=== PATIENT | female | born 1935 | race Caucasian/White ===

== ENCOUNTER 2017-10-05 13:53 | Inpatient (IN) | payer MEDICARE, BC ==
[~2017-10-05] VITALS: Ht 152.4 cm; Wt 53.1 kg
[2017-10-05] MEDS ORDERED: HALOPERIDOL LACT 5 MG/ML VIAL. IM ONE (14:30)
[2017-10-05] MEDS ORDERED: LOSA25TA4 PO (14:44)
[2017-10-05] MEDS ORDERED: GABA-586 PO (14:44)
[2017-10-05] MEDS ORDERED: DOCU100C28 PO (14:44)
[2017-10-05] MEDS ORDERED: MELO15TA23 PO (14:44)
[2017-10-05] MEDS ORDERED: CALC-157 PO (14:44)
[2017-10-05] MEDS ORDERED: ASPI-612 PO (14:44)
[2017-10-05] MEDS ORDERED: LOPE2CAP88 PO (14:44)
[2017-10-05] MEDS ORDERED: MULT1TAB52 PO (14:44)
[2017-10-05] MEDS ORDERED: AMLO10TA2 PO (14:44)
[2017-10-05] MEDS ORDERED: FLUT16SP21 NS (14:44)
[2017-10-05] MEDS ORDERED: OMEP20CA9 PO (14:44)
[2017-10-05] MEDS ORDERED: OMEG-33 PO (14:44)
[2017-10-05] MEDS ORDERED: SIMV20TA3 PO (14:44)
[2017-10-05] MEDS ORDERED: DONE10TA7 PO (14:44)
[2017-10-05] MEDS ORDERED: ONDA4TAB10 PO (14:44)
[2017-10-05] MEDS ORDERED: CYAN10005 PO (14:44)
[2017-10-05] MEDS ORDERED: FENO160T PO (14:44)
[2017-10-05] MEDS ORDERED: LORA0.5T PO ×2 (14:44)
[2017-10-05] MEDS ORDERED: CITA40TA5 PO (14:44)
--- NOTE | 2017-10-05 14:44 | ED.ADGEN ---
Adult General Chief Complaint Chief Complaint Medical clearance for psychiatric admission HPI HPI Patient is a 82 year-old intermediate patient who presents with behavioral disturbance with aggressive behavior towards fellow residents and staff. Patient presents for medical clearance for psychiatric admission. History is limited based upon the patient's presentation. No reported injuries, falls, illnesses or other complaints.[] Review of Systems Review of Systems View symptoms as prescribed. All other systems were reviewed and found to be within normal limits, except as documented in this note. Current Medications Current Medications Current Medications Medications (Trade) Dose Ordered Sig/Vianney Start Time Stop Time Status Last Admin Dose Admin Haloperidol Lactate (Haldol) 5 mg 1X ONCE 10/05/17 14:30 10/05/17 14:31 DC 10/05/17 14:30 5 MG Lorazepam (Ativan) 2 mg 1X ONCE 10/05/17 16:25 10/05/17 16:26 DC 10/05/17 16:24 2 MG Allergies Allergies Allergies Coded Allergies Type Severity Reaction Last Updated Verified buspirone Allergy Intermediate nausea 10/05/17 Yes Physical Exam Physical Exam Constitutional: Well developed, well nourished, uncooperative, aggressive towards staff members.. [] HENT: Normocephalic, atraumatic, bilateral external ears normal, oropharynx moist, no oral exudates, nose normal. [] Eyes: PERRLA, EOMI, conjunctiva normal, no discharge. [] Neck: Normal range of motion, no tenderness, supple, no stridor. [] Cardiovascular:Heart rate regular rhythm, no murmur [] Lungs & Thorax: Bilateral breath sounds clear to auscultation [] Abdomen: Bowel sounds normal, soft, no tenderness, no masses, no pulsatile masses. [] Skin: Warm, dry, no erythema, no rash. [] Back: No tenderness, no CVA tenderness. [] Neurologic: Alert and oriented, normal motor function, normal sensory function, no focal deficits noted. [] Psychologic: Affect aggressive behavior. Verbally and physically hostile to staff Current Patient Data Vital Signs Vital Signs Date Time Temp Pulse Resp B/P (MAP) Pulse Ox O2 Delivery O2 Flow Rate FiO2 10/05/17 13:55 98.1 89 20 99 Room Air Lab Results Laboratory Tests Test 10/05/17 14:40 10/05/17 14:46 10/05/17 14:53 White Blood Count 15.7 x10^3/uL (4.0-11.0) H Red Blood Count 3.86 x10^6/uL (3.50-5.40) Hemoglobin 11.5 g/dL (12.0-15.5) L Hematocrit 34.0 % (36.0-47.0) L Mean Corpuscular Volume 88 fL (79-100) Mean Corpuscular Hemoglobin 30 pg (25-35) Mean Corpuscular Hemoglobin Concent 34 g/dL (31-37) Red Cell Distribution Width 12.8 % (11.5-14.5) Platelet Count 340 x10^3/uL (140-400) Neutrophils (%) (Auto) 82 % (31-73) H Lymphocytes (%) (Auto) 12 % (24-48) L Monocytes (%) (Auto) 5 % (0-9) Eosinophils (%) (Auto) 0 % (0-3) Basophils (%) (Auto) 0 % (0-3) Neutrophils # (Auto) 12.9 x10^3uL (1.8-7.7) H Lymphocytes # (Auto) 1.8 x10^3/uL (1.0-4.8) Monocytes # (Auto) 0.8 x10^3/uL (0.0-1.1) Eosinophils # (Auto) 0.0 x10^3/uL (0.0-0.7) Basophils # (Auto) 0.0 x10^3/uL (0.0-0.2) Segmented Neutrophils % 86 % (35-66) H Lymphocytes % 10 % (24-48) L Monocytes % 3 % (0-10) Eosinophils % 1 % (0-5) Platelet Estimate Adequate (ADEQUATE) Sodium Level 143 mmol/L (136-145) Potassium Level 3.8 mmol/L (3.5-5.1) Chloride Level 104 mmol/L (98-107) Carbon Dioxide Level 23 mmol/L (21-32) Anion Gap 16 (6-14) H Blood Urea Nitrogen 26 mg/dL (7-20) H Creatinine 1.7 mg/dL (0.6-1.0) H Estimated GFR (Cockcroft-Gault) 28.6 Glucose Level 107 mg/dL (70-99) H Calcium Level 8.2 mg/dL (8.5-10.1) L Magnesium Level 0.7 mg/dL (1.8-2.4) L Hemoglobin A1c 5.0 % (4.8-5.6) Iron Level 36 ug/dL (50-170) L Total Iron Binding Capacity 389 ug/dL (250-450) Iron Saturation 9 % (15-34) L Triglycerides Level 100 mg/dL (0-150) Cholesterol Level 135 mg/dL (0-200) LDL Cholesterol, Calculated 62 mg/dL (0-100) VLDL Cholesterol, Calculated 20 mg/dL (0-40) Non-HDL Cholesterol Calculated 82 mg/dL (0-129) HDL Cholesterol 53 mg/dL (40-60) Cholesterol/HDL Ratio 2.0 Vitamin B12 Level 1472 pg/mL (247-911) H 25-Hydroxy Vitamin D Total 53.2 ng/mL (30-100) Thyroid Stimulating Hormone (TSH) 1.148 uIU/mL (0.358-3.740) Thyroxine (T4) 10.4 ug/dL (4.5-12.0) Total Triiodothyronine (TT3) 109 ng/dL (71-180) Rapid Plasma Reagin Non reactive (Non Reactive) Urine Collection Type U cath Urine Color Straw Urine Clarity Clear Urine pH 5.0 Urine Specific [place] 1.020 Urine Protein 30 mg/dl (NEG-TRACE) Urine Glucose (UA) Neg mg/dL (NEG) Urine Ketones (Stick) 15 mg/dL (NEG) Urine Blood Neg (NEG) Urine Nitrite Neg (NEG) Urine Bilirubin Neg (NEG) Urine Urobilinogen Dipstick 0.2 mg/dL (0.2 mg/dL) Urine Leukocyte Esterase Neg (NEG) Urine RBC 3-5 /HPF (0-2) Urine WBC 5-10 /HPF (0-4) Urine Squamous Epithelial Cells Few /LPF Urine Bacteria 0 /HPF (0-FEW) Urine Hyaline Casts Mod /HPF Urine Mucus Mod /LPF Microbiology 10/05/17 Urine Culture - Final, Complete 10/05/17 Urine Culture Result 1 ([facility]) - Final, Complete EKG EKG [] Radiology/Procedures Radiology/Procedures [] Course & Med Decision Making Course & Med Decision Making Pertinent Labs and Imaging studies reviewed. (See chart for details) [Medical clearance for psychiatric hold. Patient given Ativan and Haldol to facilitate cooperation. Turn for elevation of white blood cell count. Case discussed with Dr. Ybarra who will consult.] Final Impression Final Impression [1. Encounter for medical clearance. 2. leukocytosis] Problems: Dragyobany Disclaimer Rosa M Disclaimer This electronic medical record was generated, in whole or in part, using a voice recognition dictation system. MIRTHA MUÑOZ DO Oct 05, 2017 14:44
[2017-10-05 14:54] LABS: BASO % 0 % (0-3); EOS % 0 % (0-3); HEMOGLOBIN 11.5 g/dL (12.0-15.5); LYMPH # 1.8 x10^3/uL (1.0-4.8); LYMPH % 12 % (24-48); MEAN CORPUSCULAR HEMOGLOBIN 30 pg (25-35); MEAN CORPUSCULAR HGB CONC 34 g/dL (31-37); MEAN CORPUSCULAR VOLUME 88 fL (79-100); MONO # 0.8 x10^3/uL (0.0-1.1); MONO % 5 % (0-9); NEUT # 12.9 x10^3uL (1.8-7.7); NEUT % 82 % (31-73); PLATELET COUNT 340 x10^3/uL (140-400); RED BLOOD COUNT 3.86 x10^6/uL (3.50-5.40); RED CELL DISTRIBUTION WIDTH 12.8 % (11.5-14.5); WHITE BLOOD COUNT 15.7 x10^3/uL (4.0-11.0)
[2017-10-05 15:01] LABS: CALCIUM 8.2 mg/dL (8.5-10.1); CREATININE 1.7 mg/dL (0.6-1.0); GFR 28.6; POTASSIUM 3.8 mmol/L (3.5-5.1)
[2017-10-05 15:36] LABS: BACTERIA,URINE 0 /HPF (0-FEW); BILIRUBIN,URINE NEG (NEG); CLARITY,URINE CLEAR; COLOR,URINE STRAW; GLUCOSE,URINE NEG (NEG); NITRITE,URINE NEG (NEG); UROBILINOGEN,URINE 0.2 mg/dL (0.2 mg/dL)
[2017-10-05 15:37] LABS: HYALINE CASTS, URINE MOD /HPF; SQUAMOUS EPITHELIAL CELL,UR FEW /LPF
[2017-10-05] MEDS ORDERED: LORazepam 2 MG/ML VIAL IM ONE (16:25)
[2017-10-05 17:28] VITALS: BP 103/77
[2017-10-05] MEDS ORDERED: LORazepam 0.5 MG TABLET PO PRN (18:15)
[2017-10-05] MEDS ORDERED: MAGNESIUM HYDROXIDE 2,400 MG/30 ML ORAL.SUSP. PO PRN (18:30)
[2017-10-05] MEDS ORDERED: METHYL SALICYLATE/MENTHOL TOPICAL OINTMENT 29GM TUBE. TP PRN (18:30)
[2017-10-05] MEDS ORDERED: MAG HYDROX/AL HYDROX/SIMETH 30 ML ORAL.SUSP PO PRN (18:30)
[2017-10-05] MEDS ORDERED: ONDANSETRON ODT 4 MG TAB.RAPDIS PO PRN ×2 (18:45→21:00)
[2017-10-05] MEDS ORDERED: MAGNESIUM SULFATE 2GM 50 ML IV ONE ×2 (20:00→22:00)
--- NOTE | 2017-10-05 20:12 | PDOC ---
Exam Note: Torres Note: Please also refer to the separate dictated note~for this date of service dictated separately.~Patient seen individually. Discussed the patient with Nursing staff reviewed the chart.~Reviewed interim history and current functioning. Reviewed vital signs,~Labs/ Radiology~and current medications noted below. Continue current treatment with the changes noted in the dictated addendum note Assessment: Vital Signs: Vital Signs Date Time Temp Pulse Resp B/P (MAP) Pulse Ox O2 Delivery O2 Flow Rate FiO2 10/05/17 17:28 98.0 86 18 103/77 (86) 98 10/05/17 13:55 Room Air Labs: Laboratory Tests Test 10/05/17 14:40 10/05/17 14:53 10/05/17 19:29 White Blood Count 15.7 x10^3/uL (4.0-11.0) H Red Blood Count 3.86 x10^6/uL (3.50-5.40) Hemoglobin 11.5 g/dL (12.0-15.5) L Hematocrit 34.0 % (36.0-47.0) L Mean Corpuscular Volume 88 fL (79-100) Mean Corpuscular Hemoglobin 30 pg (25-35) Mean Corpuscular Hemoglobin Concent 34 g/dL (31-37) Red Cell Distribution Width 12.8 % (11.5-14.5) Platelet Count 340 x10^3/uL (140-400) Neutrophils (%) (Auto) 82 % (31-73) H Lymphocytes (%) (Auto) 12 % (24-48) L Monocytes (%) (Auto) 5 % (0-9) Eosinophils (%) (Auto) 0 % (0-3) Basophils (%) (Auto) 0 % (0-3) Neutrophils # (Auto) 12.9 x10^3uL (1.8-7.7) H Lymphocytes # (Auto) 1.8 x10^3/uL (1.0-4.8) Monocytes # (Auto) 0.8 x10^3/uL (0.0-1.1) Eosinophils # (Auto) 0.0 x10^3/uL (0.0-0.7) Basophils # (Auto) 0.0 x10^3/uL (0.0-0.2) Platelet Estimate Pending Sodium Level 143 mmol/L (136-145) Potassium Level 3.8 mmol/L (3.5-5.1) Chloride Level 104 mmol/L (98-107) Carbon Dioxide Level 23 mmol/L (21-32) Anion Gap 16 (6-14) H Blood Urea Nitrogen 26 mg/dL (7-20) H Creatinine 1.7 mg/dL (0.6-1.0) H Estimated GFR (Cockcroft-Gault) 28.6 Glucose Level 107 mg/dL (70-99) H Calcium Level 8.2 mg/dL (8.5-10.1) L Magnesium Level 0.7 mg/dL (1.8-2.4) L Urine Collection Type U cath Urine Color Straw Urine Clarity Clear Urine pH 5.0 Urine Specific [place] 1.020 Urine Protein 30 mg/dl (NEG-TRACE) Urine Glucose (UA) Neg mg/dL (NEG) Urine Ketones (Stick) 15 mg/dL (NEG) Urine Blood Neg (NEG) Urine Nitrite Neg (NEG) Urine Bilirubin Neg (NEG) Urine Urobilinogen Dipstick 0.2 mg/dL (0.2 mg/dL) Urine Leukocyte Esterase Neg (NEG) Urine RBC 3-5 /HPF (0-2) Urine WBC 5-10 /HPF (0-4) Urine Squamous Epithelial Cells Few /LPF Urine Bacteria 0 /HPF (0-FEW) Urine Hyaline Casts Mod /HPF Urine Mucus Mod /LPF Glucose (Fingerstick) 136 mg/dL (70-99) H Current Medications: Meds: Current Medications Haloperidol Lactate (Haldol) 5 mg 1X ONCE IM Last administered on 10/05/17 14:30; Start 10/05/17 at 14:30; Stop 10/05/17 at 14:31; Status DC Lorazepam (Ativan) 2 mg 1X ONCE IM Last administered on 10/05/17 16:24; Start 10/05/17 at 16:25; Stop 10/05/17 at 16:26; Status DC Donepezil HCl (Aricept) 10 mg QHS PO ; Start 10/05/17 at 21:00 Lorazepam (Ativan) 0.5 mg BID@1400,2000 PO ; Start 10/05/17 at 20:00 Lorazepam (Ativan) 0.5 mg PRN DAILY PRN PO ANXIETY / AGITATION; Start at 18:15 Citalopram Hydrobromide (CeleXA) 60 mg DAILY PO ; Start 10/06/17 at 09:00 Acetaminophen (Tylenol) 650 mg PRN Q6HRS PRN PO PAIN / TEMP; Start 10/05/17 at 18:30 Multi-Ingredient Ointment (Analgesic [place]) 1 sadaf PRN QID PRN TP MUSCLE PAIN; Start 10/05/17 at 18:30 Al Hydroxide/Mg Hydroxide (Mylanta Plus Xs) 15 ml PRN AFTMEALHC PRN PO DYSPEPSIA; Start 10/05/17 at 18:30 Magnesium Hydroxide (Milk Of Magnesia) 2,400 mg PRN QHS PRN PO CONSTIPATION; Start 10/05/17 at 18:30 Aspirin (Aspirin Enteric Coated) 81 mg DAILY PO ; Start 10/06/17 at 09:00 Calcium/Vitamin D (Oscal D 500mg/ 200uts) 2 tab DAILYWLUN PO ; Start 10/06/17 at 12:00 Cyanocobalamin (Vitamin B-12) 1,000 mcg DAILY PO ; Start 10/06/17 at 09:00 Docusate Sodium (Colace) 100 mg DAILY PO ; Start 10/06/17 at 09:00 Fluticasone Propionate (Flonase) 1 spray DAILY NS ; Start 10/06/17 at 09:00 Gabapentin (Neurontin) 300 mg DAILY PO ; Start 10/06/17 at 09:00 Losartan Potassium (Cozaar) 25 mg DAILY PO ; Start 10/06/17 at 09:00 Ondansetron HCl (Zofran Odt) 4 mg PRN Q4HRS PRN PO NAUSEA; Start 10/05/17 at 18:45 Simvastatin (Zocor) 20 mg HS PO ; Start 10/05/17 at 21:00 Fenofibrate (Tricor) 145 mg DAILY PO ; Start 10/06/17 at 09:00 Multivitamins/ Calcium (Thera-M Plus) 1 tab DAILY PO ; Start 10/06/17 at 09:00 Fish Oil (Fish Oil) 1,000 mg BID PO ; Start 10/05/17 at 21:00 Pantoprazole Sodium (Protonix) 40 mg DAILYAC PO ; Start 10/06/17 at 07:30 Magnesium Sulfate 50 ml @ 25 mls/hr 1X ONCE IV ; Start 10/05/17 at 20:00; Stop 10/05/17 at 21:59 Magnesium Sulfate 50 ml @ 25 mls/hr 1X ONCE IV ; Start 10/05/17 at 22:00; Stop 10/05/17 at 23:59 Active Scripts Active Reported Imodium A-D (Loperamide HCl) 2 Mg Capsule 2 Mg PO AFTER LOOSE STOOL MDD 12mg Zofran Odt (Ondansetron) 4 Mg Tab.rapdis 4 Mg PO PRN Q4HRS PRN Lorazepam 0.5 Mg Tablet 0.5 Mg PO PRN DAILY PRN Lorazepam 0.5 Mg Tablet 0.5 Mg PO BID@1400,2000 Docusate Sodium 100 Mg Capsule 100 Mg PO DAILY Vitamin B-12 (Cyanocobalamin (Vitamin B-12)) 1,000 Mcg Tablet 1,000 Mcg PO DAILY Simvastatin 20 Mg Tablet 20 Mg PO HS Omeprazole 20 Mg Capsule.dr 20 Mg PO DAILY [place] 3 1,000 Mg Softgel ([place]-3 Fatty Acids/Fish Oil) 1 Each Capsule 1 Each PO BID Multivitamins (Multivitamin) 1 Each Tablet 1 Each PO DAILY Meloxicam 15 Mg Tablet 15 Mg PO DAILY Losartan Potassium 25 Mg Tablet 25 Mg PO DAILY Gabapentin 300 Mg Capsule 300 Mg PO DAILY Fluticasone Propionate Nasal [place] (Fluticasone Propionate) 16 Gm [place].susp 1 [place] NS DAILY Fenofibrate 160 Mg Tablet 160 Mg PO DAILY Donepezil Hcl 10 Mg Tablet 10 Mg PO QHS Citalopram Hbr (Citalopram Hydrobromide) 40 Mg Tablet 60 Mg PO DAILY Calcium 500 + Vit D 200 Tablet (Calcium Carbonate/Vitamin D3) 1 Each Tablet 2 Each PO DAILYWLUN Aspirin Ec (Aspirin) 81 Mg Tablet.dr 81 Mg PO DAILY Amlodipine Besylate 10 Mg Tablet 10 Mg PO DAILY I have reviewed the current psychotropics carefully including drug interactions. Risk benefit ratio favors no change other than as noted in my dictated progress note. 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
[2017-10-05] MEDS: DONEPEZIL HCL 10 MG TABLET PO SCH (21:00)
[2017-10-05] MEDS: SIMVASTATIN 20 MG TABLET PO SCH (21:00)
[2017-10-05] MEDS: OMEGA-3 FATTY ACIDS/FISH OIL 1,000 MG CAPSULE. PO SCH (21:00)
[2017-10-05] MEDS: LORazepam 0.5 MG TABLET PO SCH (21:19)
[2017-10-05 21:24] LABS: % EOS 1 % (0-5); % LYMPHS 10 % (24-48); % MONOS 3 % (0-10); % SEGS 86 % (35-66)
[2017-10-05 21:34] LABS: PLT ESTIMATE ADEQUATE (ADEQUATE)
[2017-10-05] MEDS: MAGNESIUM OXIDE 400 MG TABLET PO SCH (21:50)
[2017-10-06] MEDS: ACETAMINOPHEN 325 MG TABLET PO PRN ×3 (01:20→22:47)
[2017-10-06] MEDS ORDERED: MAGNESIUM OXIDE 400 MG TABLET PO ONE (02:30)
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
[2017-10-06 05:57] VITALS: BP 147/65
[2017-10-06 06:51] LABS: BASO # 0.1 x10^3/uL (0.0-0.2); BASO % 0 % (0-3); EOS % 0 % (0-3); HEMATOCRIT 34.3 % (36.0-47.0); HEMOGLOBIN 11.5 g/dL (12.0-15.5); LYMPH # 1.7 x10^3/uL (1.0-4.8); LYMPH % 7 % (24-48); MEAN CORPUSCULAR HEMOGLOBIN 29 pg (25-35); MEAN CORPUSCULAR HGB CONC 34 g/dL (31-37); MEAN CORPUSCULAR VOLUME 87 fL (79-100); MONO % 4 % (0-9); NEUT # 20.9 x10^3uL (1.8-7.7); NEUT % 88 % (31-73); PLATELET COUNT 335 x10^3/uL (140-400); RED BLOOD COUNT 3.93 x10^6/uL (3.50-5.40); RED CELL DISTRIBUTION WIDTH 12.7 % (11.5-14.5); WHITE BLOOD COUNT 23.7 x10^3/uL (4.0-11.0)
[2017-10-06 07:05] LABS: ALBUMIN 3.1 g/dL (3.4-5.0); ALBUMIN/GLOBULIN RATIO 0.9 (1.0-1.7); CALCIUM 8.2 mg/dL (8.5-10.1); CREATININE 1.3 mg/dL (0.6-1.0); POTASSIUM 3.2 mmol/L (3.5-5.1); TOTAL BILIRUBIN 0.5 mg/dL (0.2-1.0); TOTAL PROTEIN 6.4 g/dL (6.4-8.2)
[2017-10-06] MEDS ORDERED: CITALOPRAM 20 MG TABLET. PO SCH (09:00)
[2017-10-06 10:48] LABS: THYROID STIM HORMONE (TSH) 1.148 uIU/mL (0.358-3.740)
[2017-10-06] MEDS ORDERED: IV NORMAL SALINE 1,000ML 1,000 ML IV ONE (11:00)
[2017-10-06] MEDS: MAGNESIUM OXIDE 400 MG TABLET PO SCH ×3 (11:22→19:46)
[2017-10-06] MEDS ORDERED: FOSFOMYCIN TROMETHAMINE 3 GM PACKET PO ONE (11:45)
[2017-10-06] MEDS: FLUTICASONE 50MCG/NASAL SPRAY 16GM BOTTLE. NS SCH (11:46)
[2017-10-06] MEDS: PANTOPRAZOLE 40 MG TABLET. PO SCH (11:46)
[2017-10-06] MEDS: LOSARTAN 25 MG TABLET. PO SCH (11:47)
[2017-10-06] MEDS: GABAPENTIN 300 MG CAPSULE. PO SCH (11:47)
[2017-10-06] MEDS: ASPIRIN ENTERIC COATED 81 MG TABLET.DR. PO SCH (11:47)
[2017-10-06] MEDS: OMEGA-3 FATTY ACIDS/FISH OIL 1,000 MG CAPSULE. PO SCH ×2 (11:47→19:45)
[2017-10-06] MEDS: MULTIVITAMIN with MINERAL TABLET. PO SCH (11:47)
[2017-10-06] MEDS: DOCUSATE SODIUM 100 MG CAPSULE PO SCH (11:47)
[2017-10-06] MEDS: CYANOCOBALAMIN (VITAMIN B-12) 1,000 MCG TABLET. PO SCH (11:48)
[2017-10-06] MEDS: CALCIUM CARB/VIT D3 500/200 TABLET PO SCH (11:48)
[2017-10-06] MEDS: SERTRALINE 25 MG TABLET. PO SCH (11:48)
[2017-10-06] MEDS: FENOFIBRATE NANOCRYSTALLIZED 145 MG TABLET PO SCH (11:48)
[2017-10-06] MEDS: POTASSIUM CHLORIDE 10 MEQ TABLET.ER. PO SCH (12:14)
[2017-10-06] MEDS: LORazepam 0.5 MG TABLET PO SCH ×2 (14:00→19:45)
[2017-10-06 15:06] LABS: T3 TOTAL 109 ng/dL (71-180); THYROXINE 10.4 ug/dL (4.5-12.0)
[2017-10-06 15:56] VITALS: BP 165/64
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
[2017-10-06] MEDS: SIMVASTATIN 20 MG TABLET PO SCH (19:46)
[2017-10-06] MEDS: DONEPEZIL HCL 10 MG TABLET PO SCH (19:46)
--- NOTE | 2017-10-06 19:53 | PDOC ---
Exam Note: Torres Note: Please also refer to the separate dictated note~for this date of service dictated separately.~Patient seen individually. Discussed the patient with Nursing staff reviewed the chart.~Reviewed interim history and current functioning. Reviewed vital signs,~Labs/ Radiology~and current medications noted below. Continue current treatment with the changes noted in the dictated addendum note Assessment: Vital Signs: Vital Signs Date Time Temp Pulse Resp B/P (MAP) Pulse Ox O2 Delivery O2 Flow Rate FiO2 10/06/17 15:56 98.8 85 18 165/64 (97) 100 10/06/17 05:57 Room Air I&O Intake and Output 10/06/17 07:00 Output Total 50 ml Balance -50 ml Output Emesis 50 ml Labs: Laboratory Tests Test 10/06/17 06:42 10/06/17 11:24 10/06/17 12:30 10/06/17 14:35 White Blood Count 23.7 x10^3/uL (4.0-11.0) #H Red Blood Count 3.93 x10^6/uL (3.50-5.40) Hemoglobin 11.5 g/dL (12.0-15.5) L Hematocrit 34.3 % (36.0-47.0) L Mean Corpuscular Volume 87 fL (79-100) Mean Corpuscular Hemoglobin 29 pg (25-35) Mean Corpuscular Hemoglobin Concent 34 g/dL (31-37) Red Cell Distribution Width 12.7 % (11.5-14.5) Platelet Count 335 x10^3/uL (140-400) Neutrophils (%) (Auto) 88 % (31-73) H Lymphocytes (%) (Auto) 7 % (24-48) L Monocytes (%) (Auto) 4 % (0-9) Eosinophils (%) (Auto) 0 % (0-3) Basophils (%) (Auto) 0 % (0-3) Neutrophils # (Auto) 20.9 x10^3uL (1.8-7.7) H Lymphocytes # (Auto) 1.7 x10^3/uL (1.0-4.8) Monocytes # (Auto) 1.0 x10^3/uL (0.0-1.1) Eosinophils # (Auto) 0.0 x10^3/uL (0.0-0.7) Basophils # (Auto) 0.1 x10^3/uL (0.0-0.2) Sodium Level 144 mmol/L (136-145) Potassium Level 3.2 mmol/L (3.5-5.1) L Chloride Level 105 mmol/L (98-107) Carbon Dioxide Level 26 mmol/L (21-32) Anion Gap 13 (6-14) Blood Urea Nitrogen 23 mg/dL (7-20) H Creatinine 1.3 mg/dL (0.6-1.0) H Estimated GFR (Cockcroft-Gault) 39.0 BUN/Creatinine Ratio 18 (6-20) Glucose Level 113 mg/dL (70-99) H Calcium Level 8.2 mg/dL (8.5-10.1) L Magnesium Level 1.2 mg/dL (1.8-2.4) L Total Bilirubin 0.5 mg/dL (0.2-1.0) Aspartate Amino Transferase (AST) 41 U/L (15-37) H Alanine Aminotransferase (ALT) 28 U/L (14-59) Alkaline Phosphatase 50 U/L (46-116) Total Protein 6.4 g/dL (6.4-8.2) Albumin 3.1 g/dL (3.4-5.0) L Albumin/Globulin Ratio 0.9 (1.0-1.7) L Glucose (Fingerstick) 105 mg/dL (70-99) H 108 mg/dL (70-99) H Clostridium difficile Toxin (PCR) Negative (Negative) Test 10/06/17 16:02 10/06/17 19:04 Glucose (Fingerstick) 96 mg/dL (70-99) 161 mg/dL (70-99) H Current Medications: Meds: Current Medications Haloperidol Lactate (Haldol) 5 mg 1X ONCE IM Last administered on 10/05/17 14:30; Start 10/05/17 at 14:30; Stop 10/05/17 at 14:31; Status DC Lorazepam (Ativan) 2 mg 1X ONCE IM Last administered on 10/05/17 16:24; Start 10/05/17 at 16:25; Stop 10/05/17 at 16:26; Status DC Donepezil HCl (Aricept) 10 mg QHS PO Last administered on 10/06/17at 19:46; Start 10/05/17 at 21:00 Lorazepam (Ativan) 0.5 mg BID@1400,2000 PO Last administered on 10/05/17t 21: 19; Start 10/05/17 at 20:00 Lorazepam (Ativan) 0.5 mg PRN DAILY PRN PO ANXIETY / AGITATION; Start at 18:15 Citalopram Hydrobromide (CeleXA) 60 mg DAILY PO ; Start 10/06/17 at 09:00; Stop 10/06/17 at 09:00; Status DC Acetaminophen (Tylenol) 650 mg PRN Q6HRS PRN PO PAIN / TEMP Last administered on 10/06/17at 11:41; Start 10/05/17 at 18:30 Multi-Ingredient Ointment (Analgesic [place]) 1 sadaf PRN QID PRN TP MUSCLE PAIN; Start 10/05/17 at 18:30 Al Hydroxide/Mg Hydroxide (Mylanta Plus Xs) 15 ml PRN AFTMEALHC PRN PO DYSPEPSIA; Start 10/05/17 at 18:30 Magnesium Hydroxide (Milk Of Magnesia) 2,400 mg PRN QHS PRN PO CONSTIPATION; Start 10/05/17 at 18:30 Aspirin (Aspirin Enteric Coated) 81 mg DAILY PO ; Start 10/06/17 at 09:00 Calcium/Vitamin D (Oscal D 500mg/ 200uts) 2 tab DAILYWLUN PO ; Start 10/06/17 at 12:00 Cyanocobalamin (Vitamin B-12) 1,000 mcg DAILY PO ; Start 10/06/17 at 09:00 Docusate Sodium (Colace) 100 mg DAILY PO ; Start 10/06/17 at 09:00 Fluticasone Propionate (Flonase) 1 spray DAILY NS ; Start 10/06/17 at 09:00 Gabapentin (Neurontin) 300 mg DAILY PO ; Start 10/06/17 at 09:00 Losartan Potassium (Cozaar) 25 mg DAILY PO ; Start 10/06/17 at 09:00 Ondansetron HCl (Zofran Odt) 4 mg PRN Q4HRS PRN PO NAUSEA Last administered on 10/06/17at 01:20; Start 10/05/17 at 18:45 Simvastatin (Zocor) 20 mg HS PO Last administered on 10/06/17at 19:46; Start at 21:00 Fenofibrate (Tricor) 145 mg DAILY PO ; Start 10/06/17 at 09:00 Multivitamins/ Calcium (Thera-M Plus) 1 tab DAILY PO ; Start 10/06/17 at 09:00 Fish Oil (Fish Oil) 1,000 mg BID PO Last administered on 10/06/17at 19:45; Start 10/05/17 at 21:00 Pantoprazole Sodium (Protonix) 40 mg DAILYAC PO ; Start 10/06/17 at 07:30 Magnesium Sulfate 50 ml @ 25 mls/hr 1X ONCE IV ; Start 10/05/17 at 20:00; Stop 10/05/17 at 21:03; Status DC Magnesium Sulfate 50 ml @ 25 mls/hr 1X ONCE IV ; Start 10/05/17 at 22:00; Stop 10/05/17 at 22:00; Status DC Sertraline HCl (Zoloft) 25 mg DAILY PO ; Start 10/06/17 at 09:00 Ondansetron HCl (Zofran Odt) 4 mg PRN TID PRN PO NAUSEA/VOMITING; Start at 21:00 Magnesium Oxide (Magnesium Oxide) 400 mg TID PO Last administered on 10/06/17at 19:46; Start 10/05/17 at 21:30 Magnesium Oxide (Magnesium Oxide) 400 mg 1X ONCE PO Last administered on at 02:30; Start 10/06/17 at 02:30; Stop 10/06/17 at 02:32; Status DC Sodium Chloride 1,000 ml @ 1,000 mls/hr 1X ONCE IV Last administered on at 11:30; Start 10/06/17 at 11:00; Stop 10/06/17 at 11:59; Status DC Fosfomycin Tromethamine (Monurol) 3 gm 1X ONCE PO Last administered on at 12:14; Start 10/06/17 at 11:45; Stop 10/06/17 at 12:01; Status DC Potassium Chloride (Klor-Con) 10 meq DAILYWBKFT PO Last administered on at 12:14; Start 10/06/17 at 12:00 Active Scripts Active Reported Imodium A-D (Loperamide HCl) 2 Mg Capsule 2 Mg PO AFTER LOOSE STOOL MDD 12mg Zofran Odt (Ondansetron) 4 Mg Tab.rapdis 4 Mg PO PRN Q4HRS PRN Lorazepam 0.5 Mg Tablet 0.5 Mg PO PRN DAILY PRN Lorazepam 0.5 Mg Tablet 0.5 Mg PO BID@1400,2000 Docusate Sodium 100 Mg Capsule 100 Mg PO DAILY Vitamin B-12 (Cyanocobalamin (Vitamin B-12)) 1,000 Mcg Tablet 1,000 Mcg PO DAILY Simvastatin 20 Mg Tablet 20 Mg PO HS Omeprazole 20 Mg Capsule.dr 20 Mg PO DAILY [place] 3 1,000 Mg Softgel ([place]-3 Fatty Acids/Fish Oil) 1 Each Capsule 1 Each PO BID Multivitamins (Multivitamin) 1 Each Tablet 1 Each PO DAILY Meloxicam 15 Mg Tablet 15 Mg PO DAILY Losartan Potassium 25 Mg Tablet 25 Mg PO DAILY Gabapentin 300 Mg Capsule 300 Mg PO DAILY Fluticasone Propionate Nasal [place] (Fluticasone Propionate) 16 Gm [place].susp 1 [place] NS DAILY Fenofibrate 160 Mg Tablet 160 Mg PO DAILY Donepezil Hcl 10 Mg Tablet 10 Mg PO QHS Citalopram Hbr (Citalopram Hydrobromide) 40 Mg Tablet 60 Mg PO DAILY Calcium 500 + Vit D 200 Tablet (Calcium Carbonate/Vitamin D3) 1 Each Tablet 2 Each PO DAILYWLUN Aspirin Ec (Aspirin) 81 Mg Tablet.dr 81 Mg PO DAILY Amlodipine Besylate 10 Mg Tablet 10 Mg PO DAILY I have reviewed the current psychotropics carefully including drug interactions. Risk benefit ratio favors no change other than as noted in my dictated progress note. Diagnosis: Problems: (1) Anxiety disorder (2) Impulse control disorder (3) Dementia, vascular, with depression (4) Dementia, vascular, with delusions (5) Dementia in Alzheimer's disease with depression (6) Dementia in Alzheimer's disease with delusions NICHOLE DAVIDSON MD Oct 06, 2017 19:53
[2017-10-07 01:30] VITALS: BP 188/71
[2017-10-07] MEDS: ASPIRIN ENTERIC COATED 81 MG TABLET.DR. PO SCH (08:51)
[2017-10-07] MEDS: SERTRALINE 25 MG TABLET. PO SCH (08:51)
[2017-10-07] MEDS: MAGNESIUM OXIDE 400 MG TABLET PO SCH ×3 (08:52→19:48)
[2017-10-07] MEDS: GABAPENTIN 300 MG CAPSULE. PO SCH (08:52)
[2017-10-07] MEDS: PANTOPRAZOLE 40 MG TABLET. PO SCH (08:52)
[2017-10-07] MEDS: FENOFIBRATE NANOCRYSTALLIZED 145 MG TABLET PO SCH (08:52)
[2017-10-07] MEDS: LOSARTAN 25 MG TABLET. PO SCH (08:52)
[2017-10-07] MEDS: CYANOCOBALAMIN (VITAMIN B-12) 1,000 MCG TABLET. PO SCH (08:53)
[2017-10-07] MEDS: OMEGA-3 FATTY ACIDS/FISH OIL 1,000 MG CAPSULE. PO SCH ×2 (08:53→19:48)
[2017-10-07] MEDS: DOCUSATE SODIUM 100 MG CAPSULE PO SCH (08:53)
[2017-10-07] MEDS: MULTIVITAMIN with MINERAL TABLET. PO SCH (08:53)
[2017-10-07] MEDS: POTASSIUM CHLORIDE 10 MEQ TABLET.ER. PO SCH (08:54)
[2017-10-07] MEDS: FLUTICASONE 50MCG/NASAL SPRAY 16GM BOTTLE. NS SCH (08:54)
[2017-10-07] MEDS: CALCIUM CARB/VIT D3 500/200 TABLET PO SCH (12:10)
[2017-10-07 13:16] LABS: BASO % 0 % (0-3); EOS % 0 % (0-3); HEMATOCRIT 32.2 % (36.0-47.0); HEMOGLOBIN 10.9 g/dL (12.0-15.5); LYMPH # 0.9 x10^3/uL (1.0-4.8); LYMPH % 5 % (24-48); MEAN CORPUSCULAR HEMOGLOBIN 30 pg (25-35); MEAN CORPUSCULAR HGB CONC 34 g/dL (31-37); MEAN CORPUSCULAR VOLUME 87 fL (79-100); MONO # 0.6 x10^3/uL (0.0-1.1); MONO % 3 % (0-9); NEUT # 17.6 x10^3uL (1.8-7.7); NEUT % 92 % (31-73); PLATELET COUNT 322 x10^3/uL (140-400); RED CELL DISTRIBUTION WIDTH 12.8 % (11.5-14.5); WHITE BLOOD COUNT 19.2 x10^3/uL (4.0-11.0)
[2017-10-07 13:27] LABS: ALBUMIN 2.9 g/dL (3.4-5.0); ALBUMIN/GLOBULIN RATIO 0.9 (1.0-1.7); CALCIUM 8.1 mg/dL (8.5-10.1); CREATININE 0.9 mg/dL (0.6-1.0); GFR 59.7; MAGNESIUM 1.4 mg/dL (1.8-2.4); POTASSIUM 3.2 mmol/L (3.5-5.1); TOTAL BILIRUBIN 0.4 mg/dL (0.2-1.0); TOTAL PROTEIN 6.1 g/dL (6.4-8.2)
[2017-10-07] MEDS: LORazepam 0.5 MG TABLET PO SCH (13:32)
[2017-10-07 14:26] LABS: % BANDS 3 % (0-9); % LYMPHS 4 % (24-48); % MONOS 3 % (0-10); % SEGS 90 % (35-66); PLATELET CLUMP PRESENT; PLT ESTIMATE ADEQUATE (ADEQUATE)
[2017-10-07 15:45] VITALS: BP 127/94
--- NOTE | 2017-10-07 16:20 | RAD ---
AP chest, 10/07/2017: History: Leukocytosis, low-grade fever The heart size and pulmonary vascularity are normal. There is calcific plaquing of the aorta. There are bilateral calcified granulomata. No acute infiltrates are seen. There is no evidence of pleural fluid. The bony structures are demineralized. IMPRESSION: No acute cardiopulmonary abnormality is detected.
[2017-10-07] MEDS: DONEPEZIL HCL 10 MG TABLET PO SCH (19:48)
[2017-10-07] MEDS: SIMVASTATIN 20 MG TABLET PO SCH (19:48)
[2017-10-07] MEDS: MIRTAZAPINE 7.5 MG TABLET. PO SCH (19:49)
--- NOTE | 2017-10-07 20:03 | PDOC ---
Exam Note: Torres Note: Please also refer to the separate dictated note~for this date of service dictated separately.~Patient seen individually. Discussed the patient with Nursing staff reviewed the chart.~Reviewed interim history and current functioning. Reviewed vital signs,~Labs/ Radiology~and current medications noted below. Continue current treatment with the changes noted in the dictated addendum note Assessment: Vital Signs: Vital Signs Date Time Temp Pulse Resp B/P (MAP) Pulse Ox O2 Delivery O2 Flow Rate FiO2 10/07/17 15:45 98.9 80 19 127/94 (105) 97 10/06/17 05:57 Room Air I&O Intake and Output 10/07/17 07:00 Intake Total 120 ml Output Total 50 ml Balance 70 ml Intake Oral 120 ml Output Emesis 50 ml # Bowel Movements 2 Labs: Laboratory Tests Test 10/07/17 07:21 10/07/17 11:12 10/07/17 13:09 10/07/17 16:13 Glucose (Fingerstick) 106 mg/dL (70-99) H 210 mg/dL (70-99) H 114 mg/dL (70-99) H White Blood Count 19.2 x10^3/uL (4.0-11.0) H Red Blood Count 3.70 x10^6/uL (3.50-5.40) Hemoglobin 10.9 g/dL (12.0-15.5) L Hematocrit 32.2 % (36.0-47.0) L Mean Corpuscular Volume 87 fL (79-100) Mean Corpuscular Hemoglobin 30 pg (25-35) Mean Corpuscular Hemoglobin Concent 34 g/dL (31-37) Red Cell Distribution Width 12.8 % (11.5-14.5) Platelet Count 322 x10^3/uL (140-400) Neutrophils (%) (Auto) 92 % (31-73) H Lymphocytes (%) (Auto) 5 % (24-48) L Monocytes (%) (Auto) 3 % (0-9) Eosinophils (%) (Auto) 0 % (0-3) Basophils (%) (Auto) 0 % (0-3) Neutrophils # (Auto) 17.6 x10^3uL (1.8-7.7) H Lymphocytes # (Auto) 0.9 x10^3/uL (1.0-4.8) L Monocytes # (Auto) 0.6 x10^3/uL (0.0-1.1) Eosinophils # (Auto) 0.0 x10^3/uL (0.0-0.7) Basophils # (Auto) 0.0 x10^3/uL (0.0-0.2) Segmented Neutrophils % 90 % (35-66) H Band Neutrophils % 3 % (0-9) Lymphocytes % 4 % (24-48) L Monocytes % 3 % (0-10) Platelet Estimate Adequate (ADEQUATE) Platelet Clumps, EDTA Present Sodium Level 141 mmol/L (136-145) Potassium Level 3.2 mmol/L (3.5-5.1) L Chloride Level 105 mmol/L (98-107) Carbon Dioxide Level 27 mmol/L (21-32) Anion Gap 9 (6-14) Blood Urea Nitrogen 19 mg/dL (7-20) Creatinine 0.9 mg/dL (0.6-1.0) Estimated GFR (Cockcroft-Gault) 59.7 BUN/Creatinine Ratio 21 (6-20) H Glucose Level 159 mg/dL (70-99) H Calcium Level 8.1 mg/dL (8.5-10.1) L Magnesium Level 1.4 mg/dL (1.8-2.4) L Total Bilirubin 0.4 mg/dL (0.2-1.0) Aspartate Amino Transferase (AST) 33 U/L (15-37) Alanine Aminotransferase (ALT) 27 U/L (14-59) Alkaline Phosphatase 55 U/L (46-116) Total Protein 6.1 g/dL (6.4-8.2) L Albumin 2.9 g/dL (3.4-5.0) L Albumin/Globulin Ratio 0.9 (1.0-1.7) L Test 10/07/17 19:01 Glucose (Fingerstick) 165 mg/dL (70-99) H Current Medications: Meds: Current Medications Haloperidol Lactate (Haldol) 5 mg 1X ONCE IM Last administered on 10/05/17 14:30; Start 10/05/17 at 14:30; Stop 10/05/17 at 14:31; Status DC Lorazepam (Ativan) 2 mg 1X ONCE IM Last administered on 12/31/17at 16:24; Start 10/05/17 at 16:25; Stop 10/05/17 at 16:26; Status DC Donepezil HCl (Aricept) 10 mg QHS PO Last administered on 10/07/17 19:48; Start 10/05/17 at 21:00 Lorazepam (Ativan) 0.5 mg BID@1400,2000 PO Last administered on 10/07/17 13:32 ; Start 10/05/17 at 20:00; Stop 10/07/17 at 18:52; Status DC Lorazepam (Ativan) 0.5 mg PRN DAILY PRN PO ANXIETY / AGITATION; Start at 18:15 Citalopram Hydrobromide (CeleXA) 60 mg DAILY PO ; Start 10/06/17 at 09:00; Stop 10/06/17 at 09:00; Status DC Acetaminophen (Tylenol) 650 mg PRN Q6HRS PRN PO PAIN / TEMP Last administered on 10/06/17at 22:47; Start 10/05/17 at 18:30 Multi-Ingredient Ointment (Analgesic [place]) 1 sadaf PRN QID PRN TP MUSCLE PAIN; Start 10/05/17 at 18:30 Al Hydroxide/Mg Hydroxide (Mylanta Plus Xs) 15 ml PRN AFTMEALHC PRN PO DYSPEPSIA; Start 10/05/17 at 18:30 Magnesium Hydroxide (Milk Of Magnesia) 2,400 mg PRN QHS PRN PO CONSTIPATION; Start 10/05/17 at 18:30 Aspirin (Aspirin Enteric Coated) 81 mg DAILY PO Last administered on 10/07/17at 08:51; Start 10/06/17 at 09:00 Calcium/Vitamin D (Oscal D 500mg/ 200uts) 2 tab DAILYWLUN PO Last administered on 10/07/17 12:10; Start 10/06/17 at 12:00 Cyanocobalamin (Vitamin B-12) 1,000 mcg DAILY PO Last administered on 10/07/17 08:53; Start 10/06/17 at 09:00 Docusate Sodium (Colace) 100 mg DAILY PO Last administered on 10/07/17at 08:53; Start 10/06/17 at 09:00 Fluticasone Propionate (Flonase) 1 spray DAILY NS Last administered on 08:54; Start 10/06/17 at 09:00 Gabapentin (Neurontin) 300 mg DAILY PO Last administered on 10/07/17 08:52; Start 10/06/17 at 09:00 Losartan Potassium (Cozaar) 25 mg DAILY PO Last administered on 10/07/17 08:52 ; Start 10/06/17 at 09:00 Ondansetron HCl (Zofran Odt) 4 mg PRN Q4HRS PRN PO NAUSEA Last administered on 10/06/17 01:20; Start 10/05/17 at 18:45 Simvastatin (Zocor) 20 mg HS PO Last administered on 10/07/17 19:48; Start at 21:00 Fenofibrate (Tricor) 145 mg DAILY PO Last administered on 10/07/17 08:52; Start 10/06/17 at 09:00 Multivitamins/ Calcium (Thera-M Plus) 1 tab DAILY PO Last administered on 08:53; Start 10/06/17 at 09:00 Fish Oil (Fish Oil) 1,000 mg BID PO Last administered on 10/07/17 19:48; Start 10/05/17 at 21:00 Pantoprazole Sodium (Protonix) 40 mg DAILYAC PO Last administered on 10/07/17 08:52; Start 10/06/17 at 07:30 Magnesium Sulfate 50 ml @ 25 mls/hr 1X ONCE IV ; Start 10/05/17 at 20:00; Stop 10/05/17 at 21:03; Status DC Magnesium Sulfate 50 ml @ 25 mls/hr 1X ONCE IV ; Start 10/05/17 at 22:00; Stop 10/05/17 at 22:00; Status DC Sertraline HCl (Zoloft) 25 mg DAILY PO Last administered on 10/07/17 08:51; Start 10/06/17 at 09:00 Ondansetron HCl (Zofran Odt) 4 mg PRN TID PRN PO NAUSEA/VOMITING; Start at 21:00 Magnesium Oxide (Magnesium Oxide) 400 mg TID PO Last administered on 10/07/17 19:48; Start 10/05/17 at 21:30 Magnesium Oxide (Magnesium Oxide) 400 mg 1X ONCE PO Last administered on at 02:30; Start 10/06/17 at 02:30; Stop 10/06/17 at 02:32; Status DC Sodium Chloride 1,000 ml @ 1,000 mls/hr 1X ONCE IV Last administered on at 11:30; Start 10/06/17 at 11:00; Stop 10/06/17 at 11:59; Status DC Fosfomycin Tromethamine (Monurol) 3 gm 1X ONCE PO Last administered on at 12:14; Start 10/06/17 at 11:45; Stop 10/06/17 at 12:01; Status DC Potassium Chloride (Klor-Con) 10 meq DAILYWBKFT PO Last administered on at 08:54; Start 10/06/17 at 12:00 Mirtazapine (Remeron) 7.5 mg QHS PO Last administered on 10/07/17at 19:49; Start 10/07/17 at 21:00 Lorazepam (Ativan) 0.5 mg DAILY@1400 PO ; Start 10/08/17 at 14:00 Active Scripts Active Reported Imodium A-D (Loperamide HCl) 2 Mg Capsule 2 Mg PO AFTER LOOSE STOOL MDD 12mg Zofran Odt (Ondansetron) 4 Mg Tab.rapdis 4 Mg PO PRN Q4HRS PRN Lorazepam 0.5 Mg Tablet 0.5 Mg PO PRN DAILY PRN Lorazepam 0.5 Mg Tablet 0.5 Mg PO BID@1400,2000 Docusate Sodium 100 Mg Capsule 100 Mg PO DAILY Vitamin B-12 (Cyanocobalamin (Vitamin B-12)) 1,000 Mcg Tablet 1,000 Mcg PO DAILY Simvastatin 20 Mg Tablet 20 Mg PO HS Omeprazole 20 Mg Capsule.dr 20 Mg PO DAILY [place] 3 1,000 Mg Softgel ([place]-3 Fatty Acids/Fish Oil) 1 Each Capsule 1 Each PO BID Multivitamins (Multivitamin) 1 Each Tablet 1 Each PO DAILY Meloxicam 15 Mg Tablet 15 Mg PO DAILY Losartan Potassium 25 Mg Tablet 25 Mg PO DAILY Gabapentin 300 Mg Capsule 300 Mg PO DAILY Fluticasone Propionate Nasal [place] (Fluticasone Propionate) 16 Gm [place].susp 1 [place] NS DAILY Fenofibrate 160 Mg Tablet 160 Mg PO DAILY Donepezil Hcl 10 Mg Tablet 10 Mg PO QHS Citalopram Hbr (Citalopram Hydrobromide) 40 Mg Tablet 60 Mg PO DAILY Calcium 500 + Vit D 200 Tablet (Calcium Carbonate/Vitamin D3) 1 Each Tablet 2 Each PO DAILYWLUN Aspirin Ec (Aspirin) 81 Mg Tablet. 81 Mg PO DAILY Amlodipine Besylate 10 Mg Tablet 10 Mg PO DAILY I have reviewed the current psychotropics carefully including drug interactions. Risk benefit ratio favors no change other than as noted in my dictated progress note. Diagnosis: Problems: (1) Anxiety disorder (2) Impulse control disorder (3) Dementia, vascular, with depression (4) Dementia, vascular, with delusions (5) Dementia in Alzheimer's disease with depression (6) Dementia in Alzheimer's disease with delusions NICHOLE DAVIDSON MD Oct 07, 2017 20:03
[2017-10-08 05:32] VITALS: BP 148/61
--- NOTE | 2017-10-08 06:42 | PN ---
DATE: 10/06/2017 This late entry 10/06/2017 covers elements not covered in my initial note of 10/06/2017. SUBJECTIVE: Met with the patient in the evening of 10/06/2017. The patient fixated on pain; back pain, extremity pain, pain "everywhere." She has had vomiting and diarrhea x 2. Stool has been sent for C. diff. WBC is elevated from 15.7 to 23.7. We will defer workup to Dr. Camarena/Dr Ybarra. UA has reflex to culture and she has received 1 dose of Monurol. REVIEW OF SYSTEMS: Ambulation impaired, in wheelchair. No CV, , pulmonary, eye, ENT system symptoms on review. Reliability poor. MENTAL STATUS EXAM: Oriented to herself. Insight, judgment, recent and remote memory, attention, concentration, fund of knowledge poor, consistent with her diagnosis mentioned in my initial note. IMPRESSION: Major neurocognitive disorder, Alzheimer, vascular with depression, delusion, behavioral disturbance. Rest unchanged. PLAN: Continue current psychotropics. Adjust as clinically indicated. MAN Nadja DAVIDSON MD DR: ZIYAD/selena JOB#: [id number] / [id number]
[2017-10-08 08:20] LABS: BACTERIA,URINE 0 /HPF (0-FEW); BILIRUBIN,URINE NEG (NEG); CLARITY,URINE CLEAR; COLOR,URINE YELLOW; GLUCOSE,URINE NEG (NEG); NITRITE,URINE NEG (NEG); RBC,URINE RARE /HPF (0-2); SQUAMOUS EPITHELIAL CELL,UR FEW /LPF; UROBILINOGEN,URINE 0.2 mg/dL (0.2 mg/dL)
[2017-10-08] MEDS: LOSARTAN 25 MG TABLET. PO SCH (08:20)
[2017-10-08] MEDS: POTASSIUM CHLORIDE 10 MEQ TABLET.ER. PO SCH (08:20)
[2017-10-08] MEDS: MAGNESIUM OXIDE 400 MG TABLET PO SCH ×3 (08:20→20:11)
[2017-10-08] MEDS: PANTOPRAZOLE 40 MG TABLET. PO SCH (08:20)
[2017-10-08] MEDS: GABAPENTIN 300 MG CAPSULE. PO SCH (08:21)
[2017-10-08] MEDS: CYANOCOBALAMIN (VITAMIN B-12) 1,000 MCG TABLET. PO SCH (08:21)
[2017-10-08] MEDS: FENOFIBRATE NANOCRYSTALLIZED 145 MG TABLET PO SCH (08:21)
[2017-10-08] MEDS: ASPIRIN ENTERIC COATED 81 MG TABLET.DR. PO SCH (08:21)
[2017-10-08] MEDS: OMEGA-3 FATTY ACIDS/FISH OIL 1,000 MG CAPSULE. PO SCH ×2 (08:21→20:12)
[2017-10-08] MEDS: SERTRALINE 25 MG TABLET. PO SCH (08:21)
[2017-10-08] MEDS: DOCUSATE SODIUM 100 MG CAPSULE PO SCH (08:21)
[2017-10-08] MEDS: MULTIVITAMIN with MINERAL TABLET. PO SCH (08:21)
[2017-10-08] MEDS: FLUTICASONE 50MCG/NASAL SPRAY 16GM BOTTLE. NS SCH (08:24)
--- NOTE | 2017-10-08 10:54 | PN ---
DATE: 10/07/2017 SUBJECTIVE: The patient is an 82-year-old female patient, who was [facility] from the nursing care facility in [place], [place]. She apparently has been combative at the resident twice, yelling picking at her head and putting herself on the floor. She apparently is known to have dementia, anxiety, insomnia, and obsessive compulsive disorder with this picking behavior and hypertension, diabetic neuropathy, left wrist fracture, hyperlipidemia, and low back pain. She was noted by the nursing staff to have a low-grade temperature of 99.2. Her white cell count has been noted to be also rising at 15.7 and 23.7, although her urinalysis was essentially unremarkable. The urine was negative for nitrite and leukocyte esterase. There is only 3-5 RBCs and 5-10 WBCs. PHYSICAL EXAMINATION: GENERAL: When I examined her, she looked pale, no jaundice, cyanosis, or thyromegaly. No jugular venous distension. No limb edema. VITAL SIGNS: Her heart rate was 106, blood pressure was 188/71, temperature was 99.2, respiratory rate was 18, and oxygen saturation was 100% on room air. HEAD, EYES, EARS, NOSE AND THROAT: Showed normocephalic, atraumatic. NECK: Supple. HEART: Showed normal first and second heart sounds with no gallop, rub, or murmur. CHEST: Clear to auscultation. No crepitation or rhonchi. ABDOMEN: Distended, soft, nontender. NEUROLOGIC: She is demented, but without any lateralizing sign. All her cranial nerves are intact. She moves extremities without difficulty, although she is mostly bedbound, chair bound. Her intake and output were incompletely recorded. LABORATORY DATA: Her lab work as of this morning showed that her serum sodium was 144, potassium 3.2, chloride 105, bicarbonate 26, anion gap of 13, BUN 23, creatinine 1.3, estimated GFR was 39 mL per minute. Her glucose was 113, calcium was 8.2. Magnesium was 1.2. Total bilirubin, AST, ALT, alkaline phosphatase were normal. Her total protein was 6.4, albumin 3.1. Her white cell count was 23,700, hemoglobin 11.5, hematocrit 34.3, MCV 87, and platelet count of 335,000 with a manual differential showed 88% neutrophils, 7% lymphocytes, and 4% monocytes. Her urinalysis done about 2 days ago showed the urine was straw colored, clear with the pH of 5, specific gravity of 1.020. There was a trace of protein and ketones, negative for glucose, blood, nitrite and leukocyte esterase. There was only 3-5 RBCs, 5-10 WBCs, and no bacteria. ASSESSMENT: This is an 82-year-old female patient who is complaining of low back pain. She has a low-grade fever and worsening leukocytosis. There is no obvious site of infection. Her urinalysis is unremarkable and there is no obvious skin infection. PLAN: My plan is to repeat all her lab work including urinalysis, WBC, and a CMP as well as chest x-ray. She has also multiple other anomalies in her lab work including severe hypomagnesemia. The magnesium is only 1.2, hypokalemia 3.2 and if obviously she has evidence of infection she probably needs to be admitted to [facility] to correct all these electrolyte anomalies and start her on IV antibiotic if deemed necessary. NEHEMIAH VELASQUEZ MD DR: DUNCAN/selena JOB#: [id number] / [id number]
[2017-10-08] MEDS: CALCIUM CARB/VIT D3 500/200 TABLET PO SCH ×2 (13:00→13:19)
[2017-10-08] MEDS ORDERED: LORazepam 0.5 MG TABLET PO SCH (14:00)
[2017-10-08 16:15] VITALS: BP 157/69
--- NOTE | 2017-10-08 19:58 | PDOC ---
Exam Note: Torres Note: Please also refer to the separate dictated note~for this date of service dictated separately.~Patient seen individually. Discussed the patient with Nursing staff reviewed the chart.~Reviewed interim history and current functioning. Reviewed vital signs,~Labs/ Radiology~and current medications noted below. Continue current treatment with the changes noted in the dictated addendum note Assessment: Vital Signs: Vital Signs Date Time Temp Pulse Resp B/P (MAP) Pulse Ox O2 Delivery O2 Flow Rate FiO2 10/08/17 16:15 97.7 67 16 157/69 (98) 97 10/06/17 05:57 Room Air I&O Intake and Output 10/08/17 07:00 Intake Total 720 ml Balance 720 ml Intake Oral 720 ml Labs: Laboratory Tests Test 10/08/17 07:16 10/08/17 07:40 10/08/17 11:42 10/08/17 16:54 Glucose (Fingerstick) 78 mg/dL (70-99) 83 mg/dL (70-99) 82 mg/dL (70-99) Urine Collection Type Unknown Urine Color Yellow Urine Clarity Clear Urine pH 7.0 Urine Specific [place] 1.015 Urine Protein 30 mg/dl (NEG-TRACE) Urine Glucose (UA) Neg mg/dL (NEG) Urine Ketones (Stick) Neg mg/dL (NEG) Urine Blood Neg (NEG) Urine Nitrite Neg (NEG) Urine Bilirubin Neg (NEG) Urine Urobilinogen Dipstick 0.2 mg/dL (0.2 mg/dL) Urine Leukocyte Esterase Neg (NEG) Urine RBC Rare /HPF (0-2) Urine WBC 1-4 /HPF (0-4) Urine Squamous Epithelial Cells Few /LPF Urine Transitional Epithelial Cells Occ /LPF Urine Bacteria 0 /HPF (0-FEW) Urine Mucus Slight /LPF Test 10/08/17 19:25 Glucose (Fingerstick) 95 mg/dL (70-99) Current Medications: Meds: Current Medications Haloperidol Lactate (Haldol) 5 mg 1X ONCE IM Last administered on 10/05/17 14:30; Start 10/05/17 at 14:30; Stop 10/05/17 at 14:31; Status DC Lorazepam (Ativan) 2 mg 1X ONCE IM Last administered on 10/05/17 16:24; Start 10/05/17 at 16:25; Stop 10/05/17 at 16:26; Status DC Donepezil HCl (Aricept) 10 mg QHS PO Last administered on 10/07/17 19:48; Start 10/05/17 at 21:00 Lorazepam (Ativan) 0.5 mg BID@1400,2000 PO Last administered on 10/07/17 13:32 ; Start 10/05/17 at 20:00; Stop 10/07/17 at 18:52; Status DC Lorazepam (Ativan) 0.5 mg PRN DAILY PRN PO ANXIETY / AGITATION; Start at 18:15 Citalopram Hydrobromide (CeleXA) 60 mg DAILY PO ; Start 10/06/17 at 09:00; Stop 10/06/17 at 09:00; Status DC Acetaminophen (Tylenol) 650 mg PRN Q6HRS PRN PO PAIN / TEMP Last administered on 10/06/17at 22:47; Start 10/05/17 at 18:30 Multi-Ingredient Ointment (Analgesic [place]) 1 sadaf PRN QID PRN TP MUSCLE PAIN; Start 10/05/17 at 18:30 Al Hydroxide/Mg Hydroxide (Mylanta Plus Xs) 15 ml PRN AFTMEALHC PRN PO DYSPEPSIA; Start 10/05/17 at 18:30 Magnesium Hydroxide (Milk Of Magnesia) 2,400 mg PRN QHS PRN PO CONSTIPATION; Start 10/05/17 at 18:30 Aspirin (Aspirin Enteric Coated) 81 mg DAILY PO Last administered on 10/08/17 08:21; Start 10/06/17 at 09:00 Calcium/Vitamin D (Oscal D 500mg/ 200uts) 2 tab DAILYWLUN PO Last administered on 10/07/17at 12:10; Start 10/06/17 at 12:00 Cyanocobalamin (Vitamin B-12) 1,000 mcg DAILY PO Last administered on 10/08/17 08:21; Start 10/06/17 at 09:00 Docusate Sodium (Colace) 100 mg DAILY PO Last administered on 10/08/17 08:21; Start 10/06/17 at 09:00 Fluticasone Propionate (Flonase) 1 spray DAILY NS Last administered on at 08:24; Start 10/06/17 at 09:00 Gabapentin (Neurontin) 300 mg DAILY PO Last administered on 10/08/17 08:21; Start 10/06/17 at 09:00 Losartan Potassium (Cozaar) 25 mg DAILY PO Last administered on 10/08/17 08:20 ; Start 10/06/17 at 09:00 Ondansetron HCl (Zofran Odt) 4 mg PRN Q4HRS PRN PO NAUSEA Last administered on 10/06/17 01:20; Start 10/05/17 at 18:45 Simvastatin (Zocor) 20 mg HS PO Last administered on 10/07/17 19:48; Start at 21:00 Fenofibrate (Tricor) 145 mg DAILY PO Last administered on 10/08/17 08:21; Start 10/06/17 at 09:00 Multivitamins/ Calcium (Thera-M Plus) 1 tab DAILY PO Last administered on 08:21; Start 10/06/17 at 09:00 Fish Oil (Fish Oil) 1,000 mg BID PO Last administered on 10/08/17 08:21; Start 10/05/17 at 21:00 Pantoprazole Sodium (Protonix) 40 mg DAILYAC PO Last administered on 10/08/17 08:20; Start 10/06/17 at 07:30 Magnesium Sulfate 50 ml @ 25 mls/hr 1X ONCE IV ; Start 10/05/17 at 20:00; Stop 10/05/17 at 21:03; Status DC Magnesium Sulfate 50 ml @ 25 mls/hr 1X ONCE IV ; Start 10/05/17 at 22:00; Stop 10/05/17 at 22:00; Status DC Sertraline HCl (Zoloft) 25 mg DAILY PO Last administered on 10/08/17 08:21; Start 10/06/17 at 09:00 Ondansetron HCl (Zofran Odt) 4 mg PRN TID PRN PO NAUSEA/VOMITING; Start at 21:00 Magnesium Oxide (Magnesium Oxide) 400 mg TID PO Last administered on 10/08/17 08:20; Start 10/05/17 at 21:30 Magnesium Oxide (Magnesium Oxide) 400 mg 1X ONCE PO Last administered on at 02:30; Start 10/06/17 at 02:30; Stop 10/06/17 at 02:32; Status DC Sodium Chloride 1,000 ml @ 1,000 mls/hr 1X ONCE IV Last administered on at 11:30; Start 10/06/17 at 11:00; Stop 10/06/17 at 11:59; Status DC Fosfomycin Tromethamine (Monurol) 3 gm 1X ONCE PO Last administered on at 12:14; Start 10/06/17 at 11:45; Stop 10/06/17 at 12:01; Status DC Potassium Chloride (Klor-Con) 10 meq DAILYWBKFT PO Last administered on at 08:20; Start 10/06/17 at 12:00 Mirtazapine (Remeron) 7.5 mg QHS PO Last administered on 10/07/17at 19:49; Start 10/07/17 at 21:00 Lorazepam (Ativan) 0.5 mg DAILY@1400 PO ; Start 10/08/17 at 14:00; Stop 10/08/17 at 18:34; Status DC Active Scripts Active Reported Imodium A-D (Loperamide HCl) 2 Mg Capsule 2 Mg PO AFTER LOOSE STOOL MDD 12mg Zofran Odt (Ondansetron) 4 Mg Tab.rapdis 4 Mg PO PRN Q4HRS PRN Lorazepam 0.5 Mg Tablet 0.5 Mg PO PRN DAILY PRN Lorazepam 0.5 Mg Tablet 0.5 Mg PO BID@1400,2000 Docusate Sodium 100 Mg Capsule 100 Mg PO DAILY Vitamin B-12 (Cyanocobalamin (Vitamin B-12)) 1,000 Mcg Tablet 1,000 Mcg PO DAILY Simvastatin 20 Mg Tablet 20 Mg PO HS Omeprazole 20 Mg Capsule.dr 20 Mg PO DAILY [place] 3 1,000 Mg Softgel ([place]-3 Fatty Acids/Fish Oil) 1 Each Capsule 1 Each PO BID Multivitamins (Multivitamin) 1 Each Tablet 1 Each PO DAILY Meloxicam 15 Mg Tablet 15 Mg PO DAILY Losartan Potassium 25 Mg Tablet 25 Mg PO DAILY Gabapentin 300 Mg Capsule 300 Mg PO DAILY Fluticasone Propionate Nasal [place] (Fluticasone Propionate) 16 Gm [place].susp 1 [place] NS DAILY Fenofibrate 160 Mg Tablet 160 Mg PO DAILY Donepezil Hcl 10 Mg Tablet 10 Mg PO QHS Citalopram Hbr (Citalopram Hydrobromide) 40 Mg Tablet 60 Mg PO DAILY Calcium 500 + Vit D 200 Tablet (Calcium Carbonate/Vitamin D3) 1 Each Tablet 2 Each PO DAILYWLUN Aspirin Ec (Aspirin) 81 Mg Tablet. 81 Mg PO DAILY Amlodipine Besylate 10 Mg Tablet 10 Mg PO DAILY I have reviewed the current psychotropics carefully including drug interactions. Risk benefit ratio favors no change other than as noted in my dictated progress note. Diagnosis: Problems: (1) Anxiety disorder (2) Impulse control disorder (3) Dementia, vascular, with depression (4) Dementia, vascular, with delusions (5) Dementia in Alzheimer's disease with depression (6) Dementia in Alzheimer's disease with delusions NICHOLE DAVIDSON MD Oct 08, 2017 19:58
[2017-10-08] MEDS: DONEPEZIL HCL 10 MG TABLET PO SCH (20:11)
[2017-10-08] MEDS: SIMVASTATIN 20 MG TABLET PO SCH (20:11)
[2017-10-08] MEDS: MIRTAZAPINE 7.5 MG TABLET. PO SCH (21:00)
--- NOTE | 2017-10-08 22:22 | PN ---
DATE: 10/07/2017 PSYCHIATRIC PROGRESS NOTE This late entry 10/07/2017 covers elements, not covered in my initial note 10/07/2017. SUBJECTIVE: I met with the patient evening of 10/07/2017. The patient slept just 1-3/4 hours previous evening. White cell count is elevated. Chest x-ray is negative. UA culture awaited. She has received Monurol. She is having some increased temperature and heart rate will defer to Dr. Camarena. Otherwise, cooperative, takes her medications crushed. REVIEW OF SYSTEMS: No CV, , pulmonary, eye, ENT system symptoms on review. Reliability poor. Gait unsteady, in Broda chair. MENTAL STATUS EXAM: Oriented to herself. Insight, judgment, recent and remote memory, attention, concentration, fund of knowledge poor, consistent with her diagnosis mentioned in my initial note. IMPRESSION: Major neurocognitive disorder, Alzheimer, vascular with depression, delusion, behavioral disturbance. PLAN: Start Remeron 7.5 mg p.o. at bedtime to help with the insomnia and anxiety. Maintain Zoloft, Aricept. Ativan is 0.5 mg at 1400 and 2000. We will stop the 2000 dosage. Continue the p.r.n. Ativan. NICHOLE DAVIDSON MD DR: ZIYAD/selena JOB#: [id number] / [id number]
[2017-10-09] MEDS: ACETAMINOPHEN 325 MG TABLET PO PRN ×2 (05:25→15:55)
[2017-10-09 05:58] VITALS: BP 160/90
[2017-10-09] MEDS: GABAPENTIN 300 MG CAPSULE. PO SCH (08:14)
[2017-10-09] MEDS: FENOFIBRATE NANOCRYSTALLIZED 145 MG TABLET PO SCH (08:14)
[2017-10-09] MEDS: CYANOCOBALAMIN (VITAMIN B-12) 1,000 MCG TABLET. PO SCH (08:14)
[2017-10-09] MEDS: PANTOPRAZOLE 40 MG TABLET. PO SCH (08:14)
[2017-10-09] MEDS: MAGNESIUM OXIDE 400 MG TABLET PO SCH ×2 (08:14→14:24)
[2017-10-09] MEDS: SERTRALINE 25 MG TABLET. PO SCH (08:14)
[2017-10-09] MEDS: FLUTICASONE 50MCG/NASAL SPRAY 16GM BOTTLE. NS SCH (08:15)
[2017-10-09] MEDS: DOCUSATE SODIUM 100 MG CAPSULE PO SCH (08:15)
[2017-10-09] MEDS: LOSARTAN 25 MG TABLET. PO SCH (08:15)
[2017-10-09] MEDS: OMEGA-3 FATTY ACIDS/FISH OIL 1,000 MG CAPSULE. PO SCH (08:15)
[2017-10-09] MEDS: MULTIVITAMIN with MINERAL TABLET. PO SCH (08:15)
[2017-10-09] MEDS: POTASSIUM CHLORIDE 10 MEQ TABLET.ER. PO SCH (08:15)
[2017-10-09] MEDS: ASPIRIN ENTERIC COATED 81 MG TABLET.DR. PO SCH (08:15)
[2017-10-09 09:44] LABS: BASO # 0.1 x10^3/uL (0.0-0.2); BASO % 1 % (0-3); EOS # 0.2 x10^3/uL (0.0-0.7); EOS % 1 % (0-3); HEMATOCRIT 31.5 % (36.0-47.0); HEMOGLOBIN 10.8 g/dL (12.0-15.5); LYMPH # 2.2 x10^3/uL (1.0-4.8); LYMPH % 16 % (24-48); MEAN CORPUSCULAR HEMOGLOBIN 30 pg (25-35); MEAN CORPUSCULAR HGB CONC 34 g/dL (31-37); MEAN CORPUSCULAR VOLUME 88 fL (79-100); MONO # 0.7 x10^3/uL (0.0-1.1); MONO % 5 % (0-9); NEUT # 10.2 x10^3uL (1.8-7.7); NEUT % 76 % (31-73); PLATELET COUNT 345 x10^3/uL (140-400); RED CELL DISTRIBUTION WIDTH 12.7 % (11.5-14.5); WHITE BLOOD COUNT 13.3 x10^3/uL (4.0-11.0)
[2017-10-09 09:53] LABS: ALBUMIN 2.9 g/dL (3.4-5.0); ALBUMIN/GLOBULIN RATIO 0.9 (1.0-1.7); CALCIUM 9.4 mg/dL (8.5-10.1); CREATININE 1.3 mg/dL (0.6-1.0); MAGNESIUM 1.7 mg/dL (1.8-2.4); TOTAL BILIRUBIN 0.4 mg/dL (0.2-1.0); TOTAL PROTEIN 6.2 g/dL (6.4-8.2)
--- NOTE | 2017-10-09 12:47 | EKG ---
[address] [address] Test Date: 2017-10-05 Test Time: 20:00:48 Pat Name: AKUA RECINOS Department: Room: [address] [place] [address] Gender: Laborer [facility]: : 1935 Requested By: MIRTHA MUÑOZ Order Number: [id number] Reading MD: Kamaljit Ortiz Measurements Intervals [place] Rate: P: PA: QRS: QRSD: T: QT: QTc: Interpretive Statements No previous ECG available for comparison Electronically Signed On 10-10-2017 10:51:43 HOME CARE ADMINISTRATOR by Kamaljit Ortiz
[2017-10-09] MEDS: CALCIUM CARB/VIT D3 500/200 TABLET PO SCH (14:24)
[2017-10-09 15:34] VITALS: BP 158/54
[2017-10-09] MEDS ORDERED: POTASSIUM CHLORIDE 20 MEQ TABLET.ER. PO ONE ×2 (18:00→18:15)
--- NOTE | 2017-10-09 18:50 | PDOC ---
Exam Note: Torres Note: Please also refer to the separate dictated note~for this date of service dictated separately.~Patient seen individually. Discussed the patient with Nursing staff reviewed the chart.~Reviewed interim history and current functioning. Reviewed vital signs,~Labs/ Radiology~and current medications noted below. Continue current treatment with the changes noted in the dictated addendum note Assessment: Vital Signs: Vital Signs Date Time Temp Pulse Resp B/P (MAP) Pulse Ox O2 Delivery O2 Flow Rate FiO2 10/09/17 15:34 98.8 82 17 158/54 (88) 100 10/09/17 05:58 Room Air I&O Intake and Output 10/09/17 06:59 Intake Total 120 ml Balance 120 ml Intake Oral 120 ml Labs: Laboratory Tests Test 10/08/17 19:25 10/09/17 07:22 10/09/17 09:24 10/09/17 11:20 Glucose (Fingerstick) 95 mg/dL (70-99) 88 mg/dL (70-99) 94 mg/dL (70-99) White Blood Count 13.3 x10^3/uL (4.0-11.0) H Red Blood Count 3.60 x10^6/uL (3.50-5.40) Hemoglobin 10.8 g/dL (12.0-15.5) L Hematocrit 31.5 % (36.0-47.0) L Mean Corpuscular Volume 88 fL (79-100) Mean Corpuscular Hemoglobin 30 pg (25-35) Mean Corpuscular Hemoglobin Concent 34 g/dL (31-37) Red Cell Distribution Width 12.7 % (11.5-14.5) Platelet Count 345 x10^3/uL (140-400) Neutrophils (%) (Auto) 76 % (31-73) H Lymphocytes (%) (Auto) 16 % (24-48) L Monocytes (%) (Auto) 5 % (0-9) Eosinophils (%) (Auto) 1 % (0-3) Basophils (%) (Auto) 1 % (0-3) Neutrophils # (Auto) 10.2 x10^3uL (1.8-7.7) H Lymphocytes # (Auto) 2.2 x10^3/uL (1.0-4.8) Monocytes # (Auto) 0.7 x10^3/uL (0.0-1.1) Eosinophils # (Auto) 0.2 x10^3/uL (0.0-0.7) Basophils # (Auto) 0.1 x10^3/uL (0.0-0.2) Sodium Level 142 mmol/L (136-145) Potassium Level 3.0 mmol/L (3.5-5.1) L Chloride Level 105 mmol/L (98-107) Carbon Dioxide Level 30 mmol/L (21-32) Anion Gap 7 (6-14) Blood Urea Nitrogen 28 mg/dL (7-20) H Creatinine 1.3 mg/dL (0.6-1.0) H Estimated GFR (Cockcroft-Gault) 39.0 BUN/Creatinine Ratio 22 (6-20) H Glucose Level 148 mg/dL (70-99) H Calcium Level 9.4 mg/dL (8.5-10.1) Magnesium Level 1.7 mg/dL (1.8-2.4) L Total Bilirubin 0.4 mg/dL (0.2-1.0) Aspartate Amino Transferase (AST) 35 U/L (15-37) Alanine Aminotransferase (ALT) 27 U/L (14-59) Alkaline Phosphatase 46 U/L (46-116) Total Protein 6.2 g/dL (6.4-8.2) L Albumin 2.9 g/dL (3.4-5.0) L Albumin/Globulin Ratio 0.9 (1.0-1.7) L Test 10/09/17 16:37 Glucose (Fingerstick) 125 mg/dL (70-99) H Current Medications: Meds: Current Medications Haloperidol Lactate (Haldol) 5 mg 1X ONCE IM Last administered on 10/05/17 14:30; Start 10/05/17 at 14:30; Stop 10/05/17 at 14:31; Status DC Lorazepam (Ativan) 2 mg 1X ONCE IM Last administered on 10/05/17 16:24; Start 10/05/17 at 16:25; Stop 10/05/17 at 16:26; Status DC Donepezil HCl (Aricept) 10 mg QHS PO Last administered on 10/08/17at 20:11; Start 10/05/17 at 21:00 Lorazepam (Ativan) 0.5 mg BID@1400,2000 PO Last administered on 10/07/17at 13:32 ; Start 10/05/17 at 20:00; Stop 10/07/17 at 18:52; Status DC Lorazepam (Ativan) 0.5 mg PRN DAILY PRN PO ANXIETY / AGITATION; Start at 18:15 Citalopram Hydrobromide (CeleXA) 60 mg DAILY PO ; Start 10/06/17 at 09:00; Stop 10/06/17 at 09:00; Status DC Acetaminophen (Tylenol) 650 mg PRN Q6HRS PRN PO PAIN / TEMP Last administered on 10/09/17at 15:55; Start 10/05/17 at 18:30 Multi-Ingredient Ointment (Analgesic [place]) 1 sadaf PRN QID PRN TP MUSCLE PAIN; Start 10/05/17 at 18:30 Al Hydroxide/Mg Hydroxide (Mylanta Plus Xs) 15 ml PRN AFTMEALHC PRN PO DYSPEPSIA; Start 10/05/17 at 18:30 Magnesium Hydroxide (Milk Of Magnesia) 2,400 mg PRN QHS PRN PO CONSTIPATION; Start 10/05/17 at 18:30 Aspirin (Aspirin Enteric Coated) 81 mg DAILY PO Last administered on 10/09/17at 08:15; Start 10/06/17 at 09:00 Calcium/Vitamin D (Oscal D 500mg/ 200uts) 2 tab DAILYWLUN PO Last administered on 10/09/17at 14:24; Start 10/06/17 at 12:00 Cyanocobalamin (Vitamin B-12) 1,000 mcg DAILY PO Last administered on 10/09/17at 08:14; Start 10/06/17 at 09:00 Docusate Sodium (Colace) 100 mg DAILY PO Last administered on 10/09/17at 08:15; Start 10/06/17 at 09:00 Fluticasone Propionate (Flonase) 1 spray DAILY NS Last administered on at 08:15; Start 10/06/17 at 09:00 Gabapentin (Neurontin) 300 mg DAILY PO Last administered on 10/09/17at 08:14; Start 10/06/17 at 09:00 Losartan Potassium (Cozaar) 25 mg DAILY PO Last administered on 10/09/17 08:15 ; Start 10/06/17 at 09:00 Ondansetron HCl (Zofran Odt) 4 mg PRN Q4HRS PRN PO NAUSEA Last administered on 10/06/17 01:20; Start 10/05/17 at 18:45 Simvastatin (Zocor) 20 mg HS PO Last administered on 10/08/17 20:11; Start at 21:00 Fenofibrate (Tricor) 145 mg DAILY PO Last administered on 10/09/17 08:14; Start 10/06/17 at 09:00 Multivitamins/ Calcium (Thera-M Plus) 1 tab DAILY PO Last administered on 08:15; Start 10/06/17 at 09:00 Fish Oil (Fish Oil) 1,000 mg BID PO Last administered on 10/09/17 08:15; Start 10/05/17 at 21:00 Pantoprazole Sodium (Protonix) 40 mg DAILYAC PO Last administered on 10/09/17 08:14; Start 10/06/17 at 07:30 Magnesium Sulfate 50 ml @ 25 mls/hr 1X ONCE IV ; Start 10/05/17 at 20:00; Stop 10/05/17 at 21:03; Status DC Magnesium Sulfate 50 ml @ 25 mls/hr 1X ONCE IV ; Start 10/05/17 at 22:00; Stop 10/05/17 at 22:00; Status DC Sertraline HCl (Zoloft) 25 mg DAILY PO Last administered on 10/09/17 08:14; Start 10/06/17 at 09:00 Ondansetron HCl (Zofran Odt) 4 mg PRN TID PRN PO NAUSEA/VOMITING; Start at 21:00 Magnesium Oxide (Magnesium Oxide) 400 mg TID PO Last administered on 10/09/17 14:24; Start 10/05/17 at 21:30 Magnesium Oxide (Magnesium Oxide) 400 mg 1X ONCE PO Last administered on 02:30; Start 10/06/17 at 02:30; Stop 10/06/17 at 02:32; Status DC Sodium Chloride 1,000 ml @ 1,000 mls/hr 1X ONCE IV Last administered on 1/1/ 18at 11:30; Start 10/06/17 at 11:00; Stop 10/06/17 at 11:59; Status DC Fosfomycin Tromethamine (Monurol) 3 gm 1X ONCE PO Last administered on at 12:14; Start 10/06/17 at 11:45; Stop 10/06/17 at 12:01; Status DC Potassium Chloride (Klor-Con) 10 meq DAILYWBKFT PO Last administered on at 08:15; Start 10/06/17 at 12:00 Mirtazapine (Remeron) 7.5 mg QHS PO Last administered on 10/07/17at 19:49; Start 10/07/17 at 21:00 Lorazepam (Ativan) 0.5 mg DAILY@1400 PO ; Start 10/08/17 at 14:00; Stop 10/08/17 at 18:34; Status DC Potassium Chloride (Klor-Con) 40 meq 1X ONCE PO Last administered on 10/09/17at 18:00; Start 10/09/17 at 18:00; Stop 10/09/17 at 18:01 Potassium Chloride (Klor-Con) 40 meq 1X ONCE PO ; Start 10/09/17 at 18:15; Stop 10/09/17 at 18:16; Status DC Active Scripts Active Reported Imodium A-D (Loperamide HCl) 2 Mg Capsule 2 Mg PO AFTER LOOSE STOOL MDD 12mg Zofran Odt (Ondansetron) 4 Mg Tab.rapdis 4 Mg PO PRN Q4HRS PRN Lorazepam 0.5 Mg Tablet 0.5 Mg PO PRN DAILY PRN Lorazepam 0.5 Mg Tablet 0.5 Mg PO BID@1400,2000 Docusate Sodium 100 Mg Capsule 100 Mg PO DAILY Vitamin B-12 (Cyanocobalamin (Vitamin B-12)) 1,000 Mcg Tablet 1,000 Mcg PO DAILY Simvastatin 20 Mg Tablet 20 Mg PO HS Omeprazole 20 Mg Capsule.dr 20 Mg PO DAILY [place] 3 1,000 Mg Softgel ([place]-3 Fatty Acids/Fish Oil) 1 Each Capsule 1 Each PO BID Multivitamins (Multivitamin) 1 Each Tablet 1 Each PO DAILY Meloxicam 15 Mg Tablet 15 Mg PO DAILY Losartan Potassium 25 Mg Tablet 25 Mg PO DAILY Gabapentin 300 Mg Capsule 300 Mg PO DAILY Fluticasone Propionate Nasal [place] (Fluticasone Propionate) 16 Gm [place].susp 1 [place] NS DAILY Fenofibrate 160 Mg Tablet 160 Mg PO DAILY Donepezil Hcl 10 Mg Tablet 10 Mg PO QHS Citalopram Hbr (Citalopram Hydrobromide) 40 Mg Tablet 60 Mg PO DAILY Calcium 500 + Vit D 200 Tablet (Calcium Carbonate/Vitamin D3) 1 Each Tablet 2 Each PO DAILYWLUN Aspirin Ec (Aspirin) 81 Mg Tablet.dr 81 Mg PO DAILY Amlodipine Besylate 10 Mg Tablet 10 Mg PO DAILY I have reviewed the current psychotropics carefully including drug interactions. Risk benefit ratio favors no change other than as noted in my dictated progress note. 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
[2017-10-09] MEDS ORDERED: ACET325T9 PO (19:35)
[2017-10-09] MEDS ORDERED: MAGN2400 PO (19:36)
[2017-10-09] MEDS ORDERED: MAGN400T3 PO (19:36)
[2017-10-09] MEDS ORDERED: MAG355OR11 PO (19:38)
[2017-10-09] MEDS ORDERED: MIRT15TA PO (19:39)
[2017-10-09] MEDS ORDERED: METH29OI TP (19:39)
[2017-10-09] MEDS ORDERED: PANT40TA5 PO (19:40)
[2017-10-09] MEDS ORDERED: POTA10TA10 PO (19:41)
[2017-10-09] MEDS ORDERED: ONDA4TAB10 PO (19:41)
[2017-10-09] MEDS ORDERED: SERT25TA PO (19:41)
[2017-10-09] MEDS ORDERED: FENO145T32 PO (19:43)
--- NOTE | 2017-10-09 19:56 | PDOC ---
Exam Note: Torres Note: Please also refer to the separate dictated note~for this date of service dictated separately.~Patient seen individually. Discussed the patient with Nursing staff reviewed the chart.~Reviewed interim history and current functioning. Reviewed vital signs,~Labs/ Radiology~and current medications noted below. Continue current treatment with the changes noted in the dictated addendum note Assessment: Vital Signs: Vital Signs Date Time Temp Pulse Resp B/P (MAP) Pulse Ox O2 Delivery O2 Flow Rate FiO2 10/09/17 15:34 98.8 82 17 158/54 (88) 100 10/09/17 05:58 Room Air I&O Intake and Output 10/09/17 07:00 Intake Total 120 ml Balance 120 ml Intake Oral 120 ml Labs: Laboratory Tests Test 10/09/17 07:22 10/09/17 09:24 10/09/17 11:20 10/09/17 16:37 Glucose (Fingerstick) 88 mg/dL (70-99) 94 mg/dL (70-99) 125 mg/dL (70-99) H White Blood Count 13.3 x10^3/uL (4.0-11.0) H Red Blood Count 3.60 x10^6/uL (3.50-5.40) Hemoglobin 10.8 g/dL (12.0-15.5) L Hematocrit 31.5 % (36.0-47.0) L Mean Corpuscular Volume 88 fL (79-100) Mean Corpuscular Hemoglobin 30 pg (25-35) Mean Corpuscular Hemoglobin Concent 34 g/dL (31-37) Red Cell Distribution Width 12.7 % (11.5-14.5) Platelet Count 345 x10^3/uL (140-400) Neutrophils (%) (Auto) 76 % (31-73) H Lymphocytes (%) (Auto) 16 % (24-48) L Monocytes (%) (Auto) 5 % (0-9) Eosinophils (%) (Auto) 1 % (0-3) Basophils (%) (Auto) 1 % (0-3) Neutrophils # (Auto) 10.2 x10^3uL (1.8-7.7) H Lymphocytes # (Auto) 2.2 x10^3/uL (1.0-4.8) Monocytes # (Auto) 0.7 x10^3/uL (0.0-1.1) Eosinophils # (Auto) 0.2 x10^3/uL (0.0-0.7) Basophils # (Auto) 0.1 x10^3/uL (0.0-0.2) Sodium Level 142 mmol/L (136-145) Potassium Level 3.0 mmol/L (3.5-5.1) L Chloride Level 105 mmol/L (98-107) Carbon Dioxide Level 30 mmol/L (21-32) Anion Gap 7 (6-14) Blood Urea Nitrogen 28 mg/dL (7-20) H Creatinine 1.3 mg/dL (0.6-1.0) H Estimated GFR (Cockcroft-Gault) 39.0 BUN/Creatinine Ratio 22 (6-20) H Glucose Level 148 mg/dL (70-99) H Calcium Level 9.4 mg/dL (8.5-10.1) Magnesium Level 1.7 mg/dL (1.8-2.4) L Total Bilirubin 0.4 mg/dL (0.2-1.0) Aspartate Amino Transferase (AST) 35 U/L (15-37) Alanine Aminotransferase (ALT) 27 U/L (14-59) Alkaline Phosphatase 46 U/L (46-116) Total Protein 6.2 g/dL (6.4-8.2) L Albumin 2.9 g/dL (3.4-5.0) L Albumin/Globulin Ratio 0.9 (1.0-1.7) L Test 10/09/17 19:03 Glucose (Fingerstick) 132 mg/dL (70-99) H Current Medications: Meds: Current Medications Haloperidol Lactate (Haldol) 5 mg 1X ONCE IM Last administered on 10/05/17 14:30; Start 10/05/17 at 14:30; Stop 10/05/17 at 14:31; Status DC Lorazepam (Ativan) 2 mg 1X ONCE IM Last administered on 10/05/17 16:24; Start 10/05/17 at 16:25; Stop 10/05/17 at 16:26; Status DC Donepezil HCl (Aricept) 10 mg QHS PO Last administered on 10/08/17at 20:11; Start 10/05/17 at 21:00 Lorazepam (Ativan) 0.5 mg BID@1400,2000 PO Last administered on 10/07/17at 13:32 ; Start 10/05/17 at 20:00; Stop 10/07/17 at 18:52; Status DC Lorazepam (Ativan) 0.5 mg PRN DAILY PRN PO ANXIETY / AGITATION; Start at 18:15 Citalopram Hydrobromide (CeleXA) 60 mg DAILY PO ; Start 10/06/17 at 09:00; Stop 10/06/17 at 09:00; Status DC Acetaminophen (Tylenol) 650 mg PRN Q6HRS PRN PO PAIN / TEMP Last administered on 10/09/17at 15:55; Start 10/05/17 at 18:30 Multi-Ingredient Ointment (Analgesic [place]) 1 sadaf PRN QID PRN TP MUSCLE PAIN; Start 10/05/17 at 18:30 Al Hydroxide/Mg Hydroxide (Mylanta Plus Xs) 15 ml PRN AFTMEALHC PRN PO DYSPEPSIA; Start 10/05/17 at 18:30 Magnesium Hydroxide (Milk Of Magnesia) 2,400 mg PRN QHS PRN PO CONSTIPATION; Start 10/05/17 at 18:30 Aspirin (Aspirin Enteric Coated) 81 mg DAILY PO Last administered on 10/09/17 08:15; Start 10/06/17 at 09:00 Calcium/Vitamin D (Oscal D 500mg/ 200uts) 2 tab DAILYWLUN PO Last administered on 10/09/17at 14:24; Start 10/06/17 at 12:00 Cyanocobalamin (Vitamin B-12) 1,000 mcg DAILY PO Last administered on 10/09/17 08:14; Start 10/06/17 at 09:00 Docusate Sodium (Colace) 100 mg DAILY PO Last administered on 10/09/17 08:15; Start 10/06/17 at 09:00 Fluticasone Propionate (Flonase) 1 spray DAILY NS Last administered on 08:15; Start 10/06/17 at 09:00 Gabapentin (Neurontin) 300 mg DAILY PO Last administered on 10/09/17 08:14; Start 10/06/17 at 09:00 Losartan Potassium (Cozaar) 25 mg DAILY PO Last administered on 10/09/17 08:15 ; Start 10/06/17 at 09:00 Ondansetron HCl (Zofran Odt) 4 mg PRN Q4HRS PRN PO NAUSEA Last administered on 10/06/17 01:20; Start 10/05/17 at 18:45 Simvastatin (Zocor) 20 mg HS PO Last administered on 10/08/17 20:11; Start at 21:00 Fenofibrate (Tricor) 145 mg DAILY PO Last administered on 10/09/17 08:14; Start 10/06/17 at 09:00 Multivitamins/ Calcium (Thera-M Plus) 1 tab DAILY PO Last administered on 08:15; Start 10/06/17 at 09:00 Fish Oil (Fish Oil) 1,000 mg BID PO Last administered on 10/09/17 08:15; Start 10/05/17 at 21:00 Pantoprazole Sodium (Protonix) 40 mg DAILYAC PO Last administered on 10/09/17 08:14; Start 10/06/17 at 07:30 Magnesium Sulfate 50 ml @ 25 mls/hr 1X ONCE IV ; Start 10/05/17 at 20:00; Stop 10/05/17 at 21:03; Status DC Magnesium Sulfate 50 ml @ 25 mls/hr 1X ONCE IV ; Start 10/05/17 at 22:00; Stop 10/05/17 at 22:00; Status DC Sertraline HCl (Zoloft) 25 mg DAILY PO Last administered on 10/09/17 08:14; Start 10/06/17 at 09:00 Ondansetron HCl (Zofran Odt) 4 mg PRN TID PRN PO NAUSEA/VOMITING; Start at 21:00 Magnesium Oxide (Magnesium Oxide) 400 mg TID PO Last administered on 10/09/17 14:24; Start 10/05/17 at 21:30 Magnesium Oxide (Magnesium Oxide) 400 mg 1X ONCE PO Last administered on 02:30; Start 10/06/17 at 02:30; Stop 10/06/17 at 02:32; Status DC Sodium Chloride 1,000 ml @ 1,000 mls/hr 1X ONCE IV Last administered on 1/1/ 18at 11:30; Start 10/06/17 at 11:00; Stop 10/06/17 at 11:59; Status DC Fosfomycin Tromethamine (Monurol) 3 gm 1X ONCE PO Last administered on at 12:14; Start 10/06/17 at 11:45; Stop 10/06/17 at 12:01; Status DC Potassium Chloride (Klor-Con) 10 meq DAILYWBKFT PO Last administered on at 08:15; Start 10/06/17 at 12:00 Mirtazapine (Remeron) 7.5 mg QHS PO Last administered on 10/07/17at 19:49; Start 10/07/17 at 21:00 Lorazepam (Ativan) 0.5 mg DAILY@1400 PO ; Start 10/08/17 at 14:00; Stop 10/08/17 at 18:34; Status DC Potassium Chloride (Klor-Con) 40 meq 1X ONCE PO Last administered on 10/09/17at 18:00; Start 10/09/17 at 18:00; Stop 10/09/17 at 18:49; Status DC Potassium Chloride (Klor-Con) 40 meq 1X ONCE PO ; Start 10/09/17 at 18:15; Stop 10/09/17 at 18:16; Status Cancel Active Scripts Active Reported Tricor (Fenofibrate Nanocrystallized) 145 Mg Tablet 145 Mg PO DAILY PRN Potassium Chloride 10 Meq Tablet.er 10 Meq PO DAILYWBKFT Zoloft (Sertraline Hcl) 25 Mg Tablet 25 Mg PO DAILY Zofran Odt (Ondansetron) 4 Mg Tab.rapdis 4 Mg PO PRN TID PRN Pantoprazole Sodium 40 Mg Tablet.dr 40 Mg PO DAILY16 Remeron (Mirtazapine) 15 Mg Tablet 7.5 Mg PO QHS Analgesic [place] (Methyl Salicylate/Menthol) 28 Gm Oint...g. 1 Gm TP PRN QID PRN Maalox Advanced Suspension (Mag Hydrox/Aluminum Hyd/Simeth) 355 Ml Oral.susp 15 Ml PO PRN AFTMEAL PRN Milk Of Magnesia (Magnesium Hydroxide) 2,400 Mg/10 Ml Oral.susp 2,400 Mg PO PRN QHS PRN Magnesium Oxide 400 Mg Tablet 400 Mg PO TID Tylenol (Acetaminophen) 325 Mg Tablet 650 Mg PO PRN Q6HRS PRN Zofran Odt (Ondansetron) 4 Mg Tab.rapdis 4 Mg PO PRN Q4HRS PRN Lorazepam 0.5 Mg Tablet 0.5 Mg PO PRN DAILY PRN Docusate Sodium 100 Mg Capsule 100 Mg PO DAILY Vitamin B-12 (Cyanocobalamin (Vitamin B-12)) 1,000 Mcg Tablet 1,000 Mcg PO DAILY Simvastatin 20 Mg Tablet 20 Mg PO HS [place] 3 1,000 Mg Softgel ([place]-3 Fatty Acids/Fish Oil) 1 Each Capsule 1 Each PO BID Multivitamins (Multivitamin) 1 Each Tablet 1 Each PO DAILY Losartan Potassium 25 Mg Tablet 25 Mg PO DAILY Gabapentin 300 Mg Capsule 300 Mg PO DAILY Fluticasone Propionate Nasal [place] (Fluticasone Propionate) 16 Gm [place].susp 1 [place] NS DAILY Calcium 500 + Vit D 200 Tablet (Calcium Carbonate/Vitamin D3) 1 Each Tablet 2 Each PO DAILYWLUN Aspirin Ec (Aspirin) 81 Mg Tablet. 81 Mg PO DAILY I have reviewed the current psychotropics carefully including drug interactions. Risk benefit ratio favors no change other than as noted in my dictated progress note. Diagnosis: Problems: (1) Anxiety disorder (2) Impulse control disorder (3) Dementia, vascular, with depression (4) Dementia, vascular, with delusions (5) Dementia in Alzheimer's disease with depression (6) Dementia in Alzheimer's disease with delusions NICHOLE DAVIDSON MD Oct 09, 2017 19:56
[2017-10-09] MEDS ORDERED: DONE10TA7 PO (22:01)
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
--- NOTE | 2017-10-11 02:53 | PN ---
DATE: 10/08/2017 This is a late entry for 10/08/2017 covers elements not covered in my initial note of 10/08/2017. SUBJECTIVE: I met with the patient in the evening of 10/08/2017 and staffed at a treatment team meeting with the entire team morning of 10/08/2017 together with the patient's daughter, Alannah. We reviewed the patient's history at length, takes her medications crushed. WBC is elevated. UA negative. Chest x-ray negative. She has received 1 dose of Monurol, slept just 1-3/4 hours previous evening. REVIEW OF SYSTEMS: Ambulation impaired, in wheelchair. No CV, , pulmonary, eye system symptoms on review. Reliability poor. MENTAL STATUS EXAM: Oriented to herself. Insight, judgment, recent and remote memory, attention, concentration, fund of knowledge poor, consistent with her diagnosis mentioned in my initial note. On further review, the patient slept 8 hours previous evening and 1-3/4 hours was the night before after which she was started on Remeron 7.5 mg p.o. at bedtime, which therefore was effective. She has been somewhat sedated during the day and we will go ahead and stop the Ativan 0.5 mg at 1400. IMPRESSION: Major neurocognitive disorder, Alzheimer, vascular with depression, delusion, behavioral disturbance. Rest unchanged from initial note. PLAN: As noted above. Rest of psychotropics continued per initial note. MAN Nadja DAVIDSON MD DR: ZIYAD/selena JOB#: [id number] / [id number]
--- NOTE | 2017-10-11 07:23 | PN ---
DATE: 10/10/2017 NOTE: This is a blank dictation. MAN Nadja DAVIDSON MD DR: Jaqueline JOB#: [id number] / [id number]
== END 2017-10-09 20:30 | disposition short-term general hospital (02) | DRG 56 ==
LOC: ER 13:53 → GEROPSY 16:26
PROVIDERS: ADMIT Psychiatry & Neurology Psychiatry; ATTEND Psychiatry & Neurology Psychiatry
DX: G30.9 Alzheimer's disease, unspecified (principal); N17.0 Acute kidney failure with tubular necrosis; F01.51 Vascular dementia, unspecified severity, with behavioral disturbance; F02.81 Dementia in other diseases classified elsewhere, unspecified severity, with behavioral disturbance; E11.40 Type 2 diabetes mellitus with diabetic neuropathy, unspecified; E11.51 Type 2 diabetes mellitus with diabetic peripheral angiopathy without gangrene; E83.42 Hypomagnesemia; D72.829 Elevated white blood cell count, unspecified; Z88.8 Allergy status to other drugs, medicaments and biological substances; E78.5 Hyperlipidemia, unspecified; E86.0 Dehydration; E87.6 Hypokalemia; F22 Delusional disorders; F32.9 Major depressive disorder, single episode, unspecified; F41.9 Anxiety disorder, unspecified; M54.5 Low back pain; F42.9 Obsessive-compulsive disorder, unspecified; F63.9 Impulse disorder, unspecified; G47.00 Insomnia, unspecified; I10 Essential (primary) hypertension; K21.9 Gastro-esophageal reflux disease without esophagitis; K57.30 Diverticulosis of large intestine without perforation or abscess without bleeding; Z79.899 Other long term (current) drug therapy; Z90.49 Acquired absence of other specified parts of digestive tract; Z90.710 Acquired absence of both cervix and uterus; Z87.81 Personal history of (healed) traumatic fracture; Z79.4 Long term (current) use of insulin
CPT/HCPCS: 36415; 71045; 80048; 80053; 80061; 81001; 82306; 82607; 82947; 83036; 83540; 83550; 83735; 84436; 84443; 84480; 85007; 85025; 86593; 87086; 87324; 93005; 96372; J1630; J2060; Q0162; 99285-25; J7030

== ENCOUNTER 2017-10-09 20:48 | Inpatient (IN) | payer MEDICARE ==
[~2017-10-09] VITALS: Ht 152.4 cm; Wt 51.0 kg
[~2017-10-09 20:48] MED LIST: ACET325T9 PO; AMLO10TA2 PO; ASPI-612 PO; CALC-157 PO; CITA40TA5 PO; CYAN10005 PO; DOCU100C28 PO; DONE10TA7 PO; FENO145T32 PO; FENO160T PO; FLUT16SP21 NS; GABA-586 PO; LOPE2CAP88 PO; LORA0.5T PO; LOSA25TA4 PO; MAG355OR11 PO; MAGN2400 PO; MAGN400T3 PO; MELO15TA23 PO; METH29OI TP; MIRT15TA PO; MULT1TAB52 PO; OMEG-33 PO; OMEP20CA9 PO; ONDA4TAB10 PO; PANT40TA5 PO; POTA10TA10 PO; SERT25TA PO; SIMV20TA3 PO
[2017-10-09 21:00] VITALS: BP 168/79
[2017-10-09] MEDS ORDERED: ACETAMINOPHEN 325 MG TABLET PO PRN (22:00)
[2017-10-09] MEDS ORDERED: ONDANSETRON ODT 4 MG TAB.RAPDIS PO PRN ×2 (22:00)
[2017-10-09] MEDS ORDERED: LORazepam 0.5 MG TABLET PO PRN (22:00)
[2017-10-09] MEDS ORDERED: METHYL SALICYLATE/MENTHOL TOPICAL OINTMENT 29GM TUBE. TP PRN (22:00)
[2017-10-09] MEDS ORDERED: DONE10TA7 PO (22:01)
[2017-10-09] MEDS ORDERED: MAG HYDROX/AL HYDROX/SIMETH 30 ML ORAL.SUSP PO PRN (22:30)
[2017-10-09] MEDS ORDERED: MAGNESIUM HYDROXIDE 2,400 MG/30 ML ORAL.SUSP. PO PRN (22:30)
[2017-10-09] MEDS: DONEPEZIL HCL 10 MG TABLET PO SCH (22:36)
[2017-10-09] MEDS: SIMVASTATIN 20 MG TABLET PO SCH (22:36)
[2017-10-09] MEDS: OMEGA-3 FATTY ACIDS/FISH OIL 1,000 MG CAPSULE. PO SCH (22:36)
[2017-10-09] MEDS: POTASSIUM CL 20MEQ IN D5W 1,000 ML IV SCH (22:36)
[2017-10-09] MEDS: MAGNESIUM OXIDE 400 MG TABLET PO SCH (22:36)
[2017-10-09] MEDS: MIRTAZAPINE 7.5 MG TABLET. PO SCH (22:36)
[2017-10-10 05:18] VITALS: BP 179/71
[2017-10-10] MEDS ORDERED: PANTOPRAZOLE 40 MG TABLET. PO SCH (07:30)
[2017-10-10] MEDS: DOCUSATE SODIUM 100 MG CAPSULE PO SCH (09:00)
[2017-10-10] MEDS: OMEGA-3 FATTY ACIDS/FISH OIL 1,000 MG CAPSULE. PO SCH ×2 (09:00→20:56)
[2017-10-10] MEDS ORDERED: ASPIRIN ENTERIC COATED 81 MG TABLET.DR. PO SCH (09:00)
[2017-10-10] MEDS: LOSARTAN 25 MG TABLET. PO SCH (09:04)
[2017-10-10] MEDS: SERTRALINE 25 MG TABLET. PO SCH (09:04)
[2017-10-10] MEDS: ASPIRIN 81 MG TAB.CHEW PO SCH (09:04)
[2017-10-10] MEDS: PANTOPRAZOLE 40 MG PACKET. PO SCH (09:04)
[2017-10-10] MEDS: MULTIVITAMIN with MINERAL TABLET. PO SCH (09:04)
[2017-10-10] MEDS: POTASSIUM CHLORIDE 10 MEQ TABLET.ER. PO SCH (09:05)
[2017-10-10] MEDS: FLUTICASONE 50MCG/NASAL SPRAY 16GM BOTTLE. NS SCH (09:05)
[2017-10-10] MEDS: GABAPENTIN 300 MG CAPSULE. PO SCH (09:06)
[2017-10-10] MEDS: MAGNESIUM OXIDE 400 MG TABLET PO SCH ×3 (09:06→20:56)
[2017-10-10] MEDS: FENOFIBRATE NANOCRYSTALLIZED 145 MG TABLET PO SCH (09:06)
[2017-10-10] MEDS: CYANOCOBALAMIN (VITAMIN B-12) 1,000 MCG TABLET. PO SCH (09:06)
[2017-10-10 11:00] VITALS: BP 168/72
[2017-10-10 11:18] LABS: BASO % 0 % (0-3); EOS # 0.1 x10^3/uL (0.0-0.7); EOS % 1 % (0-3); HEMOGLOBIN 10.3 g/dL (12.0-15.5); LYMPH # 1.1 x10^3/uL (1.0-4.8); LYMPH % 9 % (24-48); MEAN CORPUSCULAR HEMOGLOBIN 30 pg (25-35); MEAN CORPUSCULAR HGB CONC 34 g/dL (31-37); MEAN CORPUSCULAR VOLUME 87 fL (79-100); MONO # 0.5 x10^3/uL (0.0-1.1); MONO % 4 % (0-9); NEUT % 87 % (31-73); PLATELET COUNT 318 x10^3/uL (140-400); RED BLOOD COUNT 3.46 x10^6/uL (3.50-5.40); RED CELL DISTRIBUTION WIDTH 12.5 % (11.5-14.5); WHITE BLOOD COUNT 12.7 x10^3/uL (4.0-11.0)
[2017-10-10 11:32] LABS: ALBUMIN 2.8 g/dL (3.4-5.0); ALBUMIN/GLOBULIN RATIO 0.9 (1.0-1.7); CALCIUM 9.2 mg/dL (8.5-10.1); CREATININE 0.9 mg/dL (0.6-1.0); GFR 59.7; MAGNESIUM 1.5 mg/dL (1.8-2.4); POTASSIUM 3.7 mmol/L (3.5-5.1); TOTAL BILIRUBIN 0.5 mg/dL (0.2-1.0)
[2017-10-10] MEDS: CALCIUM CARB/VIT D3 500/200 TABLET PO SCH (11:44)
[2017-10-10] MEDS: POTASSIUM CL 20MEQ IN D5W 1,000 ML IV SCH (11:48)
[2017-10-10 14:25] VITALS: BP 148/70
[2017-10-10] MEDS ORDERED: MAGNESIUM SULFATE 2GM 50 ML IV ONE (17:00)
--- NOTE | 2017-10-10 18:26 | PDOC ---
Exam Note: Torres Note: Please also refer to the separate dictated note~for this date of service dictated separately.~Patient seen individually. Discussed the patient with Nursing staff reviewed the chart.~Reviewed interim history and current functioning. Reviewed vital signs,~Labs/ Radiology~and current medications noted below. Continue current treatment with the changes noted in the dictated addendum note Assessment: Vital Signs: Vital Signs Date Time Temp Pulse Resp B/P (MAP) Pulse Ox O2 Delivery O2 Flow Rate FiO2 10/10/17 14:25 97.5 53 18 148/70 (96) 100 Room Air I&O Intake and Output 10/10/17 07:00 Intake Total 774 ml Balance 774 ml Intake Oral 400 ml IV Total 374 ml # Voids 3 # Bowel Movements 1 Labs: Laboratory Tests Test 10/10/17 07:11 10/10/17 11:00 10/10/17 11:33 10/10/17 16:23 Glucose (Fingerstick) 114 mg/dL (70-99) H 154 mg/dL (70-99) H 138 mg/dL (70-99) H White Blood Count 12.7 x10^3/uL (4.0-11.0) H Red Blood Count 3.46 x10^6/uL (3.50-5.40) L Hemoglobin 10.3 g/dL (12.0-15.5) L Hematocrit 30.0 % (36.0-47.0) L Mean Corpuscular Volume 87 fL (79-100) Mean Corpuscular Hemoglobin 30 pg (25-35) Mean Corpuscular Hemoglobin Concent 34 g/dL (31-37) Red Cell Distribution Width 12.5 % (11.5-14.5) Platelet Count 318 x10^3/uL (140-400) Neutrophils (%) (Auto) 87 % (31-73) H Lymphocytes (%) (Auto) 9 % (24-48) L Monocytes (%) (Auto) 4 % (0-9) Eosinophils (%) (Auto) 1 % (0-3) Basophils (%) (Auto) 0 % (0-3) Neutrophils # (Auto) 11.0 x10^3uL (1.8-7.7) H Lymphocytes # (Auto) 1.1 x10^3/uL (1.0-4.8) Monocytes # (Auto) 0.5 x10^3/uL (0.0-1.1) Eosinophils # (Auto) 0.1 x10^3/uL (0.0-0.7) Basophils # (Auto) 0.0 x10^3/uL (0.0-0.2) Sodium Level 140 mmol/L (136-145) Potassium Level 3.7 mmol/L (3.5-5.1) Chloride Level 102 mmol/L (98-107) Carbon Dioxide Level 31 mmol/L (21-32) Anion Gap 7 (6-14) Blood Urea Nitrogen 18 mg/dL (7-20) Creatinine 0.9 mg/dL (0.6-1.0) Estimated GFR (Cockcroft-Gault) 59.7 BUN/Creatinine Ratio 20 (6-20) Glucose Level 175 mg/dL (70-99) H Calcium Level 9.2 mg/dL (8.5-10.1) Magnesium Level 1.5 mg/dL (1.8-2.4) L Total Bilirubin 0.5 mg/dL (0.2-1.0) Aspartate Amino Transferase (AST) 33 U/L (15-37) Alanine Aminotransferase (ALT) 27 U/L (14-59) Alkaline Phosphatase 48 U/L (46-116) Total Protein 6.0 g/dL (6.4-8.2) L Albumin 2.8 g/dL (3.4-5.0) L Albumin/Globulin Ratio 0.9 (1.0-1.7) L Current Medications: Meds: Current Medications Potassium Chloride/Dextrose 1,000 ml @ 75 mls/hr [id number] IV Last administered on 10/10/17at 11:48; Start 10/09/17 at 21:00 Acetaminophen (Tylenol) 650 mg PRN Q6HRS PRN PO PAIN Last administered on at 02:29; Start 10/09/17 at 22:00 Aspirin (Aspirin Enteric Coated) 81 mg DAILY PO ; Start 10/10/17 at 09:00; Stop 10/10/17 at 09:00; Status DC Calcium/Vitamin D (Oscal D 500mg/ 200uts) 2 tab DAILYWLUN PO ; Start 10/10/17 at 12:00 Cyanocobalamin (Vitamin B-12) 1,000 mcg DAILY PO Last administered on 10/10/17 09:06; Start 10/10/17 at 09:00 Docusate Sodium (Colace) 100 mg DAILY PO ; Start 10/10/17 at 09:00 Donepezil HCl (Aricept) 10 mg HS PO Last administered on 10/09/17at 22:36; Start 10/09/17 at 22:30 Fenofibrate (Tricor) 145 mg DAILY PO Last administered on 10/10/17at 09:06; Start 10/10/17 at 09:00 Fluticasone Propionate (Flonase) 1 spray DAILY NS Last administered on at 09:05; Start 10/10/17 at 09:00 Gabapentin (Neurontin) 300 mg DAILY PO Last administered on 10/10/17 09:06; Start 10/10/17 at 09:00 Lorazepam (Ativan) 0.5 mg PRN DAILY PRN PO ANXIETY / AGITATION Last administered on 10/09/17 22:36; Start 10/09/17 at 22:00 Losartan Potassium (Cozaar) 25 mg DAILY PO Last administered on 10/10/17at 09:04 ; Start 10/10/17 at 09:00 Magnesium Oxide (Magnesium Oxide) 400 mg TID PO Last administered on 10/10/17at 09:06; Start 10/09/17 at 22:15 Multi-Ingredient Ointment (Analgesic [place]) 1 garth PRN QID PRN TP PAIN; Start 10/09/17 at 22:00 Mirtazapine (Remeron) 7.5 mg QHS PO Last administered on 10/09/17at 22:36; Start 10/09/17 at 22:15 Ondansetron HCl (Zofran Odt) 4 mg PRN Q4HRS PRN PO NAUSEA Last administered on 10/10/17at 09:24; Start 10/09/17 at 22:00 Ondansetron HCl (Zofran Odt) 4 mg PRN TID PRN PO NAUSEA/VOMITING; Start at 22:00; Stop 10/09/17 at 22:18; Status DC Pantoprazole Sodium (Protonix) 40 mg DAILYAC PO ; Start 10/10/17 at 07:30; Stop 10/10/17 at 08:52; Status DC Sertraline HCl (Zoloft) 25 mg DAILY PO Last administered on 10/10/17 09:04; Start 10/10/17 at 09:00 Simvastatin (Zocor) 20 mg HS PO Last administered on 10/09/17at 22:36; Start 10/09 at 22:15 Al Hydroxide/Mg Hydroxide (Mylanta Plus Xs) 15 ml PRN AFTMEAL PRN PO DYSPEPSIA ; Start 10/09/17 at 22:30 Magnesium Hydroxide (Milk Of Magnesia) 2,400 mg PRN QHS PRN PO CONSTIPATION; Start 10/09/17 at 22:30 Multivitamins/ Calcium (Thera-M Plus) 1 tab DAILY PO Last administered on at 09:04; Start 10/10/17 at 09:00 Fish Oil (Fish Oil) 1,000 mg BID PO Last administered on 10/09/17at 22:36; Start 10/09/17 at 22:30 Potassium Chloride (Klor-Con) 10 meq DAILYWBKFT PO Last administered on at 09:05; Start 10/10/17 at 08:00 Aspirin (Children'S Aspirin) 81 mg DAILYWBKFT PO Last administered on 10/10/17at 09:04; Start 10/10/17 at 09:00 Pantoprazole Sodium (Protonix Packet) 40 mg DAILYAC PO Last administered on 10/10 09:04; Start 10/10/17 at 09:00 Magnesium Sulfate 50 ml @ 25 mls/hr 1X ONCE IV Last administered on 10/10/17at 17:21; Start 10/10/17 at 17:00; Stop 10/10/17 at 18:59 Active Scripts Active Reported Donepezil Hcl 10 Mg Tablet 10 Mg PO HS Tricor (Fenofibrate Nanocrystallized) 145 Mg Tablet 145 Mg PO DAILY Potassium Chloride 10 Meq Tablet.er 10 Meq PO DAILYWBKFT Zoloft (Sertraline Hcl) 25 Mg Tablet 25 Mg PO DAILY Zofran Odt (Ondansetron) 4 Mg Tab.rapdis 4 Mg PO PRN TID PRN Pantoprazole Sodium 40 Mg Tablet.dr 40 Mg PO DAILYAC Remeron (Mirtazapine) 15 Mg Tablet 7.5 Mg PO QHS Analgesic [place] (Methyl Salicylate/Menthol) 28 Gm Oint...g. 1 Garth TP PRN QID PRN Maalox Advanced Suspension (Mag Hydrox/Aluminum Hyd/Simeth) 355 Ml Oral.susp 15 Ml PO PRN AFTMEAL PRN Milk Of Magnesia (Magnesium Hydroxide) 2,400 Mg/10 Ml Oral.susp 2,400 Mg PO PRN QHS PRN Magnesium Oxide 400 Mg Tablet 400 Mg PO TID Tylenol (Acetaminophen) 325 Mg Tablet 650 Mg PO PRN Q6HRS PRN Zofran Odt (Ondansetron) 4 Mg Tab.rapdis 4 Mg PO PRN Q4HRS PRN Lorazepam 0.5 Mg Tablet 0.5 Mg PO PRN DAILY PRN Docusate Sodium 100 Mg Capsule 100 Mg PO DAILY Vitamin B-12 (Cyanocobalamin (Vitamin B-12)) 1,000 Mcg Tablet 1,000 Mcg PO DAILY Simvastatin 20 Mg Tablet 20 Mg PO HS [place] 3 1,000 Mg Softgel ([place]-3 Fatty Acids/Fish Oil) 1 Each Capsule 1 Each PO BID Multivitamins (Multivitamin) 1 Each Tablet 1 Each PO DAILY Losartan Potassium 25 Mg Tablet 25 Mg PO DAILY Gabapentin 300 Mg Capsule 300 Mg PO DAILY Fluticasone Propionate Nasal [place] (Fluticasone Propionate) 16 Gm [place].susp 1 [place] NS DAILY Calcium 500 + Vit D 200 Tablet (Calcium Carbonate/Vitamin D3) 1 Each Tablet 2 Each PO DAILYWLUN Aspirin Ec (Aspirin) 81 Mg Tablet.dr 81 Mg PO DAILY I have reviewed the current psychotropics carefully including drug interactions. Risk benefit ratio favors no change other than as noted in my dictated progress note. Diagnosis: Problems: (1) Dementia in Alzheimer's disease with delusions (2) Dementia in Alzheimer's disease with depression (3) Dementia, vascular, with delusions (4) Dementia, vascular, with depression (5) Impulse control disorder (6) Anxiety disorder NICHOLE DAVIDSON MD Oct 10, 2017 18:26
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
[2017-10-10 19:23] VITALS: BP 143/75
[2017-10-10] MEDS ORDERED: OLANZapine 2.5 MG TABLET PO PRN (20:45)
[2017-10-10] MEDS: DONEPEZIL HCL 10 MG TABLET PO SCH (20:56)
[2017-10-10] MEDS: MIRTAZAPINE 7.5 MG TABLET. PO SCH (20:56)
[2017-10-10] MEDS: SIMVASTATIN 20 MG TABLET PO SCH (20:56)
[2017-10-10 23:42] VITALS: BP 118/67
[2017-10-11] MEDS: POTASSIUM CL 20MEQ IN D5W 1,000 ML IV SCH ×2 (02:00→13:00)
[2017-10-11 05:37] VITALS: BP 137/64
[2017-10-11 07:10] LABS: HEMATOCRIT 27.5 % (36.0-47.0); HEMOGLOBIN 9.5 g/dL (12.0-15.5); RED BLOOD COUNT 3.12 x10^6/uL (3.50-5.40); RED CELL DISTRIBUTION WIDTH 12.3 % (11.5-14.5); WHITE BLOOD COUNT 8.7 x10^3/uL (4.0-11.0)
[2017-10-11 07:18] LABS: ALBUMIN 2.6 g/dL (3.4-5.0); ALBUMIN/GLOBULIN RATIO 0.8 (1.0-1.7); CALCIUM 9.2 mg/dL (8.5-10.1); CREATININE 1.2 mg/dL (0.6-1.0); GFR 42.8; MAGNESIUM 2.2 mg/dL (1.8-2.4); POTASSIUM 4.1 mmol/L (3.5-5.1); TOTAL BILIRUBIN 0.4 mg/dL (0.2-1.0); TOTAL PROTEIN 5.7 g/dL (6.4-8.2)
[2017-10-11] MEDS: DOCUSATE SODIUM 100 MG CAPSULE PO SCH (09:00)
[2017-10-11] MEDS: MULTIVITAMIN with MINERAL TABLET. PO SCH (09:00)
[2017-10-11] MEDS: OMEGA-3 FATTY ACIDS/FISH OIL 1,000 MG CAPSULE. PO SCH ×2 (09:00→20:52)
[2017-10-11] MEDS: MAGNESIUM OXIDE 400 MG TABLET PO SCH ×3 (09:00→20:52)
[2017-10-11] MEDS: FLUTICASONE 50MCG/NASAL SPRAY 16GM BOTTLE. NS SCH (09:00)
[2017-10-11 10:37] VITALS: BP 136/55
[2017-10-11] MEDS: CALCIUM CARB/VIT D3 500/200 TABLET PO SCH (12:00)
[2017-10-11] MEDS: LOSARTAN 25 MG TABLET. PO SCH (13:22)
[2017-10-11] MEDS: FENOFIBRATE NANOCRYSTALLIZED 145 MG TABLET PO SCH (13:23)
[2017-10-11] MEDS: CYANOCOBALAMIN (VITAMIN B-12) 1,000 MCG TABLET. PO SCH (13:23)
[2017-10-11] MEDS: GABAPENTIN 300 MG CAPSULE. PO SCH (13:23)
[2017-10-11] MEDS: SERTRALINE 25 MG TABLET. PO SCH (13:24)
[2017-10-11] MEDS: POTASSIUM CHLORIDE 10 MEQ TABLET.ER. PO SCH (13:24)
[2017-10-11] MEDS: PANTOPRAZOLE 40 MG PACKET. PO SCH (13:24)
[2017-10-11] MEDS: ASPIRIN 81 MG TAB.CHEW PO SCH (13:24)
[2017-10-11 14:53] VITALS: BP 160/54
--- NOTE | 2017-10-11 19:19 | PDOC ---
Exam Note: Torres Note: Please also refer to the separate dictated note~for this date of service dictated separately.~Patient seen individually. Discussed the patient with Nursing staff reviewed the chart.~Reviewed interim history and current functioning. Reviewed vital signs,~Labs/ Radiology~and current medications noted below. Continue current treatment with the changes noted in the dictated addendum note Assessment: Vital Signs: Vital Signs Date Time Temp Pulse Resp B/P (MAP) Pulse Ox O2 Delivery O2 Flow Rate FiO2 10/11/17 14:53 97.8 56 20 160/54 (89) 99 10/11/17 08:00 Room Air 10/10/17 19:23 I&O Intake and Output 10/11/17 07:00 Intake Total 1719.68 ml Balance 1719.68 ml Intake Oral 0 ml IV Total 1719.68 ml # Voids 3 # Bowel Movements 2 Labs: Laboratory Tests Test 10/10/17 19:37 10/11/17 06:41 10/11/17 07:36 10/11/17 11:38 Glucose (Fingerstick) 88 mg/dL (70-99) 121 mg/dL (70-99) H 95 mg/dL (70-99) White Blood Count 8.7 x10^3/uL (4.0-11.0) Red Blood Count 3.12 x10^6/uL (3.50-5.40) L Hemoglobin 9.5 g/dL (12.0-15.5) L Hematocrit 27.5 % (36.0-47.0) L Mean Corpuscular Volume 88 fL (79-100) Mean Corpuscular Hemoglobin 30 pg (25-35) Mean Corpuscular Hemoglobin Concent 34 g/dL (31-37) Red Cell Distribution Width 12.3 % (11.5-14.5) Platelet Count 293 x10^3/uL (140-400) Sodium Level 140 mmol/L (136-145) Potassium Level 4.1 mmol/L (3.5-5.1) Chloride Level 104 mmol/L (98-107) Carbon Dioxide Level 32 mmol/L (21-32) Anion Gap 4 (6-14) L Blood Urea Nitrogen 17 mg/dL (7-20) Creatinine 1.2 mg/dL (0.6-1.0) H Estimated GFR (Cockcroft-Gault) 42.8 BUN/Creatinine Ratio 14 (6-20) Glucose Level 110 mg/dL (70-99) H Calcium Level 9.2 mg/dL (8.5-10.1) Magnesium Level 2.2 mg/dL (1.8-2.4) Total Bilirubin 0.4 mg/dL (0.2-1.0) Aspartate Amino Transferase (AST) 32 U/L (15-37) Alanine Aminotransferase (ALT) 25 U/L (14-59) Alkaline Phosphatase 41 U/L (46-116) L Total Protein 5.7 g/dL (6.4-8.2) L Albumin 2.6 g/dL (3.4-5.0) L Albumin/Globulin Ratio 0.8 (1.0-1.7) L Test 10/11/17 16:38 Glucose (Fingerstick) 136 mg/dL (70-99) H Current Medications: Meds: Current Medications Potassium Chloride/Dextrose 1,000 ml @ 75 mls/hr [id number] IV Last administered on 10/11/17at 02:00; Start 10/09/17 at 21:00 Acetaminophen (Tylenol) 650 mg PRN Q6HRS PRN PO PAIN Last administered on at 02:29; Start 10/09/17 at 22:00 Aspirin (Aspirin Enteric Coated) 81 mg DAILY PO ; Start 10/10/17 at 09:00; Stop 10/10/17 at 09:00; Status DC Calcium/Vitamin D (Oscal D 500mg/ 200uts) 2 tab DAILYWLUN PO ; Start 10/10/17 at 12:00 Cyanocobalamin (Vitamin B-12) 1,000 mcg DAILY PO Last administered on 10/11/17at 13:23; Start 10/10/17 at 09:00 Docusate Sodium (Colace) 100 mg DAILY PO ; Start 10/10/17 at 09:00 Donepezil HCl (Aricept) 10 mg HS PO Last administered on 10/10/17at 20:56; Start 10/09/17 at 22:30 Fenofibrate (Tricor) 145 mg DAILY PO Last administered on 10/11/17at 13:23; Start 10/10/17 at 09:00 Fluticasone Propionate (Flonase) 1 spray DAILY NS Last administered on at 09:05; Start 10/10/17 at 09:00 Gabapentin (Neurontin) 300 mg DAILY PO Last administered on 10/11/17at 13:23; Start 10/10/17 at 09:00 Lorazepam (Ativan) 0.5 mg PRN DAILY PRN PO ANXIETY / AGITATION Last administered on 10/09/17at 22:36; Start 10/09/17 at 22:00 Losartan Potassium (Cozaar) 25 mg DAILY PO Last administered on 10/11/17at 13:22 ; Start 10/10/17 at 09:00 Magnesium Oxide (Magnesium Oxide) 400 mg TID PO Last administered on 10/10/17 20:56; Start 10/09/17 at 22:15 Multi-Ingredient Ointment (Analgesic [place]) 1 garth PRN QID PRN TP PAIN; Start 10/09/17 at 22:00 Mirtazapine (Remeron) 7.5 mg QHS PO Last administered on 10/10/17 20:56; Start 10/09/17 at 22:15 Ondansetron HCl (Zofran Odt) 4 mg PRN Q4HRS PRN PO NAUSEA Last administered on 10/10/17 09:24; Start 10/09/17 at 22:00 Ondansetron HCl (Zofran Odt) 4 mg PRN TID PRN PO NAUSEA/VOMITING; Start at 22:00; Stop 10/09/17 at 22:18; Status DC Pantoprazole Sodium (Protonix) 40 mg DAILYAC PO ; Start 10/10/17 at 07:30; Stop 10/10/17 at 08:52; Status DC Sertraline HCl (Zoloft) 25 mg DAILY PO Last administered on 10/11/17at 13:24; Start 10/10/17 at 09:00 Simvastatin (Zocor) 20 mg HS PO Last administered on 10/10/17 20:56; Start 10/09 at 22:15 Al Hydroxide/Mg Hydroxide (Mylanta Plus Xs) 15 ml PRN AFTMEAL PRN PO DYSPEPSIA ; Start 10/09/17 at 22:30 Magnesium Hydroxide (Milk Of Magnesia) 2,400 mg PRN QHS PRN PO CONSTIPATION; Start 10/09/17 at 22:30 Multivitamins/ Calcium (Thera-M Plus) 1 tab DAILY PO Last administered on at 09:04; Start 10/10/17 at 09:00 Fish Oil (Fish Oil) 1,000 mg BID PO Last administered on 10/10/17at 20:56; Start 10/09/17 at 22:30 Potassium Chloride (Klor-Con) 10 meq DAILYWBKFT PO Last administered on at 13:24; Start 10/10/17 at 08:00 Aspirin (Children'S Aspirin) 81 mg DAILYWBKFT PO Last administered on 10/11/17at 13:24; Start 10/10/17 at 09:00 Pantoprazole Sodium (Protonix Packet) 40 mg DAILYAC PO Last administered on 10/11at 13:24; Start 10/10/17 at 09:00 Magnesium Sulfate 50 ml @ 25 mls/hr 1X ONCE IV Last administered on 10/10/17at 17:21; Start 10/10/17 at 17:00; Stop 10/10/17 at 19:00; Status DC Olanzapine (ZyPREXA) 2.5 mg PRN Q2HR PRN PO AGITATION; Start 10/10/17 at 20:45 Active Scripts Active Reported Donepezil Hcl 10 Mg Tablet 10 Mg PO HS Tricor (Fenofibrate Nanocrystallized) 145 Mg Tablet 145 Mg PO DAILY Potassium Chloride 10 Meq Tablet.er 10 Meq PO DAILYWBKFT Zoloft (Sertraline Hcl) 25 Mg Tablet 25 Mg PO DAILY Zofran Odt (Ondansetron) 4 Mg Tab.rapdis 4 Mg PO PRN TID PRN Pantoprazole Sodium 40 Mg Tablet.dr 40 Mg PO DAILYAC Remeron (Mirtazapine) 15 Mg Tablet 7.5 Mg PO QHS Analgesic [place] (Methyl Salicylate/Menthol) 28 Gm Oint...g. 1 Garth TP PRN QID PRN Maalox Advanced Suspension (Mag Hydrox/Aluminum Hyd/Simeth) 355 Ml Oral.susp 15 Ml PO PRN AFTMEAL PRN Milk Of Magnesia (Magnesium Hydroxide) 2,400 Mg/10 Ml Oral.susp 2,400 Mg PO PRN QHS PRN Magnesium Oxide 400 Mg Tablet 400 Mg PO TID Tylenol (Acetaminophen) 325 Mg Tablet 650 Mg PO PRN Q6HRS PRN Zofran Odt (Ondansetron) 4 Mg Tab.rapdis 4 Mg PO PRN Q4HRS PRN Lorazepam 0.5 Mg Tablet 0.5 Mg PO PRN DAILY PRN Docusate Sodium 100 Mg Capsule 100 Mg PO DAILY Vitamin B-12 (Cyanocobalamin (Vitamin B-12)) 1,000 Mcg Tablet 1,000 Mcg PO DAILY Simvastatin 20 Mg Tablet 20 Mg PO HS [place] 3 1,000 Mg Softgel ([place]-3 Fatty Acids/Fish Oil) 1 Each Capsule 1 Each PO BID Multivitamins (Multivitamin) 1 Each Tablet 1 Each PO DAILY Losartan Potassium 25 Mg Tablet 25 Mg PO DAILY Gabapentin 300 Mg Capsule 300 Mg PO DAILY Fluticasone Propionate Nasal [place] (Fluticasone Propionate) 16 Gm [place].susp 1 [place] NS DAILY Calcium 500 + Vit D 200 Tablet (Calcium Carbonate/Vitamin D3) 1 Each Tablet 2 Each PO DAILYWLUN Aspirin Ec (Aspirin) 81 Mg Tablet. 81 Mg PO DAILY I have reviewed the current psychotropics carefully including drug interactions. Risk benefit ratio favors no change other than as noted in my dictated progress note. Diagnosis: Problems: (1) Dementia in Alzheimer's disease with delusions (2) Dementia in Alzheimer's disease with depression (3) Dementia, vascular, with delusions (4) Dementia, vascular, with depression (5) Impulse control disorder (6) Anxiety disorder NICHOLE DAVIDSON MD Oct 11, 2017 19:19
[2017-10-11 19:35] VITALS: BP 149/71
[2017-10-11] MEDS: DONEPEZIL HCL 10 MG TABLET PO SCH (20:52)
[2017-10-11] MEDS: SIMVASTATIN 20 MG TABLET PO SCH (20:52)
[2017-10-11] MEDS: MIRTAZAPINE 7.5 MG TABLET. PO SCH (20:52)
--- NOTE | 2017-10-11 21:03 | PN ---
DATE: 10/10/2017 This note covers elements not covered in my initial note of 10/10/2017. The patient was transferred to [address] [place] [address] Medical/Surgical floor per Dr. Camarena on 10/09/2017, and [facility] and had developed leukocytosis of unknown origin, hypomagnesemia, hypokalemia. She appeared more confused and was transferred to [address] [place] [address] for medical stabilization. I have been asked to consult on the patient, follow her from a psychiatric standpoint while she is on [address] [place] [address]. Per nursing report, the patient was extremely agitated, labile in her mood, aggressive, disruptive, hitting, kicking and combative with staff this morning, she was yelling. Ativan seemed to have little benefit. REVIEW OF SYSTEMS: WBCs have improved, potassium is normalized and she is on IV magnesium supplement. MENTAL STATUS EXAM: She is lying in bed, oriented to herself. Insight, judgment, recent and remote memory, attention, concentration, fund of knowledge poor, consistent with her diagnosis mentioned in my initial note. IMPRESSION: Major neurocognitive disorder, Alzheimer, vascular with depression, delusion, behavioral disturbance. Rest unchanged. PLAN: Continue current psychotropics. I reviewed the list noted in my initial note. Start Zyprexa 2.5 mg q.2 hours p.r.n. psychosis, agitation, max 10 mg in 24 hours. MAN Nadja DAVIDSON MD DR: ZIYAD/selena JOB#: [id number] / [id number]
[2017-10-11] MEDS ORDERED: OLAN5TAB9 PO (21:38)
--- NOTE | 2017-10-12 03:44 | DS ---
DATE OF DISCHARGE: 10/11/2017 HOSPITAL COURSE: The patient is an 82-year-old female patient, who was transferred to [address] [place] [address] on account of dehydration, hypokalemia and she was started on D5 half normal and the patient's basically lab work has dramatically improved. The patient is more awake and alert now, very restless, agitated, yelling, sundowning and that was felt that the patient is medically stable and a decision was made to discharge her back for [facility]. When I examined her this evening, she was sitting comfortably up in bed, definitely more awake, alert, very restless, yelling, screaming, picking on her skin. Her hands were in mittens because she started bleeding from her forehead. When I examined her, she was pale, but no jaundice, cyanosis, or thyromegaly. No jugular venous distension. No limb edema. VITAL SIGNS: Her heart rate was 56, blood pressure was 160/54, temperature was 97.8, respiratory rate 20, and oxygen saturation was 99% and the rest of clinical exam is unremarkable. LABORATORY DATA: This morning showed a serum sodium of 140, potassium 4.1, chloride 104, bicarbonate 32, anion gap of 4, BUN 17, creatinine 1.2, estimated GFR was 43 mL per minute, her glucose was 110, calcium was 9.2, magnesium 2.2. Total bilirubin, AST, ALT, alkaline phosphatase were normal. Total protein was 5.7, albumin 2.6. White cell count was 8700, hemoglobin 9.5, hematocrit 27.5, MCV 88 and platelet count 293,000. The patient was discharged back to [facility] to continue on her medications that included acetaminophen 650 mg every 6 hours, aspirin 81 mg once a day, calcium carbonate with vitamin D two tablets once a day, cyanocobalamin 1000 mcg daily, Colace 100 mg daily, Aricept 10 mg at bedtime, fenofibrate 145 mg daily, Flonase 1 spray to each nostril twice a day, gabapentin 300 mg daily, lorazepam 0.5 mg as needed for anxiety, losartan potassium 25 mg daily, milk of magnesia 30 mL p.o. daily p.r.n. for constipation, magnesium oxide 400 mg 3 times a day, mirtazapine 7.5 mg at bedtime, multivitamin 1 tablet once a day, omega-3 fatty acids 1000 three times a day, ondansetron for Zofran ODT 4 mg every 4 hours as needed, Protonix 40 mg once a day, potassium chloride 10 mEq once a day, sertraline for Zoloft 25 mg daily and simvastatin 20 mg at bedtime. FINAL DISCHARGE DIAGNOSES: Dehydration, and hypernatremia, hypokalemia, all resolved. Other medical problems including hyperlipidemia, hypertension, and gastroesophageal reflux disease. NEHEMIAH VELASQUEZ MD DR: DUNCAN/selena JOB#: [id number] / [id number]
--- NOTE | 2017-10-12 17:12 | PN ---
DATE: 10/11/2017 SUBJECTIVE: The patient is definitely more awake, alert, agitated, and sundowning it seems. PHYSICAL EXAMINATION: GENERAL: When examined her, she was pale, but no jaundice, cyanosis or thyromegaly. No jugular venous distension. No limb edema. VITAL SIGNS: Her heart rate was 56, blood pressure was 160/54, temperature was 97.6, respiratory rate was 20, and oxygen saturation was 99%. HEAD, EYES, EARS, NOSE AND THROAT: Normocephalic, atraumatic. NECK: Supple. HEART: Showed normal first and second heart sounds with no gallop, rub or murmur. CHEST: Clear to auscultation. No crepitation or rhonchi. ABDOMEN: Distended, soft, nontender. No guarding or rigidity. No organomegaly. Hernial orifices intact. Bowel sounds normal. NEUROLOGIC: She is definitely more awake, alert; however, she is definitely demented without any obvious lateralizing sign. All cranial nerves intact. She moves extremities without difficulty, though she is mostly bedbound, chair bound. Her intake over the last 24 hours was 1719, no output was recorded. LABORATORY DATA: This morning showed a serum sodium 140, potassium 4.1, chloride 104, bicarbonate 32, anion gap of 4, BUN 17, creatinine 1.2, estimated GFR was 42 mL per minute. Her glucose was 110. Calcium was 9.2, magnesium 2.2. Total bilirubin, AST, ALT, alkaline phosphatase were normal. Total protein was 5.7, albumin 2.6. Her white cell count was 8700, hemoglobin 9.5, hematocrit 27.5, MCV 88 and platelet count 293,000. Her nasal screen for MRSA by PCR was negative so far. Her urine culture showed no growth. Her chest x-ray showed no evidence of any cardiopulmonary abnormality detected. ASSESSMENT: In summary, this is an 82-year-old female patient who was transferred from [facility], as the patient has multiple medical problems including marked leukocytosis, hypernatremia, hypokalemia and hypomagnesemia. All her labs seem to be much improved. Her mental status has improved, although now she is very agitated, screaming, yelling, and sundowning. PLAN: To encourage patient to eat and drink and hopefully, if the patient remained stable, she can go back to her previous residence. NEHEMIAH VELASQUEZ MD DR: DUNCAN/selena JOB#: [id number] / [id number]
== END 2017-10-11 21:13 | DRG 640 ==
LOC: EEVIPCON 20:48 → 1 SOUTH 20:48
PROVIDERS: ADMIT Internal Medicine; ATTEND Internal Medicine
DX: E87.0 Hyperosmolality and hypernatremia (principal); E43 Unspecified severe protein-calorie malnutrition; G92 Toxic encephalopathy; E11.40 Type 2 diabetes mellitus with diabetic neuropathy, unspecified; E86.0 Dehydration; F05 Delirium due to known physiological condition; G30.9 Alzheimer's disease, unspecified; K59.00 Constipation, unspecified; K21.9 Gastro-esophageal reflux disease without esophagitis; F41.9 Anxiety disorder, unspecified; F42.9 Obsessive-compulsive disorder, unspecified; F32.9 Major depressive disorder, single episode, unspecified; I10 Essential (primary) hypertension; E78.5 Hyperlipidemia, unspecified; M54.5 Low back pain; E87.6 Hypokalemia; E83.42 Hypomagnesemia; G47.00 Insomnia, unspecified; F01.50 Vascular dementia, unspecified severity, without behavioral disturbance, psychotic disturbance, mood disturbance, and anxiety; F02.80 Dementia in other diseases classified elsewhere, unspecified severity, without behavioral disturbance, psychotic disturbance, mood disturbance, and anxiety; F22 Delusional disorders; F63.9 Impulse disorder, unspecified; D72.829 Elevated white blood cell count, unspecified; Z90.710 Acquired absence of both cervix and uterus; Z90.49 Acquired absence of other specified parts of digestive tract; Z88.8 Allergy status to other drugs, medicaments and biological substances; Z74.01 Bed confinement status
CPT/HCPCS: 36415; 80053; 82947; 83735; 85025; 85027; 87641; J3475; J7042; Q0162

== ENCOUNTER 2017-10-11 21:24 | Inpatient (IN) | payer MEDICARE ==
--- NOTE | 2017-10-10 22:00 | NUR ---
Admission Note with Justification for Admission to [facility] Patient admitted to [facility] for protective oversight for emergency stabilization of acute psychiatric crisis. Pt admitted from: [address] Mode of arrival: W/C Accompanied By: [facility] Staff Precipitating behaviors that initiated intake and admission: Pt repeatedly yelling out, screaming, anxious, agitation & aggression, combative- hitting, kicking, scratching, biting, picking at skin, verbally abusive towards staff. Description of failure of out patient attempts at stabilization in previous setting list behavior and medication trials:PRN Ativan and PRN Zydis ineffective. Behaviors and assessment findings upon admission: Pt anxious, disorganized upon arrival. A/O to self. Resistive with cares and assessment. Pt became combative with cares, hitting, kicking, scratching, and attempting to bite staff. Pt up per w/c, assist x2 with transfers. LS clear/diminished, respirations even and non-labored. HRRR, peripheral pulses palpable and even bilaterally, no edema noted. Abdomen soft, non-tender, LBM 1/5. Skin C/D/I, lesions to forehead and scalp noted from pt picking at skin. Bed low and locked, bed alarm on. Plan: Admit for protective oversight for adjustment and stabilization of medications, behaviors and mood. Intense treatment regimen including groups, medication adjustments, therapy, consistent regimen for ADL's, self care, and sleep hygiene. Daily monitoring by Inpatient staff, Psychiatry, and Medical Physician.
[~2017-10-11] VITALS: Ht 152.4 cm; Wt 53.6 kg
[2017-10-11 21:31] VITALS: BP 108/62
[2017-10-11] MEDS ORDERED: OLAN5TAB9 PO (21:38)
[2017-10-11] MEDS ORDERED: ONDANSETRON ODT 4 MG TAB.RAPDIS PO PRN (21:45)
[2017-10-11] MEDS ORDERED: OLANZapine 5 MG TABLET PO PRN (21:45)
[2017-10-11] MEDS ORDERED: METHYL SALICYLATE/MENTHOL TOPICAL OINTMENT 29GM TUBE. TP PRN (21:45)
[2017-10-11] MEDS ORDERED: MAG HYDROX/AL HYDROX/SIMETH 30 ML ORAL.SUSP PO PRN (22:00)
[2017-10-11] MEDS ORDERED: MAGNESIUM HYDROXIDE 2,400 MG/30 ML ORAL.SUSP. PO PRN (22:00)
[2017-10-11] MEDS: DONEPEZIL HCL 10 MG TABLET PO SCH (22:00)
[2017-10-11] MEDS: MIRTAZAPINE 7.5 MG TABLET. PO SCH (22:00)
[2017-10-11] MEDS: LORazepam 0.5 MG TABLET PO PRN (22:05)
--- NOTE | 2017-10-11 22:08 | PDOC ---
Exam Note: Torres Note: Please also refer to the separate dictated note~for this date of service dictated separately.~Patient seen individually. Discussed the patient with Nursing staff reviewed the chart.~Reviewed interim history and current functioning. Reviewed vital signs,~Labs/ Radiology~and current medications noted below. Continue current treatment with the changes noted in the dictated addendum note Assessment: Vital Signs: Vital Signs Date Time Temp Pulse Resp B/P (MAP) Pulse Ox O2 Delivery O2 Flow Rate FiO2 10/11/17 21:31 98.4 73 22 108/62 (77) 98 Current Medications: Meds: Current Medications Donepezil HCl (Aricept) 10 mg HS PO ; Start 10/11/17 at 22:00 Lorazepam (Ativan) 0.5 mg PRN DAILY PRN PO ANXIETY / AGITATION Last administered on 10/11/17at 22:05; Start 10/11/17 at 21:45 Mirtazapine (Remeron) 7.5 mg QHS PO ; Start 10/11/17 at 22:00 Olanzapine (ZyPREXA) 2.5 mg PRN Q2HR PRN PO ANXIETY / AGITATION; Start 10/11/17 at 21:45 Sertraline HCl (Zoloft) 25 mg DAILY PO ; Start 10/12/17 at 09:00 Acetaminophen (Tylenol) 650 mg PRN Q6HRS PRN PO MILD PAIN; Start 10/11/17 at 21: 45 Aspirin (Aspirin Enteric Coated) 81 mg DAILYWBKFT PO ; Start 10/12/17 at 08:00 Calcium/Vitamin D (Oscal D 500mg/ 200uts) 2 tab DAILYWLUN PO ; Start 10/12/17 at 12:00 Cyanocobalamin (Vitamin B-12) 1,000 mcg DAILY PO ; Start 10/12/17 at 09:00 Docusate Sodium (Colace) 100 mg DAILY PO ; Start 10/12/17 at 09:00 Fenofibrate (Tricor) 145 mg DAILY PO ; Start 10/12/17 at 09:00 Fluticasone Propionate (Flonase) 1 spray DAILY NS ; Start 10/12/17 at 09:00 Gabapentin (Neurontin) 300 mg DAILY PO ; Start 10/12/17 at 09:00 Losartan Potassium (Cozaar) 25 mg DAILY PO ; Start 1/7/18 at 09:00 Magnesium Oxide (Magnesium Oxide) 400 mg TID PO ; Start 10/12/17 at 09:00 Multi-Ingredient Ointment (Analgesic [place]) 1 garth PRN QID PRN TP MUSCLE PAIN; Start 10/11/17 at 21:45 Ondansetron HCl (Zofran Odt) 4 mg PRN Q4HRS PRN PO NAUSEA; Start 10/11/17 at 21: 45 Pantoprazole Sodium (Protonix) 40 mg DAILYAC PO ; Start 10/12/17 at 07:30 Simvastatin (Zocor) 20 mg HS PO ; Start 10/12/17 at 21:00 Al Hydroxide/Mg Hydroxide (Mylanta Plus Xs) 15 ml PRN AFTMEAL PRN PO DYSPEPSIA ; Start 10/11/17 at 22:00 Magnesium Hydroxide (Milk Of Magnesia) 2,400 mg PRN QHS PRN PO CONSTIPATION; Start 10/11/17 at 22:00 Multivitamins/ Calcium (Thera-M Plus) 1 tab DAILY PO ; Start 10/12/17 at 09:00 Fish Oil (Fish Oil) 1,000 mg BID PO ; Start 10/12/17 at 09:00 Potassium Chloride (Klor-Con) 10 meq DAILYWBKFT PO ; Start 10/12/17 at 08:00 Active Scripts Active Reported Olanzapine 5 Mg Tablet 2.5 Mg PO PRN Q2HR PRN Donepezil Hcl 10 Mg Tablet 10 Mg PO HS Tricor (Fenofibrate Nanocrystallized) 145 Mg Tablet 145 Mg PO DAILY Potassium Chloride 10 Meq Tablet.er 10 Meq PO DAILYWBKFT Zoloft (Sertraline Hcl) 25 Mg Tablet 25 Mg PO DAILY Pantoprazole Sodium 40 Mg Tablet.dr 40 Mg PO DAILYAC Remeron (Mirtazapine) 15 Mg Tablet 7.5 Mg PO QHS Analgesic [place] (Methyl Salicylate/Menthol) 28 Gm Oint...g. 1 Garth TP PRN QID PRN Maalox Advanced Suspension (Mag Hydrox/Aluminum Hyd/Simeth) 355 Ml Oral.susp 15 Ml PO PRN AFTMEAL PRN Milk Of Magnesia (Magnesium Hydroxide) 2,400 Mg/10 Ml Oral.susp 2,400 Mg PO PRN QHS PRN Magnesium Oxide 400 Mg Tablet 400 Mg PO TID Tylenol (Acetaminophen) 325 Mg Tablet 650 Mg PO PRN Q6HRS PRN Zofran Odt (Ondansetron) 4 Mg Tab.rapdis 4 Mg PO PRN Q4HRS PRN Lorazepam 0.5 Mg Tablet 0.5 Mg PO PRN DAILY PRN Docusate Sodium 100 Mg Capsule 100 Mg PO DAILY Vitamin B-12 (Cyanocobalamin (Vitamin B-12)) 1,000 Mcg Tablet 1,000 Mcg PO DAILY Simvastatin 20 Mg Tablet 20 Mg PO HS [place] 3 1,000 Mg Softgel ([place]-3 Fatty Acids/Fish Oil) 1 Each Capsule 1 Cap PO BID Multivitamins (Multivitamin) 1 Each Tablet 1 Each PO DAILY Losartan Potassium 25 Mg Tablet 25 Mg PO DAILY Gabapentin 300 Mg Capsule 300 Mg PO DAILY Fluticasone Propionate Nasal [place] (Fluticasone Propionate) 16 Gm [place].susp 1 [place] NS DAILY Calcium 500 + Vit D 200 Tablet (Calcium Carbonate/Vitamin D3) 1 Each Tablet 2 Each PO DAILYWLUN Aspirin Ec (Aspirin) 81 Mg Tablet. 81 Mg PO DAILYWBKFT I have reviewed the current psychotropics carefully including drug interactions. Risk benefit ratio favors no change other than as noted in my dictated progress note. Diagnosis: Problems: (1) Hypokalemia (2) Anxiety disorder (3) Impulse control disorder (4) Dementia, vascular, with depression (5) Dementia, vascular, with delusions (6) Dementia in Alzheimer's disease with depression (7) Dementia in Alzheimer's disease with delusions NICHOLE DAVIDSON MD Oct 11, 2017 22:08
--- NOTE | 2017-10-11 22:15 | NUR ---
Pt anxious, yelling out, screaming, attempting to hit, kick, bite, and scratch staff when performing cares. Several attempts to redirect and reorient pt unsuccessful. PRN Ativan administered as ordered.
--- NOTE | 2017-10-12 00:20 | NUR ---
Behavior Intervention Response and Plan: BIRP Note: Behavior: Assumed Care of patient, patient located in Patient Room at shift change. Patient exhibited the following behavior Anxious, Delusions, Restless. Brief assessment on rounds of vital signs, medication needs, lab studies, and pain. Treatment plan problems Dementia w/ BD and Fall Risk. Intervention: Patient assessed and the following interventions initiated safety checks 15 Minute Checks Cognitive Assessment , Head to toe Assessment , Medications. Response: After interactions and interventions patient responded in the following manner, Restless , Disorganized ,Anxious. Continue to assess behaviors and condition will continue to monitor throughout the shift as needed. Patient educated on ADL's, and hand hygiene. Plan: Continue to monitor Master Treatment Plan for patient's progress toward short term goals of Decreased Anxiety, Improved Mood, meterman goals to return to previous living setting vs placement. Continue to assess patient for changes in above assessment. Monitor for medication needs, pain, and safety concerns. Hourly rounding performed to ensure safe environment.
[2017-10-12 05:51] VITALS: BP 129/59
[2017-10-12 06:01] VITALS: BP 80/53
--- NOTE | 2017-10-12 06:31 | NUR ---
Pt was sitting in day room @0600 when she became unresponsive. Pt did not respond to verbal or painful stimuli, began to drool and then vomited clear fluid. BP 80/53, P 82. Rapid response called, pt taken back to her room. As pt was being transferred back into bed, she stated "I have to poop". Pt placed in bed and began to yell at staff. RR team arrived. Pt assessed, EKG obtained. BP 129/79 P 75. Pt awake, yelling, resistive with vs and assessment. Pt c/o neck and back pain, when asked if she's had this pain before, she stated "it's not new". Dr. Migue garrett, new orders received for CMP, CBC, and hold AM dose of Losartan. Orders entered and processed at this time. Addendum: 10/12/17 at 0643 by FARIBA HENSON RN BS 129 @this time.
[2017-10-12 06:35] VITALS: BP 123/44
[2017-10-12 07:43] LABS: BASO % 0 % (0-3); EOS # 0.1 x10^3/uL (0.0-0.7); EOS % 1 % (0-3); HEMATOCRIT 33.2 % (36.0-47.0); HEMOGLOBIN 11.3 g/dL (12.0-15.5); LYMPH # 1.6 x10^3/uL (1.0-4.8); LYMPH % 16 % (24-48); MEAN CORPUSCULAR HEMOGLOBIN 30 pg (25-35); MEAN CORPUSCULAR HGB CONC 34 g/dL (31-37); MEAN CORPUSCULAR VOLUME 88 fL (79-100); MONO # 0.7 x10^3/uL (0.0-1.1); MONO % 7 % (0-9); NEUT # 7.8 x10^3uL (1.8-7.7); NEUT % 76 % (31-73); PLATELET COUNT 360 x10^3/uL (140-400); RED BLOOD COUNT 3.78 x10^6/uL (3.50-5.40); RED CELL DISTRIBUTION WIDTH 12.6 % (11.5-14.5); WHITE BLOOD COUNT 10.3 x10^3/uL (4.0-11.0)
[2017-10-12] MEDS: ASPIRIN ENTERIC COATED 81 MG TABLET.DR. PO SCH (08:07)
[2017-10-12] MEDS: CYANOCOBALAMIN (VITAMIN B-12) 1,000 MCG TABLET. PO SCH (08:07)
[2017-10-12] MEDS: PANTOPRAZOLE 40 MG TABLET. PO SCH (08:07)
[2017-10-12] MEDS: FENOFIBRATE NANOCRYSTALLIZED 145 MG TABLET PO SCH (08:07)
[2017-10-12] MEDS: MULTIVITAMIN with MINERAL TABLET. PO SCH (08:07)
[2017-10-12] MEDS: DOCUSATE SODIUM 100 MG CAPSULE PO SCH (08:07)
[2017-10-12] MEDS: SERTRALINE 25 MG TABLET. PO SCH (08:07)
[2017-10-12] MEDS: POTASSIUM CHLORIDE 10 MEQ TABLET.ER. PO SCH (08:07)
[2017-10-12] MEDS: OMEGA-3 FATTY ACIDS/FISH OIL 1,000 MG CAPSULE. PO SCH ×2 (08:07→19:33)
[2017-10-12] MEDS: GABAPENTIN 300 MG CAPSULE. PO SCH (08:07)
[2017-10-12] MEDS: MAGNESIUM OXIDE 400 MG TABLET PO SCH ×3 (08:07→19:33)
[2017-10-12] MEDS: FLUTICASONE 50MCG/NASAL SPRAY 16GM BOTTLE. NS SCH (08:08)
[2017-10-12 08:12] LABS: ALBUMIN 2.8 g/dL (3.4-5.0); ALBUMIN/GLOBULIN RATIO 0.8 (1.0-1.7); CALCIUM 9.8 mg/dL (8.5-10.1); CREATININE 1.3 mg/dL (0.6-1.0); POTASSIUM 4.6 mmol/L (3.5-5.1); TOTAL BILIRUBIN 0.3 mg/dL (0.2-1.0); TOTAL PROTEIN 6.3 g/dL (6.4-8.2)
[2017-10-12] MEDS ORDERED: LOSARTAN 25 MG TABLET. PO SCH (09:00)
--- NOTE | 2017-10-12 09:00 | NUR ---
Patient is yelling help repeatedly. Patient is delusional and believes that she is in her home. Administered PARRISH Mays.
--- NOTE | 2017-10-12 09:20 | NUR ---
Behavior Intervention Response and Plan: BIRP Note: Behavior: Assumed Care of patient, patient located in Dining Room at shift change. Patient exhibited the following behavior Restless, Demanding, Irritable. Brief assessment on rounds of vital signs, medication needs, lab studies, and pain. Treatment plan problems . Intervention: Patient assessed and the following interventions initiated safety checks 15 Minute Checks Cognitive Assessment , Head to toe Assessment , Medications. Response: After interactions and interventions patient responded in the following manner, Delusions , Resistive ,Irritable. Continue to assess behaviors and condition will continue to monitor throughout the shift as needed. Patient educated on ADL's, and hand hygiene. Plan: Continue to monitor Master Treatment Plan for patient's progress toward short term goals of Improved Mood, Decreased Agitation, intermodal dispatcher goals to return to previous living setting vs placement. Continue to assess patient for changes in above assessment. Monitor for medication needs, pain, and safety concerns. Hourly rounding performed to ensure safe environment.
[2017-10-12 13:27] VITALS: BP 108/55
[2017-10-12] MEDS: CALCIUM CARB/VIT D3 500/200 TABLET PO SCH (13:49)
[2017-10-12 16:22] VITALS: BP 145/49
[2017-10-12] MEDS: ACETAMINOPHEN 325 MG TABLET PO PRN (17:22)
[2017-10-12] MEDS: DONEPEZIL HCL 10 MG TABLET PO SCH (19:33)
[2017-10-12] MEDS: MIRTAZAPINE 7.5 MG TABLET. PO SCH (19:33)
[2017-10-12] MEDS: SIMVASTATIN 20 MG TABLET PO SCH (19:35)
[2017-10-12] MEDS: traZODone 50 MG TABLET. PO PRN (19:36)
--- NOTE | 2017-10-12 20:12 | PDOC ---
Exam Note: Torres Note: Please also refer to the separate dictated note~for this date of service dictated separately.~Patient seen individually. Discussed the patient with Nursing staff reviewed the chart.~Reviewed interim history and current functioning. Reviewed vital signs,~Labs/ Radiology~and current medications noted below. Continue current treatment with the changes noted in the dictated addendum note Assessment: Vital Signs: Vital Signs Date Time Temp Pulse Resp B/P (MAP) Pulse Ox O2 Delivery O2 Flow Rate FiO2 10/12/17 16:22 97.9 58 18 145/49 (81) 96 Room Air I&O Intake and Output 10/12/17 07:00 Intake Total 120 ml Balance 120 ml Intake Oral 120 ml # Voids 1 Labs: Laboratory Tests Test 10/12/17 06:05 10/12/17 07:29 Glucose (Fingerstick) 129 mg/dL (70-99) H White Blood Count 10.3 x10^3/uL (4.0-11.0) Red Blood Count 3.78 x10^6/uL (3.50-5.40) Hemoglobin 11.3 g/dL (12.0-15.5) L Hematocrit 33.2 % (36.0-47.0) L Mean Corpuscular Volume 88 fL (79-100) Mean Corpuscular Hemoglobin 30 pg (25-35) Mean Corpuscular Hemoglobin Concent 34 g/dL (31-37) Red Cell Distribution Width 12.6 % (11.5-14.5) Platelet Count 360 x10^3/uL (140-400) Neutrophils (%) (Auto) 76 % (31-73) H Lymphocytes (%) (Auto) 16 % (24-48) L Monocytes (%) (Auto) 7 % (0-9) Eosinophils (%) (Auto) 1 % (0-3) Basophils (%) (Auto) 0 % (0-3) Neutrophils # (Auto) 7.8 x10^3uL (1.8-7.7) H Lymphocytes # (Auto) 1.6 x10^3/uL (1.0-4.8) Monocytes # (Auto) 0.7 x10^3/uL (0.0-1.1) Eosinophils # (Auto) 0.1 x10^3/uL (0.0-0.7) Basophils # (Auto) 0.0 x10^3/uL (0.0-0.2) Sodium Level 142 mmol/L (136-145) Potassium Level 4.6 mmol/L (3.5-5.1) Chloride Level 106 mmol/L (98-107) Carbon Dioxide Level 33 mmol/L (21-32) H Anion Gap 3 (6-14) L Blood Urea Nitrogen 18 mg/dL (7-20) Creatinine 1.3 mg/dL (0.6-1.0) H Estimated GFR (Cockcroft-Gault) 39.0 BUN/Creatinine Ratio 14 (6-20) Glucose Level 129 mg/dL (70-99) H Calcium Level 9.8 mg/dL (8.5-10.1) Magnesium Level 1.8 mg/dL (1.8-2.4) Total Bilirubin 0.3 mg/dL (0.2-1.0) Aspartate Amino Transferase (AST) 36 U/L (15-37) Alanine Aminotransferase (ALT) 31 U/L (14-59) Alkaline Phosphatase 55 U/L (46-116) Total Protein 6.3 g/dL (6.4-8.2) L Albumin 2.8 g/dL (3.4-5.0) L Albumin/Globulin Ratio 0.8 (1.0-1.7) L Current Medications: Meds: Current Medications Donepezil HCl (Aricept) 10 mg HS PO Last administered on 10/12/17at 19:33; Start 10/11/17 at 22:00 Lorazepam (Ativan) 0.5 mg PRN DAILY PRN PO ANXIETY / AGITATION Last administered on 10/11/17at 22:05; Start 10/11/17 at 21:45 Mirtazapine (Remeron) 7.5 mg QHS PO Last administered on 10/12/17at 19:33; Start 10/11/17 at 22:00 Olanzapine (ZyPREXA) 2.5 mg PRN Q2HR PRN PO ANXIETY / AGITATION; Start 10/11/17 at 21:45; Stop 10/12/17 at 08:11; Status DC Sertraline HCl (Zoloft) 25 mg DAILY PO Last administered on 10/12/17at 08:07; Start 10/12/17 at 09:00 Acetaminophen (Tylenol) 650 mg PRN Q6HRS PRN PO MILD PAIN Last administered on 10/12/17at 17:22; Start 10/11/17 at 21:45 Aspirin (Aspirin Enteric Coated) 81 mg DAILYWBKFT PO Last administered on at 08:07; Start 10/12/17 at 08:00 Calcium/Vitamin D (Oscal D 500mg/ 200uts) 2 tab DAILYWLUN PO Last administered on 10/12/17at 13:49; Start 10/12/17 at 12:00 Cyanocobalamin (Vitamin B-12) 1,000 mcg DAILY PO Last administered on 10/12/17at 08:07; Start 10/12/17 at 09:00 Docusate Sodium (Colace) 100 mg DAILY PO Last administered on 10/12/17at 08:07; Start 10/12/17 at 09:00 Fenofibrate (Tricor) 145 mg DAILY PO Last administered on 10/12/17at 08:07; Start 10/12/17 at 09:00 Fluticasone Propionate (Flonase) 1 spray DAILY NS ; Start 10/12/17 at 09:00 Gabapentin (Neurontin) 300 mg DAILY PO Last administered on 10/12/17at 08:07; Start 10/12/17 at 09:00 Losartan Potassium (Cozaar) 25 mg DAILY PO ; Start 10/12/17 at 09:00; Status Future Hold Magnesium Oxide (Magnesium Oxide) 400 mg TID PO Last administered on 10/12/17at 19:33; Start 10/12/17 at 09:00 Multi-Ingredient Ointment (Analgesic [place]) 1 garth PRN QID PRN TP MUSCLE PAIN; Start 10/11/17 at 21:45 Ondansetron HCl (Zofran Odt) 4 mg PRN Q4HRS PRN PO NAUSEA; Start 10/11/17 at 21: 45 Pantoprazole Sodium (Protonix) 40 mg DAILYAC PO Last administered on 10/12/17at 08:07; Start 10/12/17 at 07:30 Simvastatin (Zocor) 20 mg HS PO Last administered on 10/12/17at 19:35; Start 10/12 at 21:00 Al Hydroxide/Mg Hydroxide (Mylanta Plus Xs) 15 ml PRN AFTMEAL PRN PO DYSPEPSIA ; Start 10/11/17 at 22:00 Magnesium Hydroxide (Milk Of Magnesia) 2,400 mg PRN QHS PRN PO CONSTIPATION; Start 10/11/17 at 22:00 Multivitamins/ Calcium (Thera-M Plus) 1 tab DAILY PO Last administered on at 08:07; Start 10/12/17 at 09:00 Fish Oil (Fish Oil) 1,000 mg BID PO Last administered on 10/12/17at 19:33; Start 10/12/17 at 09:00 Potassium Chloride (Klor-Con) 10 meq DAILYWBKFT PO Last administered on at 08:07; Start 10/12/17 at 08:00 Olanzapine (ZyPREXA ZYDIS) 2.5 mg PRN Q2HR PRN PO ANXIETY / AGITATION Last administered on 10/12/17at 08:23; Start 10/12/17 at 08:15 Trazodone HCl (Desyrel) 50 mg PRN QHS PRN PO INSOMNIA Last administered on at 19:36; Start 10/12/17 at 18:15 Active Scripts Active Reported Olanzapine 5 Mg Tablet 2.5 Mg PO PRN Q2HR PRN Donepezil Hcl 10 Mg Tablet 10 Mg PO HS Tricor (Fenofibrate Nanocrystallized) 145 Mg Tablet 145 Mg PO DAILY Potassium Chloride 10 Meq Tablet.er 10 Meq PO DAILYWBKFT Zoloft (Sertraline Hcl) 25 Mg Tablet 25 Mg PO DAILY Pantoprazole Sodium 40 Mg Tablet.dr 40 Mg PO DAILYAC Remeron (Mirtazapine) 15 Mg Tablet 7.5 Mg PO QHS Analgesic [place] (Methyl Salicylate/Menthol) 28 Gm Oint...g. 1 Garth TP PRN QID PRN Maalox Advanced Suspension (Mag Hydrox/Aluminum Hyd/Simeth) 355 Ml Oral.susp 15 Ml PO PRN AFTMEAL PRN Milk Of Magnesia (Magnesium Hydroxide) 2,400 Mg/10 Ml Oral.susp 2,400 Mg PO PRN QHS PRN Magnesium Oxide 400 Mg Tablet 400 Mg PO TID Tylenol (Acetaminophen) 325 Mg Tablet 650 Mg PO PRN Q6HRS PRN Zofran Odt (Ondansetron) 4 Mg Tab.rapdis 4 Mg PO PRN Q4HRS PRN Lorazepam 0.5 Mg Tablet 0.5 Mg PO PRN DAILY PRN Docusate Sodium 100 Mg Capsule 100 Mg PO DAILY Vitamin B-12 (Cyanocobalamin (Vitamin B-12)) 1,000 Mcg Tablet 1,000 Mcg PO DAILY Simvastatin 20 Mg Tablet 20 Mg PO HS [place] 3 1,000 Mg Softgel ([place]-3 Fatty Acids/Fish Oil) 1 Each Capsule 1 Cap PO BID Multivitamins (Multivitamin) 1 Each Tablet 1 Each PO DAILY Losartan Potassium 25 Mg Tablet 25 Mg PO DAILY Gabapentin 300 Mg Capsule 300 Mg PO DAILY Fluticasone Propionate Nasal [place] (Fluticasone Propionate) 16 Gm [place].susp 1 [place] NS DAILY Calcium 500 + Vit D 200 Tablet (Calcium Carbonate/Vitamin D3) 1 Each Tablet 2 Each PO DAILYWLUN Aspirin Ec (Aspirin) 81 Mg Tablet. 81 Mg PO DAILYWBKFT I have reviewed the current psychotropics carefully including drug interactions. Risk benefit ratio favors no change other than as noted in my dictated progress note. Diagnosis: Problems: (1) Hypokalemia (2) Anxiety disorder (3) Impulse control disorder (4) Dementia, vascular, with depression (5) Dementia, vascular, with delusions (6) Dementia in Alzheimer's disease with depression (7) Dementia in Alzheimer's disease with delusions NICHOLE DAVIDSON MD Oct 12, 2017 20:12
--- NOTE | 2017-10-12 22:22 | HP ---
ADMIT DATE: 10/11/2017 This note covers the elements not covered in my initial note of 10/12/2017. IDENTIFYING DATA: The patient is an 82-year-old female referred back to us from [address] [place] [address] Medical/Surgical floor after she was stabilized there from a medical standpoint for her dehydration, having being transferred to [address] [place] [address] from our unit where she was initially admitted 10/05/2017, from [facility] in [place], on account of being combative, hitting other residents, hitting staff, yelling, picking at the sores on her head, and putting herself on the floor. During the hospitalization on our unit that followed, she was stabilized psychiatrically, but medically became dehydrated, transferred to [address] [place] [address], but I saw her in consult on [address] [place] [address] and she was still agitated, yelling, screaming, psychotic, confused, quite delusional, referred back to us for psychiatric stabilization. CHIEF COMPLAINT: "I am falling." The patient is seated in a Broda chair. Certainly no risk of fall, but remains quite confused, anxious. HISTORY OF PRESENT ILLNESS: The patient has a history of dementia, Alzheimer's vascular type. She has been residing at [facility] for some time prior to which, she was at home with caregivers. She became increasingly agitated, demented, transferred to [facility], and then was physically aggressive as noted above, returning to us. On [address] [place] [address], she continues to be quite labile scratching, hitting staff, combative with cares. His sleep and appetite changes, verbally abusive towards staff. She is referred for inpatient psychiatric stabilization. No clear history of bipolar disorder, suicidal or homicidal ideation. PAST PSYCHIATRIC HISTORY: As above. PAST MEDICAL HISTORY: Status post dehydration, hypertension, hyperlipidemia, diabetes mellitus, diverticulitis, vitamin D deficiency, right distal radial fracture, OCD, impulse control disorder, Accu-Cheks a.c. and at bedtime. CODE STATUS: Full code. ALLERGIES: BUSPAR. DIET: Regular mechanical soft, takes her medications crushed, ambulates with wheelchair to assist. UA is negative. FAMILY HISTORY: Noncontributory. SOCIAL HISTORY: No history of alcohol, drug abuse, physical, sexual or elder abuse history is noted. Not known to be a perpetrator. MENTAL STATUS EXAMINATION: The patient was seen individually evening of 10/12/2017. She is in a Broda chair. Ambulation impaired. No CV, , pulmonary, eye, ENT system symptoms on review. Reliability poor. MENTAL STATUS EXAM: Oriented to herself. Insight, judgment, recent and remote memory, attention, concentration, fund of knowledge poor, consistent with her diagnosis. Reaction to hospitalization, the patient oblivious of this assets, stable living at the facility, supportive daughter. IMPRESSION: Major neurocognitive disorder; Alzheimer, vascular with depression; delusion; behavioral disturbance; anxiety disorder, unspecified; impulse control disorder, unspecified. Rest as above. PLAN: Admit to geropsychiatry unit at [facility]. I will see the patient daily individually from a psychiatric standpoint, medical followup per Dr. Ybarra/Dr. Camarena. Continue Zoloft 25 mg a day. She slept 3/4 hours previous evening. We will start trazodone 50 mg at bedtime p.r.n., may repeat x 1 for insomnia. Continue Aricept 10 mg a day, Remeron 7.5 mg at bedtime, Ativan 0.5 mg p.r.n. daily, Zyprexa 2.5 mg q.2 hours p.r.n. psychosis, agitation. Make further adjustments as clinically indicated. MAN Nadja DAVIDSON MD DR: ZIYAD/selena JOB#: [id number] / [id number]
--- NOTE | 2017-10-12 23:10 | NUR ---
Behavior Intervention Response and Plan: BIRP Note: Behavior: Assumed Care of patient, patient located in Day Room at shift change. Patient exhibited the following behavior Anxious, Cooperative, Compliant. Brief assessment on rounds of vital signs, medication needs, lab studies, and pain. Treatment plan problems 1-2. Intervention: Patient assessed and the following interventions initiated safety checks 15 Minute Checks Cognitive Assessment , Head to toe Assessment , Medications. Response: After interactions and interventions patient responded in the following manner, Attention Seeking , Disorganized ,Cooperative. Continue to assess behaviors and condition will continue to monitor throughout the shift as needed. Patient educated on ADL's, and hand hygiene. Plan: Continue to monitor Master Treatment Plan for patient's progress toward short term goals of Decreased Anxiety, Improved Mood, lobsterman goals to return to previous living setting vs placement. Continue to assess patient for changes in above assessment. Monitor for medication needs, pain, and safety concerns. Hourly rounding performed to ensure safe environment.
--- NOTE | 2017-10-13 02:25 | NUR ---
Nursing Note Pt resting after traz given at 1936.
--- NOTE | 2017-10-13 04:15 | PN ---
DATE: 10/11/2017 PSYCHIATRIC PROGRESS NOTE This note covers the elements not covered in my initial note of 10/11/2017. SUBJECTIVE: The patient was seen individually evening of 10/11/2017. Discussed with nursing staff, reviewed the chart. Overall, the patient remains quite labile, anxious, yelling out and was quite loud, disruptive in the evening when I met with her in room 109. She said she is falling on the ground. In fact, she is in her hospital bed with the handrails drawn up and was trying to grab at things in the air. MENTAL STATUS EXAM: Oriented to herself. Insight, judgment, recent and remote memory, attention, concentration, fund of knowledge poor, consistent with her diagnosis mentioned in my initial note. IMPRESSION: Major neurocognitive disorder, Alzheimer, vascular with depression, delusion, behavioral disturbance. Rest unchanged from initial note. PLAN: Continue current psychotropics mentioned in my initial note, [facility] when she is medically stable. NICHOLE DAVIDSON MD DR: ZIYAD/selena JOB#: [id number] / [id number]
[2017-10-13 05:48] VITALS: BP 108/49
[2017-10-13] MEDS: GABAPENTIN 300 MG CAPSULE. PO SCH (08:49)
[2017-10-13] MEDS: CYANOCOBALAMIN (VITAMIN B-12) 1,000 MCG TABLET. PO SCH (08:49)
[2017-10-13] MEDS: FENOFIBRATE NANOCRYSTALLIZED 145 MG TABLET PO SCH (08:49)
[2017-10-13] MEDS: DOCUSATE SODIUM 100 MG CAPSULE PO SCH (08:49)
[2017-10-13] MEDS: POTASSIUM CHLORIDE 10 MEQ TABLET.ER. PO SCH (08:49)
[2017-10-13] MEDS: OMEGA-3 FATTY ACIDS/FISH OIL 1,000 MG CAPSULE. PO SCH ×2 (08:49→19:41)
[2017-10-13] MEDS: SERTRALINE 25 MG TABLET. PO SCH (08:49)
[2017-10-13] MEDS: ASPIRIN ENTERIC COATED 81 MG TABLET.DR. PO SCH (08:49)
[2017-10-13] MEDS: PANTOPRAZOLE 40 MG TABLET. PO SCH (08:49)
[2017-10-13] MEDS: MULTIVITAMIN with MINERAL TABLET. PO SCH (08:50)
[2017-10-13] MEDS: MAGNESIUM OXIDE 400 MG TABLET PO SCH ×3 (08:50→19:41)
[2017-10-13] MEDS: FLUTICASONE 50MCG/NASAL SPRAY 16GM BOTTLE. NS SCH (08:50)
--- NOTE | 2017-10-13 11:26 | PN ---
DATE: 10/11/2017 SUBJECTIVE: The patient is resting slightly propped up in bed, in no apparent distress, sleepy, but arousable. She does not really give any useful information. The nursing staff did not voice any concern except that the patient is unable to swallow ____ medication and particularly magnesium oxide. PHYSICAL EXAMINATION: GENERAL: When I examined her, she was pale, but no jaundice, cyanosis, or thyromegaly. No jugular venous distention. No limb edema. VITAL SIGNS: Her heart rate was 53, blood pressure was 148/70, temperature was 97.5, respiratory rate was 18 and oxygen saturation was 100%. The rest of clinical examination is unremarkable. Her intake over the last 24 hours was 774 and output was incompletely recorded. LABORATORY DATA: Her lab work this morning showed a serum sodium, which improved at 140, potassium 3.7, chloride 102, bicarbonate 31, anion gap of 7, BUN 18, creatinine 0.9, estimated GFR was 56 mL per minute. Her glucose 175, calcium was 9.2, magnesium was 1.5. Total bilirubin, AST, ALT, alkaline phosphatase were normal. Total protein 6, albumin 2.8. Her white cell count was 12,700, hemoglobin 10, hematocrit 30, MCV 87, and platelet count of 318,000. IMPRESSION: In summary, this is an 82-year-old female patient who was transferred to [address] [place] [address] from [facility] for dehydration, hypernatremia, hypokalemia, acute kidney injury, hypomagnesemia. She has a multitude of other medical problems including hypertension, hyperlipidemia. She is known to have hypertension, hyperlipidemia, type 2 diabetes, diabetic neuropathy, together with anxiety, depression, dementia, and obsessive compulsive disorder. NEHEMIAH VELASQUEZ MD DR: DUNCAN/selena JOB#: [id number] / [id number]
--- NOTE | 2017-10-13 14:47 | PN ---
DATE: 10/12/2017 SUBJECTIVE: The patient is an 82-year-old female patient who was transferred to [address] [place] [address] for dehydration, hypokalemia, hypomagnesemia. The patient was treated with IV fluid and her lab work improved. Her serum sodium, potassium, and magnesium have normalized and a decision was made to transfer her back to [facility] for inpatient psychiatric stabilization. PHYSICAL EXAMINATION: GENERAL: When I examined her this afternoon, she looked well and was clearly in no apparent respiratory distress, pale, somewhat cachectic, but no jaundice, cyanosis, or thyromegaly. No jugular venous distention. No limb edema. VITAL SIGNS: Her heart rate was 101, blood pressure 149/71, temperature was 98, respiratory rate 20, and oxygen saturation was 100% on room air. HEAD, EYES, EARS, NOSE AND THROAT: Normocephalic, atraumatic. NECK: Supple. HEART: Showed normal first and second heart sounds. No gallop, rub or murmur. CHEST: Clear to auscultation. No crepitation or rhonchi. ABDOMEN: Distended, soft, nontender. No guarding or rigidity. No organomegaly. Hernial orifice is intact. Bowel sounds normal. NEUROLOGIC: She is demented; however, without any lateralizing sign. All cranial nerves are intact. She moves extremities without difficulty, although she is mostly bedbound, chair bound. LABORATORY DATA: Her lab work as of this morning showed that her white cell count was 10,300, hemoglobin 11, hematocrit 33, MCV 88, and platelet count 360,000. Her chemistry showed a serum sodium 142, potassium 4.3, chloride 106, bicarbonate 33, anion gap of 3, BUN 18, creatinine 1.3, estimated GFR was 39 mL per minute. Her glucose 129, calcium was 9.8, magnesium was 1.8. Bilirubin, AST, ALT, alkaline phosphatase were normal. Her total protein was 6.3, albumin 2.8. ASSESSMENT AND PLAN: This is an 82-year-old female patient who was transferred back to [facility] after admission to [address] [place] [address] with hypokalemia, hypomagnesemia, and dehydration. Her potassium this morning was 4.6, magnesium was 1.8. She is definitely more awake, alert, responding appropriately, although she has been screaming, refusing her to drink or eat in morning. She has other medical problems include confusion, agitation, delusion on a background of dementia of Alzheimer, vascular type. She has multiple other medical problems including type 2 diabetes, fractured distal end of the radius, diverticulosis of the colon, diverticulum of the common bile duct, gastroesophageal reflux disease, hyperlipidemia, hypertension. NEHEMIAH VELASQUEZ MD DR: DUNCAN/selena JOB#: [id number] / [id number]
[2017-10-13] MEDS: CALCIUM CARB/VIT D3 500/200 TABLET PO SCH (15:16)
[2017-10-13 15:29] VITALS: BP 136/79
--- NOTE | 2017-10-13 19:36 | NUR ---
Trazodone was administered with HS medications as patient has not been sleeping.
[2017-10-13] MEDS: MIRTAZAPINE 7.5 MG TABLET. PO SCH (19:41)
[2017-10-13] MEDS: SIMVASTATIN 20 MG TABLET PO SCH (19:41)
[2017-10-13] MEDS: DONEPEZIL HCL 10 MG TABLET PO SCH (19:41)
[2017-10-13] MEDS: LORazepam 0.5 MG TABLET PO PRN (19:43)
--- NOTE | 2017-10-13 19:43 | NUR ---
Patient is in day room repeatedly yelling "Help" Staff has asked patient what she needs help with offered food and drink and bathroom. Patient still continues to yell out. Administered PRN xanax.
--- NOTE | 2017-10-13 20:02 | PDOC ---
Exam Note: Torres Note: Please also refer to the separate dictated note~for this date of service dictated separately.~Patient seen individually. Discussed the patient with Nursing staff reviewed the chart.~Reviewed interim history and current functioning. Reviewed vital signs,~Labs/ Radiology~and current medications noted below. Continue current treatment with the changes noted in the dictated addendum note Assessment: Vital Signs: Vital Signs Date Time Temp Pulse Resp B/P (MAP) Pulse Ox O2 Delivery O2 Flow Rate FiO2 10/13/17 15:29 97.7 70 18 136/79 (98) 97 10/13/17 05:48 Room Air I&O Intake and Output 10/13/17 07:00 Intake Total 720 ml Balance 720 ml Intake Oral 720 ml # Bowel Movements 1 Labs: Laboratory Tests Test 10/13/17 12:07 10/13/17 16:02 Glucose (Fingerstick) 93 mg/dL (70-99) 156 mg/dL (70-99) H Current Medications: Meds: Current Medications Donepezil HCl (Aricept) 10 mg HS PO Last administered on 10/13/17at 19:41; Start 10/11/17 at 22:00 Lorazepam (Ativan) 0.5 mg PRN DAILY PRN PO ANXIETY / AGITATION Last administered on 10/13/17 19:43; Start 10/11/17 at 21:45 Mirtazapine (Remeron) 7.5 mg QHS PO Last administered on 10/13/17 19:41; Start 10/11/17 at 22:00 Olanzapine (ZyPREXA) 2.5 mg PRN Q2HR PRN PO ANXIETY / AGITATION; Start 10/11/17 at 21:45; Stop 10/12/17 at 08:11; Status DC Sertraline HCl (Zoloft) 25 mg DAILY PO Last administered on 10/13/17 08:49; Start 10/12/17 at 09:00 Acetaminophen (Tylenol) 650 mg PRN Q6HRS PRN PO MILD PAIN Last administered on 10/12/17at 17:22; Start 10/11/17 at 21:45 Aspirin (Aspirin Enteric Coated) 81 mg DAILYWBKFT PO Last administered on at 08:49; Start 10/12/17 at 08:00 Calcium/Vitamin D (Oscal D 500mg/ 200uts) 2 tab DAILYWLUN PO Last administered on 10/13/17 15:16; Start 10/12/17 at 12:00 Cyanocobalamin (Vitamin B-12) 1,000 mcg DAILY PO Last administered on 10/13/17 08:49; Start 10/12/17 at 09:00 Docusate Sodium (Colace) 100 mg DAILY PO Last administered on 10/13/17 08:49; Start 10/12/17 at 09:00 Fenofibrate (Tricor) 145 mg DAILY PO Last administered on 10/13/17 08:49; Start 10/12/17 at 09:00 Fluticasone Propionate (Flonase) 1 spray DAILY NS ; Start 10/12/17 at 09:00 Gabapentin (Neurontin) 300 mg DAILY PO Last administered on 10/13/17 08:49; Start 10/12/17 at 09:00 Losartan Potassium (Cozaar) 25 mg DAILY PO ; Start 10/12/17 at 09:00; Status Future Hold Magnesium Oxide (Magnesium Oxide) 400 mg TID PO Last administered on 10/13/17 19:41; Start 10/12/17 at 09:00 Multi-Ingredient Ointment (Analgesic [place]) 1 garth PRN QID PRN TP MUSCLE PAIN; Start 10/11/17 at 21:45 Ondansetron HCl (Zofran Odt) 4 mg PRN Q4HRS PRN PO NAUSEA; Start 10/11/17 at 21: 45 Pantoprazole Sodium (Protonix) 40 mg DAILYAC PO Last administered on 10/13/17 08:49; Start 10/12/17 at 07:30 Simvastatin (Zocor) 20 mg HS PO Last administered on 10/13/17 19:41; Start 10/12 at 21:00 Al Hydroxide/Mg Hydroxide (Mylanta Plus Xs) 15 ml PRN AFTMEAL PRN PO DYSPEPSIA ; Start 10/11/17 at 22:00 Magnesium Hydroxide (Milk Of Magnesia) 2,400 mg PRN QHS PRN PO CONSTIPATION; Start 10/11/17 at 22:00 Multivitamins/ Calcium (Thera-M Plus) 1 tab DAILY PO Last administered on 08:50; Start 1/7/18 at 09:00 Fish Oil (Fish Oil) 1,000 mg BID PO Last administered on 10/13/17at 19:41; Start 10/12/17 at 09:00 Potassium Chloride (Klor-Con) 10 meq DAILYWBKFT PO Last administered on at 08:49; Start 10/12/17 at 08:00 Olanzapine (ZyPREXA ZYDIS) 2.5 mg PRN Q2HR PRN PO ANXIETY / AGITATION Last administered on 10/12/17at 08:23; Start 10/12/17 at 08:15 Trazodone HCl (Desyrel) 50 mg PRN QHS PRN PO INSOMNIA Last administered on at 19:36; Start 10/12/17 at 18:15 Quetiapine Fumarate (SEROquel) 12.5 mg DAILY PO ; Start 10/14/17 at 09:00 Active Scripts Active Reported Olanzapine 5 Mg Tablet 2.5 Mg PO PRN Q2HR PRN Donepezil Hcl 10 Mg Tablet 10 Mg PO HS Tricor (Fenofibrate Nanocrystallized) 145 Mg Tablet 145 Mg PO DAILY Potassium Chloride 10 Meq Tablet.er 10 Meq PO DAILYWBKFT Zoloft (Sertraline Hcl) 25 Mg Tablet 25 Mg PO DAILY Pantoprazole Sodium 40 Mg Tablet.dr 40 Mg PO DAILYAC Remeron (Mirtazapine) 15 Mg Tablet 7.5 Mg PO QHS Analgesic [place] (Methyl Salicylate/Menthol) 28 Gm Oint...g. 1 [place] TP PRN QID PRN Maalox Advanced Suspension (Mag Hydrox/Aluminum Hyd/Simeth) 355 Ml Oral.susp 15 Ml PO PRN AFTMEAL PRN Milk Of Magnesia (Magnesium Hydroxide) 2,400 Mg/10 Ml Oral.susp 2,400 Mg PO PRN QHS PRN Magnesium Oxide 400 Mg Tablet 400 Mg PO TID Tylenol (Acetaminophen) 325 Mg Tablet 650 Mg PO PRN Q6HRS PRN Zofran Odt (Ondansetron) 4 Mg Tab.rapdis 4 Mg PO PRN Q4HRS PRN Lorazepam 0.5 Mg Tablet 0.5 Mg PO PRN DAILY PRN Docusate Sodium 100 Mg Capsule 100 Mg PO DAILY Vitamin B-12 (Cyanocobalamin (Vitamin B-12)) 1,000 Mcg Tablet 1,000 Mcg PO DAILY Simvastatin 20 Mg Tablet 20 Mg PO HS [place] 3 1,000 Mg Softgel ([place]-3 Fatty Acids/Fish Oil) 1 Each Capsule 1 Cap PO BID Multivitamins (Multivitamin) 1 Each Tablet 1 Each PO DAILY Losartan Potassium 25 Mg Tablet 25 Mg PO DAILY Gabapentin 300 Mg Capsule 300 Mg PO DAILY Fluticasone Propionate Nasal [place] (Fluticasone Propionate) 16 Gm [place].susp 1 [place] NS DAILY Calcium 500 + Vit D 200 Tablet (Calcium Carbonate/Vitamin D3) 1 Each Tablet 2 Each PO DAILYWLUN Aspirin Ec (Aspirin) 81 Mg Tablet.dr 81 Mg PO DAILYWBKFT I have reviewed the current psychotropics carefully including drug interactions. Risk benefit ratio favors no change other than as noted in my dictated progress note. Diagnosis: Problems: (1) Hypokalemia (2) Anxiety disorder (3) Impulse control disorder (4) Dementia, vascular, with depression (5) Dementia, vascular, with delusions (6) Dementia in Alzheimer's disease with depression (7) Dementia in Alzheimer's disease with delusions NICHOLE DAVIDSON MD Oct 13, 2017 20:02
--- NOTE | 2017-10-13 23:39 | NUR ---
Patient has been screaming in [facility] since 2144. Administered PRN Zydis.
--- NOTE | 2017-10-13 23:40 | NUR ---
Behavior Intervention Response and Plan: BIRP Note: Behavior: Assumed Care of patient, patient located in Day Room at shift change. Patient exhibited the following behavior Calm, Disorganized, Compliant. Brief assessment on rounds of vital signs, medication needs, lab studies, and pain. Treatment plan problems . Intervention: Patient assessed and the following interventions initiated safety checks 15 Minute Checks Head to toe Assessment , Cognitive Assessment , Medications. Response: After interactions and interventions patient responded in the following manner, Able to Focus on Task , Interactive ,Restless. Continue to assess behaviors and condition will continue to monitor throughout the shift as needed. Patient educated on ADL's, and hand hygiene. 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 Continue to assess patient for changes in above assessment. Monitor for medication needs, pain, and safety concerns. Hourly rounding performed to ensure safe environment.
[2017-10-14 06:15] VITALS: BP 140/64
[2017-10-14] MEDS: ASPIRIN ENTERIC COATED 81 MG TABLET.DR. PO SCH (07:44)
[2017-10-14] MEDS: DOCUSATE SODIUM 100 MG CAPSULE PO SCH (07:46)
[2017-10-14] MEDS: MAGNESIUM OXIDE 400 MG TABLET PO SCH ×3 (07:46→20:11)
[2017-10-14] MEDS: MULTIVITAMIN with MINERAL TABLET. PO SCH (07:46)
[2017-10-14] MEDS: FENOFIBRATE NANOCRYSTALLIZED 145 MG TABLET PO SCH (07:46)
[2017-10-14] MEDS: GABAPENTIN 300 MG CAPSULE. PO SCH (07:46)
[2017-10-14] MEDS: OMEGA-3 FATTY ACIDS/FISH OIL 1,000 MG CAPSULE. PO SCH ×2 (07:46→20:11)
[2017-10-14] MEDS: CYANOCOBALAMIN (VITAMIN B-12) 1,000 MCG TABLET. PO SCH (07:46)
[2017-10-14] MEDS: PANTOPRAZOLE 40 MG TABLET. PO SCH (07:47)
[2017-10-14] MEDS: POTASSIUM CHLORIDE 10 MEQ TABLET.ER. PO SCH (07:47)
[2017-10-14] MEDS: SERTRALINE 25 MG TABLET. PO SCH (07:47)
[2017-10-14] MEDS: QUEtiapine 25 MG TABLET. PO SCH (07:48)
[2017-10-14] MEDS: FLUTICASONE 50MCG/NASAL SPRAY 16GM BOTTLE. NS SCH (07:49)
--- NOTE | 2017-10-14 09:00 | NUR ---
Behavior Intervention Response and Plan: BIRP Note: Behavior: Assumed Care of patient, patient located in Day Room at shift change. Patient exhibited the following behavior Disorganized, Delusions, Interactive. Brief assessment on rounds of vital signs, medication needs, lab studies, and pain. Treatment plan problems 1 & 2. Intervention: Patient assessed and the following interventions initiated safety checks 15 Minute Checks Cognitive Assessment , Head to toe Assessment , Medications. Response: After interactions and interventions patient responded in the following manner, Calm , Appropriate ,Compliant. Continue to assess behaviors and condition will continue to monitor throughout the shift as needed. Patient educated on ADL's, and hand hygiene. Plan: Continue to monitor Master Treatment Plan for patient's progress toward short term goals of Decreased Agitation, No harm To self/ others, custodial goals to return to previous living setting vs placement. Continue to assess patient for changes in above assessment. Monitor for medication needs, pain, and safety concerns. Hourly rounding performed to ensure safe environment.
[2017-10-14] MEDS: ACETAMINOPHEN 325 MG TABLET PO PRN (09:02)
[2017-10-14] MEDS: CALCIUM CARB/VIT D3 500/200 TABLET PO SCH (12:58)
[2017-10-14 16:08] VITALS: BP 133/85
--- NOTE | 2017-10-14 20:05 | PDOC ---
Exam Note: Torres Note: Please also refer to the separate dictated note~for this date of service dictated separately.~Patient seen individually. Discussed the patient with Nursing staff reviewed the chart.~Reviewed interim history and current functioning. Reviewed vital signs,~Labs/ Radiology~and current medications noted below. Continue current treatment with the changes noted in the dictated addendum note Assessment: Vital Signs: Vital Signs Date Time Temp Pulse Resp B/P (MAP) Pulse Ox O2 Delivery O2 Flow Rate FiO2 10/14/17 16:08 97.4 65 16 133/85 (101) 98 10/13/17 05:48 Room Air I&O Intake and Output 10/14/17 07:00 Intake Total 600 ml Balance 600 ml Intake Oral 600 ml Labs: Laboratory Tests Test 10/14/17 07:07 Glucose (Fingerstick) 89 mg/dL (70-99) Current Medications: Meds: Current Medications Donepezil HCl (Aricept) 10 mg HS PO Last administered on 10/13/17 19:41; Start 10/11/17 at 22:00 Lorazepam (Ativan) 0.5 mg PRN DAILY PRN PO ANXIETY / AGITATION Last administered on 10/13/17 19:43; Start 10/11/17 at 21:45 Mirtazapine (Remeron) 7.5 mg QHS PO Last administered on 10/13/17 19:41; Start 10/11/17 at 22:00 Olanzapine (ZyPREXA) 2.5 mg PRN Q2HR PRN PO ANXIETY / AGITATION; Start 10/11/17 at 21:45; Stop 10/12/17 at 08:11; Status DC Sertraline HCl (Zoloft) 25 mg DAILY PO Last administered on 10/14/17 07:47; Start 10/12/17 at 09:00; Stop 10/14/17 at 19:06; Status DC Acetaminophen (Tylenol) 650 mg PRN Q6HRS PRN PO MILD PAIN Last administered on 10/14/17 09:02; Start 10/11/17 at 21:45 Aspirin (Aspirin Enteric Coated) 81 mg DAILYWBKFT PO Last administered on 07:44; Start 10/12/17 at 08:00 Calcium/Vitamin D (Oscal D 500mg/ 200uts) 2 tab DAILYWLUN PO Last administered on 10/14/17 12:58; Start 10/12/17 at 12:00 Cyanocobalamin (Vitamin B-12) 1,000 mcg DAILY PO Last administered on 10/14/17 07:46; Start 10/12/17 at 09:00 Docusate Sodium (Colace) 100 mg DAILY PO Last administered on 10/14/17 07:46; Start 10/12/17 at 09:00 Fenofibrate (Tricor) 145 mg DAILY PO Last administered on 10/14/17 07:46; Start 10/12/17 at 09:00 Fluticasone Propionate (Flonase) 1 spray DAILY NS Last administered on 07:49; Start 10/12/17 at 09:00 Gabapentin (Neurontin) 300 mg DAILY PO Last administered on 10/14/17 07:46; Start 10/12/17 at 09:00 Losartan Potassium (Cozaar) 25 mg DAILY PO ; Start 10/12/17 at 09:00; Status Future Hold Magnesium Oxide (Magnesium Oxide) 400 mg TID PO Last administered on 10/14/17 12:58; Start 10/12/17 at 09:00 Multi-Ingredient Ointment (Analgesic [place]) 1 garth PRN QID PRN TP MUSCLE PAIN; Start 10/11/17 at 21:45 Ondansetron HCl (Zofran Odt) 4 mg PRN Q4HRS PRN PO NAUSEA; Start 10/11/17 at 21: 45 Pantoprazole Sodium (Protonix) 40 mg DAILYAC PO Last administered on 10/14/17at 07:47; Start 10/12/17 at 07:30 Simvastatin (Zocor) 20 mg HS PO Last administered on 10/13/17at 19:41; Start 10/12 at 21:00 Al Hydroxide/Mg Hydroxide (Mylanta Plus Xs) 15 ml PRN AFTMEAL PRN PO DYSPEPSIA ; Start 10/11/17 at 22:00 Magnesium Hydroxide (Milk Of Magnesia) 2,400 mg PRN QHS PRN PO CONSTIPATION; Start 10/11/17 at 22:00 Multivitamins/ Calcium (Thera-M Plus) 1 tab DAILY PO Last administered on at 07:46; Start 10/12/17 at 09:00 Fish Oil (Fish Oil) 1,000 mg BID PO Last administered on 10/14/17at 07:46; Start 10/12/17 at 09:00 Potassium Chloride (Klor-Con) 10 meq DAILYWBKFT PO Last administered on at 07:47; Start 10/12/17 at 08:00 Olanzapine (ZyPREXA ZYDIS) 2.5 mg PRN Q2HR PRN PO ANXIETY / AGITATION Last administered on 10/13/17at 23:35; Start 10/12/17 at 08:15 Trazodone HCl (Desyrel) 50 mg PRN QHS PRN PO INSOMNIA Last administered on at 19:36; Start 10/12/17 at 18:15 Quetiapine Fumarate (SEROquel) 12.5 mg DAILY PO Last administered on 10/14/17at 07:48; Start 10/14/17 at 09:00 Sertraline HCl (Zoloft) 50 mg DAILY PO ; Start 10/15/17 at 09:00 Active Scripts Active Reported Olanzapine 5 Mg Tablet 2.5 Mg PO PRN Q2HR PRN Donepezil Hcl 10 Mg Tablet 10 Mg PO HS Tricor (Fenofibrate Nanocrystallized) 145 Mg Tablet 145 Mg PO DAILY Potassium Chloride 10 Meq Tablet.er 10 Meq PO DAILYWBKFT Zoloft (Sertraline Hcl) 25 Mg Tablet 25 Mg PO DAILY Pantoprazole Sodium 40 Mg Tablet.dr 40 Mg PO DAILYAC Remeron (Mirtazapine) 15 Mg Tablet 7.5 Mg PO QHS Analgesic [place] (Methyl Salicylate/Menthol) 28 Gm Oint...g. 1 Garth TP PRN QID PRN Maalox Advanced Suspension (Mag Hydrox/Aluminum Hyd/Simeth) 355 Ml Oral.susp 15 Ml PO PRN AFTMEAL PRN Milk Of Magnesia (Magnesium Hydroxide) 2,400 Mg/10 Ml Oral.susp 2,400 Mg PO PRN QHS PRN Magnesium Oxide 400 Mg Tablet 400 Mg PO TID Tylenol (Acetaminophen) 325 Mg Tablet 650 Mg PO PRN Q6HRS PRN Zofran Odt (Ondansetron) 4 Mg Tab.rapdis 4 Mg PO PRN Q4HRS PRN Lorazepam 0.5 Mg Tablet 0.5 Mg PO PRN DAILY PRN Docusate Sodium 100 Mg Capsule 100 Mg PO DAILY Vitamin B-12 (Cyanocobalamin (Vitamin B-12)) 1,000 Mcg Tablet 1,000 Mcg PO DAILY Simvastatin 20 Mg Tablet 20 Mg PO HS [place] 3 1,000 Mg Softgel ([place]-3 Fatty Acids/Fish Oil) 1 Each Capsule 1 Cap PO BID Multivitamins (Multivitamin) 1 Each Tablet 1 Each PO DAILY Losartan Potassium 25 Mg Tablet 25 Mg PO DAILY Gabapentin 300 Mg Capsule 300 Mg PO DAILY Fluticasone Propionate Nasal [place] (Fluticasone Propionate) 16 Gm [place].susp 1 [place] NS DAILY Calcium 500 + Vit D 200 Tablet (Calcium Carbonate/Vitamin D3) 1 Each Tablet 2 Each PO DAILYWLUN Aspirin Ec (Aspirin) 81 Mg Tablet. 81 Mg PO DAILYWBKFT I have reviewed the current psychotropics carefully including drug interactions. Risk benefit ratio favors no change other than as noted in my dictated progress note. Diagnosis: Problems: (1) Anxiety disorder (2) Impulse control disorder (3) Dementia, vascular, with depression (4) Dementia, vascular, with delusions (5) Dementia in Alzheimer's disease with depression (6) Dementia in Alzheimer's disease with delusions NICHOLE DAVIDSON MD Oct 14, 2017 20:05
[2017-10-14] MEDS: SIMVASTATIN 20 MG TABLET PO SCH (20:11)
[2017-10-14] MEDS: MIRTAZAPINE 7.5 MG TABLET. PO SCH (20:11)
[2017-10-14] MEDS: DONEPEZIL HCL 10 MG TABLET PO SCH (20:11)
--- NOTE | 2017-10-14 21:43 | NUR ---
Behavior Intervention Response and Plan: BIRP Note: Behavior: Assumed Care of patient, patient located in Day Room at shift change. Patient exhibited the following behavior Calm, Disorganized, Compliant. Brief assessment on rounds of vital signs, medication needs, lab studies, and pain. Treatment plan problems . Intervention: Patient assessed and the following interventions initiated safety checks 15 Minute Checks Head to toe Assessment , Cognitive Assessment , Medications. Response: After interactions and interventions patient responded in the following manner, calm , Interactive , compliant. Continue to assess behaviors and condition will continue to monitor throughout the shift as needed. Patient educated on ADL's, and hand hygiene. 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 Continue to assess patient for changes in above assessment. Monitor for medication needs, pain, and safety concerns. Hourly rounding performed to ensure safe environment.
[2017-10-14] MEDS: traZODone 50 MG TABLET. PO PRN (22:14)
[2017-10-15 06:20] VITALS: BP 157/70
[2017-10-15] MEDS: POTASSIUM CHLORIDE 10 MEQ TABLET.ER. PO SCH (08:29)
[2017-10-15] MEDS: OMEGA-3 FATTY ACIDS/FISH OIL 1,000 MG CAPSULE. PO SCH ×2 (08:30→19:52)
[2017-10-15] MEDS: ASPIRIN ENTERIC COATED 81 MG TABLET.DR. PO SCH (08:30)
[2017-10-15] MEDS: DOCUSATE SODIUM 100 MG CAPSULE PO SCH (08:30)
[2017-10-15] MEDS: MAGNESIUM OXIDE 400 MG TABLET PO SCH ×3 (08:30→19:52)
[2017-10-15] MEDS: CYANOCOBALAMIN (VITAMIN B-12) 1,000 MCG TABLET. PO SCH (08:30)
[2017-10-15] MEDS: MULTIVITAMIN with MINERAL TABLET. PO SCH (08:30)
[2017-10-15] MEDS: GABAPENTIN 300 MG CAPSULE. PO SCH (08:30)
[2017-10-15] MEDS: PANTOPRAZOLE 40 MG TABLET. PO SCH (08:30)
[2017-10-15] MEDS: QUEtiapine 25 MG TABLET. PO SCH (08:31)
[2017-10-15] MEDS: FENOFIBRATE NANOCRYSTALLIZED 145 MG TABLET PO SCH (08:32)
[2017-10-15] MEDS: FLUTICASONE 50MCG/NASAL SPRAY 16GM BOTTLE. NS SCH (08:32)
[2017-10-15] MEDS: SERTRALINE 50 MG TABLET. PO SCH (08:33)
--- NOTE | 2017-10-15 08:41 | PN ---
DATE: 10/14/2017 This late entry 10/13/2017 covers elements not covered in my initial note 10/13/2017, met with the patient evening of 10/13/2017. Previous evening, the patient was picking at things. Slept 6 hours, hallucinating at times, ate no breakfast, had some Boost for lunch. Family came for dinner to help her with her eating and she ate 100% of dinner. Either she is sleeping and sedated or when she is awake, she is yelling, agitated with marked mood lability per nursing report. REVIEW OF SYSTEMS: Ambulation impaired, in wheelchair. No CV, , pulmonary, eye, ENT system symptoms on review. Reliability poor. MENTAL STATUS EXAM: Oriented to herself. Insight, judgment, recent and remote memory, attention, concentration, fund of knowledge poor, consistent with her diagnosis mentioned in my initial note. IMPRESSION: Major neurocognitive disorder, Alzheimer, vascular with depression, delusion, behavioral disturbance. Rest unchanged. PLAN: Start Seroquel 12.5 mg at 9:00 a.m. as a mood stabilizer. Maintain Zoloft, Aricept, Remeron, Ativan p.r.n., Zyprexa p.r.n., trazodone p.r.n. NICHOLE DAVIDSON MD DR: ZIYAD/selena JOB#: [id number] / [id number]
--- NOTE | 2017-10-15 10:35 | NUR ---
Behavior Intervention Response and Plan: BIRP Note: Behavior: Assumed Care of patient, patient located in Dining Room at shift change. Patient exhibited the following behavior Disorganized, Compliant, Drowsy. Brief assessment on rounds of vital signs, medication needs, lab studies, and pain. Treatment plan problems 1-2 . Intervention: Patient assessed and the following interventions initiated safety checks 15 Minute Checks Personal Alarm in place , Cognitive Assessment , Head to toe Assessment. Response: After interactions and interventions patient responded in the following manner, Disorganized , Cooperative ,Drowsy. Continue to assess behaviors and condition will continue to monitor throughout the shift as needed. Patient educated on ADL's, and hand hygiene. Plan: Continue to monitor Master Treatment Plan for patient's progress toward short term goals of Medication Compliance, Improved Mood, long term care social worker goals to return to previous living setting vs placement. Continue to assess patient for changes in above assessment. Monitor for medication needs, pain, and safety concerns. Hourly rounding performed to ensure safe environment.
--- NOTE | 2017-10-15 12:00 | NUR ---
WEEKLY THERAPEUTIC RECREATION NOTE Date of Admission: 10/05/2017 Date of AT Assessment: 10/07/2017 Goal aimed: to increase time management and socialization Initial goal: Pt. will participate in at least one group per week Weekly progress towards goal: on track Group participation level: zero to minimal Behaviors observed: Pt. was alert and participated in group exercise on Friday;however, she fell asleep quickly Plan: no changes to goal
[2017-10-15] MEDS: CALCIUM CARB/VIT D3 500/200 TABLET PO SCH (13:19)
[2017-10-15 16:13] VITALS: BP 142/56
--- NOTE | 2017-10-15 19:47 | PDOC ---
Exam Note: Torres Note: Please also refer to the separate dictated note~for this date of service dictated separately.~Patient seen individually. Discussed the patient with Nursing staff reviewed the chart.~Reviewed interim history and current functioning. Reviewed vital signs,~Labs/ Radiology~and current medications noted below. Continue current treatment with the changes noted in the dictated addendum note Assessment: Vital Signs: Vital Signs Date Time Temp Pulse Resp B/P (MAP) Pulse Ox O2 Delivery O2 Flow Rate FiO2 10/15/17 16:13 97.6 60 16 142/56 (84) 99 10/13/17 05:48 Room Air I&O Intake and Output 10/15/17 07:00 Intake Total 1200 ml Balance 1200 ml Intake Oral 1200 ml # Bowel Movements 1 Labs: Laboratory Tests Test 10/15/17 07:21 Glucose (Fingerstick) 93 mg/dL (70-99) Current Medications: Meds: Current Medications Donepezil HCl (Aricept) 10 mg HS PO Last administered on 10/14/17at 20:11; Start 10/11/17 at 22:00 Lorazepam (Ativan) 0.5 mg PRN DAILY PRN PO ANXIETY / AGITATION Last administered on 10/13/17at 19:43; Start 10/11/17 at 21:45 Mirtazapine (Remeron) 7.5 mg QHS PO Last administered on 10/14/17at 20:11; Start 10/11/17 at 22:00 Olanzapine (ZyPREXA) 2.5 mg PRN Q2HR PRN PO ANXIETY / AGITATION; Start 10/11/17 at 21:45; Stop 10/12/17 at 08:11; Status DC Sertraline HCl (Zoloft) 25 mg DAILY PO Last administered on 10/14/17at 07:47; Start 10/12/17 at 09:00; Stop 10/14/17 at 19:06; Status DC Acetaminophen (Tylenol) 650 mg PRN Q6HRS PRN PO MILD PAIN Last administered on 10/14/17at 09:02; Start 10/11/17 at 21:45 Aspirin (Aspirin Enteric Coated) 81 mg DAILYWBKFT PO Last administered on at 08:30; Start 10/12/17 at 08:00 Calcium/Vitamin D (Oscal D 500mg/ 200uts) 2 tab DAILYWLUN PO Last administered on 10/15/17 13:19; Start 10/12/17 at 12:00 Cyanocobalamin (Vitamin B-12) 1,000 mcg DAILY PO Last administered on 08:30; Start 10/12/17 at 09:00 Docusate Sodium (Colace) 100 mg DAILY PO Last administered on 10/15/17 08:30; Start 10/12/17 at 09:00 Fenofibrate (Tricor) 145 mg DAILY PO Last administered on 10/15/17 08:32; Start 10/12/17 at 09:00 Fluticasone Propionate (Flonase) 1 spray DAILY NS Last administered on 07:49; Start 10/12/17 at 09:00 Gabapentin (Neurontin) 300 mg DAILY PO Last administered on 10/15/17 08:30; Start 10/12/17 at 09:00 Losartan Potassium (Cozaar) 25 mg DAILY PO ; Start 10/12/17 at 09:00; Status Future Hold Magnesium Oxide (Magnesium Oxide) 400 mg TID PO Last administered on 10/15/17 13:19; Start 10/12/17 at 09:00 Multi-Ingredient Ointment (Analgesic [place]) 1 garth PRN QID PRN TP MUSCLE PAIN; Start 10/11/17 at 21:45 Ondansetron HCl (Zofran Odt) 4 mg PRN Q4HRS PRN PO NAUSEA; Start 10/11/17 at 21: 45 Pantoprazole Sodium (Protonix) 40 mg DAILYAC PO Last administered on 10/15/17at 08:30; Start 10/12/17 at 07:30 Simvastatin (Zocor) 20 mg HS PO Last administered on 10/14/17at 20:11; Start 10/12 at 21:00 Al Hydroxide/Mg Hydroxide (Mylanta Plus Xs) 15 ml PRN AFTMEAL PRN PO DYSPEPSIA ; Start 10/11/17 at 22:00 Magnesium Hydroxide (Milk Of Magnesia) 2,400 mg PRN QHS PRN PO CONSTIPATION; Start 10/11/17 at 22:00 Multivitamins/ Calcium (Thera-M Plus) 1 tab DAILY PO Last administered on at 08:30; Start 10/12/17 at 09:00 Fish Oil (Fish Oil) 1,000 mg BID PO Last administered on 10/15/17at 08:30; Start 10/12/17 at 09:00 Potassium Chloride (Klor-Con) 10 meq DAILYWBKFT PO Last administered on at 08:29; Start 10/12/17 at 08:00 Olanzapine (ZyPREXA ZYDIS) 2.5 mg PRN Q2HR PRN PO ANXIETY / AGITATION Last administered on 10/13/17at 23:35; Start 10/12/17 at 08:15 Trazodone HCl (Desyrel) 50 mg PRN QHS PRN PO INSOMNIA Last administered on at 22:14; Start 10/12/17 at 18:15 Quetiapine Fumarate (SEROquel) 12.5 mg DAILY PO Last administered on 10/15/17at 08:31; Start 10/14/17 at 09:00 Sertraline HCl (Zoloft) 50 mg DAILY PO Last administered on 10/15/17at 08:33; Start 10/15/17 at 09:00 Active Scripts Active Reported Olanzapine 5 Mg Tablet 2.5 Mg PO PRN Q2HR PRN Donepezil Hcl 10 Mg Tablet 10 Mg PO HS Tricor (Fenofibrate Nanocrystallized) 145 Mg Tablet 145 Mg PO DAILY Potassium Chloride 10 Meq Tablet.er 10 Meq PO DAILYWBKFT Zoloft (Sertraline Hcl) 25 Mg Tablet 25 Mg PO DAILY Pantoprazole Sodium 40 Mg Tablet.dr 40 Mg PO DAILYAC Remeron (Mirtazapine) 15 Mg Tablet 7.5 Mg PO QHS Analgesic [place] (Methyl Salicylate/Menthol) 28 Gm Oint...g. 1 [place] TP PRN QID PRN Maalox Advanced Suspension (Mag Hydrox/Aluminum Hyd/Simeth) 355 Ml Oral.susp 15 Ml PO PRN AFTMEAL PRN Milk Of Magnesia (Magnesium Hydroxide) 2,400 Mg/10 Ml Oral.susp 2,400 Mg PO PRN QHS PRN Magnesium Oxide 400 Mg Tablet 400 Mg PO TID Tylenol (Acetaminophen) 325 Mg Tablet 650 Mg PO PRN Q6HRS PRN Zofran Odt (Ondansetron) 4 Mg Tab.rapdis 4 Mg PO PRN Q4HRS PRN Lorazepam 0.5 Mg Tablet 0.5 Mg PO PRN DAILY PRN Docusate Sodium 100 Mg Capsule 100 Mg PO DAILY Vitamin B-12 (Cyanocobalamin (Vitamin B-12)) 1,000 Mcg Tablet 1,000 Mcg PO DAILY Simvastatin 20 Mg Tablet 20 Mg PO HS [place] 3 1,000 Mg Softgel ([place]-3 Fatty Acids/Fish Oil) 1 Each Capsule 1 Cap PO BID Multivitamins (Multivitamin) 1 Each Tablet 1 Each PO DAILY Losartan Potassium 25 Mg Tablet 25 Mg PO DAILY Gabapentin 300 Mg Capsule 300 Mg PO DAILY Fluticasone Propionate Nasal [place] (Fluticasone Propionate) 16 Gm [place].susp 1 [place] NS DAILY Calcium 500 + Vit D 200 Tablet (Calcium Carbonate/Vitamin D3) 1 Each Tablet 2 Each PO DAILYWLUN Aspirin Ec (Aspirin) 81 Mg Tablet.dr 81 Mg PO DAILYWBKFT I have reviewed the current psychotropics carefully including drug interactions. Risk benefit ratio favors no change other than as noted in my dictated progress note. 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
--- NOTE | 2017-10-15 19:50 | NUR ---
Behavior Intervention Response and Plan: BIRP Note: Behavior: Assumed Care of patient, patient located in Day Room at shift change. Patient exhibited the following behavior Sleeping, Disorganized, Cooperative. Brief assessment on rounds of vital signs, medication needs, lab studies, and pain. Treatment plan problems . Intervention: Patient assessed and the following interventions initiated safety checks 15 Minute Checks Cognitive Assessment , Head to toe Assessment , Medications. Response: After interactions and interventions patient responded in the following manner, Disorganized , Compliant ,Sleeping. Continue to assess behaviors and condition will continue to monitor throughout the shift as needed. Patient educated on ADL's, and hand hygiene. Plan: Continue to monitor Master Treatment Plan for patient's progress toward short term goals of Decreased Anxiety, Decreased Agitation, alf goals to return to previous living setting vs placement. Continue to assess patient for changes in above assessment. Monitor for medication needs, pain, and safety concerns. Hourly rounding performed to ensure safe environment.
[2017-10-15] MEDS: SIMVASTATIN 20 MG TABLET PO SCH (19:52)
[2017-10-15] MEDS: MIRTAZAPINE 7.5 MG TABLET. PO SCH (19:52)
[2017-10-15] MEDS: DONEPEZIL HCL 10 MG TABLET PO SCH (19:52)
--- NOTE | 2017-10-15 22:30 | NUR ---
PRN trazodone given for sleep.
[2017-10-15] MEDS: traZODone 50 MG TABLET. PO PRN (22:36)
--- NOTE | 2017-10-16 | NUR ---
Remains awake calling out for her cats and dog very concerned about their welfare. Attempted to redirect by 1;1 conversation without success. PARRISH owens given.
--- NOTE | 2017-10-16 01:25 | NUR ---
Sleeping now respirations unlabored.
--- NOTE | 2017-10-16 03:23 | PN ---
DATE: 10/14/2017 This late entry for 10/14/2017 covers elements not covered in my initial note of 10/14/2017. SUBJECTIVE: I met with the patient in the evening of 10/14/2017. The patient slept just 1-3/4 hours previous evening, had a good day during the day, though she is still anxious, restless, confused, ate some breakfast, compliant with her medications, felt she was at the [facility], which is where she has worked in her younger years. The yelling and mood lability is improved, still depressed, confused. REVIEW OF SYSTEMS: Ambulation impaired. No CV, , pulmonary, eye, ENT system symptoms on review. MENTAL STATUS EXAM: Oriented to herself. Insight, judgment, recent and remote memory, attention, concentration, fund of knowledge poor, consistent with her diagnosis mentioned in my initial note. IMPRESSION: Major neurocognitive disorder, Alzheimer, vascular with depression, delusion, behavioral disturbance. Rest unchanged. PLAN: Increase Zoloft from 25 mg a day to 50 mg a day. Continue rest psychotropics unchanged. MAN Nadja DAVIDSON MD DR: ZIYAD/selena JOB#: [id number] / [id number]
[2017-10-16 05:59] VITALS: BP 114/55
[2017-10-16] MEDS: DOCUSATE SODIUM 100 MG CAPSULE PO SCH (07:56)
[2017-10-16] MEDS: GABAPENTIN 300 MG CAPSULE. PO SCH (07:57)
[2017-10-16] MEDS: OMEGA-3 FATTY ACIDS/FISH OIL 1,000 MG CAPSULE. PO SCH ×2 (07:57→20:00)
[2017-10-16] MEDS: MAGNESIUM OXIDE 400 MG TABLET PO SCH ×3 (07:57→19:59)
[2017-10-16] MEDS: QUEtiapine 25 MG TABLET. PO SCH (07:57)
[2017-10-16] MEDS: FENOFIBRATE NANOCRYSTALLIZED 145 MG TABLET PO SCH (07:57)
[2017-10-16] MEDS: PANTOPRAZOLE 40 MG TABLET. PO SCH (07:58)
[2017-10-16] MEDS: MULTIVITAMIN with MINERAL TABLET. PO SCH (07:58)
[2017-10-16] MEDS: ASPIRIN ENTERIC COATED 81 MG TABLET.DR. PO SCH (07:58)
[2017-10-16] MEDS: CYANOCOBALAMIN (VITAMIN B-12) 1,000 MCG TABLET. PO SCH (07:58)
[2017-10-16] MEDS: SERTRALINE 50 MG TABLET. PO SCH (07:58)
[2017-10-16] MEDS: CALCIUM CARB/VIT D3 500/200 TABLET PO SCH (07:58)
[2017-10-16] MEDS: POTASSIUM CHLORIDE 10 MEQ TABLET.ER. PO SCH (07:59)
[2017-10-16] MEDS: FLUTICASONE 50MCG/NASAL SPRAY 16GM BOTTLE. NS SCH ×2 (08:02→09:00)
[2017-10-16 09:14] LABS: BASO # 0.1 x10^3/uL (0.0-0.2); BASO % 1 % (0-3); EOS # 0.5 x10^3/uL (0.0-0.7); EOS % 6 % (0-3); HEMOGLOBIN 10.3 g/dL (12.0-15.5); LYMPH # 2.3 x10^3/uL (1.0-4.8); LYMPH % 27 % (24-48); MEAN CORPUSCULAR HEMOGLOBIN 30 pg (25-35); MEAN CORPUSCULAR HGB CONC 34 g/dL (31-37); MEAN CORPUSCULAR VOLUME 89 fL (79-100); MONO # 0.7 x10^3/uL (0.0-1.1); MONO % 8 % (0-9); NEUT # 5.1 x10^3uL (1.8-7.7); NEUT % 59 % (31-73); PLATELET COUNT 320 x10^3/uL (140-400); RED BLOOD COUNT 3.39 x10^6/uL (3.50-5.40); RED CELL DISTRIBUTION WIDTH 12.7 % (11.5-14.5); WHITE BLOOD COUNT 8.6 x10^3/uL (4.0-11.0)
--- NOTE | 2017-10-16 09:25 | NUR ---
Behavior Intervention Response and Plan: BIRP Note: Behavior: Assumed Care of patient, patient located in Day Room at shift change. Patient exhibited the following behavior Restless, Disorganized, Attention Seeking. Brief assessment on rounds of vital signs, medication needs, lab studies, and pain. Treatment plan problems 1 & 2. Intervention: Patient assessed and the following interventions initiated safety checks 15 Minute Checks Cognitive Assessment , Head to toe Assessment , Medications. Response: After interactions and interventions patient responded in the following manner, Calm , Appropriate ,Compliant. Continue to assess behaviors and condition will continue to monitor throughout the shift as needed. Patient educated on ADL's, and hand hygiene. 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 Continue to assess patient for changes in above assessment. Monitor for medication needs, pain, and safety concerns. Hourly rounding performed to ensure safe environment.
[2017-10-16 09:31] LABS: ALBUMIN 2.9 g/dL (3.4-5.0); ALBUMIN/GLOBULIN RATIO 0.8 (1.0-1.7); CALCIUM 9.9 mg/dL (8.5-10.1); CREATININE 1.4 mg/dL (0.6-1.0); GFR 35.8; MAGNESIUM 1.8 mg/dL (1.8-2.4); POTASSIUM 4.1 mmol/L (3.5-5.1); TOTAL BILIRUBIN 0.2 mg/dL (0.2-1.0); TOTAL PROTEIN 6.4 g/dL (6.4-8.2)
[2017-10-16] MEDS: ACETAMINOPHEN 325 MG TABLET PO PRN (09:34)
[2017-10-16 15:46] VITALS: BP 122/64
--- NOTE | 2017-10-16 19:56 | PDOC ---
Exam Note: Torres Note: Please also refer to the separate dictated note~for this date of service dictated separately.~Patient seen individually. Discussed the patient with Nursing staff reviewed the chart.~Reviewed interim history and current functioning. Reviewed vital signs,~Labs/ Radiology~and current medications noted below. Continue current treatment with the changes noted in the dictated addendum note Assessment: Vital Signs: Vital Signs Date Time Temp Pulse Resp B/P (MAP) Pulse Ox O2 Delivery O2 Flow Rate FiO2 10/16/17 15:46 97.9 62 18 122/64 (83) 99 10/13/17 05:48 Room Air I&O Intake and Output 10/16/17 07:00 Intake Total 840 ml Balance 840 ml Intake Oral 840 ml # Bowel Movements 1 Labs: Laboratory Tests Test 10/16/17 07:13 10/16/17 08:45 Glucose (Fingerstick) 76 mg/dL (70-99) White Blood Count 8.6 x10^3/uL (4.0-11.0) Red Blood Count 3.39 x10^6/uL (3.50-5.40) L Hemoglobin 10.3 g/dL (12.0-15.5) L Hematocrit 30.0 % (36.0-47.0) L Mean Corpuscular Volume 89 fL (79-100) Mean Corpuscular Hemoglobin 30 pg (25-35) Mean Corpuscular Hemoglobin Concent 34 g/dL (31-37) Red Cell Distribution Width 12.7 % (11.5-14.5) Platelet Count 320 x10^3/uL (140-400) Neutrophils (%) (Auto) 59 % (31-73) Lymphocytes (%) (Auto) 27 % (24-48) Monocytes (%) (Auto) 8 % (0-9) Eosinophils (%) (Auto) 6 % (0-3) H Basophils (%) (Auto) 1 % (0-3) Neutrophils # (Auto) 5.1 x10^3uL (1.8-7.7) Lymphocytes # (Auto) 2.3 x10^3/uL (1.0-4.8) Monocytes # (Auto) 0.7 x10^3/uL (0.0-1.1) Eosinophils # (Auto) 0.5 x10^3/uL (0.0-0.7) Basophils # (Auto) 0.1 x10^3/uL (0.0-0.2) Sodium Level 142 mmol/L (136-145) Potassium Level 4.1 mmol/L (3.5-5.1) Chloride Level 104 mmol/L (98-107) Carbon Dioxide Level 32 mmol/L (21-32) Anion Gap 6 (6-14) Blood Urea Nitrogen 40 mg/dL (7-20) H Creatinine 1.4 mg/dL (0.6-1.0) H Estimated GFR (Cockcroft-Gault) 35.8 BUN/Creatinine Ratio 29 (6-20) H Glucose Level 94 mg/dL (70-99) Calcium Level 9.9 mg/dL (8.5-10.1) Magnesium Level 1.8 mg/dL (1.8-2.4) Total Bilirubin 0.2 mg/dL (0.2-1.0) Aspartate Amino Transferase (AST) 23 U/L (15-37) Alanine Aminotransferase (ALT) 21 U/L (14-59) Alkaline Phosphatase 68 U/L (46-116) Total Protein 6.4 g/dL (6.4-8.2) Albumin 2.9 g/dL (3.4-5.0) L Albumin/Globulin Ratio 0.8 (1.0-1.7) L Current Medications: Meds: Current Medications Donepezil HCl (Aricept) 10 mg HS PO Last administered on 10/15/17at 19:52; Start 10/11/17 at 22:00 Lorazepam (Ativan) 0.5 mg PRN DAILY PRN PO ANXIETY / AGITATION Last administered on 10/13/17 19:43; Start 10/11/17 at 21:45 Mirtazapine (Remeron) 7.5 mg QHS PO Last administered on 10/15/17 19:52; Start 10/11/17 at 22:00 Olanzapine (ZyPREXA) 2.5 mg PRN Q2HR PRN PO ANXIETY / AGITATION; Start 10/11/17 at 21:45; Stop 10/12/17 at 08:11; Status DC Sertraline HCl (Zoloft) 25 mg DAILY PO Last administered on 10/14/17at 07:47; Start 10/12/17 at 09:00; Stop 10/14/17 at 19:06; Status DC Acetaminophen (Tylenol) 650 mg PRN Q6HRS PRN PO MILD PAIN Last administered on 10/16/17at 09:34; Start 10/11/17 at 21:45 Aspirin (Aspirin Enteric Coated) 81 mg DAILYWBKFT PO Last administered on 07:58; Start 10/12/17 at 08:00 Calcium/Vitamin D (Oscal D 500mg/ 200uts) 2 tab DAILYWLUN PO Last administered on 10/16/17 07:58; Start 10/12/17 at 12:00 Cyanocobalamin (Vitamin B-12) 1,000 mcg DAILY PO Last administered on 07:58; Start 10/12/17 at 09:00 Docusate Sodium (Colace) 100 mg DAILY PO Last administered on 10/16/17 07:56; Start 10/12/17 at 09:00 Fenofibrate (Tricor) 145 mg DAILY PO Last administered on 10/16/17 07:57; Start 10/12/17 at 09:00 Fluticasone Propionate (Flonase) 1 spray DAILY NS Last administered on 07:49; Start 10/12/17 at 09:00 Gabapentin (Neurontin) 300 mg DAILY PO Last administered on 10/16/17 07:57; Start 10/12/17 at 09:00 Losartan Potassium (Cozaar) 25 mg DAILY PO ; Start 10/12/17 at 09:00; Status Future Hold Magnesium Oxide (Magnesium Oxide) 400 mg TID PO Last administered on 10/16/17at 13:50; Start 10/12/17 at 09:00 Multi-Ingredient Ointment (Analgesic [place]) 1 garth PRN QID PRN TP MUSCLE PAIN; Start 10/11/17 at 21:45 Ondansetron HCl (Zofran Odt) 4 mg PRN Q4HRS PRN PO NAUSEA; Start 10/11/17 at 21: 45 Pantoprazole Sodium (Protonix) 40 mg DAILYAC PO Last administered on 10/16/17at 07:58; Start 10/12/17 at 07:30 Simvastatin (Zocor) 20 mg HS PO Last administered on 10/15/17at 19:52; Start 10/12/17 at 21:00 Al Hydroxide/Mg Hydroxide (Mylanta Plus Xs) 15 ml PRN AFTMEAL PRN PO DYSPEPSIA ; Start 10/11/17 at 22:00 Magnesium Hydroxide (Milk Of Magnesia) 2,400 mg PRN QHS PRN PO CONSTIPATION; Start 10/11/17 at 22:00 Multivitamins/ Calcium (Thera-M Plus) 1 tab DAILY PO Last administered on at 07:58; Start 10/12/17 at 09:00 Fish Oil (Fish Oil) 1,000 mg BID PO Last administered on 10/16/17at 07:57; Start 10/12/17 at 09:00 Potassium Chloride (Klor-Con) 10 meq DAILYWBKFT PO Last administered on at 07:59; Start 10/12/17 at 08:00 Olanzapine (ZyPREXA ZYDIS) 2.5 mg PRN Q2HR PRN PO ANXIETY / AGITATION Last administered on 10/15/17at 23:50; Start 10/12/17 at 08:15 Trazodone HCl (Desyrel) 50 mg PRN QHS PRN PO INSOMNIA Last administered on 10/15at 22:36; Start 10/12/17 at 18:15 Quetiapine Fumarate (SEROquel) 12.5 mg DAILY PO Last administered on 10/16/17at 07:57; Start 10/14/17 at 09:00 Sertraline HCl (Zoloft) 50 mg DAILY PO Last administered on 10/16/17at 07:58; Start 10/15/17 at 09:00; Stop 10/16/17 at 10:36; Status DC Sertraline HCl (Zoloft) 75 mg DAILY PO ; Start 10/17/17 at 09:00 Active Scripts Active Reported Olanzapine 5 Mg Tablet 2.5 Mg PO PRN Q2HR PRN Donepezil Hcl 10 Mg Tablet 10 Mg PO HS Tricor (Fenofibrate Nanocrystallized) 145 Mg Tablet 145 Mg PO DAILY Potassium Chloride 10 Meq Tablet.er 10 Meq PO DAILYWBKFT Zoloft (Sertraline Hcl) 25 Mg Tablet 25 Mg PO DAILY Pantoprazole Sodium 40 Mg Tablet.dr 40 Mg PO DAILYAC Remeron (Mirtazapine) 15 Mg Tablet 7.5 Mg PO QHS Analgesic [place] (Methyl Salicylate/Menthol) 28 Gm Oint...g. 1 [place]arth TP PRN QID PRN Maalox Advanced Suspension (Mag Hydrox/Aluminum Hyd/Simeth) 355 Ml Oral.susp 15 Ml PO PRN AFTMEAL PRN Milk Of Magnesia (Magnesium Hydroxide) 2,400 Mg/10 Ml Oral.susp 2,400 Mg PO PRN QHS PRN Magnesium Oxide 400 Mg Tablet 400 Mg PO TID Tylenol (Acetaminophen) 325 Mg Tablet 650 Mg PO PRN Q6HRS PRN Zofran Odt (Ondansetron) 4 Mg Tab.rapdis 4 Mg PO PRN Q4HRS PRN Lorazepam 0.5 Mg Tablet 0.5 Mg PO PRN DAILY PRN Docusate Sodium 100 Mg Capsule 100 Mg PO DAILY Vitamin B-12 (Cyanocobalamin (Vitamin B-12)) 1,000 Mcg Tablet 1,000 Mcg PO DAILY Simvastatin 20 Mg Tablet 20 Mg PO HS [place] 3 1,000 Mg Softgel ([place]-3 Fatty Acids/Fish Oil) 1 Each Capsule 1 Cap PO BID Multivitamins (Multivitamin) 1 Each Tablet 1 Each PO DAILY Losartan Potassium 25 Mg Tablet 25 Mg PO DAILY Gabapentin 300 Mg Capsule 300 Mg PO DAILY Fluticasone Propionate Nasal [place] (Fluticasone Propionate) 16 Gm [place].susp 1 [place] NS DAILY Calcium 500 + Vit D 200 Tablet (Calcium Carbonate/Vitamin D3) 1 Each Tablet 2 Each PO DAILYWLUN Aspirin Ec (Aspirin) 81 Mg Tablet. 81 Mg PO DAILYWBKFT I have reviewed the current psychotropics carefully including drug interactions. Risk benefit ratio favors no change other than as noted in my dictated progress note. Diagnosis: Problems: (1) Anxiety disorder (2) Impulse control disorder (3) Dementia, vascular, with depression (4) Dementia, vascular, with delusions (5) Dementia in Alzheimer's disease with depression (6) Dementia in Alzheimer's disease with delusions NICHOLE DAVIDSON MD Oct 16, 2017 19:56
[2017-10-16] MEDS: DONEPEZIL HCL 10 MG TABLET PO SCH (20:00)
[2017-10-16] MEDS: SIMVASTATIN 20 MG TABLET PO SCH (20:00)
[2017-10-16] MEDS: MIRTAZAPINE 7.5 MG TABLET. PO SCH (20:00)
--- NOTE | 2017-10-16 22:30 | NUR ---
Behavior Intervention Response and Plan: BIRP Note: Behavior: Assumed Care of patient, patient located in Day Room at shift change. Patient exhibited the following behavior Restless, Attention Seeking, Disorganized. Brief assessment on rounds of vital signs, medication needs, lab studies, and pain. Treatment plan problems .1&2 Intervention: Patient assessed and the following interventions initiated safety checks 15 Minute Checks Cognitive Assessment , Head to toe Assessment , Medications. Response: After interactions and interventions patient responded in the following manner, Cooperative , Compliant ,Delusions. Continue to assess behaviors and condition will continue to monitor throughout the shift as needed. Patient educated on ADL's, and hand hygiene. Plan: Continue to monitor Master Treatment Plan for patient's progress toward short term goals of Decreased Anxiety, Medication Compliance, intermediate accountant goals to return to previous living setting vs placement. Continue to assess patient for changes in above assessment. Monitor for medication needs, pain, and safety concerns. Hourly rounding performed to ensure safe environment.
[2017-10-17] MEDS: traZODone 50 MG TABLET. PO PRN ×2 (01:06→01:53)
[2017-10-17 06:24] VITALS: BP 126/56
[2017-10-17] MEDS: PANTOPRAZOLE 40 MG TABLET. PO SCH (08:10)
[2017-10-17] MEDS: GABAPENTIN 300 MG CAPSULE. PO SCH (08:10)
[2017-10-17] MEDS: DOCUSATE SODIUM 100 MG CAPSULE PO SCH (08:11)
[2017-10-17] MEDS: CYANOCOBALAMIN (VITAMIN B-12) 1,000 MCG TABLET. PO SCH (08:11)
[2017-10-17] MEDS: MAGNESIUM OXIDE 400 MG TABLET PO SCH ×3 (08:11→19:08)
[2017-10-17] MEDS: POTASSIUM CHLORIDE 10 MEQ TABLET.ER. PO SCH (08:11)
[2017-10-17] MEDS: OMEGA-3 FATTY ACIDS/FISH OIL 1,000 MG CAPSULE. PO SCH ×2 (08:11→19:08)
[2017-10-17] MEDS: MULTIVITAMIN with MINERAL TABLET. PO SCH (08:11)
[2017-10-17] MEDS: ASPIRIN ENTERIC COATED 81 MG TABLET.DR. PO SCH (08:12)
[2017-10-17] MEDS: QUEtiapine 25 MG TABLET. PO SCH (08:12)
[2017-10-17] MEDS: FENOFIBRATE NANOCRYSTALLIZED 145 MG TABLET PO SCH (08:12)
[2017-10-17] MEDS: SERTRALINE 50 MG TABLET. PO SCH (08:13)
[2017-10-17] MEDS: FLUTICASONE 50MCG/NASAL SPRAY 16GM BOTTLE. NS SCH (08:14)
--- NOTE | 2017-10-17 08:30 | NUR ---
Dr. Ybarra notified of pt's lab values. No new orders received.
--- NOTE | 2017-10-17 10:12 | NUR ---
TARA called and spoke with pt daughter, she states she is wanting SW to look into other placements as she feels current placement not able to meet pt needs. Pt daughter reports she would like her mother to have physical Therapy at this time, SW passed information on to RN as well as Dr. Ybarra. Pt daughter states she is concerned that [facility] wouldn't take the time to feed her mother and feels her mother would eat if given the time and someone to feed her. SW listened to pt daughter talk about the care she felt her mother would need. Pt daughter states she doesn't feel that her mother is at the place where "she has given up, and can't eat any longer." TARA will work with pt family and placement regarding discharge planning.
--- NOTE | 2017-10-17 10:49 | NUR ---
Behavior Intervention Response and Plan: BIRP Note: Behavior: Assumed Care of patient, patient located in Dining Room at shift change. Patient exhibited the following behavior Disorganized, Compulsive, Attention Seeking. Brief assessment on rounds of vital signs, medication needs, lab studies, and pain. Treatment plan problems 1-2. Intervention: Patient assessed and the following interventions initiated safety checks 15 Minute Checks Personal Alarm in place , Cognitive Assessment , Head to toe Assessment. Response: After interactions and interventions patient responded in the following manner, Drowsy , Agitated ,Attention Seeking. Continue to assess behaviors and condition will continue to monitor throughout the shift as needed. Patient educated on ADL's, and hand hygiene. Plan: Continue to monitor Master Treatment Plan for patient's progress toward short term goals of Decreased Agitation, Decreased Anxiety, detention goals to return to previous living setting vs placement. Continue to assess patient for changes in above assessment. Monitor for medication needs, pain, and safety concerns. Hourly rounding performed to ensure safe environment.
--- NOTE | 2017-10-17 11:16 | NUR ---
TARA weekly note: TARA has spoken with pt facility, at this time unsure if they are able to meet pt needs and will have to access pt on sight. TARA has also spoken with pt daughter regarding pt she would like SW to look at possible new placement.
[2017-10-17] MEDS: CALCIUM CARB/VIT D3 500/200 TABLET PO SCH (12:35)
[2017-10-17 15:56] VITALS: BP 124/59
[2017-10-17] MEDS: MIRTAZAPINE 7.5 MG TABLET. PO SCH (19:08)
[2017-10-17] MEDS: SIMVASTATIN 20 MG TABLET PO SCH (19:08)
[2017-10-17] MEDS: DONEPEZIL HCL 10 MG TABLET PO SCH (19:08)
--- NOTE | 2017-10-17 19:58 | PDOC ---
Exam Note: Torres Note: Please also refer to the separate dictated note~for this date of service dictated separately.~Patient seen individually. Discussed the patient with Nursing staff reviewed the chart.~Reviewed interim history and current functioning. Reviewed vital signs,~Labs/ Radiology~and current medications noted below. Continue current treatment with the changes noted in the dictated addendum note Assessment: Vital Signs: Vital Signs Date Time Temp Pulse Resp B/P (MAP) Pulse Ox O2 Delivery O2 Flow Rate FiO2 10/17/17 15:56 98.4 62 20 124/59 (80) 96 10/13/17 05:48 Room Air I&O Intake and Output 10/17/17 07:00 Intake Total 1080 ml Balance 1080 ml Intake Oral 1080 ml Labs: Laboratory Tests Test 10/17/17 07:24 Glucose (Fingerstick) 76 mg/dL (70-99) Current Medications: Meds: Current Medications Donepezil HCl (Aricept) 10 mg HS PO Last administered on 10/17/17at 19:08; Start 10/11/17 at 22:00 Lorazepam (Ativan) 0.5 mg PRN DAILY PRN PO ANXIETY / AGITATION Last administered on 10/13/17at 19:43; Start 10/11/17 at 21:45 Mirtazapine (Remeron) 7.5 mg QHS PO Last administered on 10/17/17at 19:08; Start 10/11/17 at 22:00 Olanzapine (ZyPREXA) 2.5 mg PRN Q2HR PRN PO ANXIETY / AGITATION; Start 10/11/17 at 21:45; Stop 10/12/17 at 08:11; Status DC Sertraline HCl (Zoloft) 25 mg DAILY PO Last administered on 10/14/17at 07:47; Start 10/12/17 at 09:00; Stop 10/14/17 at 19:06; Status DC Acetaminophen (Tylenol) 650 mg PRN Q6HRS PRN PO MILD PAIN Last administered on 10/16/17at 09:34; Start 10/11/17 at 21:45 Aspirin (Aspirin Enteric Coated) 81 mg DAILYWBKFT PO Last administered on at 08:12; Start 10/12/17 at 08:00 Calcium/Vitamin D (Oscal D 500mg/ 200uts) 2 tab DAILYWLUN PO Last administered on 10/17/17at 12:35; Start 10/12/17 at 12:00 Cyanocobalamin (Vitamin B-12) 1,000 mcg DAILY PO Last administered on 08:11; Start 10/12/17 at 09:00 Docusate Sodium (Colace) 100 mg DAILY PO Last administered on 10/17/17 08:11; Start 10/12/17 at 09:00 Fenofibrate (Tricor) 145 mg DAILY PO Last administered on 10/17/17at 08:12; Start 10/12/17 at 09:00 Fluticasone Propionate (Flonase) 1 spray DAILY NS Last administered on 08:14; Start 10/12/17 at 09:00 Gabapentin (Neurontin) 300 mg DAILY PO Last administered on 10/17/17at 08:10; Start 10/12/17 at 09:00 Losartan Potassium (Cozaar) 25 mg DAILY PO ; Start 10/12/17 at 09:00; Status Future Hold Magnesium Oxide (Magnesium Oxide) 400 mg TID PO Last administered on 10/17/17at 19:08; Start 10/12/17 at 09:00 Multi-Ingredient Ointment (Analgesic [place]) 1 garth PRN QID PRN TP MUSCLE PAIN; Start 10/11/17 at 21:45 Ondansetron HCl (Zofran Odt) 4 mg PRN Q4HRS PRN PO NAUSEA; Start 10/11/17 at 21: 45 Pantoprazole Sodium (Protonix) 40 mg DAILYAC PO Last administered on 10/17/17at 08:10; Start 10/12/17 at 07:30 Simvastatin (Zocor) 20 mg HS PO Last administered on 10/17/17 19:08; Start 10/12/17 at 21:00 Al Hydroxide/Mg Hydroxide (Mylanta Plus Xs) 15 ml PRN AFTMEAL PRN PO DYSPEPSIA ; Start 10/11/17 at 22:00 Magnesium Hydroxide (Milk Of Magnesia) 2,400 mg PRN QHS PRN PO CONSTIPATION; Start 10/11/17 at 22:00 Multivitamins/ Calcium (Thera-M Plus) 1 tab DAILY PO Last administered on at 08:11; Start 10/12/17 at 09:00 Fish Oil (Fish Oil) 1,000 mg BID PO Last administered on 10/17/17at 19:08; Start 10/12/17 at 09:00 Potassium Chloride (Klor-Con) 10 meq DAILYWBKFT PO Last administered on at 08:11; Start 10/12/17 at 08:00 Olanzapine (ZyPREXA ZYDIS) 2.5 mg PRN Q2HR PRN PO ANXIETY / AGITATION Last administered on 10/17/17at 01:53; Start 10/12/17 at 08:15 Trazodone HCl (Desyrel) 50 mg PRN QHS PRN PO INSOMNIA Last administered on 10/17at 01:53; Start 10/12/17 at 18:15 Quetiapine Fumarate (SEROquel) 12.5 mg DAILY PO Last administered on 10/17/17at 08:12; Start 10/14/17 at 09:00 Sertraline HCl (Zoloft) 50 mg DAILY PO Last administered on 10/16/17at 07:58; Start 10/15/17 at 09:00; Stop 10/16/17 at 10:36; Status DC Sertraline HCl (Zoloft) 75 mg DAILY PO Last administered on 10/17/17at 08:13; Start 10/17/17 at 09:00 Active Scripts Active Reported Olanzapine 5 Mg Tablet 2.5 Mg PO PRN Q2HR PRN Donepezil Hcl 10 Mg Tablet 10 Mg PO HS Tricor (Fenofibrate Nanocrystallized) 145 Mg Tablet 145 Mg PO DAILY Potassium Chloride 10 Meq Tablet.er 10 Meq PO DAILYWBKFT Zoloft (Sertraline Hcl) 25 Mg Tablet 25 Mg PO DAILY Pantoprazole Sodium 40 Mg Tablet.dr 40 Mg PO DAILYAC Remeron (Mirtazapine) 15 Mg Tablet 7.5 Mg PO QHS Analgesic [place] (Methyl Salicylate/Menthol) 28 Gm Oint...g. 1 [place] TP PRN QID PRN Maalox Advanced Suspension (Mag Hydrox/Aluminum Hyd/Simeth) 355 Ml Oral.susp 15 Ml PO PRN AFTMEAL PRN Milk Of Magnesia (Magnesium Hydroxide) 2,400 Mg/10 Ml Oral.susp 2,400 Mg PO PRN QHS PRN Magnesium Oxide 400 Mg Tablet 400 Mg PO TID Tylenol (Acetaminophen) 325 Mg Tablet 650 Mg PO PRN Q6HRS PRN Zofran Odt (Ondansetron) 4 Mg Tab.rapdis 4 Mg PO PRN Q4HRS PRN Lorazepam 0.5 Mg Tablet 0.5 Mg PO PRN DAILY PRN Docusate Sodium 100 Mg Capsule 100 Mg PO DAILY Vitamin B-12 (Cyanocobalamin (Vitamin B-12)) 1,000 Mcg Tablet 1,000 Mcg PO DAILY Simvastatin 20 Mg Tablet 20 Mg PO HS [place] 3 1,000 Mg Softgel ([place]-3 Fatty Acids/Fish Oil) 1 Each Capsule 1 Cap PO BID Multivitamins (Multivitamin) 1 Each Tablet 1 Each PO DAILY Losartan Potassium 25 Mg Tablet 25 Mg PO DAILY Gabapentin 300 Mg Capsule 300 Mg PO DAILY Fluticasone Propionate Nasal [place] (Fluticasone Propionate) 16 Gm [place].susp 1 [place] NS DAILY Calcium 500 + Vit D 200 Tablet (Calcium Carbonate/Vitamin D3) 1 Each Tablet 2 Each PO DAILYWLUN Aspirin Ec (Aspirin) 81 Mg Tablet. 81 Mg PO DAILYWBKFT I have reviewed the current psychotropics carefully including drug interactions. Risk benefit ratio favors no change other than as noted in my dictated progress note. 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
--- NOTE | 2017-10-17 20:35 | NUR ---
Behavior Intervention Response and Plan: BIRP Note: Behavior: Assumed Care of patient, patient located in Day Room at shift change. Patient exhibited the following behavior Calm, Interactive, Disorganized. Brief assessment on rounds of vital signs, medication needs, lab studies, and pain. Treatment plan problems .1&2 Intervention: Patient assessed and the following interventions initiated safety checks 15 Minute Checks Cognitive Assessment , Head to toe Assessment , Medications. Response: After interactions and interventions patient responded in the following manner, Compliant , Cooperative ,Calm. Continue to assess behaviors and condition will continue to monitor throughout the shift as needed. Patient educated on ADL's, and hand hygiene. Plan: Continue to monitor Master Treatment Plan for patient's progress toward short term goals of Decreased Anxiety, Improved Mood, intermediate goals to return to previous living setting vs placement. Continue to assess patient for changes in above assessment. Monitor for medication needs, pain, and safety concerns. Hourly rounding performed to ensure safe environment.
[2017-10-18 05:55] VITALS: BP 135/68
[2017-10-18 07:25] LABS: BASO # 0.1 x10^3/uL (0.0-0.2); BASO % 1 % (0-3); EOS # 0.4 x10^3/uL (0.0-0.7); EOS % 5 % (0-3); HEMATOCRIT 26.9 % (36.0-47.0); HEMOGLOBIN 9.3 g/dL (12.0-15.5); LYMPH # 1.9 x10^3/uL (1.0-4.8); LYMPH % 21 % (24-48); MEAN CORPUSCULAR HEMOGLOBIN 31 pg (25-35); MEAN CORPUSCULAR HGB CONC 35 g/dL (31-37); MEAN CORPUSCULAR VOLUME 88 fL (79-100); MONO # 0.6 x10^3/uL (0.0-1.1); MONO % 7 % (0-9); NEUT # 6.1 x10^3uL (1.8-7.7); NEUT % 67 % (31-73); PLATELET COUNT 297 x10^3/uL (140-400); RED BLOOD COUNT 3.06 x10^6/uL (3.50-5.40); RED CELL DISTRIBUTION WIDTH 12.6 % (11.5-14.5); WHITE BLOOD COUNT 9.1 x10^3/uL (4.0-11.0)
[2017-10-18] MEDS: MAGNESIUM OXIDE 400 MG TABLET PO SCH ×3 (07:43→20:06)
[2017-10-18] MEDS: DOCUSATE SODIUM 100 MG CAPSULE PO SCH (07:43)
[2017-10-18] MEDS: ASPIRIN ENTERIC COATED 81 MG TABLET.DR. PO SCH (07:43)
[2017-10-18] MEDS: GABAPENTIN 300 MG CAPSULE. PO SCH (07:44)
[2017-10-18] MEDS: PANTOPRAZOLE 40 MG TABLET. PO SCH (07:44)
[2017-10-18] MEDS: MULTIVITAMIN with MINERAL TABLET. PO SCH (07:44)
[2017-10-18] MEDS: QUEtiapine 25 MG TABLET. PO SCH (07:44)
[2017-10-18] MEDS: SERTRALINE 50 MG TABLET. PO SCH (07:45)
[2017-10-18] MEDS: FENOFIBRATE NANOCRYSTALLIZED 145 MG TABLET PO SCH (07:45)
[2017-10-18] MEDS: POTASSIUM CHLORIDE 10 MEQ TABLET.ER. PO SCH (07:45)
[2017-10-18] MEDS: CYANOCOBALAMIN (VITAMIN B-12) 1,000 MCG TABLET. PO SCH (07:46)
[2017-10-18] MEDS: OMEGA-3 FATTY ACIDS/FISH OIL 1,000 MG CAPSULE. PO SCH ×2 (07:46→20:06)
[2017-10-18] MEDS: FLUTICASONE 50MCG/NASAL SPRAY 16GM BOTTLE. NS SCH (07:47)
[2017-10-18 07:54] LABS: ALBUMIN 2.5 g/dL (3.4-5.0); ALBUMIN/GLOBULIN RATIO 0.8 (1.0-1.7); CALCIUM 9.3 mg/dL (8.5-10.1); CREATININE 1.3 mg/dL (0.6-1.0); POTASSIUM 4.1 mmol/L (3.5-5.1); TOTAL BILIRUBIN 0.2 mg/dL (0.2-1.0); TOTAL PROTEIN 5.7 g/dL (6.4-8.2)
--- NOTE | 2017-10-18 09:45 | NUR ---
Behavior Intervention Response and Plan: BIRP Note: Behavior: Assumed Care of patient, patient located in Day Room at shift change. Patient exhibited the following behavior Restless, Drowsy, Disorganized. Brief assessment on rounds of vital signs, medication needs, lab studies, and pain. Treatment plan problems 1 & 2. Intervention: Patient assessed and the following interventions initiated safety checks 15 Minute Checks Cognitive Assessment , Head to toe Assessment , Medications. Response: After interactions and interventions patient responded in the following manner, Calm , Appropriate ,Compliant. Continue to assess behaviors and condition will continue to monitor throughout the shift as needed. Patient educated on ADL's, and hand hygiene. Plan: Continue to monitor Master Treatment Plan for patient's progress toward short term goals of Decreased Agitation, Decreased Aggression, bed bug exterminator goals to return to previous living setting vs placement. Continue to assess patient for changes in above assessment. Monitor for medication needs, pain, and safety concerns. Hourly rounding performed to ensure safe environment.
[2017-10-18] MEDS: CALCIUM CARB/VIT D3 500/200 TABLET PO SCH (11:59)
[2017-10-18 15:40] VITALS: BP 125/56
--- NOTE | 2017-10-18 17:27 | NUR ---
Patient had large BM, milk of magnesia that was scanned was returned and not administered.
--- NOTE | 2017-10-18 20:01 | PDOC ---
Exam Note: Torres Note: Please also refer to the separate dictated note~for this date of service dictated separately.~Patient seen individually. Discussed the patient with Nursing staff reviewed the chart.~Reviewed interim history and current functioning. Reviewed vital signs,~Labs/ Radiology~and current medications noted below. Continue current treatment with the changes noted in the dictated addendum note Assessment: Vital Signs: Vital Signs Date Time Temp Pulse Resp B/P (MAP) Pulse Ox O2 Delivery O2 Flow Rate FiO2 10/18/17 15:40 97.8 101 20 125/56 (79) 98 10/13/17 05:48 Room Air I&O Intake and Output 10/18/17 07:00 Intake Total 840 ml Balance 840 ml Intake Oral 840 ml Labs: Laboratory Tests Test 10/18/17 07:02 10/18/17 07:15 White Blood Count 9.1 x10^3/uL (4.0-11.0) Red Blood Count 3.06 x10^6/uL (3.50-5.40) L Hemoglobin 9.3 g/dL (12.0-15.5) L Hematocrit 26.9 % (36.0-47.0) L Mean Corpuscular Volume 88 fL (79-100) Mean Corpuscular Hemoglobin 31 pg (25-35) Mean Corpuscular Hemoglobin Concent 35 g/dL (31-37) Red Cell Distribution Width 12.6 % (11.5-14.5) Platelet Count 297 x10^3/uL (140-400) Neutrophils (%) (Auto) 67 % (31-73) Lymphocytes (%) (Auto) 21 % (24-48) L Monocytes (%) (Auto) 7 % (0-9) Eosinophils (%) (Auto) 5 % (0-3) H Basophils (%) (Auto) 1 % (0-3) Neutrophils # (Auto) 6.1 x10^3uL (1.8-7.7) Lymphocytes # (Auto) 1.9 x10^3/uL (1.0-4.8) Monocytes # (Auto) 0.6 x10^3/uL (0.0-1.1) Eosinophils # (Auto) 0.4 x10^3/uL (0.0-0.7) Basophils # (Auto) 0.1 x10^3/uL (0.0-0.2) Sodium Level 142 mmol/L (136-145) Potassium Level 4.1 mmol/L (3.5-5.1) Chloride Level 106 mmol/L (98-107) Carbon Dioxide Level 29 mmol/L (21-32) Anion Gap 7 (6-14) Blood Urea Nitrogen 37 mg/dL (7-20) H Creatinine 1.3 mg/dL (0.6-1.0) H Estimated GFR (Cockcroft-Gault) 39.0 BUN/Creatinine Ratio 28 (6-20) H Glucose Level 84 mg/dL (70-99) Calcium Level 9.3 mg/dL (8.5-10.1) Magnesium Level 2.0 mg/dL (1.8-2.4) Total Bilirubin 0.2 mg/dL (0.2-1.0) Aspartate Amino Transferase (AST) 22 U/L (15-37) Alanine Aminotransferase (ALT) 17 U/L (14-59) Alkaline Phosphatase 61 U/L (46-116) Total Protein 5.7 g/dL (6.4-8.2) L Albumin 2.5 g/dL (3.4-5.0) L Albumin/Globulin Ratio 0.8 (1.0-1.7) L Glucose (Fingerstick) 76 mg/dL (70-99) Current Medications: Meds: Current Medications Donepezil HCl (Aricept) 10 mg HS PO Last administered on 10/17/17at 19:08; Start 10/11/17 at 22:00 Lorazepam (Ativan) 0.5 mg PRN DAILY PRN PO ANXIETY / AGITATION Last administered on 10/13/17at 19:43; Start 10/11/17 at 21:45 Mirtazapine (Remeron) 7.5 mg QHS PO Last administered on 10/17/17 19:08; Start 10/11/17 at 22:00 Olanzapine (ZyPREXA) 2.5 mg PRN Q2HR PRN PO ANXIETY / AGITATION; Start 10/11/17 at 21:45; Stop 10/12/17 at 08:11; Status DC Sertraline HCl (Zoloft) 25 mg DAILY PO Last administered on 10/14/17at 07:47; Start 10/12/17 at 09:00; Stop 10/14/17 at 19:06; Status DC Acetaminophen (Tylenol) 650 mg PRN Q6HRS PRN PO MILD PAIN Last administered on 10/16/17 09:34; Start 10/11/17 at 21:45 Aspirin (Aspirin Enteric Coated) 81 mg DAILYWBKFT PO Last administered on 07:43; Start 10/12/17 at 08:00 Calcium/Vitamin D (Oscal D 500mg/ 200uts) 2 tab DAILYWLUN PO Last administered on 10/18/17 11:59; Start 10/12/17 at 12:00 Cyanocobalamin (Vitamin B-12) 1,000 mcg DAILY PO Last administered on 07:46; Start 10/12/17 at 09:00 Docusate Sodium (Colace) 100 mg DAILY PO Last administered on 10/18/17 07:43; Start 10/12/17 at 09:00 Fenofibrate (Tricor) 145 mg DAILY PO Last administered on 10/18/17 07:45; Start 10/12/17 at 09:00 Fluticasone Propionate (Flonase) 1 spray DAILY NS Last administered on 07:47; Start 10/12/17 at 09:00 Gabapentin (Neurontin) 300 mg DAILY PO Last administered on 10/18/17 07:44; Start 10/12/17 at 09:00 Losartan Potassium (Cozaar) 25 mg DAILY PO ; Start 10/12/17 at 09:00; Status Future Hold Magnesium Oxide (Magnesium Oxide) 400 mg TID PO Last administered on 10/18/17at 14:28; Start 10/12/17 at 09:00 Multi-Ingredient Ointment (Analgesic [place]) 1 garth PRN QID PRN TP MUSCLE PAIN; Start 10/11/17 at 21:45 Ondansetron HCl (Zofran Odt) 4 mg PRN Q4HRS PRN PO NAUSEA; Start 10/11/17 at 21: 45 Pantoprazole Sodium (Protonix) 40 mg DAILYAC PO Last administered on 10/18/17 07:44; Start 10/12/17 at 07:30 Simvastatin (Zocor) 20 mg HS PO Last administered on 10/17/17at 19:08; Start 10/12/17 at 21:00 Al Hydroxide/Mg Hydroxide (Mylanta Plus Xs) 15 ml PRN AFTMEAL PRN PO DYSPEPSIA ; Start 10/11/17 at 22:00 Magnesium Hydroxide (Milk Of Magnesia) 2,400 mg PRN QHS PRN PO CONSTIPATION; Start 10/11/17 at 22:00 Multivitamins/ Calcium (Thera-M Plus) 1 tab DAILY PO Last administered on at 07:44; Start 10/12/17 at 09:00 Fish Oil (Fish Oil) 1,000 mg BID PO Last administered on 10/18/17at 07:46; Start 10/12/17 at 09:00 Potassium Chloride (Klor-Con) 10 meq DAILYWBKFT PO Last administered on 07:45; Start 10/12/17 at 08:00 Olanzapine (ZyPREXA ZYDIS) 2.5 mg PRN Q2HR PRN PO ANXIETY / AGITATION Last administered on 10/17/17at 01:53; Start 10/12/17 at 08:15 Trazodone HCl (Desyrel) 50 mg PRN QHS PRN PO INSOMNIA Last administered on 10/17at 01:53; Start 10/12/17 at 18:15 Quetiapine Fumarate (SEROquel) 12.5 mg DAILY PO Last administered on 10/18/17at 07:44; Start 10/14/17 at 09:00 Sertraline HCl (Zoloft) 50 mg DAILY PO Last administered on 10/16/17at 07:58; Start 10/15/17 at 09:00; Stop 10/16/17 at 10:36; Status DC Sertraline HCl (Zoloft) 75 mg DAILY PO Last administered on 10/18/17at 07:45; Start 10/17/17 at 09:00 Active Scripts Active Reported Olanzapine 5 Mg Tablet 2.5 Mg PO PRN Q2HR PRN Donepezil Hcl 10 Mg Tablet 10 Mg PO HS Tricor (Fenofibrate Nanocrystallized) 145 Mg Tablet 145 Mg PO DAILY Potassium Chloride 10 Meq Tablet.er 10 Meq PO DAILYWBKFT Zoloft (Sertraline Hcl) 25 Mg Tablet 25 Mg PO DAILY Pantoprazole Sodium 40 Mg Tablet.dr 40 Mg PO DAILYAC Remeron (Mirtazapine) 15 Mg Tablet 7.5 Mg PO QHS Analgesic [place] (Methyl Salicylate/Menthol) 28 Gm Oint...g. 1 Garth TP PRN QID PRN Maalox Advanced Suspension (Mag Hydrox/Aluminum Hyd/Simeth) 355 Ml Oral.susp 15 Ml PO PRN AFTMEAL PRN Milk Of Magnesia (Magnesium Hydroxide) 2,400 Mg/10 Ml Oral.susp 2,400 Mg PO PRN QHS PRN Magnesium Oxide 400 Mg Tablet 400 Mg PO TID Tylenol (Acetaminophen) 325 Mg Tablet 650 Mg PO PRN Q6HRS PRN Zofran Odt (Ondansetron) 4 Mg Tab.rapdis 4 Mg PO PRN Q4HRS PRN Lorazepam 0.5 Mg Tablet 0.5 Mg PO PRN DAILY PRN Docusate Sodium 100 Mg Capsule 100 Mg PO DAILY Vitamin B-12 (Cyanocobalamin (Vitamin B-12)) 1,000 Mcg Tablet 1,000 Mcg PO DAILY Simvastatin 20 Mg Tablet 20 Mg PO HS [place] 3 1,000 Mg Softgel ([place]-3 Fatty Acids/Fish Oil) 1 Each Capsule 1 Cap PO BID Multivitamins (Multivitamin) 1 Each Tablet 1 Each PO DAILY Losartan Potassium 25 Mg Tablet 25 Mg PO DAILY Gabapentin 300 Mg Capsule 300 Mg PO DAILY Fluticasone Propionate Nasal [place] (Fluticasone Propionate) 16 Gm [place].susp 1 [place] NS DAILY Calcium 500 + Vit D 200 Tablet (Calcium Carbonate/Vitamin D3) 1 Each Tablet 2 Each PO DAILYWLUN Aspirin Ec (Aspirin) 81 Mg Tablet. 81 Mg PO DAILYWBKFT I have reviewed the current psychotropics carefully including drug interactions. Risk benefit ratio favors no change other than as noted in my dictated progress note. Diagnosis: Problems: (1) Anxiety disorder (2) Impulse control disorder (3) Dementia, vascular, with depression (4) Dementia, vascular, with delusions (5) Dementia in Alzheimer's disease with depression (6) Dementia in Alzheimer's disease with delusions NICHOLE DAVIDSON MD Oct 18, 2017 20:01
[2017-10-18] MEDS: DONEPEZIL HCL 10 MG TABLET PO SCH (20:06)
[2017-10-18] MEDS: MIRTAZAPINE 7.5 MG TABLET. PO SCH (20:06)
[2017-10-18] MEDS: SIMVASTATIN 20 MG TABLET PO SCH (20:06)
[2017-10-18] MEDS: traZODone 50 MG TABLET. PO PRN (22:37)
[2017-10-18] MEDS: LORazepam 0.5 MG TABLET PO PRN (22:37)
--- NOTE | 2017-10-18 23:08 | NUR ---
Behavior Intervention Response and Plan: BIRP Note: Behavior: Assumed Care of patient, patient located in Hallway at shift change. Patient exhibited the following behavior Interactive, Disorganized, Attention Seeking. Brief assessment on rounds of vital signs, medication needs, lab studies, and pain. Treatment plan problems .1&2 Intervention: Patient assessed and the following interventions initiated safety checks 15 Minute Checks Cognitive Assessment , Head to toe Assessment , Medications. Response: After interactions and interventions patient responded in the following manner, Compliant , Cooperative ,Delusions. Continue to assess behaviors and condition will continue to monitor throughout the shift as needed. Patient educated on ADL's, and hand hygiene. Plan: Continue to monitor Master Treatment Plan for patient's progress toward short term goals of Decreased Anxiety, Improved Mood, revenue officer goals to return to previous living setting vs placement. Continue to assess patient for changes in above assessment. Monitor for medication needs, pain, and safety concerns. Hourly rounding performed to ensure safe environment.
[2017-10-19 05:43] VITALS: BP 123/56
[2017-10-19 07:35] LABS: BASO # 0.1 x10^3/uL (0.0-0.2); BASO % 1 % (0-3); EOS # 0.4 x10^3/uL (0.0-0.7); EOS % 5 % (0-3); HEMATOCRIT 26.5 % (36.0-47.0); HEMOGLOBIN 9.1 g/dL (12.0-15.5); LYMPH # 2.1 x10^3/uL (1.0-4.8); LYMPH % 26 % (24-48); MEAN CORPUSCULAR HEMOGLOBIN 30 pg (25-35); MEAN CORPUSCULAR HGB CONC 34 g/dL (31-37); MEAN CORPUSCULAR VOLUME 88 fL (79-100); MONO # 0.6 x10^3/uL (0.0-1.1); MONO % 8 % (0-9); NEUT % 61 % (31-73); PLATELET COUNT 311 x10^3/uL (140-400); RED BLOOD COUNT 3.02 x10^6/uL (3.50-5.40); RED CELL DISTRIBUTION WIDTH 12.8 % (11.5-14.5); WHITE BLOOD COUNT 8.2 x10^3/uL (4.0-11.0)
[2017-10-19] MEDS: PANTOPRAZOLE 40 MG TABLET. PO SCH (08:37)
[2017-10-19] MEDS: ASPIRIN ENTERIC COATED 81 MG TABLET.DR. PO SCH (08:38)
[2017-10-19] MEDS: FLUTICASONE 50MCG/NASAL SPRAY 16GM BOTTLE. NS SCH (08:40)
[2017-10-19] MEDS: MAGNESIUM OXIDE 400 MG TABLET PO SCH ×3 (08:40→20:04)
[2017-10-19] MEDS: QUEtiapine 25 MG TABLET. PO SCH (08:40)
[2017-10-19] MEDS: OMEGA-3 FATTY ACIDS/FISH OIL 1,000 MG CAPSULE. PO SCH ×2 (08:40→20:03)
[2017-10-19] MEDS: POTASSIUM CHLORIDE 10 MEQ TABLET.ER. PO SCH (08:40)
[2017-10-19] MEDS: GABAPENTIN 300 MG CAPSULE. PO SCH (08:40)
[2017-10-19] MEDS: DOCUSATE SODIUM 100 MG CAPSULE PO SCH (08:40)
[2017-10-19] MEDS: FENOFIBRATE NANOCRYSTALLIZED 145 MG TABLET PO SCH (08:41)
[2017-10-19] MEDS: CYANOCOBALAMIN (VITAMIN B-12) 1,000 MCG TABLET. PO SCH (08:41)
[2017-10-19] MEDS: MULTIVITAMIN with MINERAL TABLET. PO SCH (08:41)
[2017-10-19] MEDS: SERTRALINE 50 MG TABLET. PO SCH (08:41)
--- NOTE | 2017-10-19 11:25 | NUR ---
Behavior Intervention Response and Plan: BIRP Note: Behavior: Assumed Care of patient, patient located in Day Room at shift change. Patient exhibited the following behavior calm, cooperative, thought her was coming to get her-easily redirectable. Brief assessment on rounds of vital signs, medication needs, lab studies, and pain. Treatment plan problems 1 & 2. Intervention: Patient assessed and the following interventions initiated safety checks 15 Minute Checks Cognitive Assessment , Head to toe Assessment , Medications. Response: After interactions and interventions patient responded in the following manner, Calm, Appropriate, Compliant. Continue to assess behaviors and condition will continue to monitor throughout the shift as needed. Patient educated on ADL's, and hand hygiene. Plan: Continue to monitor Master Treatment Plan for patient's progress toward short term goals of Decreased Agitation, Decreased Aggression, terminologist goals to return to previous living setting vs placement. Continue to assess patient for changes in above assessment. Monitor for medication needs, pain, and safety concerns. Hourly rounding performed to ensure safe environment.
[2017-10-19] MEDS: CALCIUM CARB/VIT D3 500/200 TABLET PO SCH (12:05)
[2017-10-19] MEDS: ACETAMINOPHEN 325 MG TABLET PO PRN (14:05)
--- NOTE | 2017-10-19 14:45 | NUR ---
Pt is delusional at this time stating "Where is Levon my !?" "Go find him hes suicidal hes depressed!" Pt is tearful and calling out at this time. Staff is unable to distract or redirect pt with 1:1 interaction, snack, redirection or reassurance. PRN zyprexa suzieis given.
[2017-10-19 16:42] VITALS: BP 106/64
--- NOTE | 2017-10-19 19:45 | PDOC ---
Exam Note: Torres Note: Please also refer to the separate dictated note~for this date of service dictated separately.~Patient seen individually. Discussed the patient with Nursing staff reviewed the chart.~Reviewed interim history and current functioning. Reviewed vital signs,~Labs/ Radiology~and current medications noted below. Continue current treatment with the changes noted in the dictated addendum note Assessment: Vital Signs: Vital Signs Date Time Temp Pulse Resp B/P (MAP) Pulse Ox O2 Delivery O2 Flow Rate FiO2 10/19/17 16:42 98.0 68 16 106/64 (78) 99 I&O Intake and Output 10/19/17 07:00 Intake Total 2040 ml Balance 2040 ml Intake Oral 2040 ml # Bowel Movements 1 Labs: Laboratory Tests Test 10/19/17 06:56 10/19/17 07:19 White Blood Count 8.2 x10^3/uL (4.0-11.0) Red Blood Count 3.02 x10^6/uL (3.50-5.40) L Hemoglobin 9.1 g/dL (12.0-15.5) L Hematocrit 26.5 % (36.0-47.0) L Mean Corpuscular Volume 88 fL (79-100) Mean Corpuscular Hemoglobin 30 pg (25-35) Mean Corpuscular Hemoglobin Concent 34 g/dL (31-37) Red Cell Distribution Width 12.8 % (11.5-14.5) Platelet Count 311 x10^3/uL (140-400) Neutrophils (%) (Auto) 61 % (31-73) Lymphocytes (%) (Auto) 26 % (24-48) Monocytes (%) (Auto) 8 % (0-9) Eosinophils (%) (Auto) 5 % (0-3) H Basophils (%) (Auto) 1 % (0-3) Neutrophils # (Auto) 5.0 x10^3uL (1.8-7.7) Lymphocytes # (Auto) 2.1 x10^3/uL (1.0-4.8) Monocytes # (Auto) 0.6 x10^3/uL (0.0-1.1) Eosinophils # (Auto) 0.4 x10^3/uL (0.0-0.7) Basophils # (Auto) 0.1 x10^3/uL (0.0-0.2) Glucose (Fingerstick) 82 mg/dL (70-99) Current Medications: Meds: Current Medications Donepezil HCl (Aricept) 10 mg HS PO Last administered on 10/18/17at 20:06; Start 10/11/17 at 22:00 Lorazepam (Ativan) 0.5 mg PRN DAILY PRN PO ANXIETY / AGITATION Last administered on 10/18/17at 22:37; Start 10/11/17 at 21:45 Mirtazapine (Remeron) 7.5 mg QHS PO Last administered on 10/18/17at 20:06; Start 10/11/17 at 22:00; Stop 10/19/17 at 18:24; Status DC Olanzapine (ZyPREXA) 2.5 mg PRN Q2HR PRN PO ANXIETY / AGITATION; Start 10/11/17 at 21:45; Stop 10/12/17 at 08:11; Status DC Sertraline HCl (Zoloft) 25 mg DAILY PO Last administered on 10/14/17at 07:47; Start 10/12/17 at 09:00; Stop 10/14/17 at 19:06; Status DC Acetaminophen (Tylenol) 650 mg PRN Q6HRS PRN PO MILD PAIN Last administered on 10/19/17at 14:05; Start 10/11/17 at 21:45 Aspirin (Aspirin Enteric Coated) 81 mg DAILYWBKFT PO Last administered on at 08:38; Start 10/12/17 at 08:00 Calcium/Vitamin D (Oscal D 500mg/ 200uts) 2 tab DAILYWLUN PO Last administered on 10/19/17at 12:05; Start 10/12/17 at 12:00 Cyanocobalamin (Vitamin B-12) 1,000 mcg DAILY PO Last administered on 08:41; Start 10/12/17 at 09:00 Docusate Sodium (Colace) 100 mg DAILY PO Last administered on 10/19/17at 08:40; Start 10/12/17 at 09:00 Fenofibrate (Tricor) 145 mg DAILY PO Last administered on 10/19/17at 08:41; Start 10/12/17 at 09:00 Fluticasone Propionate (Flonase) 1 spray DAILY NS Last administered on at 08:40; Start 10/12/17 at 09:00 Gabapentin (Neurontin) 300 mg DAILY PO Last administered on 10/19/17at 08:40; Start 10/12/17 at 09:00 Losartan Potassium (Cozaar) 25 mg DAILY PO ; Start 10/12/17 at 09:00; Status Future Hold Magnesium Oxide (Magnesium Oxide) 400 mg TID PO Last administered on 10/19/17at 14:04; Start 10/12/17 at 09:00 Multi-Ingredient Ointment (Analgesic [place]) 1 garth PRN QID PRN TP MUSCLE PAIN; Start 10/11/17 at 21:45 Ondansetron HCl (Zofran Odt) 4 mg PRN Q4HRS PRN PO NAUSEA; Start 10/11/17 at 21: 45 Pantoprazole Sodium (Protonix) 40 mg DAILYAC PO Last administered on 10/19/17at 08:37; Start 10/12/17 at 07:30 Simvastatin (Zocor) 20 mg HS PO Last administered on 10/18/17at 20:06; Start 10/12/17 at 21:00 Al Hydroxide/Mg Hydroxide (Mylanta Plus Xs) 15 ml PRN AFTMEAL PRN PO DYSPEPSIA ; Start 10/11/17 at 22:00 Magnesium Hydroxide (Milk Of Magnesia) 2,400 mg PRN QHS PRN PO CONSTIPATION; Start 10/11/17 at 22:00 Multivitamins/ Calcium (Thera-M Plus) 1 tab DAILY PO Last administered on at 08:41; Start 10/12/17 at 09:00 Fish Oil (Fish Oil) 1,000 mg BID PO Last administered on 10/19/17at 08:40; Start 10/12/17 at 09:00 Potassium Chloride (Klor-Con) 10 meq DAILYWBKFT PO Last administered on 08:40; Start 10/12/17 at 08:00 Olanzapine (ZyPREXA ZYDIS) 2.5 mg PRN Q2HR PRN PO ANXIETY / AGITATION Last administered on 10/19/17at 14:41; Start 10/12/17 at 08:15 Trazodone HCl (Desyrel) 50 mg PRN QHS PRN PO INSOMNIA Last administered on 10/18at 22:37; Start 10/12/17 at 18:15 Quetiapine Fumarate (SEROquel) 12.5 mg DAILY PO Last administered on 10/19/17at 08:40; Start 10/14/17 at 09:00 Sertraline HCl (Zoloft) 50 mg DAILY PO Last administered on 10/16/17at 07:58; Start 10/15/17 at 09:00; Stop 10/16/17 at 10:36; Status DC Sertraline HCl (Zoloft) 75 mg DAILY PO Last administered on 10/19/17at 08:41; Start 10/17/17 at 09:00 Mirtazapine (Remeron) 15 mg QHS PO ; Start 10/19/17 at 21:00 Active Scripts Active Reported Olanzapine 5 Mg Tablet 2.5 Mg PO PRN Q2HR PRN Donepezil Hcl 10 Mg Tablet 10 Mg PO HS Tricor (Fenofibrate Nanocrystallized) 145 Mg Tablet 145 Mg PO DAILY Potassium Chloride 10 Meq Tablet.er 10 Meq PO DAILYWBKFT Zoloft (Sertraline Hcl) 25 Mg Tablet 25 Mg PO DAILY Pantoprazole Sodium 40 Mg Tablet.dr 40 Mg PO DAILYAC Remeron (Mirtazapine) 15 Mg Tablet 7.5 Mg PO QHS Analgesic [place] (Methyl Salicylate/Menthol) 28 Gm Oint...g. 1 [place] TP PRN QID PRN Maalox Advanced Suspension (Mag Hydrox/Aluminum Hyd/Simeth) 355 Ml Oral.susp 15 Ml PO PRN AFTMEAL PRN Milk Of Magnesia (Magnesium Hydroxide) 2,400 Mg/10 Ml Oral.susp 2,400 Mg PO PRN QHS PRN Magnesium Oxide 400 Mg Tablet 400 Mg PO TID Tylenol (Acetaminophen) 325 Mg Tablet 650 Mg PO PRN Q6HRS PRN Zofran Odt (Ondansetron) 4 Mg Tab.rapdis 4 Mg PO PRN Q4HRS PRN Lorazepam 0.5 Mg Tablet 0.5 Mg PO PRN DAILY PRN Docusate Sodium 100 Mg Capsule 100 Mg PO DAILY Vitamin B-12 (Cyanocobalamin (Vitamin B-12)) 1,000 Mcg Tablet 1,000 Mcg PO DAILY Simvastatin 20 Mg Tablet 20 Mg PO HS [place] 3 1,000 Mg Softgel ([place]-3 Fatty Acids/Fish Oil) 1 Each Capsule 1 Cap PO BID Multivitamins (Multivitamin) 1 Each Tablet 1 Each PO DAILY Losartan Potassium 25 Mg Tablet 25 Mg PO DAILY Gabapentin 300 Mg Capsule 300 Mg PO DAILY Fluticasone Propionate Nasal [place] (Fluticasone Propionate) 16 Gm [place].susp 1 [place] NS DAILY Calcium 500 + Vit D 200 Tablet (Calcium Carbonate/Vitamin D3) 1 Each Tablet 2 Each PO DAILYWLUN Aspirin Ec (Aspirin) 81 Mg Tablet. 81 Mg PO DAILYWBKFT I have reviewed the current psychotropics carefully including drug interactions. Risk benefit ratio favors no change other than as noted in my dictated progress note. Diagnosis: Problems: (1) Hypokalemia (2) Anxiety disorder (3) Impulse control disorder (4) Dementia, vascular, with depression (5) Dementia, vascular, with delusions (6) Dementia in Alzheimer's disease with depression (7) Dementia in Alzheimer's disease with delusions NICHOLE DAVIDSON MD Oct 19, 2017 19:45
[2017-10-19] MEDS: SIMVASTATIN 20 MG TABLET PO SCH (20:03)
[2017-10-19] MEDS: DONEPEZIL HCL 10 MG TABLET PO SCH (20:04)
[2017-10-19] MEDS: traZODone 50 MG TABLET. PO PRN (20:04)
[2017-10-19] MEDS: MIRTAZAPINE 15 MG TABLET PO SCH (20:06)
--- NOTE | 2017-10-19 23:02 | NUR ---
Behavior Intervention Response and Plan: BIRP Note: Behavior: Assumed Care of patient, patient located in Hallway at shift change. Patient exhibited the following behavior Interactive, Disorganized, Attention Seeking. Brief assessment on rounds of vital signs, medication needs, lab studies, and pain. Treatment plan problems .1&2 Intervention: Patient assessed and the following interventions initiated safety checks 15 Minute Checks Cognitive Assessment , Head to toe Assessment , Medications. Response: After interactions and interventions patient responded in the following manner, Compliant , Cooperative ,Delusions. Continue to assess behaviors and condition will continue to monitor throughout the shift as needed. Patient educated on ADL's, and hand hygiene. Plan: Continue to monitor Master Treatment Plan for patient's progress toward short term goals of Decreased Anxiety, Improved Mood, intermediate accountant goals to return to previous living setting vs placement. Continue to assess patient for changes in above assessment. Monitor for medication needs, pain, and safety concerns. Hourly rounding performed to ensure safe environment.
--- NOTE | 2017-10-19 23:23 | PN ---
DATE: 10/15/2017 PSYCHIATRIC PROGRESS NOTE: This is a late entry 10/15/2017, covers elements not covered in my initial note of 10/15/2017. I met with the patient in the evening of 10/15/2017, the patient slept 4-1/2 hours previous evening. At times, she is overly sedated, but whenever she is awake, she is yelling still labile and her mood confused. REVIEW OF SYSTEMS: Ambulation impaired, in Broda chair. No CV, , pulmonary, eye, ENT system symptoms on review, slightly hard of hearing. MENTAL STATUS EXAM: Oriented to herself. Insight, judgment, recent and remote memory, attention, concentration, fund of knowledge poor, consistent with her diagnosis mentioned in my initial note. IMPRESSION: Major neurocognitive disorder, Alzheimer, vascular with depression, delusion, behavioral disturbance. PLAN: Continue current psychotropics, may need to adjust Seroquel further, but I have avoided increasing it consequent to her sedation, we will reassess in a day or so. MAN Nadja DAVIDSON MD DR: ZIYAD/selena JOB#: [id number] / [id number]
--- NOTE | 2017-10-19 23:28 | PN ---
DATE: 10/16/2017 This late entry 10/16/2017 covers elements not covered in my initial note on 10/16/2017. SUBJECTIVE: The patient was staffed at treatment team meeting morning of 10/16/2017 and after the meeting, I met with the patient individually. Appetite 60%, sleeping 3-1/2 hours, slept 5 hours previous evening, compliant with medications, drowsy in the morning when awake. Again, she is yelling. Ambulation impaired, in Broda chair. REVIEW OF SYSTEMS: No CV, , pulmonary, eye system symptoms on review, somewhat hard of hearing. Reliability poor. MENTAL STATUS EXAM: Oriented to herself. Insight, judgment, recent and remote memory, attention, concentration, fund of knowledge poor, consistent with her diagnosis. IMPRESSION: Major neurocognitive disorder, Alzheimer, vascular with depression, delusion, behavioral disturbance. Rest unchanged. PLAN: Increase Zoloft to 75 mg a day. Continue rest unchanged for now. Hopefully, the Zoloft will help the mood, anxiety symptoms and irritability and we will avoid the sedation side effect from increasing the Seroquel for now. MAN Nadja DAVIDSON MD DR: ZIYAD/selena JOB#: [id number] / [id number]
--- NOTE | 2017-10-20 00:44 | PN ---
DATE: 10/17/2017 This is a late entry for 10/17/2017, covers elements not covered in my initial note 10/17/2017. Met with the patient, evening of 10/17/2017. The patient slept for three quarter hours previous evening, yelling, agitated, labile in her mood. Labs are worse, BUN 18, creatinine 40. We will repeat them in the morning. She is a full code. REVIEW OF SYSTEMS: Hard of hearing, impaired ambulation, in Broda chair. No CV, , pulmonary, eye system symptoms on review. Reliability poor. MENTAL STATUS EXAM: Oriented to herself. Insight, judgment, recent and remote memory, attention, concentration, fund of knowledge poor, consistent with her diagnosis. IMPRESSION: Major neurocognitive disorder, Alzheimer, vascular with depression, delusion, behavioral disturbance. Rest unchanged. PLAN: Continue psychotropics mentioned in my initial note. MAN Nadja DAVIDSON MD DR: ZIYAD/selena JOB#: [id number] / [id number]
--- NOTE | 2017-10-20 00:45 | PN ---
DATE: 10/18/2017 This note covers elements not covered in my initial note on 10/18/2017. Met with the patient in the evening of 10/18/2017. The patient has been much more pleasant, cooperative, less labile, certainly still confused per nursing report. REVIEW OF SYSTEMS: Ambulation impaired, in Broda chair. No CV, , pulmonary, eye system symptoms on review. Hard of hearing. MENTAL STATUS EXAM: Oriented to herself. Insight, judgment, recent and remote memory, attention, concentration, fund of knowledge poor, consistent with her diagnosis mentioned in my initial note. IMPRESSION: Major neurocognitive disorder, Alzheimer, vascular with depression, delusion, behavioral disturbance. PLAN: Continue psychotropics mentioned in my initial note. MAN Nadja DAVIDSON MD DR: ZIYAD/selena JOB#: [id number] / [id number]
[2017-10-20 06:07] VITALS: BP 126/51
[2017-10-20] MEDS: MULTIVITAMIN with MINERAL TABLET. PO SCH (08:13)
[2017-10-20] MEDS: MAGNESIUM OXIDE 400 MG TABLET PO SCH ×3 (08:13→19:53)
[2017-10-20] MEDS: ASPIRIN ENTERIC COATED 81 MG TABLET.DR. PO SCH (08:13)
[2017-10-20] MEDS: PANTOPRAZOLE 40 MG TABLET. PO SCH (08:13)
[2017-10-20] MEDS: FENOFIBRATE NANOCRYSTALLIZED 145 MG TABLET PO SCH (08:13)
[2017-10-20] MEDS: SERTRALINE 50 MG TABLET. PO SCH (08:14)
[2017-10-20] MEDS: POTASSIUM CHLORIDE 10 MEQ TABLET.ER. PO SCH (08:14)
[2017-10-20] MEDS: QUEtiapine 25 MG TABLET. PO SCH (08:14)
[2017-10-20] MEDS: OMEGA-3 FATTY ACIDS/FISH OIL 1,000 MG CAPSULE. PO SCH ×2 (08:14→19:54)
[2017-10-20] MEDS: GABAPENTIN 300 MG CAPSULE. PO SCH (08:14)
[2017-10-20] MEDS: CYANOCOBALAMIN (VITAMIN B-12) 1,000 MCG TABLET. PO SCH (08:14)
[2017-10-20] MEDS: DOCUSATE SODIUM 100 MG CAPSULE PO SCH ×2 (08:15→19:55)
[2017-10-20] MEDS: FLUTICASONE 50MCG/NASAL SPRAY 16GM BOTTLE. NS SCH (08:15)
--- NOTE | 2017-10-20 09:30 | NUR ---
Behavior Intervention Response and Plan: BIRP Note: Behavior: Assumed Care of patient, patient located in Day Room at shift change. Patient exhibited the following behavior Disorganized, Drowsy, Interactive. Brief assessment on rounds of vital signs, medication needs, lab studies, and pain. Treatment plan problems 1 & 2. Intervention: Patient assessed and the following interventions initiated safety checks 15 Minute Checks Cognitive Assessment , Head to toe Assessment , Medications. Response: After interactions and interventions patient responded in the following manner, Calm , Appropriate ,Compliant. Continue to assess behaviors and condition will continue to monitor throughout the shift as needed. Patient educated on ADL's, and hand hygiene. Plan: Continue to monitor Master Treatment Plan for patient's progress toward short term goals of Decreased Agitation, No harm To self/ others, technician terminal and repeater goals to return to previous living setting vs placement. Continue to assess patient for changes in above assessment. Monitor for medication needs, pain, and safety concerns. Hourly rounding performed to ensure safe environment.
--- NOTE | 2017-10-20 10:00 | NUR ---
Patient's RBC and H&H continue to trend downwards. Fecal Occult test ordered, patient has not had a BM yet today. Will inform MD of patient's condition during rounds.
[2017-10-20] MEDS: CALCIUM CARB/VIT D3 500/200 TABLET PO SCH (12:07)
--- NOTE | 2017-10-20 15:51 | NUR ---
Pt was transferred down to medical floor and then came back to [facility] for stabilization. Pt Psychosocial information was from admit to Behavioral health floor on 10/05/17 Pt was admitted on 10/05/17. Per report taken at intake pt was reported to be combative, hitting a resident twice, hitting staff, yelling, and compulsively picking at her head. When asked pt what brought her to the hospital she stated, "I don't know..I don't know what happened." Pt reported complaints that her head and back hurt stating she doesn't "feel good." SW got a nurse who attending to pt needs. Clinician contacted pt's DPOA Alannah Estrada who is pt's daughter. She reported a similar story as to why pt was admitted to [facility]. She also reported that pt was throwing things in her room and tearing up fake perez she had brought her mother. She reports that pt has had a dementia diagnosis for six years and noticeable symptoms for nine years. Alannah denies previous mental health history and psych admissions. Alannah denies pt has legal issues, substance use concerns, and experience. 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 She receives prison income and social security benefits. 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 Pt was born in [facility] near [place], [place]. She has no siblings. Pt is . Her a few years ago after a mowing accident which pt continues to blame herself for her husbands because she felt that she distracted him when the accident occurred. After his Alannah reports that pt's dementia and behaviors appeared to escalate. Alannah states that her father was very controlling in the sense that he took care of his 's needs. Alannah reports that pt really misses her dog and this appears to be what he is most worried about a majority of the time. Alannah states that if she is assured her dog is ok i.e. safe, warm, he has food and water that this will calm her down. Her dog is currently at a neighbors across the street and they are caring for him at this time. Goal: 1. medication adjustment to decrease recent aggressive behaviors 2. increase leisure time to increase positive outlook and social skills Obstacles to discharge: treatment and medication compliance
[2017-10-20 15:56] VITALS: BP 131/50
[2017-10-20] MEDS: DONEPEZIL HCL 10 MG TABLET PO SCH (19:53)
[2017-10-20] MEDS: SIMVASTATIN 20 MG TABLET PO SCH (19:53)
[2017-10-20] MEDS: MIRTAZAPINE 15 MG TABLET PO SCH (19:53)
[2017-10-20] MEDS: traZODone 50 MG TABLET. PO PRN (19:56)
--- NOTE | 2017-10-20 20:04 | PDOC ---
Exam Note: Torres Note: Please also refer to the separate dictated note~for this date of service dictated separately.~Patient seen individually. Discussed the patient with Nursing staff reviewed the chart.~Reviewed interim history and current functioning. Reviewed vital signs,~Labs/ Radiology~and current medications noted below. Continue current treatment with the changes noted in the dictated addendum note Assessment: Vital Signs: Vital Signs Date Time Temp Pulse Resp B/P (MAP) Pulse Ox O2 Delivery O2 Flow Rate FiO2 10/20/17 15:56 97.2 54 16 131/50 (77) 95 10/20/17 06:07 Room Air I&O Intake and Output 10/20/17 07:00 Intake Total 840 ml Balance 840 ml Intake Oral 840 ml # Bowel Movements 1 Labs: Laboratory Tests Test 10/20/17 07:22 Glucose (Fingerstick) 84 mg/dL (70-99) Current Medications: Meds: Current Medications Donepezil HCl (Aricept) 10 mg HS PO Last administered on 10/20/17at 19:53; Start 10/11/17 at 22:00 Lorazepam (Ativan) 0.5 mg PRN DAILY PRN PO ANXIETY / AGITATION Last administered on 10/18/17at 22:37; Start 10/11/17 at 21:45 Mirtazapine (Remeron) 7.5 mg QHS PO Last administered on 10/18/17at 20:06; Start 10/11/17 at 22:00; Stop 10/19/17 at 18:24; Status DC Olanzapine (ZyPREXA) 2.5 mg PRN Q2HR PRN PO ANXIETY / AGITATION; Start 10/11/17 at 21:45; Stop 10/12/17 at 08:11; Status DC Sertraline HCl (Zoloft) 25 mg DAILY PO Last administered on 10/14/17at 07:47; Start 10/12/17 at 09:00; Stop 10/14/17 at 19:06; Status DC Acetaminophen (Tylenol) 650 mg PRN Q6HRS PRN PO MILD PAIN Last administered on 10/19/17at 14:05; Start 10/11/17 at 21:45 Aspirin (Aspirin Enteric Coated) 81 mg DAILYWBKFT PO Last administered on at 08:13; Start 10/12/17 at 08:00 Calcium/Vitamin D (Oscal D 500mg/ 200uts) 2 tab DAILYWLUN PO Last administered on 10/20/17at 12:07; Start 10/12/17 at 12:00 Cyanocobalamin (Vitamin B-12) 1,000 mcg DAILY PO Last administered on at 08:14; Start 10/12/17 at 09:00 Docusate Sodium (Colace) 100 mg DAILY PO Last administered on 10/20/17at 08:15; Start 10/12/17 at 09:00; Stop 10/20/17 at 17:59; Status DC Fenofibrate (Tricor) 145 mg DAILY PO Last administered on 10/20/17at 08:13; Start 10/12/17 at 09:00 Fluticasone Propionate (Flonase) 1 spray DAILY NS Last administered on at 08:15; Start 10/12/17 at 09:00 Gabapentin (Neurontin) 300 mg DAILY PO Last administered on 10/20/17at 08:14; Start 10/12/17 at 09:00 Losartan Potassium (Cozaar) 25 mg DAILY PO ; Start 10/12/17 at 09:00; Status Future Hold Magnesium Oxide (Magnesium Oxide) 400 mg TID PO Last administered on 10/20/17at 19:53; Start 10/12/17 at 09:00 Multi-Ingredient Ointment (Analgesic [place]) 1 garth PRN QID PRN TP MUSCLE PAIN; Start 10/11/17 at 21:45 Ondansetron HCl (Zofran Odt) 4 mg PRN Q4HRS PRN PO NAUSEA; Start 10/11/17 at 21: 45 Pantoprazole Sodium (Protonix) 40 mg DAILYAC PO Last administered on 10/20/17at 08:13; Start 10/12/17 at 07:30 Simvastatin (Zocor) 20 mg HS PO Last administered on 10/20/17at 19:53; Start 10/12/17 at 21:00 Al Hydroxide/Mg Hydroxide (Mylanta Plus Xs) 15 ml PRN AFTMEAL PRN PO DYSPEPSIA ; Start 10/11/17 at 22:00 Magnesium Hydroxide (Milk Of Magnesia) 2,400 mg PRN QHS PRN PO CONSTIPATION; Start 10/11/17 at 22:00 Multivitamins/ Calcium (Thera-M Plus) 1 tab DAILY PO Last administered on 08:13; Start 10/12/17 at 09:00 Fish Oil (Fish Oil) 1,000 mg BID PO Last administered on 10/20/17at 19:54; Start 10/12/17 at 09:00 Potassium Chloride (Klor-Con) 10 meq DAILYWBKFT PO Last administered on at 08:14; Start 10/12/17 at 08:00 Olanzapine (ZyPREXA ZYDIS) 2.5 mg PRN Q2HR PRN PO ANXIETY / AGITATION Last administered on 10/19/17 22:17; Start 10/12/17 at 08:15 Trazodone HCl (Desyrel) 50 mg PRN QHS PRN PO INSOMNIA Last administered on 10/20 19:56; Start 10/12/17 at 18:15 Quetiapine Fumarate (SEROquel) 12.5 mg DAILY PO Last administered on 10/20/17at 08:14; Start 10/14/17 at 09:00 Sertraline HCl (Zoloft) 50 mg DAILY PO Last administered on 10/16/17at 07:58; Start 10/15/17 at 09:00; Stop 10/16/17 at 10:36; Status DC Sertraline HCl (Zoloft) 75 mg DAILY PO Last administered on 10/20/17 08:14; Start 10/17/17 at 09:00 Mirtazapine (Remeron) 15 mg QHS PO Last administered on 10/20/17at 19:53; Start 10/19/17 at 21:00 Docusate Sodium (Colace) 100 mg BID PO Last administered on 10/20/17 19:55; Start 10/20/17 at 21:00 Polyethylene Glycol (miraLAX) 17 gm DAILY PO ; Start 10/21/17 at 09:00 Active Scripts Active Reported Olanzapine 5 Mg Tablet 2.5 Mg PO PRN Q2HR PRN Donepezil Hcl 10 Mg Tablet 10 Mg PO HS Tricor (Fenofibrate Nanocrystallized) 145 Mg Tablet 145 Mg PO DAILY Potassium Chloride 10 Meq Tablet.er 10 Meq PO DAILYWBKFT Zoloft (Sertraline Hcl) 25 Mg Tablet 25 Mg PO DAILY Pantoprazole Sodium 40 Mg Tablet. 40 Mg PO DAILYAC Remeron (Mirtazapine) 15 Mg Tablet 7.5 Mg PO QHS Analgesic [place] (Methyl Salicylate/Menthol) 28 Gm Oint...g. 1 Garth TP PRN QID PRN Maalox Advanced Suspension (Mag Hydrox/Aluminum Hyd/Simeth) 355 Ml Oral.susp 15 Ml PO PRN AFTMEAL PRN Milk Of Magnesia (Magnesium Hydroxide) 2,400 Mg/10 Ml Oral.susp 2,400 Mg PO PRN QHS PRN Magnesium Oxide 400 Mg Tablet 400 Mg PO TID Tylenol (Acetaminophen) 325 Mg Tablet 650 Mg PO PRN Q6HRS PRN Zofran Odt (Ondansetron) 4 Mg Tab.rapdis 4 Mg PO PRN Q4HRS PRN Lorazepam 0.5 Mg Tablet 0.5 Mg PO PRN DAILY PRN Docusate Sodium 100 Mg Capsule 100 Mg PO DAILY Vitamin B-12 (Cyanocobalamin (Vitamin B-12)) 1,000 Mcg Tablet 1,000 Mcg PO DAILY Simvastatin 20 Mg Tablet 20 Mg PO HS [place] 3 1,000 Mg Softgel ([place]-3 Fatty Acids/Fish Oil) 1 Each Capsule 1 Cap PO BID Multivitamins (Multivitamin) 1 Each Tablet 1 Each PO DAILY Losartan Potassium 25 Mg Tablet 25 Mg PO DAILY Gabapentin 300 Mg Capsule 300 Mg PO DAILY Fluticasone Propionate Nasal [place] (Fluticasone Propionate) 16 Gm [place].susp 1 [place] NS DAILY Calcium 500 + Vit D 200 Tablet (Calcium Carbonate/Vitamin D3) 1 Each Tablet 2 Each PO DAILYWLUN Aspirin Ec (Aspirin) 81 Mg Tablet. 81 Mg PO DAILYWBKFT I have reviewed the current psychotropics carefully including drug interactions. Risk benefit ratio favors no change other than as noted in my dictated progress note. Diagnosis: Problems: (1) Hypokalemia (2) Anxiety disorder (3) Impulse control disorder (4) Dementia, vascular, with depression (5) Dementia, vascular, with delusions (6) Dementia in Alzheimer's disease with depression (7) Dementia in Alzheimer's disease with delusions NICHOLE DAVIDSON MD Oct 20, 2017 20:04
--- NOTE | 2017-10-21 00:18 | NUR ---
Behavior Intervention Response and Plan: BIRP Note: Behavior: Assumed Care of patient, patient located in Day Room at shift change. Patient exhibited the following behavior Restless, Anxious, Disorganized. Brief assessment on rounds of vital signs, medication needs, lab studies, and pain. Treatment plan problems Dementia w/Behavioral Disturbance; Fall Risk. Intervention: Patient assessed and the following interventions initiated safety checks 15 Minute Checks Cognitive Assessment , Head to toe Assessment , Medications. Response: After interactions and interventions patient responded in the following manner, Calm , Compliant ,Cooperative. Continue to assess behaviors and condition will continue to monitor throughout the shift as needed. Patient educated on ADL's, and hand hygiene. Plan: Continue to monitor Master Treatment Plan for patient's progress toward short term goals of Decreased Anxiety, Decreased Aggression, mcfp goals to return to previous living setting vs placement. Continue to assess patient for changes in above assessment. Monitor for medication needs, pain, and safety concerns. Hourly rounding performed to ensure safe environment.
[2017-10-21 06:05] VITALS: BP 122/34
[2017-10-21 07:33] LABS: FECAL OB PT NEGATIVE (NEG)
[2017-10-21] MEDS: POTASSIUM CHLORIDE 10 MEQ TABLET.ER. PO SCH (07:50)
[2017-10-21] MEDS: GABAPENTIN 300 MG CAPSULE. PO SCH (07:50)
[2017-10-21] MEDS: FENOFIBRATE NANOCRYSTALLIZED 145 MG TABLET PO SCH (07:50)
[2017-10-21] MEDS: QUEtiapine 25 MG TABLET. PO SCH (07:50)
[2017-10-21] MEDS: OMEGA-3 FATTY ACIDS/FISH OIL 1,000 MG CAPSULE. PO SCH ×2 (07:51→19:41)
[2017-10-21] MEDS: DOCUSATE SODIUM 100 MG CAPSULE PO SCH ×2 (07:51→19:41)
[2017-10-21] MEDS: MULTIVITAMIN with MINERAL TABLET. PO SCH (07:51)
[2017-10-21] MEDS: SERTRALINE 50 MG TABLET. PO SCH (07:51)
[2017-10-21] MEDS: ASPIRIN ENTERIC COATED 81 MG TABLET.DR. PO SCH (07:51)
[2017-10-21] MEDS: PANTOPRAZOLE 40 MG TABLET. PO SCH (07:51)
[2017-10-21] MEDS: CYANOCOBALAMIN (VITAMIN B-12) 1,000 MCG TABLET. PO SCH (07:51)
[2017-10-21] MEDS: MAGNESIUM OXIDE 400 MG TABLET PO SCH ×3 (07:51→19:41)
[2017-10-21] MEDS: POLYETHYLENE GLYCOL 3350 17 GM PACKET. PO SCH (07:53)
[2017-10-21] MEDS: FLUTICASONE 50MCG/NASAL SPRAY 16GM BOTTLE. NS SCH (07:53)
--- NOTE | 2017-10-21 09:30 | NUR ---
Behavior Intervention Response and Plan: BIRP Note: Behavior: Assumed Care of patient, patient located in Day Room at shift change. Patient exhibited the following behavior Restless, Disorganized, Interactive. Brief assessment on rounds of vital signs, medication needs, lab studies, and pain. Treatment plan problems 1 & 2. Intervention: Patient assessed and the following interventions initiated safety checks 15 Minute Checks Cognitive Assessment , Head to toe Assessment , Medications. Response: After interactions and interventions patient responded in the following manner, Calm , Appropriate ,Compliant. Continue to assess behaviors and condition will continue to monitor throughout the shift as needed. Patient educated on ADL's, and hand hygiene. Plan: Continue to monitor Master Treatment Plan for patient's progress toward short term goals of Decreased Agitation, Decreased Aggression, long term care social worker goals to return to previous living setting vs placement. Continue to assess patient for changes in above assessment. Monitor for medication needs, pain, and safety concerns. Hourly rounding performed to ensure safe environment.
[2017-10-21] MEDS: CALCIUM CARB/VIT D3 500/200 TABLET PO SCH (12:13)
[2017-10-21 16:16] VITALS: BP 146/66
[2017-10-21] MEDS: SIMVASTATIN 20 MG TABLET PO SCH (19:40)
[2017-10-21] MEDS: MIRTAZAPINE 15 MG TABLET PO SCH (19:41)
[2017-10-21] MEDS: DONEPEZIL HCL 10 MG TABLET PO SCH (19:41)
[2017-10-21] MEDS: traZODone 50 MG TABLET. PO PRN ×2 (19:41→21:37)
--- NOTE | 2017-10-21 20:00 | NUR ---
PRN Trazodone administered w/HS medications for sleep.
--- NOTE | 2017-10-21 20:05 | PDOC ---
Exam Note: Torres Note: Please also refer to the separate dictated note~for this date of service dictated separately.~Patient seen individually. Discussed the patient with Nursing staff reviewed the chart.~Reviewed interim history and current functioning. Reviewed vital signs,~Labs/ Radiology~and current medications noted below. Continue current treatment with the changes noted in the dictated addendum note Assessment: Vital Signs: Vital Signs Date Time Temp Pulse Resp B/P (MAP) Pulse Ox O2 Delivery O2 Flow Rate FiO2 10/21/17 16:16 98.7 76 16 146/66 (92) 97 10/20/17 06:07 Room Air I&O Intake and Output 10/21/17 07:00 Intake Total 860 ml Balance 860 ml Intake Oral 860 ml Labs: Laboratory Tests Test 10/21/17 06:00 10/21/17 07:32 Stool Occult Blood Negative (NEG) Glucose (Fingerstick) 84 mg/dL (70-99) Current Medications: Meds: Current Medications Donepezil HCl (Aricept) 10 mg HS PO Last administered on 10/21/17at 19:41; Start 10/11/17 at 22:00 Lorazepam (Ativan) 0.5 mg PRN DAILY PRN PO ANXIETY / AGITATION Last administered on 10/18/17at 22:37; Start 10/11/17 at 21:45 Mirtazapine (Remeron) 7.5 mg QHS PO Last administered on 10/18/17at 20:06; Start 10/11/17 at 22:00; Stop 10/19/17 at 18:24; Status DC Olanzapine (ZyPREXA) 2.5 mg PRN Q2HR PRN PO ANXIETY / AGITATION; Start 10/11/17 at 21:45; Stop 10/12/17 at 08:11; Status DC Sertraline HCl (Zoloft) 25 mg DAILY PO Last administered on 10/14/17at 07:47; Start 10/12/17 at 09:00; Stop 10/14/17 at 19:06; Status DC Acetaminophen (Tylenol) 650 mg PRN Q6HRS PRN PO MILD PAIN Last administered on 10/19/17at 14:05; Start 10/11/17 at 21:45 Aspirin (Aspirin Enteric Coated) 81 mg DAILYWBKFT PO Last administered on at 07:51; Start 10/12/17 at 08:00 Calcium/Vitamin D (Oscal D 500mg/ 200uts) 2 tab DAILYWLUN PO Last administered on 10/21/17at 12:13; Start 10/12/17 at 12:00 Cyanocobalamin (Vitamin B-12) 1,000 mcg DAILY PO Last administered on at 07:51; Start 10/12/17 at 09:00 Docusate Sodium (Colace) 100 mg DAILY PO Last administered on 10/20/17at 08:15; Start 10/12/17 at 09:00; Stop 10/20/17 at 17:59; Status DC Fenofibrate (Tricor) 145 mg DAILY PO Last administered on 10/21/17at 07:50; Start 10/12/17 at 09:00 Fluticasone Propionate (Flonase) 1 spray DAILY NS Last administered on at 07:53; Start 10/12/17 at 09:00 Gabapentin (Neurontin) 300 mg DAILY PO Last administered on 10/21/17at 07:50; Start 10/12/17 at 09:00 Losartan Potassium (Cozaar) 25 mg DAILY PO ; Start 10/12/17 at 09:00; Status Future Hold Magnesium Oxide (Magnesium Oxide) 400 mg TID PO Last administered on 10/21/17at 19:41; Start 10/12/17 at 09:00 Multi-Ingredient Ointment (Analgesic [place]) 1 garth PRN QID PRN TP MUSCLE PAIN; Start 10/11/17 at 21:45 Ondansetron HCl (Zofran Odt) 4 mg PRN Q4HRS PRN PO NAUSEA; Start 10/11/17 at 21: 45 Pantoprazole Sodium (Protonix) 40 mg DAILYAC PO Last administered on 10/21/17at 07:51; Start 10/12/17 at 07:30 Simvastatin (Zocor) 20 mg HS PO Last administered on 10/21/17at 19:40; Start 10/12/17 at 21:00 Al Hydroxide/Mg Hydroxide (Mylanta Plus Xs) 15 ml PRN AFTMEAL PRN PO DYSPEPSIA ; Start 10/11/17 at 22:00 Magnesium Hydroxide (Milk Of Magnesia) 2,400 mg PRN QHS PRN PO CONSTIPATION; Start 10/11/17 at 22:00 Multivitamins/ Calcium (Thera-M Plus) 1 tab DAILY PO Last administered on 07:51; Start 10/12/17 at 09:00 Fish Oil (Fish Oil) 1,000 mg BID PO Last administered on 10/21/17 19:41; Start 10/12/17 at 09:00 Potassium Chloride (Klor-Con) 10 meq DAILYWBKFT PO Last administered on at 07:50; Start 10/12/17 at 08:00 Olanzapine (ZyPREXA ZYDIS) 2.5 mg PRN Q2HR PRN PO ANXIETY / AGITATION Last administered on 10/19/17 22:17; Start 10/12/17 at 08:15 Trazodone HCl (Desyrel) 50 mg PRN QHS PRN PO INSOMNIA Last administered on 10/21 19:41; Start 10/12/17 at 18:15 Quetiapine Fumarate (SEROquel) 12.5 mg DAILY PO Last administered on 10/21/17 07:50; Start 10/14/17 at 09:00 Sertraline HCl (Zoloft) 50 mg DAILY PO Last administered on 10/16/17at 07:58; Start 10/15/17 at 09:00; Stop 10/16/17 at 10:36; Status DC Sertraline HCl (Zoloft) 75 mg DAILY PO Last administered on 10/21/17 07:51; Start 10/17/17 at 09:00 Mirtazapine (Remeron) 15 mg QHS PO Last administered on 10/21/17 19:41; Start 10/19/17 at 21:00 Docusate Sodium (Colace) 100 mg BID PO Last administered on 10/21/17 19:41; Start 10/20/17 at 21:00 Polyethylene Glycol (miraLAX) 17 gm DAILY PO Last administered on 10/21/17 07: 53; Start 10/21/17 at 09:00 Active Scripts Active Reported Olanzapine 5 Mg Tablet 2.5 Mg PO PRN Q2HR PRN Donepezil Hcl 10 Mg Tablet 10 Mg PO HS Tricor (Fenofibrate Nanocrystallized) 145 Mg Tablet 145 Mg PO DAILY Potassium Chloride 10 Meq Tablet.er 10 Meq PO DAILYWBKFT Zoloft (Sertraline Hcl) 25 Mg Tablet 25 Mg PO DAILY Pantoprazole Sodium 40 Mg Tablet. 40 Mg PO DAILYAC Remeron (Mirtazapine) 15 Mg Tablet 7.5 Mg PO QHS Analgesic [place] (Methyl Salicylate/Menthol) 28 Gm Oint...g. 1 Garth TP PRN QID PRN Maalox Advanced Suspension (Mag Hydrox/Aluminum Hyd/Simeth) 355 Ml Oral.susp 15 Ml PO PRN AFTMEAL PRN Milk Of Magnesia (Magnesium Hydroxide) 2,400 Mg/10 Ml Oral.susp 2,400 Mg PO PRN QHS PRN Magnesium Oxide 400 Mg Tablet 400 Mg PO TID Tylenol (Acetaminophen) 325 Mg Tablet 650 Mg PO PRN Q6HRS PRN Zofran Odt (Ondansetron) 4 Mg Tab.rapdis 4 Mg PO PRN Q4HRS PRN Lorazepam 0.5 Mg Tablet 0.5 Mg PO PRN DAILY PRN Docusate Sodium 100 Mg Capsule 100 Mg PO DAILY Vitamin B-12 (Cyanocobalamin (Vitamin B-12)) 1,000 Mcg Tablet 1,000 Mcg PO DAILY Simvastatin 20 Mg Tablet 20 Mg PO HS [place] 3 1,000 Mg Softgel ([place]-3 Fatty Acids/Fish Oil) 1 Each Capsule 1 Cap PO BID Multivitamins (Multivitamin) 1 Each Tablet 1 Each PO DAILY Losartan Potassium 25 Mg Tablet 25 Mg PO DAILY Gabapentin 300 Mg Capsule 300 Mg PO DAILY Fluticasone Propionate Nasal [place] (Fluticasone Propionate) 16 Gm [place].susp 1 [place] NS DAILY Calcium 500 + Vit D 200 Tablet (Calcium Carbonate/Vitamin D3) 1 Each Tablet 2 Each PO DAILYWLUN Aspirin Ec (Aspirin) 81 Mg Tablet. 81 Mg PO DAILYWBKFT I have reviewed the current psychotropics carefully including drug interactions. Risk benefit ratio favors no change other than as noted in my dictated progress note. Diagnosis: Problems: (1) Hypokalemia (2) Anxiety disorder (3) Impulse control disorder (4) Dementia, vascular, with depression (5) Dementia, vascular, with delusions (6) Dementia in Alzheimer's disease with depression (7) Dementia in Alzheimer's disease with delusions NICHOLE DAVIDSON MD Oct 21, 2017 20:05
[2017-10-21] MEDS: LORazepam 0.5 MG TABLET PO PRN (21:37)
--- NOTE | 2017-10-21 21:45 | NUR ---
Pt in bed, yelling "Help! Help me!" When asked why pt is yelling she asks "where's my ?" "Where's my doggy and my yogi?" "Is my alright. He was here a little while ago and now he's gone." Attempted to redirect and reorient pt without success. PRN repeat Trazodone and PRN Ativan administered as ordered @this time.
--- NOTE | 2017-10-21 22:10 | NUR ---
Behavior Intervention Response and Plan: BIRP Note: Behavior: Assumed Care of patient, patient located in Day Room at shift change. Patient exhibited the following behavior Disorganized, Anxious, Delusions. Brief assessment on rounds of vital signs, medication needs, lab studies, and pain. Treatment plan problems Dementia w/BD and Fall Risk. Intervention: Patient assessed and the following interventions initiated safety checks 15 Minute Checks Cognitive Assessment , Head to toe Assessment , Medications. Response: After interactions and interventions patient responded in the following manner, Restless , Anxious ,Compliant. Continue to assess behaviors and condition will continue to monitor throughout the shift as needed. Patient educated on ADL's, and hand hygiene. Plan: Continue to monitor Master Treatment Plan for patient's progress toward short term goals of Decreased Anxiety, Decreased Agitation, terminal carman goals to return to previous living setting vs placement. Continue to assess patient for changes in above assessment. Monitor for medication needs, pain, and safety concerns. Hourly rounding performed to ensure safe environment.
[2017-10-22 06:00] VITALS: BP 155/50
--- NOTE | 2017-10-22 06:28 | PN ---
DATE: 10/19/2017 PSYCHIATRIC PROGRESS NOTE This late entry on 10/19/2017 covers elements not covered in my initial note of 10/19/2017. I met with the patient on the evening of 10/19/2017. The patient slept 4-1/2 hours previous evening, received Ativan and trazodone to help her sleep the previous evening, tearful at times. I was called by nursing staff earlier in the day of 10/19/2017. She was quite agitated, restless, delusional regarding family, talking about vague suicidal statements not necessarily for herself. She did receive Zyprexa Zydis at 2:30 p.m. REVIEW OF SYSTEMS: Ambulation impaired, in Broda chair. No CV, , pulmonary, eye, ENT system symptoms on review. Reliability poor. MENTAL STATUS EXAM: Oriented to herself. Insight, judgment, recent and remote memory, attention, concentration, fund of knowledge poor, consistent with her diagnosis mentioned in my initial note. IMPRESSION: Major neurocognitive disorder, Alzheimer's vascular with depression, delusion, behavioral disturbance. PLAN: Increase the Remeron to 15 mg p.o. at bedtime. Rest unchanged. MAN Nadja DAVIDSON MD DR: ZIYAD/selena JOB#: [id number] / [id number]
[2017-10-22] MEDS: ASPIRIN ENTERIC COATED 81 MG TABLET.DR. PO SCH (08:02)
[2017-10-22] MEDS: PANTOPRAZOLE 40 MG TABLET. PO SCH (08:02)
[2017-10-22] MEDS: POTASSIUM CHLORIDE 10 MEQ TABLET.ER. PO SCH (08:02)
[2017-10-22] MEDS: MAGNESIUM OXIDE 400 MG TABLET PO SCH ×3 (08:02→19:33)
[2017-10-22] MEDS: POLYETHYLENE GLYCOL 3350 17 GM PACKET. PO SCH (08:03)
[2017-10-22] MEDS: MULTIVITAMIN with MINERAL TABLET. PO SCH (08:04)
[2017-10-22] MEDS: CYANOCOBALAMIN (VITAMIN B-12) 1,000 MCG TABLET. PO SCH (08:04)
[2017-10-22] MEDS: DOCUSATE SODIUM 100 MG CAPSULE PO SCH ×2 (08:04→19:33)
[2017-10-22] MEDS: OMEGA-3 FATTY ACIDS/FISH OIL 1,000 MG CAPSULE. PO SCH ×2 (08:04→19:34)
[2017-10-22] MEDS: SERTRALINE 50 MG TABLET. PO SCH (08:05)
[2017-10-22] MEDS: FENOFIBRATE NANOCRYSTALLIZED 145 MG TABLET PO SCH (08:05)
[2017-10-22] MEDS: QUEtiapine 25 MG TABLET. PO SCH (08:05)
[2017-10-22] MEDS: GABAPENTIN 300 MG CAPSULE. PO SCH (08:05)
[2017-10-22] MEDS: FLUTICASONE 50MCG/NASAL SPRAY 16GM BOTTLE. NS SCH (08:06)
--- NOTE | 2017-10-22 11:07 | NUR ---
Behavior Intervention Response and Plan: BIRP Note: Behavior: Assumed Care of patient, patient located in Dining Room at shift change. Patient exhibited the following behavior Interactive, Compliant, Irritable. Brief assessment on rounds of vital signs, medication needs, lab studies, and pain. Treatment plan problems 1-2. Intervention: Patient assessed and the following interventions initiated safety checks 15 Minute Checks Cognitive Assessment , Head to toe Assessment , Medications. Response: After interactions and interventions patient responded in the following manner, Interactive , Disorganized ,Irritable. Continue to assess behaviors and condition will continue to monitor throughout the shift as needed. Patient educated on ADL's, and hand hygiene. 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 Continue to assess patient for changes in above assessment. Monitor for medication needs, pain, and safety concerns. Hourly rounding performed to ensure safe environment.
[2017-10-22] MEDS: CALCIUM CARB/VIT D3 500/200 TABLET PO SCH (11:49)
--- NOTE | 2017-10-22 15:00 | NUR ---
WEEKLY THERAPEUTIC RECREATION NOTE Date of Admission: 10/05/2017 Date of AT Assessment: 10/07/2017 Goal aimed: to increase time management and socialization Initial goal: Pt. will participate in at least one group per week Weekly progress towards goal: on track Group participation level: Minimal. Behaviors observed: More alert, engaged, social Friday. Times of shouting out/ disruptive throughout the week Plan: no changes to goal
[2017-10-22 15:51] VITALS: BP 126/57
[2017-10-22] MEDS: SIMVASTATIN 20 MG TABLET PO SCH (19:33)
[2017-10-22] MEDS: DONEPEZIL HCL 10 MG TABLET PO SCH (19:33)
[2017-10-22] MEDS: MIRTAZAPINE 15 MG TABLET PO SCH (19:33)
--- NOTE | 2017-10-22 19:55 | PDOC ---
Exam Note: Torres Note: Please also refer to the separate dictated note~for this date of service dictated separately.~Patient seen individually. Discussed the patient with Nursing staff reviewed the chart.~Reviewed interim history and current functioning. Reviewed vital signs,~Labs/ Radiology~and current medications noted below. Continue current treatment with the changes noted in the dictated addendum note Assessment: Vital Signs: Vital Signs Date Time Temp Pulse Resp B/P (MAP) Pulse Ox O2 Delivery O2 Flow Rate FiO2 10/22/17 15:51 97.9 76 18 126/57 (80) 100 Room Air I&O Intake and Output 10/22/17 07:00 Intake Total 1320 ml Balance 1320 ml Intake Oral 1320 ml # Bowel Movements 2 Labs: Laboratory Tests Test 10/22/17 07:40 Glucose (Fingerstick) 85 mg/dL (70-99) Current Medications: Meds: Current Medications Donepezil HCl (Aricept) 10 mg HS PO Last administered on 10/22/17at 19:33; Start 10/11/17 at 22:00 Lorazepam (Ativan) 0.5 mg PRN DAILY PRN PO ANXIETY / AGITATION Last administered on 10/21/17at 21:37; Start 10/11/17 at 21:45 Mirtazapine (Remeron) 7.5 mg QHS PO Last administered on 10/18/17at 20:06; Start 10/11/17 at 22:00; Stop 10/19/17 at 18:24; Status DC Olanzapine (ZyPREXA) 2.5 mg PRN Q2HR PRN PO ANXIETY / AGITATION; Start 10/11/17 at 21:45; Stop 10/12/17 at 08:11; Status DC Sertraline HCl (Zoloft) 25 mg DAILY PO Last administered on 10/14/17at 07:47; Start 10/12/17 at 09:00; Stop 10/14/17 at 19:06; Status DC Acetaminophen (Tylenol) 650 mg PRN Q6HRS PRN PO MILD PAIN Last administered on 10/19/17at 14:05; Start 10/11/17 at 21:45 Aspirin (Aspirin Enteric Coated) 81 mg DAILYWBKFT PO Last administered on at 08:02; Start 10/12/17 at 08:00 Calcium/Vitamin D (Oscal D 500mg/ 200uts) 2 tab DAILYWLUN PO Last administered on 10/22/17at 11:49; Start 10/12/17 at 12:00 Cyanocobalamin (Vitamin B-12) 1,000 mcg DAILY PO Last administered on at 08:04; Start 10/12/17 at 09:00 Docusate Sodium (Colace) 100 mg DAILY PO Last administered on 10/20/17at 08:15; Start 10/12/17 at 09:00; Stop 10/20/17 at 17:59; Status DC Fenofibrate (Tricor) 145 mg DAILY PO Last administered on 10/22/17at 08:05; Start 10/12/17 at 09:00 Fluticasone Propionate (Flonase) 1 spray DAILY NS Last administered on at 08:06; Start 10/12/17 at 09:00 Gabapentin (Neurontin) 300 mg DAILY PO Last administered on 10/22/17at 08:05; Start 10/12/17 at 09:00 Losartan Potassium (Cozaar) 25 mg DAILY PO ; Start 10/12/17 at 09:00; Status Future Hold Magnesium Oxide (Magnesium Oxide) 400 mg TID PO Last administered on 10/22/17at 19:33; Start 10/12/17 at 09:00 Multi-Ingredient Ointment (Analgesic [place]) 1 garth PRN QID PRN TP MUSCLE PAIN; Start 10/11/17 at 21:45 Ondansetron HCl (Zofran Odt) 4 mg PRN Q4HRS PRN PO NAUSEA; Start 10/11/17 at 21: 45 Pantoprazole Sodium (Protonix) 40 mg DAILYAC PO Last administered on 10/22/17at 08:02; Start 10/12/17 at 07:30 Simvastatin (Zocor) 20 mg HS PO Last administered on 10/22/17at 19:33; Start 10/12/17 at 21:00 Al Hydroxide/Mg Hydroxide (Mylanta Plus Xs) 15 ml PRN AFTMEAL PRN PO DYSPEPSIA ; Start 10/11/17 at 22:00 Magnesium Hydroxide (Milk Of Magnesia) 2,400 mg PRN QHS PRN PO CONSTIPATION; Start 10/11/17 at 22:00 Multivitamins/ Calcium (Thera-M Plus) 1 tab DAILY PO Last administered on at 08:04; Start 10/12/17 at 09:00 Fish Oil (Fish Oil) 1,000 mg BID PO Last administered on 10/22/17at 19:34; Start 10/12/17 at 09:00 Potassium Chloride (Klor-Con) 10 meq DAILYWBKFT PO Last administered on at 08:02; Start 10/12/17 at 08:00 Olanzapine (ZyPREXA ZYDIS) 2.5 mg PRN Q2HR PRN PO ANXIETY / AGITATION Last administered on 10/19/17at 22:17; Start 10/12/17 at 08:15 Trazodone HCl (Desyrel) 50 mg PRN QHS PRN PO INSOMNIA Last administered on 10/21at 21:37; Start 10/12/17 at 18:15 Quetiapine Fumarate (SEROquel) 12.5 mg DAILY PO Last administered on 10/22/17at 08:05; Start 10/14/17 at 09:00 Sertraline HCl (Zoloft) 50 mg DAILY PO Last administered on 10/16/17at 07:58; Start 10/15/17 at 09:00; Stop 10/16/17 at 10:36; Status DC Sertraline HCl (Zoloft) 75 mg DAILY PO Last administered on 10/22/17at 08:05; Start 10/17/17 at 09:00 Mirtazapine (Remeron) 15 mg QHS PO Last administered on 10/22/17at 19:33; Start 10/19/17 at 21:00 Docusate Sodium (Colace) 100 mg BID PO Last administered on 10/22/17at 19:33; Start 10/20/17 at 21:00 Polyethylene Glycol (miraLAX) 17 gm DAILY PO Last administered on 10/22/17at 08: 03; Start 10/21/17 at 09:00 Active Scripts Active Reported Olanzapine 5 Mg Tablet 2.5 Mg PO PRN Q2HR PRN Donepezil Hcl 10 Mg Tablet 10 Mg PO HS Tricor (Fenofibrate Nanocrystallized) 145 Mg Tablet 145 Mg PO DAILY Potassium Chloride 10 Meq Tablet.er 10 Meq PO DAILYWBKFT Zoloft (Sertraline Hcl) 25 Mg Tablet 25 Mg PO DAILY Pantoprazole Sodium 40 Mg Tablet. 40 Mg PO DAILYAC Remeron (Mirtazapine) 15 Mg Tablet 7.5 Mg PO QHS Analgesic [place] (Methyl Salicylate/Menthol) 28 Gm Oint...g. 1 Garth TP PRN QID PRN Maalox Advanced Suspension (Mag Hydrox/Aluminum Hyd/Simeth) 355 Ml Oral.susp 15 Ml PO PRN AFTMEAL PRN Milk Of Magnesia (Magnesium Hydroxide) 2,400 Mg/10 Ml Oral.susp 2,400 Mg PO PRN QHS PRN Magnesium Oxide 400 Mg Tablet 400 Mg PO TID Tylenol (Acetaminophen) 325 Mg Tablet 650 Mg PO PRN Q6HRS PRN Zofran Odt (Ondansetron) 4 Mg Tab.rapdis 4 Mg PO PRN Q4HRS PRN Lorazepam 0.5 Mg Tablet 0.5 Mg PO PRN DAILY PRN Docusate Sodium 100 Mg Capsule 100 Mg PO DAILY Vitamin B-12 (Cyanocobalamin (Vitamin B-12)) 1,000 Mcg Tablet 1,000 Mcg PO DAILY Simvastatin 20 Mg Tablet 20 Mg PO HS [place] 3 1,000 Mg Softgel ([place]-3 Fatty Acids/Fish Oil) 1 Each Capsule 1 Cap PO BID Multivitamins (Multivitamin) 1 Each Tablet 1 Each PO DAILY Losartan Potassium 25 Mg Tablet 25 Mg PO DAILY Gabapentin 300 Mg Capsule 300 Mg PO DAILY Fluticasone Propionate Nasal [place] (Fluticasone Propionate) 16 Gm [place].susp 1 [place] NS DAILY Calcium 500 + Vit D 200 Tablet (Calcium Carbonate/Vitamin D3) 1 Each Tablet 2 Each PO DAILYWLUN Aspirin Ec (Aspirin) 81 Mg Tablet. 81 Mg PO DAILYWBKFT I have reviewed the current psychotropics carefully including drug interactions. Risk benefit ratio favors no change other than as noted in my dictated progress note. Diagnosis: Problems: (1) Hypokalemia (2) Anxiety disorder (3) Impulse control disorder (4) Dementia, vascular, with depression (5) Dementia, vascular, with delusions (6) Dementia in Alzheimer's disease with depression (7) Dementia in Alzheimer's disease with delusions NICHOLE DAVIDSON MD Oct 22, 2017 19:55
--- NOTE | 2017-10-23 03:37 | PN ---
DATE: 10/21/2017 This late entry 10/21/2017 covers elements not covered in my initial note 10/21/2017. HISTORY: Met with the patient in the evening of 10/21/2017. Appetite is 50%. The patient slept 6-1/2 hours previous evening. She was agitated before shift change, fixated on her and whether the had or whether he had visited her, quite persistent obsessive as I met with her about this. REVIEW OF SYSTEMS: Ambulation impaired, in Broda chair. No CV, , pulmonary, eye, ENT system symptoms on review. Reliability poor. MENTAL STATUS EXAM: Oriented to herself. Insight, judgment, recent and remote memory, attention, concentration, fund of knowledge poor, consistent with her diagnosis mentioned in my initial note. IMPRESSION: Major neurocognitive disorder, Alzheimer, vascular with depression, delusion, behavioral disturbance. Rest unchanged. PLAN: Continue current psychotropics. Adjust further as clinically indicated. NICHOLE DAVIDSON MD DR: ZIYAD/selena JOB#: [id number] / [id number]
[2017-10-23 05:50] VITALS: BP 173/72
[2017-10-23] MEDS: ASPIRIN ENTERIC COATED 81 MG TABLET.DR. PO SCH (08:03)
[2017-10-23] MEDS: PANTOPRAZOLE 40 MG TABLET. PO SCH (08:03)
[2017-10-23] MEDS: DOCUSATE SODIUM 100 MG CAPSULE PO SCH ×2 (08:03→19:15)
[2017-10-23] MEDS: OMEGA-3 FATTY ACIDS/FISH OIL 1,000 MG CAPSULE. PO SCH ×2 (08:03→19:16)
[2017-10-23] MEDS: POTASSIUM CHLORIDE 10 MEQ TABLET.ER. PO SCH (08:04)
[2017-10-23] MEDS: MAGNESIUM OXIDE 400 MG TABLET PO SCH ×3 (08:04→19:16)
[2017-10-23] MEDS: CYANOCOBALAMIN (VITAMIN B-12) 1,000 MCG TABLET. PO SCH (08:04)
[2017-10-23] MEDS: GABAPENTIN 300 MG CAPSULE. PO SCH (08:04)
[2017-10-23] MEDS: SERTRALINE 50 MG TABLET. PO SCH (08:04)
[2017-10-23] MEDS: MULTIVITAMIN with MINERAL TABLET. PO SCH (08:04)
[2017-10-23] MEDS: FENOFIBRATE NANOCRYSTALLIZED 145 MG TABLET PO SCH (08:04)
[2017-10-23] MEDS: POLYETHYLENE GLYCOL 3350 17 GM PACKET. PO SCH (08:05)
[2017-10-23] MEDS: QUEtiapine 25 MG TABLET. PO SCH (08:05)
[2017-10-23] MEDS: FLUTICASONE 50MCG/NASAL SPRAY 16GM BOTTLE. NS SCH ×2 (08:34→09:00)
--- NOTE | 2017-10-23 10:18 | PN ---
DATE: 10/20/2017 This is late entry, October 20, covers elements not covered in my initial note October 20. Met with the patient evening of October 20, [facility]. Per nursing report, the patient is in a wheelchair, remains somewhat irritable, labile at times. REVIEW OF SYSTEMS: No CV, , pulmonary, eye, ENT system symptoms on review. Reliability poor. MENTAL STATUS EXAM: Oriented to herself. Insight, judgment, recent and remote memory, attention, concentration, fund of knowledge poor, consistent with her diagnosis mentioned in my initial note. IMPRESSION: Major neurocognitive disorder, Alzheimer, vascular with depression, delusion, behavioral disturbance. Rest unchanged. PLAN: Continue psychotropics mentioned in my initial note. Adjust further as clinically indicated. MAN Nadja DAVIDSON MD DR: ZIYAD/selena JOB#: [id number] / [id number]
--- NOTE | 2017-10-23 11:20 | NUR ---
Behavior Intervention Response and Plan: BIRP Note: Behavior: Assumed Care of patient, patient located in Dining Room at shift change. Patient exhibited the following behavior Calm, Interactive, Compliant. Brief assessment on rounds of vital signs, medication needs, lab studies, and pain. Treatment plan problems 1-2. Intervention: Patient assessed and the following interventions initiated safety checks 15 Minute Checks Cognitive Assessment , Head to toe Assessment , Medications. Response: After interactions and interventions patient responded in the following manner, Interactive , Disorganized ,Cooperative. Continue to assess behaviors and condition will continue to monitor throughout the shift as needed. Patient educated on ADL's, and hand hygiene. Plan: Continue to monitor Master Treatment Plan for patient's progress toward short term goals of Decreased Agitation, Decreased Aggression, fpc goals to return to previous living setting vs placement. Continue to assess patient for changes in above assessment. Monitor for medication needs, pain, and safety concerns. Hourly rounding performed to ensure safe environment.
[2017-10-23] MEDS: ACETAMINOPHEN 325 MG TABLET PO PRN (11:31)
[2017-10-23] MEDS: CALCIUM CARB/VIT D3 500/200 TABLET PO SCH (11:31)
--- NOTE | 2017-10-23 13:49 | NUR ---
SWS and Pt. talked in the day room. Pt. reminisced about her past and her marriage with her .
--- NOTE | 2017-10-23 15:53 | NUR ---
TARA has been working with pt daughter and granddaughter regarding placement. Pt daughter is concerned about pt going back to [facility] and would like to see pt have new placement. SW and pt daughter spoke for awhile regarding options. Pt daughter asked SW to call pt granddaughter as well and speak with her regarding placement. TARA spoke with pt daughter and granddaughter on multiple occasions. Pt family went to the [facility] as well as [facility]. [facility] came out to see pt., [facility]. SW spoken with [facility] stated he was going to try to work something out. As on 10/23/17 SW has not heard back from the [employer]. [facility] came to assess pt last week and are able to accept pt once stable for discharge. Pt family stated that they will be moving pt belongings in this weekend. Dorys at [facility] will work with this narrative writer regarding discharge.
[2017-10-23 15:54] VITALS: BP 106/53
[2017-10-23] MEDS: LORazepam 0.5 MG TABLET PO PRN (18:04)
--- NOTE | 2017-10-23 18:15 | NUR ---
Pt very delusional and irritable at dinner. Pt refusing to eat stating that she needs to make sure that her and dogs are well. This RN as well as many other staff reassured pt that they are all safe and doing well. Pts agitation continued to increase as the meal went on and would only drink her boost. PRN Ativan given at 1810 in apple sauce. While Pt was eating apple sauce she removed part of the pill stating "There is a rock in here!" and threw it on the ground. Will continue to monitor patient.
[2017-10-23] MEDS: DONEPEZIL HCL 10 MG TABLET PO SCH (19:15)
[2017-10-23] MEDS: SIMVASTATIN 20 MG TABLET PO SCH (19:16)
[2017-10-23] MEDS: MIRTAZAPINE 15 MG TABLET PO SCH (19:16)
[2017-10-23] MEDS: traZODone 50 MG TABLET. PO PRN (19:18)
--- NOTE | 2017-10-23 20:11 | PDOC ---
Exam Note: Torres Note: Please also refer to the separate dictated note~for this date of service dictated separately.~Patient seen individually. Discussed the patient with Nursing staff reviewed the chart.~Reviewed interim history and current functioning. Reviewed vital signs,~Labs/ Radiology~and current medications noted below. Continue current treatment with the changes noted in the dictated addendum note Assessment: Vital Signs: Vital Signs Date Time Temp Pulse Resp B/P (MAP) Pulse Ox O2 Delivery O2 Flow Rate FiO2 10/23/17 15:54 98.7 67 18 106/53 (70) 96 Room Air I&O Intake and Output 10/23/17 07:00 Intake Total 960 ml Balance 960 ml Intake Oral 960 ml # Voids 2 # Bowel Movements 2 Labs: Laboratory Tests Test 10/23/17 07:08 Glucose (Fingerstick) 84 mg/dL (70-99) Current Medications: Meds: Current Medications Donepezil HCl (Aricept) 10 mg HS PO Last administered on 10/23/17at 19:15; Start 10/11/17 at 22:00 Lorazepam (Ativan) 0.5 mg PRN DAILY PRN PO ANXIETY / AGITATION Last administered on 10/23/17at 18:04; Start 10/11/17 at 21:45 Mirtazapine (Remeron) 7.5 mg QHS PO Last administered on 10/18/17at 20:06; Start 10/11/17 at 22:00; Stop 10/19/17 at 18:24; Status DC Olanzapine (ZyPREXA) 2.5 mg PRN Q2HR PRN PO ANXIETY / AGITATION; Start 10/11/17 at 21:45; Stop 10/12/17 at 08:11; Status DC Sertraline HCl (Zoloft) 25 mg DAILY PO Last administered on 10/14/17at 07:47; Start 10/12/17 at 09:00; Stop 10/14/17 at 19:06; Status DC Acetaminophen (Tylenol) 650 mg PRN Q6HRS PRN PO MILD PAIN Last administered on 10/23/17at 11:31; Start 10/11/17 at 21:45 Aspirin (Aspirin Enteric Coated) 81 mg DAILYWBKFT PO Last administered on at 08:03; Start 10/12/17 at 08:00 Calcium/Vitamin D (Oscal D 500mg/ 200uts) 2 tab DAILYWLUN PO Last administered on 10/23/17at 11:31; Start 10/12/17 at 12:00 Cyanocobalamin (Vitamin B-12) 1,000 mcg DAILY PO Last administered on at 08:04; Start 10/12/17 at 09:00 Docusate Sodium (Colace) 100 mg DAILY PO Last administered on 10/20/17at 08:15; Start 10/12/17 at 09:00; Stop 10/20/17 at 17:59; Status DC Fenofibrate (Tricor) 145 mg DAILY PO Last administered on 10/23/17at 08:04; Start 10/12/17 at 09:00 Fluticasone Propionate (Flonase) 1 spray DAILY NS Last administered on at 08:06; Start 10/12/17 at 09:00 Gabapentin (Neurontin) 300 mg DAILY PO Last administered on 10/23/17at 08:04; Start 10/12/17 at 09:00 Losartan Potassium (Cozaar) 25 mg DAILY PO ; Start 10/12/17 at 09:00; Status Future Hold Magnesium Oxide (Magnesium Oxide) 400 mg TID PO Last administered on 10/23/17at 19:16; Start 10/12/17 at 09:00 Multi-Ingredient Ointment (Analgesic [place]) 1 garth PRN QID PRN TP MUSCLE PAIN; Start 10/11/17 at 21:45 Ondansetron HCl (Zofran Odt) 4 mg PRN Q4HRS PRN PO NAUSEA; Start 10/11/17 at 21: 45 Pantoprazole Sodium (Protonix) 40 mg DAILYAC PO Last administered on 10/23/17at 08:03; Start 10/12/17 at 07:30 Simvastatin (Zocor) 20 mg HS PO Last administered on 10/23/17at 19:16; Start 10/12/17 at 21:00 Al Hydroxide/Mg Hydroxide (Mylanta Plus Xs) 15 ml PRN AFTMEAL PRN PO DYSPEPSIA ; Start 10/11/17 at 22:00 Magnesium Hydroxide (Milk Of Magnesia) 2,400 mg PRN QHS PRN PO CONSTIPATION; Start 10/11/17 at 22:00 Multivitamins/ Calcium (Thera-M Plus) 1 tab DAILY PO Last administered on at 08:04; Start 10/12/17 at 09:00 Fish Oil (Fish Oil) 1,000 mg BID PO Last administered on 10/23/17at 19:16; Start 10/12/17 at 09:00 Potassium Chloride (Klor-Con) 10 meq DAILYWBKFT PO Last administered on at 08:04; Start 10/12/17 at 08:00 Olanzapine (ZyPREXA ZYDIS) 2.5 mg PRN Q2HR PRN PO ANXIETY / AGITATION Last administered on 10/23/17 19:18; Start 10/12/17 at 08:15 Trazodone HCl (Desyrel) 50 mg PRN QHS PRN PO INSOMNIA Last administered on 10/23 19:18; Start 10/12/17 at 18:15 Quetiapine Fumarate (SEROquel) 12.5 mg DAILY PO Last administered on 10/23/17at 08:05; Start 10/14/17 at 09:00 Sertraline HCl (Zoloft) 50 mg DAILY PO Last administered on 10/16/17at 07:58; Start 10/15/17 at 09:00; Stop 10/16/17 at 10:36; Status DC Sertraline HCl (Zoloft) 75 mg DAILY PO Last administered on 10/23/17at 08:04; Start 10/17/17 at 09:00 Mirtazapine (Remeron) 15 mg QHS PO Last administered on 10/23/17at 19:16; Start 10/19/17 at 21:00 Docusate Sodium (Colace) 100 mg BID PO Last administered on 10/23/17at 19:15; Start 10/20/17 at 21:00 Polyethylene Glycol (miraLAX) 17 gm DAILY PO Last administered on 10/23/17at 08: 05; Start 10/21/17 at 09:00 Active Scripts Active Reported Olanzapine 5 Mg Tablet 2.5 Mg PO PRN Q2HR PRN Donepezil Hcl 10 Mg Tablet 10 Mg PO HS Tricor (Fenofibrate Nanocrystallized) 145 Mg Tablet 145 Mg PO DAILY Potassium Chloride 10 Meq Tablet.er 10 Meq PO DAILYWBKFT Zoloft (Sertraline Hcl) 25 Mg Tablet 25 Mg PO DAILY Pantoprazole Sodium 40 Mg Tablet. 40 Mg PO DAILYAC Remeron (Mirtazapine) 15 Mg Tablet 7.5 Mg PO QHS Analgesic [place] (Methyl Salicylate/Menthol) 28 Gm Oint...g. 1 [place] TP PRN QID PRN Maalox Advanced Suspension (Mag Hydrox/Aluminum Hyd/Simeth) 355 Ml Oral.susp 15 Ml PO PRN AFTMEAL PRN Milk Of Magnesia (Magnesium Hydroxide) 2,400 Mg/10 Ml Oral.susp 2,400 Mg PO PRN QHS PRN Magnesium Oxide 400 Mg Tablet 400 Mg PO TID Tylenol (Acetaminophen) 325 Mg Tablet 650 Mg PO PRN Q6HRS PRN Zofran Odt (Ondansetron) 4 Mg Tab.rapdis 4 Mg PO PRN Q4HRS PRN Lorazepam 0.5 Mg Tablet 0.5 Mg PO PRN DAILY PRN Docusate Sodium 100 Mg Capsule 100 Mg PO DAILY Vitamin B-12 (Cyanocobalamin (Vitamin B-12)) 1,000 Mcg Tablet 1,000 Mcg PO DAILY Simvastatin 20 Mg Tablet 20 Mg PO HS [place] 3 1,000 Mg Softgel ([place]-3 Fatty Acids/Fish Oil) 1 Each Capsule 1 Cap PO BID Multivitamins (Multivitamin) 1 Each Tablet 1 Each PO DAILY Losartan Potassium 25 Mg Tablet 25 Mg PO DAILY Gabapentin 300 Mg Capsule 300 Mg PO DAILY Fluticasone Propionate Nasal [place] (Fluticasone Propionate) 16 Gm [place].susp 1 [place] NS DAILY Calcium 500 + Vit D 200 Tablet (Calcium Carbonate/Vitamin D3) 1 Each Tablet 2 Each PO DAILYWLUN Aspirin Ec (Aspirin) 81 Mg Tablet. 81 Mg PO DAILYWBKFT I have reviewed the current psychotropics carefully including drug interactions. Risk benefit ratio favors no change other than as noted in my dictated progress note. 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
--- NOTE | 2017-10-23 21:08 | NUR ---
Behavior Intervention Response and Plan: BIRP Note: Behavior: Assumed Care of patient, patient located in Hallway at shift change. Patient exhibited the following behavior Compulsive, Disorganized, Anxious. Brief assessment on rounds of vital signs, medication needs, lab studies, and pain. Treatment plan problems .1&2 Intervention: Patient assessed and the following interventions initiated safety checks 15 Minute Checks Cognitive Assessment , Head to toe Assessment , Medications. Response: After interactions and interventions patient responded in the following manner, Attention Seeking , Delusions ,Compliant. Continue to assess behaviors and condition will continue to monitor throughout the shift as needed. Patient educated on ADL's, and hand hygiene. Plan: Continue to monitor Master Treatment Plan for patient's progress toward short term goals of Decreased Anxiety, Improved Mood, fdc goals to return to previous living setting vs placement. Continue to assess patient for changes in above assessment. Monitor for medication needs, pain, and safety concerns. Hourly rounding performed to ensure safe environment.
[2017-10-24 05:41] VITALS: BP 138/55
[2017-10-24] MEDS: GABAPENTIN 300 MG CAPSULE. PO SCH (08:03)
[2017-10-24] MEDS: PANTOPRAZOLE 40 MG TABLET. PO SCH (08:03)
[2017-10-24] MEDS: DOCUSATE SODIUM 100 MG CAPSULE PO SCH ×2 (08:03→19:36)
[2017-10-24] MEDS: POLYETHYLENE GLYCOL 3350 17 GM PACKET. PO SCH (08:03)
[2017-10-24] MEDS: ASPIRIN ENTERIC COATED 81 MG TABLET.DR. PO SCH (08:03)
[2017-10-24] MEDS: POTASSIUM CHLORIDE 10 MEQ TABLET.ER. PO SCH (08:03)
[2017-10-24] MEDS: OMEGA-3 FATTY ACIDS/FISH OIL 1,000 MG CAPSULE. PO SCH ×2 (08:03→19:36)
[2017-10-24] MEDS: MAGNESIUM OXIDE 400 MG TABLET PO SCH ×3 (08:03→19:35)
[2017-10-24] MEDS: MULTIVITAMIN with MINERAL TABLET. PO SCH (08:04)
[2017-10-24] MEDS: CYANOCOBALAMIN (VITAMIN B-12) 1,000 MCG TABLET. PO SCH (08:04)
[2017-10-24] MEDS: QUEtiapine 25 MG TABLET. PO SCH (08:04)
[2017-10-24] MEDS: SERTRALINE 50 MG TABLET. PO SCH (08:05)
[2017-10-24] MEDS: FLUTICASONE 50MCG/NASAL SPRAY 16GM BOTTLE. NS SCH (08:05)
[2017-10-24] MEDS: FENOFIBRATE NANOCRYSTALLIZED 145 MG TABLET PO SCH (08:05)
--- NOTE | 2017-10-24 10:03 | NUR ---
Behavior Intervention Response and Plan: BIRP Note: Behavior: Assumed Care of patient, patient located in Dining Room at shift change. Patient exhibited the following behavior Calm, Compliant, Cooperative. Brief assessment on rounds of vital signs, medication needs, lab studies, and pain. Treatment plan problems 1-2. Intervention: Patient assessed and the following interventions initiated safety checks 15 Minute Checks Cognitive Assessment , Head to toe Assessment , Medications. Response: After interactions and interventions patient responded in the following manner, Calm , Compliant ,Cooperative. Continue to assess behaviors and condition will continue to monitor throughout the shift as needed. Patient educated on ADL's, and hand hygiene. Plan: Continue to monitor Master Treatment Plan for patient's progress toward short term goals of Decreased Aggression, Decreased Agitation, retirement goals to return to previous living setting vs placement. Continue to assess patient for changes in above assessment. Monitor for medication needs, pain, and safety concerns. Hourly rounding performed to ensure safe environment.
[2017-10-24] MEDS: CALCIUM CARB/VIT D3 500/200 TABLET PO SCH (12:11)
[2017-10-24 16:09] VITALS: BP 122/28
[2017-10-24] MEDS: MIRTAZAPINE 15 MG TABLET PO SCH (19:35)
[2017-10-24] MEDS: DONEPEZIL HCL 10 MG TABLET PO SCH (19:35)
[2017-10-24] MEDS: SIMVASTATIN 20 MG TABLET PO SCH (19:36)
[2017-10-24] MEDS: traZODone 50 MG TABLET. PO PRN (19:36)
--- NOTE | 2017-10-24 20:00 | NUR ---
Behavior Intervention Response and Plan: BIRP Note: Behavior: Assumed Care of patient, patient located in Day Room at shift change. Patient exhibited the following behavior Interactive, Disorganized, Delusions. Brief assessment on rounds of vital signs, medication needs, lab studies, and pain. Treatment plan problems . Intervention: Patient assessed and the following interventions initiated safety checks 15 Minute Checks Cognitive Assessment , Head to toe Assessment , Medications. Response: After interactions and interventions patient responded in the following manner, Delusions , Interactive ,Disorganized. Continue to assess behaviors and condition will continue to monitor throughout the shift as needed. Patient educated on ADL's, and hand hygiene. Plan: Continue to monitor Master Treatment Plan for patient's progress toward short term goals of Decreased Agitation, Decreased Anxiety, medical terminologist goals to return to previous living setting vs placement. Continue to assess patient for changes in above assessment. Monitor for medication needs, pain, and safety concerns. Hourly rounding performed to ensure safe environment.
--- NOTE | 2017-10-24 20:08 | PDOC ---
Exam Note: Torres Note: Please also refer to the separate dictated note~for this date of service dictated separately.~Patient seen individually. Discussed the patient with Nursing staff reviewed the chart.~Reviewed interim history and current functioning. Reviewed vital signs,~Labs/ Radiology~and current medications noted below. Continue current treatment with the changes noted in the dictated addendum note Assessment: Vital Signs: Vital Signs Date Time Temp Pulse Resp B/P (MAP) Pulse Ox O2 Delivery O2 Flow Rate FiO2 10/24/17 16:09 97.3 62 18 122/28 (59) 100 Room Air I&O Intake and Output 10/24/17 07:00 Intake Total 840 ml Balance 840 ml Intake Oral 840 ml # Bowel Movements 1 Labs: Laboratory Tests Test 10/24/17 07:13 Glucose (Fingerstick) 70 mg/dL (70-99) Current Medications: Meds: Current Medications Donepezil HCl (Aricept) 10 mg HS PO Last administered on 10/24/17at 19:35; Start 10/11/17 at 22:00 Lorazepam (Ativan) 0.5 mg PRN DAILY PRN PO ANXIETY / AGITATION Last administered on 10/23/17at 18:04; Start 10/11/17 at 21:45 Mirtazapine (Remeron) 7.5 mg QHS PO Last administered on 10/18/17at 20:06; Start 10/11/17 at 22:00; Stop 10/19/17 at 18:24; Status DC Olanzapine (ZyPREXA) 2.5 mg PRN Q2HR PRN PO ANXIETY / AGITATION; Start 10/11/17 at 21:45; Stop 10/12/17 at 08:11; Status DC Sertraline HCl (Zoloft) 25 mg DAILY PO Last administered on 10/14/17at 07:47; Start 10/12/17 at 09:00; Stop 10/14/17 at 19:06; Status DC Acetaminophen (Tylenol) 650 mg PRN Q6HRS PRN PO MILD PAIN Last administered on 10/23/17at 11:31; Start 10/11/17 at 21:45 Aspirin (Aspirin Enteric Coated) 81 mg DAILYWBKFT PO Last administered on at 08:03; Start 10/12/17 at 08:00 Calcium/Vitamin D (Oscal D 500mg/ 200uts) 2 tab DAILYWLUN PO Last administered on 10/24/17at 12:11; Start 10/12/17 at 12:00 Cyanocobalamin (Vitamin B-12) 1,000 mcg DAILY PO Last administered on at 08:04; Start 10/12/17 at 09:00 Docusate Sodium (Colace) 100 mg DAILY PO Last administered on 10/20/17at 08:15; Start 10/12/17 at 09:00; Stop 10/20/17 at 17:59; Status DC Fenofibrate (Tricor) 145 mg DAILY PO Last administered on 10/24/17at 08:05; Start 10/12/17 at 09:00 Fluticasone Propionate (Flonase) 1 spray DAILY NS Last administered on at 08:05; Start 10/12/17 at 09:00 Gabapentin (Neurontin) 300 mg DAILY PO Last administered on 10/24/17at 08:03; Start 10/12/17 at 09:00 Losartan Potassium (Cozaar) 25 mg DAILY PO ; Start 10/12/17 at 09:00; Status Future Hold Magnesium Oxide (Magnesium Oxide) 400 mg TID PO Last administered on 10/24/17at 19:35; Start 10/12/17 at 09:00 Multi-Ingredient Ointment (Analgesic [place]) 1 garth PRN QID PRN TP MUSCLE PAIN; Start 10/11/17 at 21:45 Ondansetron HCl (Zofran Odt) 4 mg PRN Q4HRS PRN PO NAUSEA; Start 10/11/17 at 21: 45 Pantoprazole Sodium (Protonix) 40 mg DAILYAC PO Last administered on 10/24/17at 08:03; Start 10/12/17 at 07:30 Simvastatin (Zocor) 20 mg HS PO Last administered on 10/24/17at 19:36; Start 10/12/17 at 21:00 Al Hydroxide/Mg Hydroxide (Mylanta Plus Xs) 15 ml PRN AFTMEAL PRN PO DYSPEPSIA ; Start 10/11/17 at 22:00 Magnesium Hydroxide (Milk Of Magnesia) 2,400 mg PRN QHS PRN PO CONSTIPATION; Start 10/11/17 at 22:00 Multivitamins/ Calcium (Thera-M Plus) 1 tab DAILY PO Last administered on 08:04; Start 10/12/17 at 09:00 Fish Oil (Fish Oil) 1,000 mg BID PO Last administered on 10/24/17 19:36; Start 10/12/17 at 09:00 Potassium Chloride (Klor-Con) 10 meq DAILYWBKFT PO Last administered on at 08:03; Start 10/12/17 at 08:00 Olanzapine (ZyPREXA ZYDIS) 2.5 mg PRN Q2HR PRN PO ANXIETY / AGITATION Last administered on 10/23/17 19:18; Start 10/12/17 at 08:15 Trazodone HCl (Desyrel) 50 mg PRN QHS PRN PO INSOMNIA Last administered on 10/24 19:36; Start 10/12/17 at 18:15 Quetiapine Fumarate (SEROquel) 12.5 mg DAILY PO Last administered on 10/24/17at 08:04; Start 10/14/17 at 09:00; Stop 10/24/17 at 17:04; Status DC Sertraline HCl (Zoloft) 50 mg DAILY PO Last administered on 10/16/17at 07:58; Start 10/15/17 at 09:00; Stop 10/16/17 at 10:36; Status DC Sertraline HCl (Zoloft) 75 mg DAILY PO Last administered on 10/24/17at 08:05; Start 10/17/17 at 09:00 Mirtazapine (Remeron) 15 mg QHS PO Last administered on 10/24/17at 19:35; Start 10/19/17 at 21:00 Docusate Sodium (Colace) 100 mg BID PO Last administered on 10/24/17 19:36; Start 10/20/17 at 21:00 Polyethylene Glycol (miraLAX) 17 gm DAILY PO Last administered on 10/24/17at 08: 03; Start 10/21/17 at 09:00 Quetiapine Fumarate (SEROquel) 12.5 mg BID92 PO ; Start 10/25/17 at 09:00 Active Scripts Active Reported Olanzapine 5 Mg Tablet 2.5 Mg PO PRN Q2HR PRN Donepezil Hcl 10 Mg Tablet 10 Mg PO HS Tricor (Fenofibrate Nanocrystallized) 145 Mg Tablet 145 Mg PO DAILY Potassium Chloride 10 Meq Tablet.er 10 Meq PO DAILYWBKFT Zoloft (Sertraline Hcl) 25 Mg Tablet 25 Mg PO DAILY Pantoprazole Sodium 40 Mg Tablet. 40 Mg PO DAILYAC Remeron (Mirtazapine) 15 Mg Tablet 7.5 Mg PO QHS Analgesic [place] (Methyl Salicylate/Menthol) 28 Gm Oint...g. 1 Garth TP PRN QID PRN Maalox Advanced Suspension (Mag Hydrox/Aluminum Hyd/Simeth) 355 Ml Oral.susp 15 Ml PO PRN AFTMEAL PRN Milk Of Magnesia (Magnesium Hydroxide) 2,400 Mg/10 Ml Oral.susp 2,400 Mg PO PRN QHS PRN Magnesium Oxide 400 Mg Tablet 400 Mg PO TID Tylenol (Acetaminophen) 325 Mg Tablet 650 Mg PO PRN Q6HRS PRN Zofran Odt (Ondansetron) 4 Mg Tab.rapdis 4 Mg PO PRN Q4HRS PRN Lorazepam 0.5 Mg Tablet 0.5 Mg PO PRN DAILY PRN Docusate Sodium 100 Mg Capsule 100 Mg PO DAILY Vitamin B-12 (Cyanocobalamin (Vitamin B-12)) 1,000 Mcg Tablet 1,000 Mcg PO DAILY Simvastatin 20 Mg Tablet 20 Mg PO HS [place] 3 1,000 Mg Softgel ([place]-3 Fatty Acids/Fish Oil) 1 Each Capsule 1 Cap PO BID Multivitamins (Multivitamin) 1 Each Tablet 1 Each PO DAILY Losartan Potassium 25 Mg Tablet 25 Mg PO DAILY Gabapentin 300 Mg Capsule 300 Mg PO DAILY Fluticasone Propionate Nasal [place] (Fluticasone Propionate) 16 Gm [place].susp 1 [place] NS DAILY Calcium 500 + Vit D 200 Tablet (Calcium Carbonate/Vitamin D3) 1 Each Tablet 2 Each PO DAILYWLUN Aspirin Ec (Aspirin) 81 Mg Tablet. 81 Mg PO DAILYWBKFT I have reviewed the current psychotropics carefully including drug interactions. Risk benefit ratio favors no change other than as noted in my dictated progress note. Diagnosis: Problems: (1) Anxiety disorder (2) Impulse control disorder (3) Dementia, vascular, with depression (4) Dementia, vascular, with delusions (5) Dementia in Alzheimer's disease with depression (6) Dementia in Alzheimer's disease with delusions NICHOLE DAVIDSON MD Oct 24, 2017 20:08
--- NOTE | 2017-10-25 03:11 | PN ---
DATE: 10/22/2017 PSYCHIATRIC PROGRESS NOTE This late entry 10/22/2017 covers elements not covered in my initial note of 10/22/2017. I met with the patient in the evening of 10/22/2017 and also met with the patient's daughter and son-in-law who were visiting her. Previous evening, the patient was screaming, agitated, crying, delusional, slept 4-1/4 hours. She was transferred from a Broda chair to wheelchair, then did better with less yelling, still confused regarding her . REVIEW OF SYSTEMS: Ambulation impaired. No CV, , pulmonary, eye, ENT system symptoms on review. Reliability poor. MENTAL STATUS EXAM: Oriented to herself. Insight, judgment, recent and remote memory, attention, concentration, fund of knowledge poor, consistent with her diagnosis. Mood and affect labile. LABORATORY DATA: Reviewed. IMPRESSION: Major neurocognitive disorder, Alzheimer, vascular with depression, delusion, behavioral disturbance. Rest unchanged. PLAN: Continue psychotropics mentioned in my initial note, may need to increase Seroquel further gradually if mood lability persist. MAN Nadja DAVIDSON MD DR: ZIYAD/selena JOB#: [id number] / [id number]
[2017-10-25 05:53] VITALS: BP 129/57
--- NOTE | 2017-10-25 09:00 | NUR ---
Patient still in bed, sleeping. Will hold am meds until she wakes up.
[2017-10-25] MEDS: CYANOCOBALAMIN (VITAMIN B-12) 1,000 MCG TABLET. PO SCH (11:05)
[2017-10-25] MEDS: PANTOPRAZOLE 40 MG TABLET. PO SCH (11:06)
[2017-10-25] MEDS: POTASSIUM CHLORIDE 10 MEQ TABLET.ER. PO SCH (11:06)
[2017-10-25] MEDS: OMEGA-3 FATTY ACIDS/FISH OIL 1,000 MG CAPSULE. PO SCH ×2 (11:06→19:16)
[2017-10-25] MEDS: MAGNESIUM OXIDE 400 MG TABLET PO SCH ×3 (11:06→19:16)
[2017-10-25] MEDS: CALCIUM CARB/VIT D3 500/200 TABLET PO SCH (11:06)
[2017-10-25] MEDS: MULTIVITAMIN with MINERAL TABLET. PO SCH (11:06)
[2017-10-25] MEDS: FENOFIBRATE NANOCRYSTALLIZED 145 MG TABLET PO SCH (11:06)
[2017-10-25] MEDS: ASPIRIN ENTERIC COATED 81 MG TABLET.DR. PO SCH (11:06)
[2017-10-25] MEDS: DOCUSATE SODIUM 100 MG CAPSULE PO SCH ×2 (11:07→19:16)
[2017-10-25] MEDS: SERTRALINE 50 MG TABLET. PO SCH (11:07)
[2017-10-25] MEDS: GABAPENTIN 300 MG CAPSULE. PO SCH (11:07)
[2017-10-25] MEDS: POLYETHYLENE GLYCOL 3350 17 GM PACKET. PO SCH (11:07)
[2017-10-25] MEDS: FLUTICASONE 50MCG/NASAL SPRAY 16GM BOTTLE. NS SCH (11:09)
[2017-10-25] MEDS: QUEtiapine 25 MG TABLET. PO SCH ×2 (11:09→13:54)
[2017-10-25] MEDS: ACETAMINOPHEN 325 MG TABLET PO PRN (11:09)
--- NOTE | 2017-10-25 11:20 | NUR ---
Patient complains of headache and back ache. PRN provided, will monitor for effectiveness.
--- NOTE | 2017-10-25 11:20 | NUR ---
Behavior Intervention Response and Plan: BIRP Note: Behavior: Assumed Care of patient, patient located in Patient Room at shift change. Patient exhibited the following behavior Disorganized, Delusions, Withdrawn. Brief assessment on rounds of vital signs, medication needs, lab studies, and pain. Treatment plan problems 1 & 2. Intervention: Patient assessed and the following interventions initiated safety checks 15 Minute Checks Cognitive Assessment , Head to toe Assessment , Medications. Response: After interactions and interventions patient responded in the following manner, Calm , Appropriate ,Compliant. Continue to assess behaviors and condition will continue to monitor throughout the shift as needed. Patient educated on ADL's, and hand hygiene. 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 Continue to assess patient for changes in above assessment. Monitor for medication needs, pain, and safety concerns. Hourly rounding performed to ensure safe environment.
--- NOTE | 2017-10-25 11:31 | PN ---
DATE: 10/23/2017 This is a late entry. Covers elements not covered in my initial note of 10/23/2017. SUBJECTIVE: The patient was staffed at the treatment team meeting with the entire team morning of 10/23/2017. Seen individually evening of 10/23/2017. Overall, she has had a better day. Reviewed her history progress at length. She has been yelling less, but in the evening of 10/23/2017, she was quite delusional, irritable, and labile. REVIEW OF SYSTEMS: Ambulation impaired, in wheelchair. No CV, , pulmonary, eye, ENT system symptoms on review. Reliability poor. MENTAL STATUS EXAM: Oriented to herself. Insight, judgment, recent and remote memory, attention, concentration, fund of knowledge poor, consistent with her diagnosis mentioned in my initial note. IMPRESSION: Major neurocognitive disorder, Alzheimer, vascular with depression, delusion, behavioral disturbance. Rest unchanged. PLAN: Continue psychotropics mentioned in my initial note. May need to increase Seroquel starting 10/24/2017. We will increase the Seroquel to 12.5 mg daily to 12.5 mg at 9 and 2, adjust further as clinically indicated. MAN Nadja DAVIDSON MD DR: ZIYAD/selena JOB#: [id number] / [id number]
[2017-10-25 16:13] VITALS: BP 115/74
[2017-10-25] MEDS: DONEPEZIL HCL 10 MG TABLET PO SCH (19:16)
[2017-10-25] MEDS: MIRTAZAPINE 15 MG TABLET PO SCH (19:16)
[2017-10-25] MEDS: SIMVASTATIN 20 MG TABLET PO SCH (19:16)
[2017-10-25] MEDS: traZODone 50 MG TABLET. PO PRN (19:16)
--- NOTE | 2017-10-25 20:30 | PDOC ---
Exam Note: Torres Note: Please also refer to the separate dictated note~for this date of service dictated separately.~Patient seen individually. Discussed the patient with Nursing staff reviewed the chart.~Reviewed interim history and current functioning. Reviewed vital signs,~Labs/ Radiology~and current medications noted below. Continue current treatment with the changes noted in the dictated addendum note Assessment: Vital Signs: Vital Signs Date Time Temp Pulse Resp B/P (MAP) Pulse Ox O2 Delivery O2 Flow Rate FiO2 10/25/17 16:13 97.7 54 18 115/74 (88) 99 10/24/17 16:09 Room Air I&O Intake and Output 10/25/17 07:00 Intake Total 600 ml Balance 600 ml Intake Oral 600 ml # Bowel Movements 2 Labs: Laboratory Tests Test 10/25/17 07:42 Glucose (Fingerstick) 79 mg/dL (70-99) Current Medications: Meds: Current Medications Donepezil HCl (Aricept) 10 mg HS PO Last administered on 10/25/17at 19:16; Start 10/11/17 at 22:00 Lorazepam (Ativan) 0.5 mg PRN DAILY PRN PO ANXIETY / AGITATION Last administered on 10/23/17at 18:04; Start 10/11/17 at 21:45 Mirtazapine (Remeron) 7.5 mg QHS PO Last administered on 10/18/17at 20:06; Start 10/11/17 at 22:00; Stop 10/19/17 at 18:24; Status DC Olanzapine (ZyPREXA) 2.5 mg PRN Q2HR PRN PO ANXIETY / AGITATION; Start 10/11/17 at 21:45; Stop 10/12/17 at 08:11; Status DC Sertraline HCl (Zoloft) 25 mg DAILY PO Last administered on 10/14/17at 07:47; Start 10/12/17 at 09:00; Stop 10/14/17 at 19:06; Status DC Acetaminophen (Tylenol) 650 mg PRN Q6HRS PRN PO MILD PAIN Last administered on 10/25/17at 11:09; Start 10/11/17 at 21:45 Aspirin (Aspirin Enteric Coated) 81 mg DAILYWBKFT PO Last administered on at 11:06; Start 10/12/17 at 08:00 Calcium/Vitamin D (Oscal D 500mg/ 200uts) 2 tab DAILYWLUN PO Last administered on 10/25/17 11:06; Start 10/12/17 at 12:00 Cyanocobalamin (Vitamin B-12) 1,000 mcg DAILY PO Last administered on at 11:05; Start 10/12/17 at 09:00 Docusate Sodium (Colace) 100 mg DAILY PO Last administered on 10/20/17at 08:15; Start 10/12/17 at 09:00; Stop 10/20/17 at 17:59; Status DC Fenofibrate (Tricor) 145 mg DAILY PO Last administered on 10/25/17at 11:06; Start 10/12/17 at 09:00 Fluticasone Propionate (Flonase) 1 spray DAILY NS Last administered on at 11:09; Start 10/12/17 at 09:00 Gabapentin (Neurontin) 300 mg DAILY PO Last administered on 10/25/17at 11:07; Start 10/12/17 at 09:00 Losartan Potassium (Cozaar) 25 mg DAILY PO ; Start 10/12/17 at 09:00; Status Future Hold Magnesium Oxide (Magnesium Oxide) 400 mg TID PO Last administered on 10/25/17at 19:16; Start 10/12/17 at 09:00 Multi-Ingredient Ointment (Analgesic [place]) 1 garth PRN QID PRN TP MUSCLE PAIN; Start 10/11/17 at 21:45 Ondansetron HCl (Zofran Odt) 4 mg PRN Q4HRS PRN PO NAUSEA; Start 10/11/17 at 21: 45 Pantoprazole Sodium (Protonix) 40 mg DAILYAC PO Last administered on 10/25/17at 11:06; Start 10/12/17 at 07:30 Simvastatin (Zocor) 20 mg HS PO Last administered on 10/25/17at 19:16; Start 10/12/17 at 21:00 Al Hydroxide/Mg Hydroxide (Mylanta Plus Xs) 15 ml PRN AFTMEAL PRN PO DYSPEPSIA ; Start 10/11/17 at 22:00 Magnesium Hydroxide (Milk Of Magnesia) 2,400 mg PRN QHS PRN PO CONSTIPATION; Start 10/11/17 at 22:00 Multivitamins/ Calcium (Thera-M Plus) 1 tab DAILY PO Last administered on 11:06; Start 10/12/17 at 09:00 Fish Oil (Fish Oil) 1,000 mg BID PO Last administered on 10/25/17 19:16; Start 10/12/17 at 09:00 Potassium Chloride (Klor-Con) 10 meq DAILYWBKFT PO Last administered on at 11:06; Start 10/12/17 at 08:00 Olanzapine (ZyPREXA ZYDIS) 2.5 mg PRN Q2HR PRN PO ANXIETY / AGITATION Last administered on 10/23/17 19:18; Start 10/12/17 at 08:15 Trazodone HCl (Desyrel) 50 mg PRN QHS PRN PO INSOMNIA Last administered on 10/25 19:16; Start 10/12/17 at 18:15 Quetiapine Fumarate (SEROquel) 12.5 mg DAILY PO Last administered on 10/24/17at 08:04; Start 10/14/17 at 09:00; Stop 10/24/17 at 17:04; Status DC Sertraline HCl (Zoloft) 50 mg DAILY PO Last administered on 10/16/17at 07:58; Start 10/15/17 at 09:00; Stop 10/16/17 at 10:36; Status DC Sertraline HCl (Zoloft) 75 mg DAILY PO Last administered on 10/25/17at 11:07; Start 10/17/17 at 09:00 Mirtazapine (Remeron) 15 mg QHS PO Last administered on 10/25/17at 19:16; Start 10/19/17 at 21:00 Docusate Sodium (Colace) 100 mg BID PO Last administered on 10/25/17 19:16; Start 10/20/17 at 21:00 Polyethylene Glycol (miraLAX) 17 gm DAILY PO Last administered on 10/25/17at 11: 07; Start 10/21/17 at 09:00 Quetiapine Fumarate (SEROquel) 12.5 mg BID92 PO Last administered on 10/25/17at 13:54; Start 10/25/17 at 09:00 Active Scripts Active Reported Olanzapine 5 Mg Tablet 2.5 Mg PO PRN Q2HR PRN Donepezil Hcl 10 Mg Tablet 10 Mg PO HS Tricor (Fenofibrate Nanocrystallized) 145 Mg Tablet 145 Mg PO DAILY Potassium Chloride 10 Meq Tablet.er 10 Meq PO DAILYWBKFT Zoloft (Sertraline Hcl) 25 Mg Tablet 25 Mg PO DAILY Pantoprazole Sodium 40 Mg Tablet. 40 Mg PO DAILYAC Remeron (Mirtazapine) 15 Mg Tablet 7.5 Mg PO QHS Analgesic [place] (Methyl Salicylate/Menthol) 28 Gm Oint...g. 1 [place] TP PRN QID PRN Maalox Advanced Suspension (Mag Hydrox/Aluminum Hyd/Simeth) 355 Ml Oral.susp 15 Ml PO PRN AFTMEAL PRN Milk Of Magnesia (Magnesium Hydroxide) 2,400 Mg/10 Ml Oral.susp 2,400 Mg PO PRN QHS PRN Magnesium Oxide 400 Mg Tablet 400 Mg PO TID Tylenol (Acetaminophen) 325 Mg Tablet 650 Mg PO PRN Q6HRS PRN Zofran Odt (Ondansetron) 4 Mg Tab.rapdis 4 Mg PO PRN Q4HRS PRN Lorazepam 0.5 Mg Tablet 0.5 Mg PO PRN DAILY PRN Docusate Sodium 100 Mg Capsule 100 Mg PO DAILY Vitamin B-12 (Cyanocobalamin (Vitamin B-12)) 1,000 Mcg Tablet 1,000 Mcg PO DAILY Simvastatin 20 Mg Tablet 20 Mg PO HS [place] 3 1,000 Mg Softgel ([place]-3 Fatty Acids/Fish Oil) 1 Each Capsule 1 Cap PO BID Multivitamins (Multivitamin) 1 Each Tablet 1 Each PO DAILY Losartan Potassium 25 Mg Tablet 25 Mg PO DAILY Gabapentin 300 Mg Capsule 300 Mg PO DAILY Fluticasone Propionate Nasal [place] (Fluticasone Propionate) 16 Gm [place].susp 1 [place] NS DAILY Calcium 500 + Vit D 200 Tablet (Calcium Carbonate/Vitamin D3) 1 Each Tablet 2 Each PO DAILYWLUN Aspirin Ec (Aspirin) 81 Mg Tablet. 81 Mg PO DAILYWBKFT I have reviewed the current psychotropics carefully including drug interactions. Risk benefit ratio favors no change other than as noted in my dictated progress note. Diagnosis: Problems: (1) Anxiety disorder (2) Impulse control disorder (3) Dementia, vascular, with depression (4) Dementia, vascular, with delusions (5) Dementia in Alzheimer's disease with depression (6) Dementia in Alzheimer's disease with delusions NICHOLE DAVIDSON MD Oct 25, 2017 20:30
--- NOTE | 2017-10-25 21:37 | NUR ---
Behavior Intervention Response and Plan: BIRP Note: Behavior: Assumed Care of patient, patient located in Day Room at shift change. Patient exhibited the following behavior Interactive, Disorganized, Social. Brief assessment on rounds of vital signs, medication needs, lab studies, and pain. Treatment plan problems . Intervention: Patient assessed and the following interventions initiated safety checks 15 Minute Checks Cognitive Assessment , Head to toe Assessment , Medications. Response: After interactions and interventions patient responded in the following manner, Delusions , Compulsive ,Disorganized. Continue to assess behaviors and condition will continue to monitor throughout the shift as needed. Patient educated on ADL's, and hand hygiene. 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 Continue to assess patient for changes in above assessment. Monitor for medication needs, pain, and safety concerns. Hourly rounding performed to ensure safe environment.
[2017-10-26] MEDS ORDERED: POLY255P PO (04:52)
[2017-10-26] MEDS ORDERED: QUET25TA5 PO (04:53)
[2017-10-26] MEDS ORDERED: TRAZ50TA15 PO (04:54)
[2017-10-26 05:37] VITALS: BP 125/53
[2017-10-26] MEDS: POTASSIUM CHLORIDE 10 MEQ TABLET.ER. PO SCH (07:37)
[2017-10-26] MEDS: PANTOPRAZOLE 40 MG TABLET. PO SCH (07:37)
[2017-10-26] MEDS: OMEGA-3 FATTY ACIDS/FISH OIL 1,000 MG CAPSULE. PO SCH ×2 (07:37→19:37)
[2017-10-26] MEDS: POLYETHYLENE GLYCOL 3350 17 GM PACKET. PO SCH (07:37)
[2017-10-26] MEDS: GABAPENTIN 300 MG CAPSULE. PO SCH (07:37)
[2017-10-26] MEDS: ASPIRIN ENTERIC COATED 81 MG TABLET.DR. PO SCH (07:38)
[2017-10-26] MEDS: MULTIVITAMIN with MINERAL TABLET. PO SCH (07:38)
[2017-10-26] MEDS: DOCUSATE SODIUM 100 MG CAPSULE PO SCH ×2 (07:38→19:37)
[2017-10-26] MEDS: MAGNESIUM OXIDE 400 MG TABLET PO SCH ×3 (07:38→19:37)
[2017-10-26] MEDS: QUEtiapine 25 MG TABLET. PO SCH ×2 (07:38→13:37)
[2017-10-26] MEDS: CALCIUM CARB/VIT D3 500/200 TABLET PO SCH (07:38)
[2017-10-26] MEDS: CYANOCOBALAMIN (VITAMIN B-12) 1,000 MCG TABLET. PO SCH (07:38)
[2017-10-26] MEDS: FENOFIBRATE NANOCRYSTALLIZED 145 MG TABLET PO SCH (07:38)
[2017-10-26] MEDS: FLUTICASONE 50MCG/NASAL SPRAY 16GM BOTTLE. NS SCH ×2 (07:39→19:38)
[2017-10-26] MEDS: SERTRALINE 50 MG TABLET. PO SCH (07:39)
--- NOTE | 2017-10-26 09:43 | NUR ---
Behavior Intervention Response and Plan: BIRP Note: Behavior: Assumed Care of patient, patient located in Day Room at shift change. Patient exhibited the following behavior Interactive, Disorganized, Drowsy. Brief assessment on rounds of vital signs, medication needs, lab studies, and pain. Treatment plan problems 1 & 2. Intervention: Patient assessed and the following interventions initiated safety checks 15 Minute Checks Cognitive Assessment , Head to toe Assessment , Medications. Response: After interactions and interventions patient responded in the following manner, Calm , Appropriate ,Compliant. Continue to assess behaviors and condition will continue to monitor throughout the shift as needed. Patient educated on ADL's, and hand hygiene. 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 Continue to assess patient for changes in above assessment. Monitor for medication needs, pain, and safety concerns. Hourly rounding performed to ensure safe environment.
[2017-10-26 10:07] LABS: BASO % 1 % (0-3); EOS # 0.2 x10^3/uL (0.0-0.7); EOS % 3 % (0-3); HEMATOCRIT 28.5 % (36.0-47.0); HEMOGLOBIN 9.4 g/dL (12.0-15.5); LYMPH # 1.6 x10^3/uL (1.0-4.8); LYMPH % 20 % (24-48); MEAN CORPUSCULAR HEMOGLOBIN 29 pg (25-35); MEAN CORPUSCULAR HGB CONC 33 g/dL (31-37); MEAN CORPUSCULAR VOLUME 89 fL (79-100); MONO # 0.5 x10^3/uL (0.0-1.1); MONO % 6 % (0-9); NEUT # 5.8 x10^3uL (1.8-7.7); NEUT % 71 % (31-73); PLATELET COUNT 317 x10^3/uL (140-400); RED BLOOD COUNT 3.21 x10^6/uL (3.50-5.40); RED CELL DISTRIBUTION WIDTH 12.7 % (11.5-14.5); WHITE BLOOD COUNT 8.1 x10^3/uL (4.0-11.0)
[2017-10-26 10:21] LABS: ALBUMIN 2.7 g/dL (3.4-5.0); ALBUMIN/GLOBULIN RATIO 0.8 (1.0-1.7); CALCIUM 9.5 mg/dL (8.5-10.1); CREATININE 1.4 mg/dL (0.6-1.0); GFR 35.8; MAGNESIUM 2.1 mg/dL (1.8-2.4); POTASSIUM 3.8 mmol/L (3.5-5.1); TOTAL BILIRUBIN 0.2 mg/dL (0.2-1.0); TOTAL PROTEIN 6.1 g/dL (6.4-8.2)
--- NOTE | 2017-10-26 16:05 | NUR ---
Patient is in the day room, calm, pleasantly confused, socializing with staff and other patients. Will monitor for behaviours.
[2017-10-26 16:16] VITALS: BP 133/54
--- NOTE | 2017-10-26 18:31 | PN ---
DATE: 10/24/2017 PSYCHIATRIC PROGRESS NOTE This is a late entry for 10/24/2017, covers elements not covered in my initial note of 10/24/2017. SUBJECTIVE: I met with the patient the evening of 10/24/2017. The patient slept 7-1/2 hours previous evening, quite agitated at shift change. Previous evening, Zyprexa and trazodone were given to help with the anxiety, agitation, and mood lability. On 10/24/2017, she was quite obsessed regarding ____ her . No PRNs were given. REVIEW OF SYSTEMS: Ambulation impaired, in wheelchair. No CV, , pulmonary, eye, ENT system symptoms on review. Reliability poor. MENTAL STATUS EXAM: Oriented to herself. Insight, judgment, recent and remote memory, attention, concentration, fund of knowledge poor, consistent with her diagnosis mentioned in my initial note. IMPRESSION: Major neurocognitive disorder, Alzheimer, vascular with depression, delusion, behavioral disturbance. Rest unchanged. PLAN: Continue psychotropics mentioned in my initial note. MAN Nadja DAVIDSON MD DR: ZIYAD/selena JOB#: [id number] / [id number]
[2017-10-26] MEDS: DONEPEZIL HCL 10 MG TABLET PO SCH (19:37)
[2017-10-26] MEDS: SIMVASTATIN 20 MG TABLET PO SCH (19:37)
[2017-10-26] MEDS: traZODone 50 MG TABLET. PO PRN ×2 (19:37→22:53)
[2017-10-26] MEDS: MIRTAZAPINE 15 MG TABLET PO SCH (19:37)
--- NOTE | 2017-10-26 20:04 | PDOC ---
Exam Note: Torres Note: Please also refer to the separate dictated note~for this date of service dictated separately.~Patient seen individually. Discussed the patient with Nursing staff reviewed the chart.~Reviewed interim history and current functioning. Reviewed vital signs,~Labs/ Radiology~and current medications noted below. Continue current treatment with the changes noted in the dictated addendum note Assessment: Vital Signs: Vital Signs Date Time Temp Pulse Resp B/P (MAP) Pulse Ox O2 Delivery O2 Flow Rate FiO2 10/26/17 16:16 98.2 70 20 133/54 (80) 100 10/24/17 16:09 Room Air I&O Intake and Output 10/26/17 07:00 Intake Total 720 ml Balance 720 ml Intake Oral 720 ml Labs: Laboratory Tests Test 10/26/17 07:49 10/26/17 09:32 Glucose (Fingerstick) 75 mg/dL (70-99) White Blood Count 8.1 x10^3/uL (4.0-11.0) Red Blood Count 3.21 x10^6/uL (3.50-5.40) L Hemoglobin 9.4 g/dL (12.0-15.5) L Hematocrit 28.5 % (36.0-47.0) L Mean Corpuscular Volume 89 fL (79-100) Mean Corpuscular Hemoglobin 29 pg (25-35) Mean Corpuscular Hemoglobin Concent 33 g/dL (31-37) Red Cell Distribution Width 12.7 % (11.5-14.5) Platelet Count 317 x10^3/uL (140-400) Neutrophils (%) (Auto) 71 % (31-73) Lymphocytes (%) (Auto) 20 % (24-48) L Monocytes (%) (Auto) 6 % (0-9) Eosinophils (%) (Auto) 3 % (0-3) Basophils (%) (Auto) 1 % (0-3) Neutrophils # (Auto) 5.8 x10^3uL (1.8-7.7) Lymphocytes # (Auto) 1.6 x10^3/uL (1.0-4.8) Monocytes # (Auto) 0.5 x10^3/uL (0.0-1.1) Eosinophils # (Auto) 0.2 x10^3/uL (0.0-0.7) Basophils # (Auto) 0.0 x10^3/uL (0.0-0.2) Sodium Level 141 mmol/L (136-145) Potassium Level 3.8 mmol/L (3.5-5.1) Chloride Level 105 mmol/L (98-107) Carbon Dioxide Level 31 mmol/L (21-32) Anion Gap 5 (6-14) L Blood Urea Nitrogen 30 mg/dL (7-20) H Creatinine 1.4 mg/dL (0.6-1.0) H Estimated GFR (Cockcroft-Gault) 35.8 BUN/Creatinine Ratio 21 (6-20) H Glucose Level 113 mg/dL (70-99) H Calcium Level 9.5 mg/dL (8.5-10.1) Magnesium Level 2.1 mg/dL (1.8-2.4) Total Bilirubin 0.2 mg/dL (0.2-1.0) Aspartate Amino Transferase (AST) 21 U/L (15-37) Alanine Aminotransferase (ALT) 17 U/L (14-59) Alkaline Phosphatase 71 U/L (46-116) Total Protein 6.1 g/dL (6.4-8.2) L Albumin 2.7 g/dL (3.4-5.0) L Albumin/Globulin Ratio 0.8 (1.0-1.7) L Current Medications: Meds: Current Medications Donepezil HCl (Aricept) 10 mg HS PO Last administered on 10/26/17at 19:37; Start 10/11/17 at 22:00 Lorazepam (Ativan) 0.5 mg PRN DAILY PRN PO ANXIETY / AGITATION Last administered on 10/23/17at 18:04; Start 10/11/17 at 21:45 Mirtazapine (Remeron) 7.5 mg QHS PO Last administered on 10/18/17at 20:06; Start 10/11/17 at 22:00; Stop 10/19/17 at 18:24; Status DC Olanzapine (ZyPREXA) 2.5 mg PRN Q2HR PRN PO ANXIETY / AGITATION; Start 10/11/17 at 21:45; Stop 10/12/17 at 08:11; Status DC Sertraline HCl (Zoloft) 25 mg DAILY PO Last administered on 10/14/17at 07:47; Start 10/12/17 at 09:00; Stop 10/14/17 at 19:06; Status DC Acetaminophen (Tylenol) 650 mg PRN Q6HRS PRN PO MILD PAIN Last administered on 10/25/17at 11:09; Start 10/11/17 at 21:45 Aspirin (Aspirin Enteric Coated) 81 mg DAILYWBKFT PO Last administered on 07:38; Start 10/12/17 at 08:00 Calcium/Vitamin D (Oscal D 500mg/ 200uts) 2 tab DAILYWLUN PO Last administered on 10/26/17 07:38; Start 10/12/17 at 12:00 Cyanocobalamin (Vitamin B-12) 1,000 mcg DAILY PO Last administered on 07:38; Start 10/12/17 at 09:00 Docusate Sodium (Colace) 100 mg DAILY PO Last administered on 10/20/17at 08:15; Start 10/12/17 at 09:00; Stop 10/20/17 at 17:59; Status DC Fenofibrate (Tricor) 145 mg DAILY PO Last administered on 10/26/17at 07:38; Start 10/12/17 at 09:00 Fluticasone Propionate (Flonase) 1 spray DAILY NS Last administered on 19:38; Start 10/12/17 at 09:00 Gabapentin (Neurontin) 300 mg DAILY PO Last administered on 10/26/17at 07:37; Start 10/12/17 at 09:00 Losartan Potassium (Cozaar) 25 mg DAILY PO ; Start 10/12/17 at 09:00; Status Future Hold Magnesium Oxide (Magnesium Oxide) 400 mg TID PO Last administered on 10/26/17at 19:37; Start 10/12/17 at 09:00 Multi-Ingredient Ointment (Analgesic [place]) 1 garth PRN QID PRN TP MUSCLE PAIN; Start 10/11/17 at 21:45 Ondansetron HCl (Zofran Odt) 4 mg PRN Q4HRS PRN PO NAUSEA; Start 10/11/17 at 21: 45 Pantoprazole Sodium (Protonix) 40 mg DAILYAC PO Last administered on 10/26/17at 07:37; Start 10/12/17 at 07:30 Simvastatin (Zocor) 20 mg HS PO Last administered on 10/26/17at 19:37; Start 10/12/17 at 21:00 Al Hydroxide/Mg Hydroxide (Mylanta Plus Xs) 15 ml PRN AFTMEAL PRN PO DYSPEPSIA ; Start 10/11/17 at 22:00 Magnesium Hydroxide (Milk Of Magnesia) 2,400 mg PRN QHS PRN PO CONSTIPATION; Start 10/11/17 at 22:00 Multivitamins/ Calcium (Thera-M Plus) 1 tab DAILY PO Last administered on at 07:38; Start 10/12/17 at 09:00 Fish Oil (Fish Oil) 1,000 mg BID PO Last administered on 10/26/17 19:37; Start 10/12/17 at 09:00 Potassium Chloride (Klor-Con) 10 meq DAILYWBKFT PO Last administered on at 07:37; Start 10/12/17 at 08:00 Olanzapine (ZyPREXA ZYDIS) 2.5 mg PRN Q2HR PRN PO ANXIETY / AGITATION Last administered on 10/23/17at 19:18; Start 10/12/17 at 08:15 Trazodone HCl (Desyrel) 50 mg PRN QHS PRN PO INSOMNIA Last administered on 10/26at 19:37; Start 10/12/17 at 18:15 Quetiapine Fumarate (SEROquel) 12.5 mg DAILY PO Last administered on 10/24/17at 08:04; Start 10/14/17 at 09:00; Stop 10/24/17 at 17:04; Status DC Sertraline HCl (Zoloft) 50 mg DAILY PO Last administered on 10/16/17at 07:58; Start 10/15/17 at 09:00; Stop 10/16/17 at 10:36; Status DC Sertraline HCl (Zoloft) 75 mg DAILY PO Last administered on 10/26/17at 07:39; Start 10/17/17 at 09:00 Mirtazapine (Remeron) 15 mg QHS PO Last administered on 10/26/17at 19:37; Start 10/19/17 at 21:00 Docusate Sodium (Colace) 100 mg BID PO Last administered on 1/21/18at 19:37; Start 10/20/17 at 21:00 Polyethylene Glycol (miraLAX) 17 gm DAILY PO Last administered on 10/26/17at 07: 37; Start 10/21/17 at 09:00 Quetiapine Fumarate (SEROquel) 12.5 mg BID92 PO Last administered on 10/26/17at 13:37; Start 10/25/17 at 09:00 Active Scripts Active Reported Trazodone Hcl 50 Mg Tablet 50 Mg PO PRN QHS PRN Seroquel (Quetiapine Fumarate) 25 Mg Tablet 12.5 Mg PO BID92 Polyethylene Glycol 3350 255 Gm Powder 17 Gm PO DAILY Olanzapine 5 Mg Tablet 2.5 Mg PO PRN Q2HR PRN Donepezil Hcl 10 Mg Tablet 10 Mg PO HS Tricor (Fenofibrate Nanocrystallized) 145 Mg Tablet 145 Mg PO DAILY Potassium Chloride 10 Meq Tablet.er 10 Meq PO DAILYWBKFT Zoloft (Sertraline Hcl) 25 Mg Tablet 25 Mg PO DAILY Pantoprazole Sodium 40 Mg Tablet.dr 40 Mg PO DAILYAC Remeron (Mirtazapine) 15 Mg Tablet 7.5 Mg PO QHS Analgesic [place] (Methyl Salicylate/Menthol) 28 Gm Oint...g. 1 [place]arth TP PRN QID PRN Maalox Advanced Suspension (Mag Hydrox/Aluminum Hyd/Simeth) 355 Ml Oral.susp 15 Ml PO PRN AFTMEAL PRN Milk Of Magnesia (Magnesium Hydroxide) 2,400 Mg/10 Ml Oral.susp 2,400 Mg PO PRN QHS PRN Magnesium Oxide 400 Mg Tablet 400 Mg PO TID Tylenol (Acetaminophen) 325 Mg Tablet 650 Mg PO PRN Q6HRS PRN Zofran Odt (Ondansetron) 4 Mg Tab.rapdis 4 Mg PO PRN Q4HRS PRN Lorazepam 0.5 Mg Tablet 0.5 Mg PO PRN DAILY PRN Docusate Sodium 100 Mg Capsule 100 Mg PO DAILY Vitamin B-12 (Cyanocobalamin (Vitamin B-12)) 1,000 Mcg Tablet 1,000 Mcg PO DAILY Simvastatin 20 Mg Tablet 20 Mg PO HS [place] 3 1,000 Mg Softgel ([place]-3 Fatty Acids/Fish Oil) 1 Each Capsule 1 Cap PO BID Multivitamins (Multivitamin) 1 Each Tablet 1 Each PO DAILY Losartan Potassium 25 Mg Tablet 25 Mg PO DAILY Gabapentin 300 Mg Capsule 300 Mg PO DAILY Fluticasone Propionate Nasal [place] (Fluticasone Propionate) 16 Gm [place].susp 1 [place] NS DAILY Calcium 500 + Vit D 200 Tablet (Calcium Carbonate/Vitamin D3) 1 Each Tablet 2 Each PO DAILYWLUN Aspirin Ec (Aspirin) 81 Mg Tablet. 81 Mg PO DAILYWBKFT I have reviewed the current psychotropics carefully including drug interactions. Risk benefit ratio favors no change other than as noted in my dictated progress note. 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
[2017-10-26] MEDS: LORazepam 0.5 MG TABLET PO PRN (21:46)
--- NOTE | 2017-10-26 23:27 | NUR ---
Nursing Note PT has been yelling out and calling for her and dog all night. Yells help at the top of her lungs when you are right next to her. Traz X2 given, Ativan, and zyids all ineffective. When pt told to stop screaming please, she says "I wasn't screaming. I need to get up and feed bouncer my dog!" and "Where's my ??? He needs to let me sit by him!!" PT still screaming, nonstop.
--- NOTE | 2017-10-26 23:29 | NUR ---
Behavior Intervention Response and Plan: BIRP Note: Behavior: Assumed Care of patient, patient located in Day Room at shift change. Patient exhibited the following behavior Restless, Resistive, Attention Seeking. Brief assessment on rounds of vital signs, medication needs, lab studies, and pain. Treatment plan problems 1-2. Intervention: Patient assessed and the following interventions initiated safety checks 15 Minute Checks Cognitive Assessment , Head to toe Assessment , Medications. Response: After interactions and interventions patient responded in the following manner, Disorganized , Restless ,Attention Seeking. Continue to assess behaviors and condition will continue to monitor throughout the shift as needed. Patient educated on ADL's, and hand hygiene. Plan: Continue to monitor Master Treatment Plan for patient's progress toward short term goals of Decreased Anxiety, Improved Mood, care home goals to return to previous living setting vs placement. Continue to assess patient for changes in above assessment. Monitor for medication needs, pain, and safety concerns. Hourly rounding performed to ensure safe environment.
[2017-10-26 23:48] LABS: BILIRUBIN,URINE NEG (NEG); CLARITY,URINE CLEAR; COLOR,URINE YELLOW; GLUCOSE,URINE NEG (NEG)
[2017-10-26 23:49] LABS: BACTERIA,URINE 0 /HPF (0-FEW); NITRITE,URINE NEG (NEG); RBC,URINE 0 /HPF (0-2); SQUAMOUS EPITHELIAL CELL,UR FEW /LPF; UROBILINOGEN,URINE 0.2 mg/dL (0.2 mg/dL)
[2017-10-27 06:07] VITALS: BP 112/47
[2017-10-27] MEDS: QUEtiapine 25 MG TABLET. PO SCH ×2 (07:48→14:00)
[2017-10-27] MEDS: FENOFIBRATE NANOCRYSTALLIZED 145 MG TABLET PO SCH (07:48)
[2017-10-27] MEDS: MULTIVITAMIN with MINERAL TABLET. PO SCH (07:48)
[2017-10-27] MEDS: SERTRALINE 50 MG TABLET. PO SCH (07:48)
[2017-10-27] MEDS: MAGNESIUM OXIDE 400 MG TABLET PO SCH ×3 (07:48→19:44)
[2017-10-27] MEDS: PANTOPRAZOLE 40 MG TABLET. PO SCH (07:48)
[2017-10-27] MEDS: ASPIRIN ENTERIC COATED 81 MG TABLET.DR. PO SCH (07:49)
[2017-10-27] MEDS: POTASSIUM CHLORIDE 10 MEQ TABLET.ER. PO SCH (07:49)
[2017-10-27] MEDS: CYANOCOBALAMIN (VITAMIN B-12) 1,000 MCG TABLET. PO SCH (07:51)
[2017-10-27] MEDS: OMEGA-3 FATTY ACIDS/FISH OIL 1,000 MG CAPSULE. PO SCH ×2 (07:51→19:44)
[2017-10-27] MEDS: DOCUSATE SODIUM 100 MG CAPSULE PO SCH ×2 (07:51→19:44)
[2017-10-27] MEDS: GABAPENTIN 300 MG CAPSULE. PO SCH (07:52)
[2017-10-27] MEDS: POLYETHYLENE GLYCOL 3350 17 GM PACKET. PO SCH (07:52)
[2017-10-27] MEDS ORDERED: FLUTICASONE 50MCG/NASAL SPRAY 16GM BOTTLE. NS ONE (08:00)
--- NOTE | 2017-10-27 08:40 | NUR ---
Behavior Intervention Response and Plan: BIRP Note: Behavior: Assumed Care of patient, patient located in Dining Room at shift change. Patient exhibited the following behavior Disorganized, Delusions, Demanding. Brief assessment on rounds of vital signs, medication needs, lab studies, and pain. Treatment plan problems 1 & 2. Intervention: Patient assessed and the following interventions initiated safety checks 15 Minute Checks Cognitive Assessment , Head to toe Assessment , Medications. Response: After interactions and interventions patient responded in the following manner, Calm , Appropriate ,Compliant. Continue to assess behaviors and condition will continue to monitor throughout the shift as needed. Patient educated on ADL's, and hand hygiene. 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 Continue to assess patient for changes in above assessment. Monitor for medication needs, pain, and safety concerns. Hourly rounding performed to ensure safe environment.
--- NOTE | 2017-10-27 12:20 | NUR ---
Patient is asleep, extremely difficult to arouse. VSS at RR=16, HR=53, BP=99/76, SpO2=97%. She is breathing normal, unlabored, regular rate. Radial pulses are strong, regular. Heart sounds are regular rate and rhythm. She makes occasional small movements with her fingers or toes. Patient's daughter is visibly upset. Reassured the daughter that the patient is most likely catching up on sleep (patient slept 3.5hrs during the night). Another nurse escorted the daughter off the floor after she told the patient 'Goodbye' and was able to calm the daughter and reassure her. Will continue to monitor patient's condition and vital signs.
--- NOTE | 2017-10-27 13:10 | NUR ---
Patient is more awake, complaining of neck pain. PRN meds provided per eMAR, will continue to monitor.
[2017-10-27] MEDS: CALCIUM CARB/VIT D3 500/200 TABLET PO SCH ×2 (13:17→13:30)
[2017-10-27] MEDS: ACETAMINOPHEN 325 MG TABLET PO PRN (13:17)
--- NOTE | 2017-10-27 13:30 | NUR ---
By the time I had returned to patient with 1200 and prn meds, she had fallen asleep again. Will hold all meds until she is more awake.
[2017-10-27 16:01] VITALS: BP 136/51
--- NOTE | 2017-10-27 16:04 | NUR ---
TARA spoke with pt placement regarding pt this am, pt placement is ready for pt when pt is stable. TARA spoke to Dr. Holley, at this time possible discharge on or this week. TARA called and spoke with pt daughter as well and provided her the information.
[2017-10-27] MEDS: DONEPEZIL HCL 10 MG TABLET PO SCH (19:44)
[2017-10-27] MEDS: SIMVASTATIN 20 MG TABLET PO SCH (19:45)
[2017-10-27] MEDS: AMITRIPTYLINE HCL 25 MG TABLET PO SCH (19:47)
--- NOTE | 2017-10-27 20:03 | PDOC ---
Exam Note: Torres Note: Please also refer to the separate dictated note~for this date of service dictated separately.~Patient seen individually. Discussed the patient with Nursing staff reviewed the chart.~Reviewed interim history and current functioning. Reviewed vital signs,~Labs/ Radiology~and current medications noted below. Continue current treatment with the changes noted in the dictated addendum note Assessment: Vital Signs: Vital Signs Date Time Temp Pulse Resp B/P (MAP) Pulse Ox O2 Delivery O2 Flow Rate FiO2 10/27/17 16:01 97.4 53 18 136/51 (79) 97 10/24/17 16:09 Room Air I&O Intake and Output 10/27/17 07:00 Intake Total 1400 ml Balance 1400 ml Intake Oral 1400 ml # Voids 2 # Bowel Movements 2 Labs: Laboratory Tests Test 10/26/17 22:50 Urine Collection Type Unknown Urine Color Yellow Urine Clarity Clear Urine pH 7.5 Urine Specific [place] 1.010 Urine Protein Neg (NEG-TRACE) Urine Glucose (UA) Neg mg/dL (NEG) Urine Ketones (Stick) Neg mg/dL (NEG) Urine Blood Neg (NEG) Urine Nitrite Neg (NEG) Urine Bilirubin Neg (NEG) Urine Urobilinogen Dipstick 0.2 mg/dL (0.2 mg/dL) Urine Leukocyte Esterase Trace (NEG) Urine RBC 0 /HPF (0-2) Urine WBC 1-4 /HPF (0-4) Urine Squamous Epithelial Cells Few /LPF Urine Bacteria 0 /HPF (0-FEW) Current Medications: Meds: Current Medications Donepezil HCl (Aricept) 10 mg HS PO Last administered on 10/27/17at 19:44; Start 10/11/17 at 22:00 Lorazepam (Ativan) 0.5 mg PRN DAILY PRN PO ANXIETY / AGITATION Last administered on 10/26/17at 21:46; Start 10/11/17 at 21:45 Mirtazapine (Remeron) 7.5 mg QHS PO Last administered on 10/18/17at 20:06; Start 10/11/17 at 22:00; Stop 10/19/17 at 18:24; Status DC Olanzapine (ZyPREXA) 2.5 mg PRN Q2HR PRN PO ANXIETY / AGITATION; Start 10/11/17 at 21:45; Stop 10/12/17 at 08:11; Status DC Sertraline HCl (Zoloft) 25 mg DAILY PO Last administered on 10/14/17at 07:47; Start 10/12/17 at 09:00; Stop 10/14/17 at 19:06; Status DC Acetaminophen (Tylenol) 650 mg PRN Q6HRS PRN PO MILD PAIN Last administered on 10/25/17at 11:09; Start 10/11/17 at 21:45 Aspirin (Aspirin Enteric Coated) 81 mg DAILYWBKFT PO Last administered on at 07:49; Start 10/12/17 at 08:00 Calcium/Vitamin D (Oscal D 500mg/ 200uts) 2 tab DAILYWLUN PO Last administered on 10/26/17at 07:38; Start 10/12/17 at 12:00 Cyanocobalamin (Vitamin B-12) 1,000 mcg DAILY PO Last administered on at 07:51; Start 10/12/17 at 09:00 Docusate Sodium (Colace) 100 mg DAILY PO Last administered on 10/20/17at 08:15; Start 10/12/17 at 09:00; Stop 10/20/17 at 17:59; Status DC Fenofibrate (Tricor) 145 mg DAILY PO Last administered on 10/27/17at 07:48; Start 10/12/17 at 09:00 Fluticasone Propionate (Flonase) 1 spray DAILY NS Last administered on at 19:38; Start 10/12/17 at 09:00 Gabapentin (Neurontin) 300 mg DAILY PO Last administered on 10/27/17at 07:52; Start 10/12/17 at 09:00 Losartan Potassium (Cozaar) 25 mg DAILY PO ; Start 10/12/17 at 09:00; Status Future Hold Magnesium Oxide (Magnesium Oxide) 400 mg TID PO Last administered on 10/27/17at 19:44; Start 10/12/17 at 09:00 Multi-Ingredient Ointment (Analgesic [place]) 1 garth PRN QID PRN TP MUSCLE PAIN; Start 10/11/17 at 21:45 Ondansetron HCl (Zofran Odt) 4 mg PRN Q4HRS PRN PO NAUSEA; Start 10/11/17 at 21: 45 Pantoprazole Sodium (Protonix) 40 mg DAILYAC PO Last administered on 10/27/17 07:48; Start 10/12/17 at 07:30 Simvastatin (Zocor) 20 mg HS PO Last administered on 10/27/17at 19:45; Start 10/12/17 at 21:00 Al Hydroxide/Mg Hydroxide (Mylanta Plus Xs) 15 ml PRN AFTMEAL PRN PO DYSPEPSIA ; Start 10/11/17 at 22:00 Magnesium Hydroxide (Milk Of Magnesia) 2,400 mg PRN QHS PRN PO CONSTIPATION; Start 10/11/17 at 22:00 Multivitamins/ Calcium (Thera-M Plus) 1 tab DAILY PO Last administered on 07:48; Start 10/12/17 at 09:00 Fish Oil (Fish Oil) 1,000 mg BID PO Last administered on 10/27/17 19:44; Start 10/12/17 at 09:00 Potassium Chloride (Klor-Con) 10 meq DAILYWBKFT PO Last administered on at 07:49; Start 10/12/17 at 08:00 Olanzapine (ZyPREXA ZYDIS) 2.5 mg PRN Q2HR PRN PO ANXIETY / AGITATION Last administered on 10/26/17 21:09; Start 10/12/17 at 08:15 Trazodone HCl (Desyrel) 50 mg PRN QHS PRN PO INSOMNIA Last administered on 10/26at 22:53; Start 10/12/17 at 18:15 Quetiapine Fumarate (SEROquel) 12.5 mg DAILY PO Last administered on 10/24/17at 08:04; Start 10/14/17 at 09:00; Stop 10/24/17 at 17:04; Status DC Sertraline HCl (Zoloft) 50 mg DAILY PO Last administered on 10/16/17 07:58; Start 10/15/17 at 09:00; Stop 10/16/17 at 10:36; Status DC Sertraline HCl (Zoloft) 75 mg DAILY PO Last administered on 10/27/17at 07:48; Start 10/17/17 at 09:00 Mirtazapine (Remeron) 15 mg QHS PO Last administered on 10/26/17at 19:37; Start 10/19/17 at 21:00; Stop 10/27/17 at 18:40; Status DC Docusate Sodium (Colace) 100 mg BID PO Last administered on 10/27/17at 19:44; Start 10/20/17 at 21:00 Polyethylene Glycol (miraLAX) 17 gm DAILY PO Last administered on 10/27/17at 07: 52; Start 10/21/17 at 09:00 Quetiapine Fumarate (SEROquel) 12.5 mg BID92 PO Last administered on 10/27/17at 07:48; Start 10/25/17 at 09:00 Fluticasone Propionate (Flonase) 1 spray 1X ONCE NS Last administered on at 08:00; Start 10/27/17 at 08:00; Stop 10/27/17 at 08:01; Status DC Amitriptyline HCl (Elavil) 25 mg QHS PO Last administered on 10/27/17at 19:47; Start 10/27/17 at 21:00 Active Scripts Active Reported Trazodone Hcl 50 Mg Tablet 50 Mg PO PRN QHS PRN Seroquel (Quetiapine Fumarate) 25 Mg Tablet 12.5 Mg PO BID92 Polyethylene Glycol 3350 255 Gm Powder 17 Gm PO DAILY Olanzapine 5 Mg Tablet 2.5 Mg PO PRN Q2HR PRN Donepezil Hcl 10 Mg Tablet 10 Mg PO HS Tricor (Fenofibrate Nanocrystallized) 145 Mg Tablet 145 Mg PO DAILY Potassium Chloride 10 Meq Tablet.er 10 Meq PO DAILYWBKFT Zoloft (Sertraline Hcl) 25 Mg Tablet 25 Mg PO DAILY Pantoprazole Sodium 40 Mg Tablet.dr 40 Mg PO DAILYAC Remeron (Mirtazapine) 15 Mg Tablet 7.5 Mg PO QHS Analgesic [place] (Methyl Salicylate/Menthol) 28 Gm Oint...g. 1 [place] TP PRN QID PRN Maalox Advanced Suspension (Mag Hydrox/Aluminum Hyd/Simeth) 355 Ml Oral.susp 15 Ml PO PRN AFTMEAL PRN Milk Of Magnesia (Magnesium Hydroxide) 2,400 Mg/10 Ml Oral.susp 2,400 Mg PO PRN QHS PRN Magnesium Oxide 400 Mg Tablet 400 Mg PO TID Tylenol (Acetaminophen) 325 Mg Tablet 650 Mg PO PRN Q6HRS PRN Zofran Odt (Ondansetron) 4 Mg Tab.rapdis 4 Mg PO PRN Q4HRS PRN Lorazepam 0.5 Mg Tablet 0.5 Mg PO PRN DAILY PRN Docusate Sodium 100 Mg Capsule 100 Mg PO DAILY Vitamin B-12 (Cyanocobalamin (Vitamin B-12)) 1,000 Mcg Tablet 1,000 Mcg PO DAILY Simvastatin 20 Mg Tablet 20 Mg PO HS [place] 3 1,000 Mg Softgel ([place]-3 Fatty Acids/Fish Oil) 1 Each Capsule 1 Cap PO BID Multivitamins (Multivitamin) 1 Each Tablet 1 Each PO DAILY Losartan Potassium 25 Mg Tablet 25 Mg PO DAILY Gabapentin 300 Mg Capsule 300 Mg PO DAILY Fluticasone Propionate Nasal [place] (Fluticasone Propionate) 16 Gm [place].susp 1 [place] NS DAILY Calcium 500 + Vit D 200 Tablet (Calcium Carbonate/Vitamin D3) 1 Each Tablet 2 Each PO DAILYWLUN Aspirin Ec (Aspirin) 81 Mg Tablet. 81 Mg PO DAILYWBKFT I have reviewed the current psychotropics carefully including drug interactions. Risk benefit ratio favors no change other than as noted in my dictated progress note. Diagnosis: Problems: (1) Anxiety disorder (2) Impulse control disorder (3) Dementia, vascular, with depression (4) Dementia, vascular, with delusions (5) Dementia in Alzheimer's disease with depression (6) Dementia in Alzheimer's disease with delusions NICHOLE DAVIDSON MD Oct 27, 2017 20:03
[2017-10-27] MEDS: traZODone 50 MG TABLET. PO PRN (22:48)
--- NOTE | 2017-10-27 23:14 | NUR ---
Behavior Intervention Response and Plan: BIRP Note: Behavior: Assumed Care of patient, patient located in Day Room at shift change. Patient exhibited the following behavior Restless, Disorganized, Anxious. Brief assessment on rounds of vital signs, medication needs, lab studies, and pain. 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 Intervention: Patient assessed and the following interventions initiated safety checks 15 Minute Checks Cognitive Assessment , Head to toe Assessment , Medications. Response: After interactions and interventions patient responded in the following manner, Restless , Compliant ,Cooperative. Continue to assess behaviors and condition will continue to monitor throughout the shift as needed. Patient educated on ADL's, and hand hygiene. 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 Continue to assess patient for changes in above assessment. Monitor for medication needs, pain, and safety concerns. Hourly rounding performed to ensure safe environment.
--- NOTE | 2017-10-28 00:33 | PN ---
DATE: 10/26/2017 This is a late entry, covers the elements not covered in my initial note, 10/26/2017. SUBJECTIVE: I met with the patient the evening of 10/26/2017. The patient slept 8-1/2 hours previous evening, did well the previous night, cooperative during the day, confused, obsessive about her dog and moreso in the evening, wondering who will take care of the dog. Red blood count, hemoglobin, and hematocrit are showing improvement. REVIEW OF SYSTEMS: Ambulation impaired, in a wheelchair. No CV, , pulmonary, eye system symptoms on review. Reliability poor. MENTAL STATUS EXAM: Oriented to herself. Insight, judgment, recent and remote memory, attention, concentration, fund of knowledge poor, consistent with her diagnosis. She slept 8-1/2 hours previous evening. IMPRESSION: Major neurocognitive disorder, Alzheimer, vascular with depression, delusion, behavioral disturbance. Rest unchanged. PLAN: Continue psychotropics as mentioned in my initial note. NICHOLE DAVIDSON MD DR: ZIYAD/selena JOB#: [id number] / [id number]
--- NOTE | 2017-10-28 00:33 | PN ---
DATE: 10/25/2017 This is a late entry for 10/25/2017 covers elements not covered in my initial note of 10/25/2017. SUBJECTIVE: I met with the patient in the evening of 10/25/2017. The patient remains confused, somewhat withdrawn, anxious, obsessing about her , compliant with meds until 11 o'clock and then more irritable. REVIEW OF SYSTEMS: Ambulation impaired, in wheelchair. No CV, , pulmonary, eye, ENT system symptoms on review. Reliability poor. MENTAL STATUS EXAM: Oriented to herself. Insight, judgment, recent and remote memory, attention, concentration, fund of knowledge poor, consistent with her diagnosis mentioned in my initial note. IMPRESSION: Major neurocognitive disorder, Alzheimer, vascular with depression, delusion, behavioral disturbance. PLAN: Continue psychotropics mentioned in my initial note. Adjust as clinically indicated. MAN Nadja DAVIDSON MD DR: ZIYAD/selena JOB#: [id number] / [id number]
[2017-10-28 06:13] VITALS: BP 122/33
[2017-10-28 07:49] VITALS: BP 133/50
[2017-10-28] MEDS: OMEGA-3 FATTY ACIDS/FISH OIL 1,000 MG CAPSULE. PO SCH ×2 (08:05→19:28)
[2017-10-28] MEDS: ASPIRIN ENTERIC COATED 81 MG TABLET.DR. PO SCH (08:05)
[2017-10-28] MEDS: POTASSIUM CHLORIDE 10 MEQ TABLET.ER. PO SCH (08:05)
[2017-10-28] MEDS: PANTOPRAZOLE 40 MG TABLET. PO SCH (08:05)
[2017-10-28] MEDS: SERTRALINE 50 MG TABLET. PO SCH (08:06)
[2017-10-28] MEDS: MULTIVITAMIN with MINERAL TABLET. PO SCH (08:07)
[2017-10-28] MEDS: FENOFIBRATE NANOCRYSTALLIZED 145 MG TABLET PO SCH (08:07)
[2017-10-28] MEDS: CYANOCOBALAMIN (VITAMIN B-12) 1,000 MCG TABLET. PO SCH (08:07)
[2017-10-28] MEDS: GABAPENTIN 300 MG CAPSULE. PO SCH (08:07)
[2017-10-28] MEDS: MAGNESIUM OXIDE 400 MG TABLET PO SCH ×3 (08:07→19:28)
[2017-10-28] MEDS: DOCUSATE SODIUM 100 MG CAPSULE PO SCH ×2 (08:07→19:28)
[2017-10-28] MEDS: QUEtiapine 25 MG TABLET. PO SCH ×2 (08:08→13:36)
[2017-10-28] MEDS: FLUTICASONE 50MCG/NASAL SPRAY 16GM BOTTLE. NS SCH (08:08)
[2017-10-28] MEDS: POLYETHYLENE GLYCOL 3350 17 GM PACKET. PO SCH (08:08)
--- NOTE | 2017-10-28 09:36 | NUR ---
Behavior Intervention Response and Plan: BIRP Note: Behavior: Assumed Care of patient, patient located in Dining Room at shift change. Patient exhibited the following behavior Calm, Interactive, Compliant. Brief assessment on rounds of vital signs, medication needs, lab studies, and pain. Treatment plan problems 1-2. Intervention: Patient assessed and the following interventions initiated safety checks 15 Minute Checks Cognitive Assessment , Head to toe Assessment , Medications. Response: After interactions and interventions patient responded in the following manner, Calm , Interactive ,Cooperative. Continue to assess behaviors and condition will continue to monitor throughout the shift as needed. Patient educated on ADL's, and hand hygiene. 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 Continue to assess patient for changes in above assessment. Monitor for medication needs, pain, and safety concerns. Hourly rounding performed to ensure safe environment.
--- NOTE | 2017-10-28 10:54 | NUR ---
Patient delusional, he has stated multiple times that he is awaiting surgery to remove a growth on his chest wall. Calmly sitting by [facility] "waiting for them to come get me" since breakfast. Reoriented, but patient continues to state he is awaiting his surgery. Will continue to monitor. Addendum: 10/28/17 at 1058 by DELPHINE BATEMAN RN wrong patient.
[2017-10-28] MEDS: CALCIUM CARB/VIT D3 500/200 TABLET PO SCH (11:33)
[2017-10-28 16:14] VITALS: BP 106/64
[2017-10-28] MEDS: SIMVASTATIN 20 MG TABLET PO SCH (19:28)
[2017-10-28] MEDS: DONEPEZIL HCL 10 MG TABLET PO SCH (19:28)
[2017-10-28] MEDS: AMITRIPTYLINE HCL 25 MG TABLET PO SCH (19:28)
--- NOTE | 2017-10-28 19:56 | PDOC ---
Exam Note: Torres Note: Please also refer to the separate dictated note~for this date of service dictated separately.~Patient seen individually. Discussed the patient with Nursing staff reviewed the chart.~Reviewed interim history and current functioning. Reviewed vital signs,~Labs/ Radiology~and current medications noted below. Continue current treatment with the changes noted in the dictated addendum note Assessment: Vital Signs: Vital Signs Date Time Temp Pulse Resp B/P (MAP) Pulse Ox O2 Delivery O2 Flow Rate FiO2 10/28/17 16:14 97.8 60 16 106/64 (78) Room Air 98.0 10/28/17 06:13 94 I&O Intake and Output 10/28/17 07:00 Intake Total 960 ml Balance 960 ml Intake Oral 960 ml # Voids 4 # Bowel Movements 1 Current Medications: Meds: Current Medications Donepezil HCl (Aricept) 10 mg HS PO Last administered on 10/28/17at 19:28; Start 10/11/17 at 22:00 Lorazepam (Ativan) 0.5 mg PRN DAILY PRN PO ANXIETY / AGITATION Last administered on 10/26/17at 21:46; Start 10/11/17 at 21:45 Mirtazapine (Remeron) 7.5 mg QHS PO Last administered on 10/18/17at 20:06; Start 10/11/17 at 22:00; Stop 10/19/17 at 18:24; Status DC Olanzapine (ZyPREXA) 2.5 mg PRN Q2HR PRN PO ANXIETY / AGITATION; Start 10/11/17 at 21:45; Stop 10/12/17 at 08:11; Status DC Sertraline HCl (Zoloft) 25 mg DAILY PO Last administered on 10/14/17at 07:47; Start 10/12/17 at 09:00; Stop 10/14/17 at 19:06; Status DC Acetaminophen (Tylenol) 650 mg PRN Q6HRS PRN PO MILD PAIN Last administered on 10/25/17at 11:09; Start 10/11/17 at 21:45 Aspirin (Aspirin Enteric Coated) 81 mg DAILYWBKFT PO Last administered on at 08:05; Start 10/12/17 at 08:00 Calcium/Vitamin D (Oscal D 500mg/ 200uts) 2 tab DAILYWLUN PO Last administered on 10/28/17 11:33; Start 10/12/17 at 12:00 Cyanocobalamin (Vitamin B-12) 1,000 mcg DAILY PO Last administered on 08:07; Start 10/12/17 at 09:00 Docusate Sodium (Colace) 100 mg DAILY PO Last administered on 10/20/17 08:15; Start 10/12/17 at 09:00; Stop 10/20/17 at 17:59; Status DC Fenofibrate (Tricor) 145 mg DAILY PO Last administered on 10/28/17 08:07; Start 10/12/17 at 09:00 Fluticasone Propionate (Flonase) 1 spray DAILY NS Last administered on 08:08; Start 10/12/17 at 09:00 Gabapentin (Neurontin) 300 mg DAILY PO Last administered on 10/28/17 08:07; Start 10/12/17 at 09:00 Losartan Potassium (Cozaar) 25 mg DAILY PO ; Start 10/12/17 at 09:00; Status Future Hold Magnesium Oxide (Magnesium Oxide) 400 mg TID PO Last administered on 10/28/17 19:28; Start 10/12/17 at 09:00 Multi-Ingredient Ointment (Analgesic [place]) 1 garth PRN QID PRN TP MUSCLE PAIN; Start 10/11/17 at 21:45 Ondansetron HCl (Zofran Odt) 4 mg PRN Q4HRS PRN PO NAUSEA; Start 10/11/17 at 21: 45 Pantoprazole Sodium (Protonix) 40 mg DAILYAC PO Last administered on 10/28/17at 08:05; Start 10/12/17 at 07:30 Simvastatin (Zocor) 20 mg HS PO Last administered on 10/28/17 19:28; Start 10/12/17 at 21:00 Al Hydroxide/Mg Hydroxide (Mylanta Plus Xs) 15 ml PRN AFTMEAL PRN PO DYSPEPSIA ; Start 10/11/17 at 22:00 Magnesium Hydroxide (Milk Of Magnesia) 2,400 mg PRN QHS PRN PO CONSTIPATION; Start 10/11/17 at 22:00 Multivitamins/ Calcium (Thera-M Plus) 1 tab DAILY PO Last administered on 08:07; Start 10/12/17 at 09:00 Fish Oil (Fish Oil) 1,000 mg BID PO Last administered on 10/28/17 19:28; Start 10/12/17 at 09:00 Potassium Chloride (Klor-Con) 10 meq DAILYWBKFT PO Last administered on 08:05; Start 10/12/17 at 08:00 Olanzapine (ZyPREXA ZYDIS) 2.5 mg PRN Q2HR PRN PO ANXIETY / AGITATION Last administered on 10/26/17 21:09; Start 10/12/17 at 08:15 Trazodone HCl (Desyrel) 50 mg PRN QHS PRN PO INSOMNIA Last administered on 10/27 22:48; Start 10/12/17 at 18:15 Quetiapine Fumarate (SEROquel) 12.5 mg DAILY PO Last administered on 10/24/17 08:04; Start 10/14/17 at 09:00; Stop 10/24/17 at 17:04; Status DC Sertraline HCl (Zoloft) 50 mg DAILY PO Last administered on 10/16/17at 07:58; Start 10/15/17 at 09:00; Stop 10/16/17 at 10:36; Status DC Sertraline HCl (Zoloft) 75 mg DAILY PO Last administered on 10/28/17at 08:06; Start 10/17/17 at 09:00 Mirtazapine (Remeron) 15 mg QHS PO Last administered on 10/26/17at 19:37; Start 10/19/17 at 21:00; Stop 10/27/17 at 18:40; Status DC Docusate Sodium (Colace) 100 mg BID PO Last administered on 10/28/17 19:28; Start 10/20/17 at 21:00 Polyethylene Glycol (miraLAX) 17 gm DAILY PO Last administered on 10/28/17 08: 08; Start 10/21/17 at 09:00 Quetiapine Fumarate (SEROquel) 12.5 mg BID92 PO Last administered on 10/28/17 13:36; Start 10/25/17 at 09:00 Fluticasone Propionate (Flonase) 1 spray 1X ONCE NS Last administered on 1/22/ 18at 08:00; Start 10/27/17 at 08:00; Stop 10/27/17 at 08:01; Status DC Amitriptyline HCl (Elavil) 25 mg QHS PO Last administered on 10/28/17at 19:28; Start 10/27/17 at 21:00 Active Scripts Active Reported Trazodone Hcl 50 Mg Tablet 50 Mg PO PRN QHS PRN Seroquel (Quetiapine Fumarate) 25 Mg Tablet 12.5 Mg PO BID92 Polyethylene Glycol 3350 255 Gm Powder 17 Gm PO DAILY Olanzapine 5 Mg Tablet 2.5 Mg PO PRN Q2HR PRN Donepezil Hcl 10 Mg Tablet 10 Mg PO HS Tricor (Fenofibrate Nanocrystallized) 145 Mg Tablet 145 Mg PO DAILY Potassium Chloride 10 Meq Tablet.er 10 Meq PO DAILYWBKFT Zoloft (Sertraline Hcl) 25 Mg Tablet 25 Mg PO DAILY Pantoprazole Sodium 40 Mg Tablet.dr 40 Mg PO DAILYAC Remeron (Mirtazapine) 15 Mg Tablet 7.5 Mg PO QHS Analgesic [place] (Methyl Salicylate/Menthol) 28 Gm Oint...g. 1 Garth TP PRN QID PRN Maalox Advanced Suspension (Mag Hydrox/Aluminum Hyd/Simeth) 355 Ml Oral.susp 15 Ml PO PRN AFTMEAL PRN Milk Of Magnesia (Magnesium Hydroxide) 2,400 Mg/10 Ml Oral.susp 2,400 Mg PO PRN QHS PRN Magnesium Oxide 400 Mg Tablet 400 Mg PO TID Tylenol (Acetaminophen) 325 Mg Tablet 650 Mg PO PRN Q6HRS PRN Zofran Odt (Ondansetron) 4 Mg Tab.rapdis 4 Mg PO PRN Q4HRS PRN Lorazepam 0.5 Mg Tablet 0.5 Mg PO PRN DAILY PRN Docusate Sodium 100 Mg Capsule 100 Mg PO DAILY Vitamin B-12 (Cyanocobalamin (Vitamin B-12)) 1,000 Mcg Tablet 1,000 Mcg PO DAILY Simvastatin 20 Mg Tablet 20 Mg PO HS [place] 3 1,000 Mg Softgel ([place]-3 Fatty Acids/Fish Oil) 1 Each Capsule 1 Cap PO BID Multivitamins (Multivitamin) 1 Each Tablet 1 Each PO DAILY Losartan Potassium 25 Mg Tablet 25 Mg PO DAILY Gabapentin 300 Mg Capsule 300 Mg PO DAILY Fluticasone Propionate Nasal [place] (Fluticasone Propionate) 16 Gm [place].susp 1 [place] NS DAILY Calcium 500 + Vit D 200 Tablet (Calcium Carbonate/Vitamin D3) 1 Each Tablet 2 Each PO DAILYWLUN Aspirin Ec (Aspirin) 81 Mg Tablet. 81 Mg PO DAILYWBKFT I have reviewed the current psychotropics carefully including drug interactions. Risk benefit ratio favors no change other than as noted in my dictated progress note. Diagnosis: Problems: (1) Anxiety disorder (2) Impulse control disorder (3) Dementia, vascular, with depression (4) Dementia, vascular, with delusions (5) Dementia in Alzheimer's disease with depression (6) Dementia in Alzheimer's disease with delusions NICHOLE DAVIDSON MD Oct 28, 2017 19:56
[2017-10-28] MEDS: traZODone 50 MG TABLET. PO PRN (21:40)
--- NOTE | 2017-10-28 21:54 | NUR ---
Pt laying in bed yelling, "Help!" Attempted several times to redirect and reorient pt without success. PRN Trazodone administered as ordered.
--- NOTE | 2017-10-29 01:17 | PN ---
DATE: 10/27/2017 PSYCHIATRIC PROGRESS NOTE This is a late entry for 10/27/2017, covers elements not covered in my initial note of 10/27/2017. SUBJECTIVE: I met with the patient the evening of 10/27/2017. We had planned to discharge the patient, but she was quite labile, anxious, irritable, received trazodone x 2 the previous evening, Zyprexa and Ativan and still just slept 3-1/2 hours. We postponed the discharge to help stabilize her sleep pattern; otherwise, some of her behaviors that prompted the initial admission, yelling, screaming, agitation are likely to resurface. REVIEW OF SYSTEMS: Ambulation impaired, in wheelchair. No CV, , pulmonary, eye, ENT system symptoms on review. Reliability poor. MENTAL STATUS EXAM: Oriented to herself. Insight, judgment, recent and remote memory, attention, concentration, fund of knowledge poor, consistent with her diagnosis mentioned in my initial note. IMPRESSION: Major neurocognitive disorder, Alzheimer, vascular with depression, delusion, behavioral disturbance. PLAN: Change the Remeron to Elavil 25 mg p.o. at bedtime. Maintain rest of the psychotropics. Reviewed drug contractions. Risk/benefit ratio favors no further change. NICHOLE DAVIDSON MD DR: ZIYAD/selena JOB#: [id number] / [id number]
--- NOTE | 2017-10-29 02:17 | NUR ---
Behavior Intervention Response and Plan: BIRP Note: Behavior: Assumed Care of patient, patient located in Day Room at shift change. Patient exhibited the following behavior Disorganized, Anxious, Attention Seeking. Brief assessment on rounds of vital signs, medication needs, lab studies, and pain. Treatment plan problems Dementia w/BD and Fall Risk. Intervention: Patient assessed and the following interventions initiated safety checks 15 Minute Checks Cognitive Assessment , Head to toe Assessment , Medications. Response: After interactions and interventions patient responded in the following manner, Restless , Compliant ,Cooperative. Continue to assess behaviors and condition will continue to monitor throughout the shift as needed. Patient educated on ADL's, and hand hygiene. Plan: Continue to monitor Master Treatment Plan for patient's progress toward short term goals of Decreased Anxiety, Decreased Aggression, termite exterminator helper goals to return to previous living setting vs placement. Continue to assess patient for changes in above assessment. Monitor for medication needs, pain, and safety concerns. Hourly rounding performed to ensure safe environment.
[2017-10-29] MEDS: ACETAMINOPHEN 325 MG TABLET PO PRN (03:30)
--- NOTE | 2017-10-29 03:32 | NUR ---
PRN Tylenol administered as ordered for c/o back pain.
[2017-10-29 06:21] VITALS: BP 119/47
[2017-10-29] MEDS: POTASSIUM CHLORIDE 10 MEQ TABLET.ER. PO SCH (08:03)
[2017-10-29] MEDS: ASPIRIN ENTERIC COATED 81 MG TABLET.DR. PO SCH (08:03)
[2017-10-29] MEDS: DOCUSATE SODIUM 100 MG CAPSULE PO SCH ×2 (08:03→19:20)
[2017-10-29] MEDS: PANTOPRAZOLE 40 MG TABLET. PO SCH (08:03)
[2017-10-29] MEDS: FLUTICASONE 50MCG/NASAL SPRAY 16GM BOTTLE. NS SCH (08:03)
[2017-10-29] MEDS: CYANOCOBALAMIN (VITAMIN B-12) 1,000 MCG TABLET. PO SCH (08:04)
[2017-10-29] MEDS: POLYETHYLENE GLYCOL 3350 17 GM PACKET. PO SCH (08:04)
[2017-10-29] MEDS: GABAPENTIN 300 MG CAPSULE. PO SCH (08:04)
[2017-10-29] MEDS: FENOFIBRATE NANOCRYSTALLIZED 145 MG TABLET PO SCH (08:04)
[2017-10-29] MEDS: MAGNESIUM OXIDE 400 MG TABLET PO SCH ×3 (08:04→19:20)
[2017-10-29] MEDS: MULTIVITAMIN with MINERAL TABLET. PO SCH (08:04)
[2017-10-29] MEDS: OMEGA-3 FATTY ACIDS/FISH OIL 1,000 MG CAPSULE. PO SCH ×2 (08:04→19:20)
[2017-10-29] MEDS: SERTRALINE 50 MG TABLET. PO SCH (08:05)
[2017-10-29] MEDS: QUEtiapine 25 MG TABLET. PO SCH ×2 (08:06→13:48)
--- NOTE | 2017-10-29 10:13 | NUR ---
Behavior Intervention Response and Plan: BIRP Note: Behavior: Assumed Care of patient, patient located in Dining Room at shift change. Patient exhibited the following behavior Calm, Able to Focus on Task, Compliant. Brief assessment on rounds of vital signs, medication needs, lab studies, and pain. Treatment plan problems 1-2. Intervention: Patient assessed and the following interventions initiated safety checks 15 Minute Checks Cognitive Assessment , Head to toe Assessment , Medications. Response: After interactions and interventions patient responded in the following manner, Calm , Interactive ,Cooperative. Continue to assess behaviors and condition will continue to monitor throughout the shift as needed. Patient educated on ADL's, and hand hygiene. 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 Continue to assess patient for changes in above assessment. Monitor for medication needs, pain, and safety concerns. Hourly rounding performed to ensure safe environment.
[2017-10-29] MEDS: CALCIUM CARB/VIT D3 500/200 TABLET PO SCH (12:17)
--- NOTE | 2017-10-29 14:01 | NUR ---
"[facility] Social Work Discharge Planning Form Patient Name AKUA RECINOS Admit Date: 10/11 DISCHARGE PLAN Discharge Destination: [facility] Transportation: 10:30 Special Instructions/Notes: DISCHARGE TO FACILITY Facility: [facility] Fax: Address:[address] [place] [address] | [place] [address] Contact Name: TARA Chisholm, Other: PCP: at facility Psychiatrist: at facility Psychiatrist/Mental Health Follow Up at facility 7-10 days Primary Care Follow Up at facility 7-10days"
[2017-10-29 15:49] VITALS: BP 135/45
[2017-10-29] MEDS: DONEPEZIL HCL 10 MG TABLET PO SCH (19:20)
[2017-10-29] MEDS: AMITRIPTYLINE HCL 25 MG TABLET PO SCH (19:20)
[2017-10-29] MEDS: SIMVASTATIN 20 MG TABLET PO SCH (19:20)
[2017-10-29] MEDS: traZODone 50 MG TABLET. PO PRN ×2 (19:21→23:15)
--- NOTE | 2017-10-29 20:02 | PDOC ---
Exam Note: Torres Note: Please also refer to the separate dictated note~for this date of service dictated separately.~Patient seen individually. Discussed the patient with Nursing staff reviewed the chart.~Reviewed interim history and current functioning. Reviewed vital signs,~Labs/ Radiology~and current medications noted below. Continue current treatment with the changes noted in the dictated addendum note Assessment: Vital Signs: Vital Signs Date Time Temp Pulse Resp B/P (MAP) Pulse Ox O2 Delivery O2 Flow Rate FiO2 10/29/17 15:49 98.0 66 20 135/45 (75) 100 10/28/17 16:14 Room Air 98.0 I&O Intake and Output 10/29/17 07:00 Intake Total 1040 ml Balance 1040 ml Intake Oral 1040 ml # Bowel Movements 2 Current Medications: Meds: Current Medications Donepezil HCl (Aricept) 10 mg HS PO Last administered on 10/29/17at 19:20; Start 10/11/17 at 22:00 Lorazepam (Ativan) 0.5 mg PRN DAILY PRN PO ANXIETY / AGITATION Last administered on 10/26/17at 21:46; Start 10/11/17 at 21:45 Mirtazapine (Remeron) 7.5 mg QHS PO Last administered on 10/18/17at 20:06; Start 10/11/17 at 22:00; Stop 10/19/17 at 18:24; Status DC Olanzapine (ZyPREXA) 2.5 mg PRN Q2HR PRN PO ANXIETY / AGITATION; Start 10/11/17 at 21:45; Stop 10/12/17 at 08:11; Status DC Sertraline HCl (Zoloft) 25 mg DAILY PO Last administered on 10/14/17at 07:47; Start 10/12/17 at 09:00; Stop 10/14/17 at 19:06; Status DC Acetaminophen (Tylenol) 650 mg PRN Q6HRS PRN PO MILD PAIN Last administered on 10/29/17at 03:30; Start 10/11/17 at 21:45 Aspirin (Aspirin Enteric Coated) 81 mg DAILYWBKFT PO Last administered on at 08:03; Start 10/12/17 at 08:00 Calcium/Vitamin D (Oscal D 500mg/ 200uts) 2 tab DAILYWLUN PO Last administered on 10/29/17 12:17; Start 10/12/17 at 12:00 Cyanocobalamin (Vitamin B-12) 1,000 mcg DAILY PO Last administered on at 08:04; Start 10/12/17 at 09:00 Docusate Sodium (Colace) 100 mg DAILY PO Last administered on 10/20/17at 08:15; Start 10/12/17 at 09:00; Stop 10/20/17 at 17:59; Status DC Fenofibrate (Tricor) 145 mg DAILY PO Last administered on 10/29/17 08:04; Start 10/12/17 at 09:00 Fluticasone Propionate (Flonase) 1 spray DAILY NS Last administered on 08:03; Start 10/12/17 at 09:00 Gabapentin (Neurontin) 300 mg DAILY PO Last administered on 10/29/17 08:04; Start 10/12/17 at 09:00 Losartan Potassium (Cozaar) 25 mg DAILY PO ; Start 10/12/17 at 09:00; Status Future Hold Magnesium Oxide (Magnesium Oxide) 400 mg TID PO Last administered on 10/29/17 19:20; Start 10/12/17 at 09:00 Multi-Ingredient Ointment (Analgesic [place]) 1 garth PRN QID PRN TP MUSCLE PAIN Last administered on 10/29/17 05:27; Start 10/11/17 at 21:45 Ondansetron HCl (Zofran Odt) 4 mg PRN Q4HRS PRN PO NAUSEA; Start 10/11/17 at 21: 45 Pantoprazole Sodium (Protonix) 40 mg DAILYAC PO Last administered on 10/29/17at 08:03; Start 10/12/17 at 07:30 Simvastatin (Zocor) 20 mg HS PO Last administered on 10/29/17 19:20; Start 10/12/17 at 21:00 Al Hydroxide/Mg Hydroxide (Mylanta Plus Xs) 15 ml PRN AFTMEAL PRN PO DYSPEPSIA ; Start 10/11/17 at 22:00 Magnesium Hydroxide (Milk Of Magnesia) 2,400 mg PRN QHS PRN PO CONSTIPATION; Start 10/11/17 at 22:00 Multivitamins/ Calcium (Thera-M Plus) 1 tab DAILY PO Last administered on 08:04; Start 10/12/17 at 09:00 Fish Oil (Fish Oil) 1,000 mg BID PO Last administered on 10/29/17 19:20; Start 10/12/17 at 09:00 Potassium Chloride (Klor-Con) 10 meq DAILYWBKFT PO Last administered on 08:03; Start 10/12/17 at 08:00 Olanzapine (ZyPREXA ZYDIS) 2.5 mg PRN Q2HR PRN PO ANXIETY / AGITATION Last administered on 10/26/17 21:09; Start 10/12/17 at 08:15 Trazodone HCl (Desyrel) 50 mg PRN QHS PRN PO INSOMNIA Last administered on 10/29 19:21; Start 10/12/17 at 18:15 Quetiapine Fumarate (SEROquel) 12.5 mg DAILY PO Last administered on 10/24/17 08:04; Start 10/14/17 at 09:00; Stop 10/24/17 at 17:04; Status DC Sertraline HCl (Zoloft) 50 mg DAILY PO Last administered on 10/16/17at 07:58; Start 10/15/17 at 09:00; Stop 10/16/17 at 10:36; Status DC Sertraline HCl (Zoloft) 75 mg DAILY PO Last administered on 10/29/17at 08:05; Start 10/17/17 at 09:00 Mirtazapine (Remeron) 15 mg QHS PO Last administered on 10/26/17at 19:37; Start 10/19/17 at 21:00; Stop 10/27/17 at 18:40; Status DC Docusate Sodium (Colace) 100 mg BID PO Last administered on 10/29/17 19:20; Start 10/20/17 at 21:00 Polyethylene Glycol (miraLAX) 17 gm DAILY PO Last administered on 10/29/17 08: 04; Start 10/21/17 at 09:00 Quetiapine Fumarate (SEROquel) 12.5 mg BID92 PO Last administered on 10/29/17at 13:48; Start 10/25/17 at 09:00 Fluticasone Propionate (Flonase) 1 spray 1X ONCE NS Last administered on at 08:00; Start 10/27/17 at 08:00; Stop 10/27/17 at 08:01; Status DC Amitriptyline HCl (Elavil) 25 mg QHS PO Last administered on 10/29/17at 19:20; Start 10/27/17 at 21:00 Active Scripts Active Reported Trazodone Hcl 50 Mg Tablet 50 Mg PO PRN QHS PRN Seroquel (Quetiapine Fumarate) 25 Mg Tablet 12.5 Mg PO BID92 Polyethylene Glycol 3350 255 Gm Powder 17 Gm PO DAILY Olanzapine 5 Mg Tablet 2.5 Mg PO PRN Q2HR PRN Donepezil Hcl 10 Mg Tablet 10 Mg PO HS Tricor (Fenofibrate Nanocrystallized) 145 Mg Tablet 145 Mg PO DAILY Potassium Chloride 10 Meq Tablet.er 10 Meq PO DAILYWBKFT Zoloft (Sertraline Hcl) 25 Mg Tablet 25 Mg PO DAILY Pantoprazole Sodium 40 Mg Tablet.dr 40 Mg PO DAILYAC Remeron (Mirtazapine) 15 Mg Tablet 7.5 Mg PO QHS Analgesic [place] (Methyl Salicylate/Menthol) 28 Gm Oint...g. 1 Garth TP PRN QID PRN Maalox Advanced Suspension (Mag Hydrox/Aluminum Hyd/Simeth) 355 Ml Oral.susp 15 Ml PO PRN AFTMEAL PRN Milk Of Magnesia (Magnesium Hydroxide) 2,400 Mg/10 Ml Oral.susp 2,400 Mg PO PRN QHS PRN Magnesium Oxide 400 Mg Tablet 400 Mg PO TID Tylenol (Acetaminophen) 325 Mg Tablet 650 Mg PO PRN Q6HRS PRN Zofran Odt (Ondansetron) 4 Mg Tab.rapdis 4 Mg PO PRN Q4HRS PRN Lorazepam 0.5 Mg Tablet 0.5 Mg PO PRN DAILY PRN Docusate Sodium 100 Mg Capsule 100 Mg PO DAILY Vitamin B-12 (Cyanocobalamin (Vitamin B-12)) 1,000 Mcg Tablet 1,000 Mcg PO DAILY Simvastatin 20 Mg Tablet 20 Mg PO HS [place] 3 1,000 Mg Softgel ([place]-3 Fatty Acids/Fish Oil) 1 Each Capsule 1 Cap PO BID Multivitamins (Multivitamin) 1 Each Tablet 1 Each PO DAILY Losartan Potassium 25 Mg Tablet 25 Mg PO DAILY Gabapentin 300 Mg Capsule 300 Mg PO DAILY Fluticasone Propionate Nasal [place] (Fluticasone Propionate) 16 Gm [place].susp 1 [place] NS DAILY Calcium 500 + Vit D 200 Tablet (Calcium Carbonate/Vitamin D3) 1 Each Tablet 2 Each PO DAILYWLUN Aspirin Ec (Aspirin) 81 Mg Tablet. 81 Mg PO DAILYWBKFT I have reviewed the current psychotropics carefully including drug interactions. Risk benefit ratio favors no change other than as noted in my dictated progress note. Diagnosis: Problems: (1) Dehydration (2) Anxiety disorder (3) Impulse control disorder (4) Dementia, vascular, with depression (5) Dementia, vascular, with delusions (6) Dementia in Alzheimer's disease with depression (7) Dementia in Alzheimer's disease with delusions NICHOLE DAVIDSON MD Oct 29, 2017 20:02
--- NOTE | 2017-10-29 22:16 | NUR ---
Behavior Intervention Response and Plan: BIRP Note: Behavior: Assumed Care of patient, patient located in Day Room at shift change. Patient exhibited the following behavior Disorganized, Delusions, Cooperative. Brief assessment on rounds of vital signs, medication needs, lab studies, and pain. Treatment plan problems 1 and 2. Intervention: Patient assessed and the following interventions initiated safety checks 15 Minute Checks Cognitive Assessment , Head to toe Assessment , Medications. Response: After interactions and interventions patient responded in the following manner, Disorganized , Compliant ,Cooperative. Continue to assess behaviors and condition will continue to monitor throughout the shift as needed. Patient educated on ADL's, and hand hygiene. 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 Continue to assess patient for changes in above assessment. Monitor for medication needs, pain, and safety concerns. Hourly rounding performed to ensure safe environment.
--- NOTE | 2017-10-30 01:13 | PN ---
DATE: 10/28/2017 PSYCHIATRIC PROGRESS NOTE This is a late entry 10/28/2017 covers elements not covered in my initial note 10/28/2017. SUBJECTIVE: I met with the patient evening of 10/28/2017. The patient slept 2-1/4 hours previous evening, remains confused, delusional regarding pets and her as before. REVIEW OF SYSTEMS: Ambulation impaired, in wheelchair. No CV, , pulmonary, eye, ENT system symptoms on review. Reliability poor. MENTAL STATUS EXAM: Oriented to herself. Insight, judgment, recent and remote memory, attention, concentration, fund of knowledge poor, consistent with her diagnosis mentioned in my initial note. IMPRESSION: Major neurocognitive disorder, Alzheimer, vascular with depression, delusion, behavioral disturbance. Rest unchanged. PLAN: Continue current psychotropics. We will go ahead and repeat the trazodone for insomnia or look at other options including increasing amitriptyline if needed. Discussed with social service staff as well. NICHOLE DAVIDSON MD DR: ZIYAD/selena JOB#: [id number] / [id number]
[2017-10-30 05:54] VITALS: BP 145/50
[2017-10-30] MEDS: FLUTICASONE 50MCG/NASAL SPRAY 16GM BOTTLE. NS SCH (08:11)
[2017-10-30] MEDS: PANTOPRAZOLE 40 MG TABLET. PO SCH (08:12)
[2017-10-30] MEDS: OMEGA-3 FATTY ACIDS/FISH OIL 1,000 MG CAPSULE. PO SCH (08:12)
[2017-10-30] MEDS: ASPIRIN ENTERIC COATED 81 MG TABLET.DR. PO SCH (08:12)
[2017-10-30] MEDS: GABAPENTIN 300 MG CAPSULE. PO SCH (08:12)
[2017-10-30] MEDS: CYANOCOBALAMIN (VITAMIN B-12) 1,000 MCG TABLET. PO SCH (08:12)
[2017-10-30] MEDS: FENOFIBRATE NANOCRYSTALLIZED 145 MG TABLET PO SCH (08:12)
[2017-10-30] MEDS: DOCUSATE SODIUM 100 MG CAPSULE PO SCH (08:12)
[2017-10-30] MEDS: MULTIVITAMIN with MINERAL TABLET. PO SCH (08:12)
[2017-10-30] MEDS: POTASSIUM CHLORIDE 10 MEQ TABLET.ER. PO SCH (08:12)
[2017-10-30] MEDS: MAGNESIUM OXIDE 400 MG TABLET PO SCH (08:12)
[2017-10-30] MEDS: QUEtiapine 25 MG TABLET. PO SCH (08:13)
[2017-10-30] MEDS: SERTRALINE 50 MG TABLET. PO SCH (08:14)
[2017-10-30] MEDS: POLYETHYLENE GLYCOL 3350 17 GM PACKET. PO SCH (08:24)
--- NOTE | 2017-10-30 11:03 | NUR ---
Behavior Intervention Response and Plan: BIRP Note: Behavior: Assumed Care of patient, patient located in Dining Room at shift change. Patient exhibited the following behavior Calm, Interactive, Compliant. Brief assessment on rounds of vital signs, medication needs, lab studies, and pain. Treatment plan problems 1-2. Intervention: Patient assessed and the following interventions initiated safety checks 15 Minute Checks Cognitive Assessment , Head to toe Assessment , Medications. Response: After interactions and interventions patient responded in the following manner, Calm , Cooperative ,Drowsy. Continue to assess behaviors and condition will continue to monitor throughout the shift as needed. Patient educated on ADL's, and hand hygiene. Plan: Continue to monitor Master Treatment Plan for patient's progress toward short term goals of Decreased Agitation, Decreased Aggression, intermodal truck driver goals to return to previous living setting vs placement. Continue to assess patient for changes in above assessment. Monitor for medication needs, pain, and safety concerns. Hourly rounding performed to ensure safe environment.
--- NOTE | 2017-10-30 11:07 | NUR ---
Transition Record was faxed to follow-up provider with the following elements: Reason for admission, procedures, tests, principal diagnosis, pending studies, patient instructions, 28/04 contact information for unit, phone number to obtain pending test results, plan for follow-up care, physician follow-up, advanced directive information, and medication list with dose, duration and instructions. This information was included in the following documents: History and physical, lab results, study results, progress notes, social work planning form, DC instruction form, patient visit summary, and medication reconciliation form. Date & time record faxed: 10/30/17 0732 Record faxed to: [facility] Record discussed with/ report given to: message left for nurse at facility
--- NOTE | 2017-10-30 11:09 | NUR ---
patient discharged at 1045 to [facility]. Transportation provided by facility.
--- NOTE | 2017-10-31 22:59 | DS ---
DATE OF DISCHARGE: 10/30/2017 This is a late entry for date of service 10/30/2017 and covers elements not covered in my initial note of 10/30/2017. REASON FOR ADMISSION: Please refer to the admission history for details. Briefly, the patient is an 82-year-old female, referred to us from [facility] in [place], [place] by her primary care physician on account of worsening confusion, yelling, screaming repeatedly. She has been agitated, aggressive with cares, combative, hitting, kicking, biting scratching staff and picking at her skin. She had failed outpatient psychiatric interventions. SIGNIFICANT FINDINGS AND CLINICAL COURSE: Following admission, the patient was seen daily individually by myself, followed medically per Dr. Ybarra/Dr. Camarena. She was quite confused, anxious, labile, depressed and paranoid. Adjustments were made in her psychotropics, she seemed to respond to a combination of Zoloft 75 mg a day, Aricept 10 mg a day, Ativan p.r.n., Zyprexa p.r.n., trazodone 50 mg at bedtime p.r.n., may repeat x 1, Seroquel 12.5 mg b.i.d., amitriptyline 25 mg at bedtime. She had failed other interventions for her insomnia and the amitriptyline was helpful. Gradually, mood appeared to improve. She would still get a little labile at times, but much more redirectable prior to discharge. REVIEW OF SYSTEMS: Ambulation impaired, in wheelchair. No CV, , pulmonary, eye, ENT system symptoms on review. Reliability poor. MENTAL STATUS EXAM: Oriented to herself. Insight, judgment, recent and remote memory, attention, concentration, fund of knowledge poor, consistent with her diagnosis. CONDITION AT DISCHARGE: Improved. FINAL DIAGNOSES: Major neurocognitive disorder, Alzheimer, vascular with depression, delusion, behavioral disturbance; anxiety disorder, unspecified; impulse control disorder, unspecified. Rest unchanged from admission. DISCHARGE MEDICATIONS: Please refer to the [facility]. DISCHARGE INSTRUCTIONS: Outpatient psychiatric and medical followup at the [facility]. NICHOLE DAVIDSON MD DR: ZIYAD/selena JOB#: [id number] / [id number]
--- NOTE | 2017-11-01 07:55 | PN ---
DATE: 10/29/2017 This late entry 10/29/2017 covers elements not covered in my initial note 10/29/2017. Met with the patient the evening of 10/29/2017. Previous night she was yelling, agitated, labile and quite disruptive on the unit. She was given trazodone, which was effective and she slept better. On 10/29/2017 in the evening, she was obsessing about her and her pets. REVIEW OF SYSTEMS: Ambulation impaired, in wheelchair. No CV, , pulmonary, eye, ENT system symptoms on review, slightly hard of hearing. MENTAL STATUS EXAM: Oriented to herself. Insight, judgment, recent and remote memory, attention, concentration, fund of knowledge poor, consistent with her diagnosis mentioned in my initial note. IMPRESSION: Major neurocognitive disorder, Alzheimer, vascular, with depression, delusion, behavioral disturbance. PLAN: Continue current psychotropics. We will observe how she does overnight and if she does well, transition to [facility] 10/30/2017. MAN Nadja DAVIDSON MD DR: ZIYAD/selena JOB#: [id number] / [id number]
== END 2017-10-30 11:10 | DRG 56 ==
LOC: GEROPSY 21:24
PROVIDERS: ADMIT Psychiatry & Neurology Psychiatry; ATTEND Psychiatry & Neurology Psychiatry
DX: G30.9 Alzheimer's disease, unspecified (principal); E43 Unspecified severe protein-calorie malnutrition; E87.0 Hyperosmolality and hypernatremia; N17.9 Acute kidney failure, unspecified; F01.51 Vascular dementia, unspecified severity, with behavioral disturbance; E11.40 Type 2 diabetes mellitus with diabetic neuropathy, unspecified; E86.0 Dehydration; F02.81 Dementia in other diseases classified elsewhere, unspecified severity, with behavioral disturbance; Z68.23 Body mass index [BMI] 23.0-23.9, adult; F32.9 Major depressive disorder, single episode, unspecified; F41.9 Anxiety disorder, unspecified; F42.9 Obsessive-compulsive disorder, unspecified; E78.5 Hyperlipidemia, unspecified; I10 Essential (primary) hypertension; E87.6 Hypokalemia; E83.42 Hypomagnesemia; F22 Delusional disorders; F63.9 Impulse disorder, unspecified; G47.00 Insomnia, unspecified; K21.9 Gastro-esophageal reflux disease without esophagitis; K57.30 Diverticulosis of large intestine without perforation or abscess without bleeding; Z79.899 Other long term (current) drug therapy
CPT/HCPCS: 36415; 80053; 81001; 82274; 82947; 83735; 85025; 87086; 92610; 97110; 97116; 97530